=== PATIENT | female | born 1950 | race Caucasian/White ===

== ENCOUNTER 2024-06-01 09:39 | Outpatient (OUT) | payer MEDICARE, SELFPAY ==
[2024-06-01 10:18] LABS: Bilirubin Urine NEGATIVE (NEGATIVE); Blood Urine NEGATIVE (NEGATIVE); Clarity Urine CLEAR (CLEAR); Color Urine YELLOW (YELLOW); Glucose Urine UA NEGATIVE (NEGATIVE); Ketones Urine TRACE mg/dL (NEGATIVE); Leukocyte Esterase Urine SMALL (NEGATIVE); Nitrite Urine NEGATIVE (NEGATIVE); Protein Urine NEGATIVE (NEG/TRACE); Specific Gravity Urine >=1.030 (1.005-1.025); Urobilinogen Urine 0.2 EU/dL (0.2-1.0)
[2024-06-01 10:18] LABS: Basophils Percent Auto 0.4 % (0.2-2.0); Eosinophils Absolute Auto 0.4 10^3/uL (0.0-0.7); Eosinophils Percent Auto 4.9 % (0.9-7.0); Hematocrit 42.8 % (36.0-48.0); Hemoglobin 14.2 g/dL (12.0-16.0); Immature Granulocytes Abs Auto 0.02 10^3/uL (0.00-0.03); Immature Granulocytes Pct Auto 0.3 % (0.0-0.5); Lymphocytes Absolute Auto 1.5 10^3/uL (1.2-3.8); Lymphocytes Percent Auto 19.9 % (20.5-60.0); Mean Corpuscular HGB Conc 33.2 g/dL (29.9-35.2); Mean Corpuscular Hemoglobin 27.7 pg (26.7-34.0); Mean Corpuscular Volume 83.6 fL (81.0-99.0); Mean Platelet Volume 8.9 fL (9.5-13.5); Monocytes Absolute Auto 0.5 10^3/uL (0.3-0.8); Monocytes Percent Auto 6.1 % (1.7-12.0); Neutrophils Absolute Auto 5.1 10^3/uL (1.4-6.5); Neutrophils Percent Auto 68.4 % (43.0-75.0); Platelet Count 199 10^3/uL (150-450); Red Blood Count 5.12 10^6/uL (4.20-5.40); Red Cell Distribution Width 13.3 % (11.0-15.0); White Blood Count 7.4 10^3/uL (4.0-11.0)
[2024-06-01 10:52] LABS: RBC Urine NONE SEEN #/HPF (0-2)
[2024-06-01 10:53] LABS: Bacteria Urine SMALL #/HPF (NONE SEEN); Calcium Oxalate Crystals Urine MODERATE; Crystals Seen? Seen #/HPF (None Seen); Mucus Urine LARGE (NONE SEEN); Squamous Epithelial Cell Urine MANY #/LPF (NONE/RARE)
[2024-06-01 10:54] LABS: Urine Culture Indicated ALREADY ORDERED
[2024-06-01 11:02] LABS: Alanine Aminotransferase 27 U/L (14-59); Albumin Level 3.6 g/dL (3.4-5.0); Alkaline Phosphatase 110 U/L (46-116); Amylase 55 U/L (25-115); Anion Gap 14.4; Aspartate Amino Transferase 24 U/L (15-37); BUN Creatinine Ratio 10.6; Bilirubin Total 0.5 mg/dL (0.2-1.0); Calcium 9.3 mg/dL (8.5-10.1); Carbon Dioxide 23.7 mmol/L (21.0-32.0); Chloride 107 mmol/L (98-107); Chol HDL Ratio 3.1; Cholesterol 119 mg/dL (<=200); Estimated GFR (African America >60 (>=60); Estimated GFR (Non-African Ame 58 (>=60); Globulin 3.6 g/dL; Glucose 96 mg/dL (74-106); HDL Cholesterol 39 mg/dL (40-60); Potassium 4.1 mmol/L (3.5-5.1); Sodium 141 mmol/L (136-145); Thyroid Stimulating Hormone 1.671 uIU/mL (0.358-3.740); Total Protein 7.2 g/dL (6.4-8.2); Triglycerides 97 mg/dL (<=150); VLDL CHOLESTEROL 19.4 mg/dL
== END 2024-06-01 09:40 | disposition home or self-care (01) ==
LOC: LAB 09:45
PROVIDERS: PCP Family Medicine; Visit Provider Family Medicine
DX: E78.5 Hyperlipidemia, unspecified (principal); Z79.899 Other long term (current) drug therapy; R63.5 Abnormal weight gain; R35.1 Nocturia; Z80.0 Family history of malignant neoplasm of digestive organs
CPT/HCPCS: 36415; 80053; 80061; 81001; 82150; 83690; 84443; 85025; 87086

== ENCOUNTER 2024-11-02 12:25 | Observation (INO) | payer MEDICARE, SELFPAY ==
[2024-11-02] VITALS (22 sets, daily range): BP systolic 121–158; BP diastolic 70–94; PULSE 62–86; TEMP 36.4–36.7; O2SAT 93–100; BMI 32.8; BMI 33.3
[2024-11-02 12:38] LABS: Glucometer 145 mg/dL (74-106)
--- OUTSIDE RECORDS SUMMARY | 2024-11-02 12:40 | XMS_ITS | CCD ---
Author Organization [facility] Care Team Providers Care Patient Coordinator Name Role Phone TRABOULSSI, MOURHAF Unavailable Unavailable HEATON, BEAU Unavailable Unavailable TRABOULSSI, MOURHAF Unavailable Unavailable HEATON, BEAU Unavailable Unavailable TRABOULSSI, MOURHAF Unavailable Unavailable HEATON, BEAU Unavailable Unavailable Madison Abernathy Unavailable Bradley Adkins Unavailable Monster Harding Unavailable DO Monster Harding Primary Care Provider [phone] DO Madison Abernathy Attending Provider MADISON ABERNATHY Admitting Unavailable MADISON ABERNATHY Attending Unavailable DR MONSTER HARDING Primary Care Unavailable DO Monster Harding Primary Care Provider [phone] DO Madison Abernathy Attending Provider [phone] DO Monster Harding Primary Care Provider [phone] DO Madison Abernathy Attending Provider [phone] Marc Luciano Unavailable DO Monster Harding Primary Care Provider MD Jose Grullon Attending Provider [phone] DO Mickey Gaspar Emergency Provider MD Bradley Slade Attending Provider [phone] ERLIN COLLINS Attending Unavailable ERLIN COLLINS Referring Unavailable ERLIN COLLINS Referring Unavailable DO Monster Harding Primary Care Provider MD Bradley Adkins Attending Provider Monster Harding MD Primary Care Provider [phone] DO Monster Harding Primary Care Provider MD Bradley Adkins Attending Provider Monster Harding DO Primary Care Provider Bradley Adkins MD Attending Provider [phone] Bradley Adkins Admitting Unavailable Bradley Adkins Attending Unavailable Monster Harding Primary Care Unavailable Bradley Adkins Admitting Unavailable Bradley Adkins Attending Unavailable Monster Harding Primary Care Unavailable Bradley Adkins Admitting Unavailable Bradley Adkins Attending Unavailable Monster Harding Primary Care Unavailable Allergies Allergy Classification Reported Allergen(s) Allergy Type Date of Onset Reaction(s) Facility (20 sources) Contrast media; Translations: [red dye] Propensity to adverse reactions 05-11-2024 [facility] (17 sources) Povidone-Iodine; Translations: [povidone-iodine ] Drug Allergy 10-10-2021 [facility] Medications Current Medications Medication Drug Class(es) Dates Sig (Normalized) Sig (Original) Aspir-81 81 MG (9 sources) take 1 tablet by mouth once daily Aspir-81 81 MG 1 tablet Orally Once a day Active azithromycin 250 mg oral tablet (3 sources) Macrolide Antimicrobial Start: 02-19-2022 Azithromycin 250 MG 2 tablet on the first day, then 1 tablet daily for 4 days Orally Once a day for 5 day(s) February, Active CBD gummies (5 sources) CBD gummies Acti ve cyclobenzaprine hydrochloride 5 mg oral tablet (7 sources) Muscle Relaxant Start: 12-06-2021 take 1 tablet by mouth every twenty-four hours Cyclobenzaprine HCl 5 MG 1 tablet at bedtime as needed Orally Once a day for 30 day(s) Dec, Active Echinacea (9 sources) Echinacea Active Garlic preparation (3 sources) Non-Standardized Food Allergenic Extract Garlic Active ibuprofen 200 mg oral tablet (20 sources) Nonsteroidal Anti-inflammatory Drug Start: 05-11-2024 take 1 tablet by mouth every six hours as needed for pain Ibuprofen 200 mg tablet Active 200 MG PO Every 6 hours as needed for pain May 10, 2024 11:00pm Start: 08-16-2022 End: 05-13-2023 take 1 tablet by mouth once daily as needed for pain Ibuprofen 600 mg Tablet Discontinued 600 MG PO Daily as needed for Pain August 16, 2022 12:00am May 13, 2023 2:25am Ibuprofen OTC Ac tive meclizine hydrochloride 50 mg oral tablet (20 sources) Antiemetic Start: 11-05-2023 take 1 tablet by mouth once daily as needed for dizziness Meclizine (Antivert) 50 mg tablet Active 50 MG PO Daily as needed for dizziness November 05, 2023 12:00am Start: 07-29-2018 End: 05-13-2023 take 1 tablet by mouth once daily as needed Meclizine 25 mg tablet Discontinued 25 MG PO Daily as needed for Vertigo June 04, 2019 11:00pm May 13, 2023 2:25am Start: 07-29-2018 take 1 tablet by julissa th three times daily as needed Meclizine HCl 25 MG 1 tablet Orally tid prn Jul, Active methylPREDNISolone 4 mg oral tablet (1 source) Corticosteroid Start: 12-06-2021 Medrol 4 MG as directed Orally Dec, Active nabumetone 750 mg oral tablet (2 sources) Nonsteroidal Anti-inflammatory Drug Start: 05-05-2021 take 1 tablet by mouth every twelve hours Nabumetone 750 MG 1 tablet Orally Twice a day for 30 day(s) Apr, Active naproxen 500 mg oral tablet (7 sources) Nonsteroidal Anti-inflammatory Drug Start: 12-06-2021 take 1 tablet by mouth every twelve hours at mealtime as needed Naproxen 500 MG 1 tablet with food or milk as needed Orally every 12 hrs for 30 day(s) do not start until done with Medrol dose pack Dec, Active phentermine hydrochloride 37.5 mg oral tablet (20 sources) Sympathomimetic Amine Anorectic Start: 10-21-2024 take 1 tablet by mouth once daily Phentermine (Adipex-P) 37.5 mg tablet Active 37.5 MG PO Daily October 21, 2024 10:14am Start: 08-18-2024 End: 10-21-2024 take 1 tablet by mouth every other day Phentermine (Adipex-P) 37.5 mg tablet Discontinued 37.5 MG PO every other day October 21, 2024 10:05am October 21, 2024 10:15am Start: 11-05-2023 End: 08-18-2024 take 1 tablet by mouth once daily in the morning Phentermine (Adipex-P) 37.5 mg tablet Discontinued 37.5 MG PO Every morning July 07, 2024 9:46am August 18, 2024 10:30am Start: 10-21-2023 take 1 tablet by julissa th once daily in the morning Phentermine HCl 37.5 MG 1 tablet Orally qd am for 30 days Pt will pay pino for this, no PA will be done Oct, Active traMADol hydrochloride 50 mg oral tablet (9 sources) Opioid Agonist Start: 12-06-2021 take 1 tablet by mouth every four to six hours as needed traMADol HCl 50 MG 1 tablet as needed Orally EVERY 4-6 HOURS NEEDED Dec, Active traMADol HCl 50 MG 1 tablet as needed for severe pain Orally every 6-8 hours for 7 days Active triamcinolone acetonide 1 mg/ml topical cream (20 sources) Corticosteroid Start: 09-03-2023 triamcinolone (Kenalog) 0.1 % cream Indications: Acute vaginitis Apply topically 2 (two) times a day. 28.4 g 3 09/03/2023 Active Start: 04-28-2021 Kenalog -40 mg Apr, 40 mg Vitamin C 1000 MG (12 sources) take 1 tablet by julissa th once daily Vitamin C 1000 MG 1 tablet Orally Once a day Active Vitamin D3 125 MCG (5000 UT) (8 sources) Vitamin D3 125 M CG (5000 UT) as directed Orally Active Completed/Discontinued Medications Medication Drug Class(es) Dates Sig (Normalized) Sig (Original) acetaminophen 500 mg oral tablet (20 sources) Start: 08-16-2022 End: 05-13-2023 take 3 tablets by mouth twice daily Acetaminophen 500 mg Tablet Discontinued 1500 MG PO Twice daily August 16, 2022 12:00am May 13, 2023 2:25am Start: 08-16-2022 End: 05-13-2023 take 1500 mg by mouth twice daily Acetaminophen Discontinued 1500 MG PO Twice daily August 16, 2022 1:00am May 13, 2023 3:25am take 1 tablet by julissa th every four hours Tylenol 325 MG 1 tablet as needed Orally every 4 hrs Active Ascorbic Acid (20 sources) Vitamin C Start: 06-09-2019 End: 05-13-2023 take 1 tablet by mouth once daily Ascorbic Acid (Vitamin C) (C-1000) ,000 mg Tablet Discontinued 1 TAB PO Daily June 08, 2019 11:00pm May 13, 2023 2:25am Start: 06-09-2019 End: 05-13-2023 take 1 tablet by mouth once daily Ascorbic Acid (Vitamin C) (C-1000) 1,000 mg Tablet Discontinued 1 TAB PO Daily June 09, 2019 12:00am May 13, 2023 3:25am Start: 06-09-2019 take 1 tablet by julissa th once daily Ascorbic Acid (Vitamin C) (C-1000) 1,000 mg Tablet Active 1 TAB PO Daily June 08, 2019 11:00pm Start: 06-09-2019 take 1 tablet by julissa th once daily Ascorbic Acid (Vitamin C) (C-1000) 1,000 mg Tablet Active 1 TAB PO Daily June 09, 2019 12:00am take 1 tablet by julissa th every twenty-four hours Vitamin C 1000 MG 1 tablet Orally Once a day Active aspirin 81 mg delayed release oral tablet (20 sources) Platelet Aggregation Inhibitor, Nonsteroidal Anti-inflammatory Drug Start: 10-17-2021 End: 08-16-2022 take 1 tablet by mouth twice daily Aspirin 81 mg tablet,delayed release (DR/EC) Discontinued 81 MG PO Twice daily 42 October 17, 2021 12:00am August 16, 2022 4:45pm Start: 10-10-2021 End: 10-17-2021 take 1 tablet by mouth once daily Aspirin (Aspirin Low Dose) 81 mg Tablet,Delayed Release (Dr/Ec) Discontinued 81 MG PO Daily October 10, 2021 12:00am October 17, 2021 11:05am Start: 10-08-2017 End: 10-10-2021 take 1 tablet by mouth once daily Aspirin 81 mg Tablet,Chewable Discontinued 81 MG PO Daily October 08, 2017 12:00am October 10, 2021 12:36pm Cannabinoids (13 sources) Start: 06-05-2019 End: 10-10-2021 Cannabinoids Discontinued 15 MG PO As Directed June 04, 2019 11:00pm October 10, 2021 12:42pm DIRECTED Start: 06-05-2019 End: 10-10-2021 Cannabinoids Discontinued 15 MG PO As Directed June 05, 2019 12:00am October 10, 2021 1:42pm DIRECTED Cannabinoids 15 MG (4 sources) Start: 06-05-2019 End: 10-10-2021 Cannabinoids 15 MG Discontin ued 15 MG PO As Directed June 04, 2019 11:00pm October 10, 2021 12:42pm DIRECTED Cbd (13 sources) Start: 10-10-2021 End: 05-13-2023 Cbd Discontinued 1 CAP PO As Directed October 10, 2021 12:00am May 13, 2023 2:25am Start: 10-10-2021 End: 05-13-2023 Cbd Discontinued 1 CAP PO As Directed October 10, 2021 1:00am May 13, 2023 3:25am Start: 10-10-2021 Cbd Active 1 C AP PO As Directed October 10, 2021 12:00am Start: 10-10-2021 Cbd Active 1 C AP PO As Directed October 10, 2021 1:00am Cbd 1 cap (4 sources) Start: 10-10-2021 End: 05-13-2023 Cbd 1 cap Discontinued 1 CAP PO As Directed as needed for joint pain October 10, 2021 12:00am May 13, 2023 2:25am cephalexin 500 mg oral capsule (9 sources) Cephalosporin Antibacterial Start: 05-11-2024 End: 06-10-2024 take 1 capsule by mouth three times daily Cephalexin 500 mg capsule Discontinued 500 MG PO Three times daily 26 04May 10, 2024 11:00pm June 10, 2024 8:56am cholecalciferol 0.025 mg oral capsule (20 sources) Vitamin D Start: 10-10-2021 End: 05-13-2023 take 1 capsule by mouth once daily Cholecalciferol (Vitamin D3) (Vitamin D3) 25 mcg (1,000 unit) Capsule Discontinued 25 MCG PO Daily October 10, 2021 12:00am May 13, 2023 2:25am Vitamin D3 125 M CG (5000 UT) as directed Orally Active Elderberry preparation (20 sources) Start: 10-10-2021 End: 05-13-2023 take 1 capsule by mouth once daily Elderberry 1 cap Discontinued 1 CAP PO Daily October 10, 2021 12:00am May 13, 2023 2:25am Start: 10-10-2021 End: 05-13-2023 take 1 capsule by mouth once daily Elderberry Discontinued 1 CAP PO Daily October 10, 2021 12:00am May 13, 2023 2:25am Start: 10-10-2021 End: 05-13-2023 take 1 capsule by mouth once daily Elderberry Discontinued 1 CAP PO Daily October 10, 2021 1:00am May 13, 2023 3:25am Start: 10-10-2021 take 1 capsule by mo uth once daily Elderberry Active 1 CAP PO Daily October 10, 2021 12:00am Start: 10-10-2021 take 1 capsule by mo uth once daily Elderberry Active 1 CAP PO Daily October 10, 2021 1:00am Elderberry Activ e folic acid 1 mg oral tablet (17 sources) Start: 10-08-2017 End: 06-09-2019 take 1 tablet by mouth once daily Folic Acid 1 mg Tablet Discontinued 1 MG PO Daily October 08, 2017 12:00am June 09, 2019 12:09pm methotrexate 2.5 mg oral tablet (17 sources) Folate Analog Metabolic Inhibitor Start: 10-08-2017 End: 06-09-2019 take 1 tablet by mouth every week Methotrexate Sodium 2.5 mg Tablet Discontinued 2.5 MG PO every week October 08, 2017 12:00am June 09, 2019 12:09pm ondansetron 4 mg oral tablet (12 sources) Serotonin-3 Receptor Antagonist Start: 05-13-2023 End: 11-05-2023 take 1 tablet by mouth once daily as needed for nausea and vomiting Ondansetron Hcl 4 mg tablet Discontinued 4 MG PO Daily as needed for nausea and vomiting 5 May 12, 2023 11:00pm November 05, 2023 8:34am oxyCODONE hydrochloride 5 mg oral tablet (20 sources) Opioid Agonist Start: 05-13-2023 End: 05-21-2023 take 1 tablet by mouth once daily as needed for pain Oxycodone 5 mg tablet Discontinued 5 MG PO Daily as needed for severe pain 02 08May 13, 2023 May 21, 2023 10:01am Start: 10-17-2021 End: 08-16-2022 take 1 tablet by mouth every six hours as needed for pain Oxycodone (Roxicodone) 5 mg tablet Discontinued 5 MG PO Q6H as needed for pain 25 04October 17, 2021 August 16, 2022 4:45pm oxyCODONE HCl Ac tive predniSONE 20 mg oral tablet (9 sources) Start: 05-11-2024 End: 06-10-2024 take 3 tablets by mouth once daily at mealtime, then take 2 tablets by mouth once daily, then take 1 tablet by mouth once daily at mealtime Prednisone 20 mg tablet Discontinued 0 PO .with food or milk 18 9 May 10, 2024 11:00pm June 10, 2024 8:57am take 3 tablets a day x3 days, 2 tabs a day x3 days and then 1 tab a day x3 days orally WITH FOOD OR MILK; Zinc (20 sources) Start: 10-10-2021 End: 05-13-2023 take 1 tablet by mouth once daily Zinc 50 mg Tablet Discontinued 50 MG PO Daily October 10, 2021 12:00am May 13, 2023 2:25am Start: 10-10-2021 End: 05-13-2023 take 50 mg by mouth once daily Zinc Discontinued 50 MG PO Daily October 10, 2021 12:00am May 13, 2023 2:25am Start: 10-10-2021 End: 05-13-2023 take 50 mg by mouth once daily Zinc Discontinued 50 MG PO Daily October 10, 2021 1:00am May 13, 2023 3:25am Start: 10-10-2021 take 50 mg by mouth once daily Zinc Active 50 MG PO Daily October 10, 2021 12:00am Start: 10-10-2021 take 50 mg by mouth once daily Zinc Active 50 MG PO Daily October 10, 2021 1:00am take 1 tablet by julissa th once daily Zinc 100 MG 1 tablet Orally Once a day Active Problems Active Problems Problem Classification Problem Date Documented Da te Episodic/Chronic Allergic reactions (19 sources) Inflammatory dermatosis; Translations: [Dermatitis, unspecified] 05-11-2024 Episodic Conditions associated with dizziness or vertigo (3 sources) Labyrinthitis, unspecified ear Episodic Disorders of lipid metabolism (20 sources) Hyperlipidemia; Translations: [Hyperlipidemia, unspecified] Chronic Genitourinary symptoms and ill-defined conditions (20 sources) Female stress incontinence; Translations: [Stress incontinence (female) (male)] Chronic Headache; including migraine (4 sources) Headache; Translations: [Headache] 10-21-2024 Episodic Joint disorders and dislocations; trauma-related (20 sources) Internal derangement of left knee; Translations: [Unspecified internal derangement of left knee] Chronic Osteoarthritis (20 sources) Arthritis of left knee; Translations: [Unilateral primary osteoarthritis, left knee] Onset: 1 Resolved: 2 Chronic Other bone disease and musculoskeletal deformities (1 source) Chondromalacia, right hip Episodic Other connective tissue disease (5 sources) Trochanteric bursitis, right hip; Translations: [TROCHANTERIC BURSITIS RIGHT HIP] Onset: 2 Resolved: 2 Episodic Other disorders of stomach and duodenum (20 sources) Upset stomach; Translations: [Functional dyspepsia] Episodic Other gastrointestinal disorders (17 sources) Stool DNA-based colorectal cancer screening positive; Translations: [Other fecal abnormalities] 10-09-2017 Episodic Other lower respiratory disease (20 sources) Fibrosis of lung; Translations: [Pulmonary fibrosis, unspecified] Chronic Other lower respiratory disease (20 sources) Granulomatous disorder; Translations: [Pulmonary fibrosis, unspecified] Chronic Other lower respiratory disease (20 sources) Lung field abnormal; Translations: [Other nonspecific abnormal finding of lung field] Episodic Other nervous system disorders (20 sources) Chronic pain; Translations: [Other chronic pain] 08-04-2024 Chronic Other nervous system disorders (18 sources) Other chronic pain; Translations: [Other chronic pain] Onset: 2 Resolved: 2 Chronic Other nervous system disorders (1 source) Other chronic pain; Translations: [Other chronic pain] Onset: 4 Chronic Other nervous system disorders (20 sources) Skin sensation disturbance; Translations: [Paresthesia of skin] Episodic Other nervous system disorders (20 sources) Paresthesia; Translations: [Paresthesia of skin] Episodic Other non-traumatic joint disorders (2 sources) Pain in right hip Onset: 2 Resolved: 2 Episodic Other non-traumatic joint disorders (12 sources) Hip pain; Translations: [Pain in unspecified hip] 05-13-2023 Episodic Other non-traumatic joint disorders (6 sources) Pain in unspecified knee; Translations: [Knee pain] 08-04-2024 Episodic Other nutritional; endocrine; and metabolic disorders (19 sources) Abnormal weight gain; Translations: [Abnormal weight gain] Episodic Other nutritional; endocrine; and metabolic disorders (3 sources) Weight gain; Translations: [Abnormal weight gain] 05-11-2024 Episodic Other nutritional; endocrine; and metabolic disorders (6 sources) Weight increased; Translations: [Abnormal weight gain] 05-11-2024 Episodic Residual codes; unclassified (9 sources) Family history of malignant neoplasm of pancreas; Translations: [Family history of malignant neoplasm of digestive organs] 05-11-2024 Episodic Residual codes; unclassified (5 sources) Family history of malignant neoplasm of digestive organs; Translations: [Family history of malignant neoplasm of gastrointestinal tract] 06-10-2024 Episodic Rheumatoid arthritis and related disease (20 sources) Rheumatoid arthritis; Translations: [Rheumatoid arthritis, unspecified] Chronic Spondylosis; intervertebral disc disorders; other back problems (20 sources) Solitary sacroiliitis; Translations: [Sacroiliitis, not elsewhere classified] Onset: 2 Resolved: 2 Chronic Spondylosis; intervertebral disc disorders; other back problems (20 sources) Sciatica; Translations: [Sciatica, unspecified side] 05-13-2023 Episodic Unclassified (2 sources) Shortness of breath / R06.02(ICD-9) Onset: 8 Unclassified (1 source) Obesity, unspecified / E66.9(ICD-9) Onset: 8 Unclassified (1 source) Rheumatoid arthritis, unspecified / M06.9(ICD-9) Onset: 8 Unclassified (2 sources) Chest pain, unspecified / R07.9(ICD-9) Onset: 7 Unclassified (1 source) LOW BACK PAIN, UNSPECIFIED; Translations: [LOW BACK PAIN, UNSPECIFIED] Onset: 2 Unclassified (1 source) OTHER LOW BACK PAIN; Translations: [OTHER LOW BACK PAIN] Onset: 2 Past or Other Problems Problem Classification Problem Date Documented Date Episodic/Chronic Joint disorders and dislocations; trauma-related (2 sources) Other tear of medial meniscus, current injury, left knee, subsequent encounter Onset: 10-04-2021 Resolved: 12-06-2021 Episodic Nonspecific chest pain (1 source) Chest pain, unspecified; Translations: [Chest pain, unspecified] Onset: 09-11-2017 Episodic Other connective tissue disease (1 source) Synovial cyst of popliteal space [[place]], left knee Onset: 10-04-2021 Resolved: 10-04-2021 Episodic Other lower respiratory disease (1 source) Shortness of breath; Translations: [Shortness of breath] Onset: 10-17-2017 Episodic Other non-traumatic joint disorders (1 source) Pain in left knee Onset: 10-04-2021 Resolved: 10-04-2021 Episodic Residual codes; unclassified (1 source) Other specified postprocedural states Onset: 12-06-2021 Resolved: 12-06-2021 Episodic Sprains and strains (1 source) Sprain of other specified parts of left knee, subsequent encounter Onset: 10-04-2021 Resolved: 10-04-2021 Episodic Unclassified (5 sources) Lumbar back pain M54.50 Onset: 01-03-2022 Resolved: 05-09-2022 Unclassified (5 sources) Other low back pain M54.59 Onset: 02-07-2022 Resolved: 05-09-2022 Results Test Name Value Interpretation Reference Range Facility XR knee LT 2Von 08-04-2024 XR knee LT 2V [facility] [address] [place] [address] XRay Report Signed Patient: Marisol Cantrell MR#: [id number] : 1950 Acct:[id number] Age/Sex: 74 / F ADM Date: 08/04/24 Loc: [facility] Room: Type: [facility] Attending Dr: Bradley Adkins MD Copies to: Bradley Adkins MD Ordering Provider: Bradley Adkins MD Date of Service: 08/04/24 XR/XR knee LT 2V: M17.12 - Unilateral primary osteoarthritis, left knee 2 views LEFT knee plain film COMPARISON: 03/27/21 HISTORY: Generalized LEFT knee pain for weeks ACUTE FINDINGS: No acute findings DEGENERATIVE CHANGE: Progressive extensive medial compartment degeneration. Mild patellofemoral degeneration. SOFT TISSUE FINDINGS: Unremarkable JOINT EFFUSION: None POSTOP CHANGES: None BONE MINERALIZATION: Adequate XR/XR knee LT 2V IMPRESSION: Progressive extensive medial compartment degeneration. Impression dictated by: Lobo Velasquez M.D.08/04/2024 6:05 PM Dictation Location: [place] [address] Transcribed By: RYLEY 08/04/241804 Dictated By: Lobo Velasquez DO 08/04/241803 Signed By: 08/04/241804 Normal [facility] Basophils Auto (Bld) [#/Vol] on 06-01-2024 Basophils (Bld) [#/Vol] 0.0 10 3/uL 0.0-0.1 [facility] Basophils (Bld) [#/Vol] Automated basoph il count 0.0-0.1 [facility] Basophils/100 WBC Auto (Bld) on 06-01-2024 Basophils/100 WBC (Bld) 0.4 % 0.2-2.0 [facility] Basophils/100 WBC (Bld) Automated basoph il % 0.2-2.0 [facility] Cholesterol in LDL Calc [Mas s/Vol]on 06-01-2024 Cholesterol in LDL [Mass/Vol] 61.0 mg/dL [facility] Comment on above: <100 mg/dl [id number] 0-129 mg/dl NEAR OR ABOVE [id number] mg/dl BORDERLINE [id number] mg/dl HIGH>190 mg/dl VERY HIGH Cholesterol in LDL [Mass/Vol] Cholesterol in LDL [Mass/volume] in Serum or Plasma by calculation [facility] Comment on above: <100 mg/dl [id number] 0-129 mg/dl NEAR OR ABOVE [id number] mg/dl BORDERLINE [id number] mg/dl HIGH>190 mg/dl VERY HIGH Cholesterol in VLDL Calc [Ma ss/Vol]on 06-01-2024 Cholesterol in VLDL [Mass/Vol] 19.4 mg/dL [facility] Cholesterol in VLDL [Mass/Vol] Cholesterol in VLDL [Mass/volume] in Serum or Plasma by calculation [facility] Eosinophils/100 WBC Auto (Bl d)on 06-01-2024 Eosinophils/100 WBC (Bld) 4.9 % 0.9-7.0 [facility] Eosinophils/100 WBC (Bld) Automated eosinophil % 0.9-7.0 [facility] Erythrocyte distribution wid th Auto (RBC) [Ratio]on 06-01-2024 Erythrocyte distribution width (RBC) [Ratio] 13.3 % 11.0-15.0 [facility] Erythrocyte distribution width (RBC) [Ratio] Erythrocyte distribution width [Ratio] by Automated count 11.0-15.0 [facility] Estimated glomerular filtrat ion rate (GFR) non- Americanon 06-01-2024 GFR/1.73 sq M.predicted among non-blacks MDRD (S/P/Bld) [Vol rate/Area] 58 mL/min/{1.73_m2} Low >=60 [facility] GFR/1.73 sq M.predicted among non-blacks MDRD (S/P/Bld) [Vol rate/Area] Estimated glomerular filtration rate (GFR) non- Low >=60 [facility] Globulin Calc (S) [Mass/Vol] on 06-01-2024 Globulin (S) [Mass/Vol] 3.6 g/dL [facility] Globulin (S) [Mass/Vol] Serum globulin measurement by calculation (mass/volume) [facility] Hematocrit Auto (Bld) [Volum e fraction]on 06-01-2024 Hematocrit (Bld) [Volume fraction] 42.8 % 36.0-48.0 [facility] Hematocrit (Bld) [Volume fraction] Hematocrit [Volume Fraction] of Blood by Automated count 36.0-48.0 [facility] Hemoglobin [Mass/volume] in Bloodon 06-01-2024 Hemoglobin (Bld) [Mass/Vol] 14.2 g/dL 12.0-16.0 [facility] Hemoglobin (Bld) [Mass/Vol] Hemoglobin [Mass/volume] in Blood 12.0-16.0 [facility] Laboratory - Chemistry and C hemistry - challengeon 06-01-2024 Albumin [Mass/Vol] 3.6 g/dL 3.4-5.0 [facility] ALP [Catalytic activity/Vol] 110 U/L 46-116 [facility] ALT [Catalytic activity/Vol] 27 U/L 14-59 [facility] Amylase [Catalytic activity/Vol] 55 U/L 25-115 [facility] AST [Catalytic activity/Vol] 24 U/L 15-37 [facility] Bilirubin [Mass/Vol] 0.5 mg/dL 0.2-1.0 [facility] Calcium [Mass/Vol] 9.3 mg/dL 8.5-10.1 [facility] Chloride [Moles/Vol] 107 mmol/L 98-107 [facility] Cholesterol [Mass/Vol] 119 mg/dL <=200 [facility] Cholesterol in HDL [Mass/Vol] 39 mg/dL Low 40-60 [facility] Comment on above: > or =60 mg/dl - LOW CARDIOVASCULAR RISK<40 mg/dl - HIGH CARDIOVASCULAR RISK CO2 [Moles/Vol] 23.7 mmol/L 21.0-32.0 [facility] Creatinine [Mass/Vol] 0.94 mg/dL 0.55-1.02 [facility] GFR/1.73 sq M.predicted MDRD (S/P/Bld) [Vol rate/Area] mL/min/{1.73_m2} >=60 [facility] Glucose [Mass/Vol] 96 mg/dL 74-106 [facility] Lipase [Catalytic activity/Vol] 34.0 U/L 16.0-77.0 [facility] Potassium [Moles/Vol] 4.1 mmol/L 3.5-5.1 [facility] Protein [Mass/Vol] 7.2 g/dL 6.4-8.2 [facility] Sodium [Moles/Vol] 141 mmol/L 136-145 [facility] Triglyceride [Mass/Vol] 97 mg/dL <=150 [facility] TSH Qn 1.671 m[IU]/L 0.358-3.740 [facility] Urea nitrogen [Mass/Vol] 10.0 mg/dL 7.0-18.0 [facility] Urea nitrogen/Creatinine [Mass ratio] 10.6 mg/mg [facility] Bilirubin Ql (U) Negative NEGATIVE [facility] Glucose (U) [Mass/Vol] Negative NEGATIVE [facility] Ketones Ql (U) TRACE mg/dL Abnormal NEGATIVE [facility] pH (U) 6.0 [pH] 5.0-9.0 [facility] Specific gravity (U) [Rel density] >=1.030 Abnormal 1.005-1.025 [facility] Urobilinogen Qn (U) 0.2 {Nery'U}/dL 0.2-1.0 [facility] Laboratory - Hematology and Cell countson 06-01-2024 Immature granulocytes/100 WBC (Bld) 0.3 % 0.0-0.5 [facility] - Specimen inform ationon 06-01-2024 Appearance (U) CLEAR CLEAR [facility] Color (U) YELLOW YELLOW [facility] - Urinalysison Leukocyte esterase Test strip Ql (U) SMALL Abnormal NEGATIVE [facility] Mucus Ql (Urine sed) LARGE Abnormal NONE SEEN [facility] Nitrite Ql (U) Negative NEGATIVE [facility] Protein Ql (U) Negative NEG/TRACE [facility] Leukocytes [#/volume] correc piotr for nucleated erythrocytes in Blood by Automated counon 06-01-2024 WBC corrected for nucl RBC Auto (Bld) [#/Vol] 7.4 10 3/uL 4.0-11.0 [facility] WBC corrected for nucl RBC Auto (Bld) [#/Vol] Leukocytes [#/volume] corrected for nucleated erythrocytes in Blood by Automated coun 4.0-11.0 [facility] Lymphocytes Auto (Bld) [#/Vo l]on 06-01-2024 Lymphocytes (Bld) [#/Vol] 1.5 10 3/uL 1.2-3.8 [facility] Lymphocytes (Bld) [#/Vol] Lymphocytes [#/volume] in Blood by Automated count 1.2-3.8 [facility] Lymphocytes/100 WBC Auto (Bl d)on 06-01-2024 Lymphocytes/100 WBC (Bld) 19.9 % Low 20.5-60.0 [facility] Lymphocytes/100 WBC (Bld) Lymphocytes/100 leukocytes in Blood by Automated count Low 20.5-60.0 [facility] MCH Auto (RBC) [Entitic mass ]on 06-01-2024 MCH (RBC) [Entitic mass] 27.7 pg 26.7-34.0 [facility] MCH (RBC) [Entitic mass] MCH [Entitic ma ss] by Automated count 26.7-34.0 [facility] MCHC Auto (RBC) [Mass/Vol]on 06-01-2024 MCHC (RBC) [Mass/Vol] 33.2 g/dL 29.9-35.2 [facility] MCHC (RBC) [Mass/Vol] MCHC [Mass/volume] by Automated count 29.9-35.2 [facility] MCV Auto (RBC) [Entitic vol] on 06-01-2024 MCV (RBC) [Entitic vol] 83.6 fL 81.0-99.0 [facility] MCV (RBC) [Entitic vol] MCV [Entitic volume] by Automated count 81.0-99.0 [facility] Monocytes Auto (Bld) [#/Vol] on 06-01-2024 Monocytes (Bld) [#/Vol] 0.5 10 3/uL 0.3-0.8 [facility] Monocytes (Bld) [#/Vol] Automated blood monocyte count 0.3-0.8 [facility] Monocytes/100 WBC Auto (Bld) on 06-01-2024 Monocytes/100 WBC (Bld) 6.1 % 1.7-12.0 [facility] Monocytes/100 WBC (Bld) Automated monocy te % 1.7-12.0 [facility] Neutrophils Auto (Bld) [#/Vo l]on 06-01-2024 Neutrophils (Bld) [#/Vol] 5.1 10 3/uL 1.4-6.5 [facility] Neutrophils (Bld) [#/Vol] Neutrophils [#/volume] in Blood by Automated count 1.4-6.5 [facility] Neutrophils/100 WBC Auto (Bl d)on 06-01-2024 Neutrophils/100 WBC (Bld) 68.4 % 43.0-75.0 [facility] Neutrophils/100 WBC (Bld) Automated neutrophil % 43.0-75.0 [facility] No Panel Informationon 06-01 Eosinophils # (Auto) 0.4 10 3/uL 0.0-0.7 [facility] Immature Granulocyte # (Auto) 0.02 10 3/uL 0.00-0.03 [facility] Urine Bacteria SMALL #/HPF Abnormal NONE SEEN [facility] Urine Calcium Oxalate Crystals MODERATE [facility] Urine Culture Reflexed ALREADY ORDERED [facility] Urine Occult Blood Negative NEGATIVE [facility] Urine Other Crystals Seen #/HPF Abnormal None Seen [facility] Urine RBC NONE SEEN #/HPF 0-2 [facility] Urine Squamous Epithelial Cells MANY #/LPF Abnormal NONE/RARE [facility] Urine WBC 10-20 #/HPF Abnormal NONE SEEN [facility] Platelet mean volume Auto (B ld) [Entitic vol]on 06-01-2024 Platelet mean volume (Bld) [Entitic vol] 8.9 fL Low 9.5-13.5 [facility] Platelet mean volume (Bld) [Entitic vol] Platelet mean volume [Entitic volume] in Blood by Automated count Low 9.5-13.5 [facility] Platelets Auto (Bld) [#/Vol] on 06-01-2024 Platelets (Bld) [#/Vol] 199 10 3/uL 150-450 [facility] Platelets (Bld) [#/Vol] Platelets [#/volume] in Blood by Automated count 150-450 [facility] RBC Auto (Bld) [#/Vol]on RBC (Bld) [#/Vol] 5.12 10 6/uL 4.20-5.40 [facility] RBC (Bld) [#/Vol] Erythrocytes [#/volume] in Blood by Automated count 4.20-5.40 [facility] Serum or plasma albumin/glob ulin mass ratioon 06-01-2024 Albumin/Globulin [Mass ratio] 1.0 {ratio} [facility] Albumin/Globulin [Mass ratio] Serum or plasma albumin/globulin mass ratio [facility] Serum or plasma anion gap de terminationon 06-01-2024 Anion gap [Moles/Vol] 14.4 mmol/L [facility] Anion gap [Moles/Vol] Serum or plasma anion gap determination [facility] Serum or plasma total choles terol/high density lipoprotein (HDL) cholesterol mass tom 06-01-2024 Cholesterol.total/Choles terol in HDL [Mass ratio] 3.1 {ratio} [facility] Comment on above: 3.3 - 4.4 LOW RISK4. 4 - 7.1 AVERAGE RISK7.1 - 11.0 MODERATE RISK>11.0 HIGH RISK Cholesterol.total/Choles terol in HDL [Mass ratio] Serum or plasma total cholesterol/high density lipoprotein (HDL) cholesterol mass rat [facility] Comment on above: 3.3 - 4.4 LOW RISK4. 4 - 7.1 AVERAGE RISK7.1 - 11.0 MODERATE RISK>11.0 HIGH RISK BI MAMMOGRAM SCREENING TOMOS YNTHESIS BILATERALon 09-03-2023 BI MAMMOGRAM SCREENING TOMOSYNTHESIS BILATERAL This is a summary report. The complete report is available in the patient's medical record. If you cannot access the medical record, please contact the sending organization for a detailed fax or copy. EXAMINATION: BI MAMMOGRAM SCREENING TOMOSYNTHESIS BILATERAL CLINICAL HISTORY: screening by mammogram COMPARISON: [facility] dating back to 2014. RESULT: 3-D tomosynthesis imaging of the bilateral breast(s) was performed. Density: Scattered fibroglandular density [2] There are no suspicious masses or asymmetries, areas of architectural distortion or suspicious areas of microcalcifications . Vascular calcifications. IMPRESSION: BIRADS 2 - Benign Recommended follow-up: Routine Screening Mamm Board Certified Radiologists. Accredited by the ACR and FDA. MAMMOGRAPHY IS VERY IMPORTANT TO YOUR HEALTH. THE [employer] GUIDELINES RECOMMEND THAT WOMEN 40 YEARS OF AGE AND OLDER SHOULD HAVE A MAMMOGRAM EVERY YEAR. A REMINDER LETTER WILL BE SENT AT THE APPROPRIATE TIME. THIS FACILITY UTILIZES A REMINDER SYSTEM TO ENSURE ALL PATIENTS RECEIVE REMINDER NOTIFICATIONS AT THE APPROPRIATE TIME BASED ON THE RECOMMENDATIONS OF THIS EXAM. THIS INCLUDES REMINDERS FOR ROUTINE SCREENING MAMMOGRAMS, DIAGNOSTIC MAMMOGRAMS IN WHICH THE PATIENT IS ASKED TO RETURN FOR ADDITIONAL VIEWS, OR OTHER BREAST IMAGING INTERVENTIONS WHEN APPROPRIATE. THE PATIENT WILL BE PLACED IN THE APPROPRIATE REMINDER SYSTEM INCLUDING A REMINDER AT THE APPROPRIATE TIME FOR ANY PENDING ADDITIONAL VIEWS. ELECTRONICALLY SIGNED BY: Beau Peters MD Normal Not Available Comment on above: Order Comment: Spot compression and us prn Basophils Auto (Bld) [#/Vol] Ordered By: Madison Abernathy on 08-16-2022 Basophils (Bld) [#/Vol] 0.0 10*3/uL 0.0-0.2 [facility] Basophils/100 WBC Auto (Bld) Ordered By: Madison Abernathy on 08-16-2022 Basophils/100 WBC (Bld) 0.6 % . [facility] Creatinine and Glomerular fi ltration rate.predicted panel (S/P/Bld)Ordered By: Madison Abernathy on 08-16-2022 Creatinine [Mass/Vol] 0.82 mg/dL 0.44-1.03 [facility] Eosinophils Auto (Bld) [#/Vo l]Ordered By: Madison Abernathy on 08-16-2022 Eosinophils (Bld) [#/Vol] 0.2 10*3/uL 0.0-0.45 [facility] Eosinophils/100 WBC Auto (Bl d)Ordered By: Madison Abernathy on 08-16-2022 Eosinophils/100 WBC (Bld) 3.1 % . [facility] Erythrocyte distribution wid th Auto (RBC) [Ratio]Ordered By: Madison Abernathy on 08-16-2022 Erythrocyte distribution width (RBC) [Ratio] 13.9 % 11.9-15.3 [facility] Estimated glomerular filtrat ion rate (GFR) non- AmericanOrdered By: Madison Abernathy on 08-16-2022 GFR/1.73 sq M.predicted among non-blacks MDRD (S/P/Bld) [Vol rate/Area] > 60 mL/Min [facility] Hematocrit Auto (Bld) [Volum e fraction]Ordered By: Madison Abernathy on 08-16-2022 Hematocrit (Bld) [Volume fraction] 38.8 % 34.0-46.4 [facility] Hemoglobin [Mass/volume] in BloodOrdered By: Madison Abernathy on 08-16-2022 Hemoglobin (Bld) [Mass/Vol] 12.9 g/dL 11.8-15.4 [facility] Laboratory - Hematology and Cell countsOrdered By: Madison Abernathy on 08-16-2022 Nucleated RBC/100 WBC (Bld) [Ratio] 0.1 % 0-0.5 [facility] Leukocytes [#/volume] in Blo od by Automated countOrdered By: Madison Abernathy on 11-10-2022 WBC (Bld) [#/Vol] 7.4 10*3/uL 4.5-11.0 [facility] Lymphocytes Auto (Bld) [#/Vo l]Ordered By: Madison Abernathy on 08-16-2022 Lymphocytes (Bld) [#/Vol] 1.8 10*3/uL 1.00-4.8 [facility] Lymphocytes/100 WBC Auto (Bl d)Ordered By: Madison Abernathy on 08-16-2022 Lymphocytes/100 WBC (Bld) 24.2 % . [facility] MCH Auto (RBC) [Entitic mass ]Ordered By: Madison Abernathy on 08-16-2022 MCH (RBC) [Entitic mass] 27.3 pg 24.7-34.3 [facility] MCHC Auto (RBC) [Mass/Vol]Or dered By: Madison Abernathy on 08-16-2022 MCHC (RBC) [Mass/Vol] 33.2 g/dL 32.0-35.0 [facility] MCV Auto (RBC) [Entitic vol] Ordered By: Madison Abernathy on 08-16-2022 MCV (RBC) [Entitic vol] 82.4 fL 80-100 [facility] Monocytes Auto (Bld) [#/Vol] Ordered By: Madison Abernathy on 08-16-2022 Monocytes (Bld) [#/Vol] 0.5 10*3/uL 0.0-0.8 [facility] Monocytes/100 WBC Auto (Bld) Ordered By: Madison Abernathy on 08-16-2022 Monocytes/100 WBC (Bld) 6.5 % . [facility] Neutrophils Auto (Bld) [#/Vo l]Ordered By: Madison Abernathy on 08-16-2022 Neutrophils (Bld) [#/Vol] 4.8 10*3/uL 1.8-7.7 [facility] Neutrophils/100 WBC Auto (Bl d)Ordered By: Madison Abernathy on 08-16-2022 Neutrophils/100 WBC (Bld) 65.6 % . [facility] No Panel InformationOrdered By: Madison Abernathy on 08-16-2022 Estimated GFR () > 60 mL/Min [facility] Comment on above: GFR estimated refere nce range: According to KDOQI guidelines, <60 ml/min/1.73m2 is sufficient to diagnose a patient with chronic kidney disease. Pharmacy Creatinine Clearance (Chem N/A [facility] Platelet mean volume Auto (B ld) [Entitic vol]Ordered By: Madison Abernathy on 08-16-2022 Platelet mean volume (Bld) [Entitic vol] 7.1 fL 6.3-10.7 [facility] Platelets Auto (Bld) [#/Vol] Ordered By: Madison Abernathy on 08-16-2022 Platelets (Bld) [#/Vol] 246 10*3/uL 150-450 [facility] RBC Auto (Bld) [#/Vol]Ordere d By: Madison Abernathy on 08-16-2022 RBC (Bld) [#/Vol] 4.71 10*6/uL 3.60-5.00 [facility] Serum or plasma anion gap de terminationOrdered By: Madison Abernathy on 08-16-2022 Anion gap [Moles/Vol] 11.9 mmol/L 6.0-15.0 [facility] Serum or plasma calcium tiffany urement (mass/volume)Ordered By: Madison Abernathy on 08-16-2022 Calcium [Mass/Vol] 9.4 mg/dL 8.2-10.2 [facility] Serum or plasma chloride neva surement (moles/volume)Ordered By: Madison Abernathy on 08-16-2022 Chloride [Moles/Vol] 108 mmol/L 95-114 [facility] Serum or plasma glucose tiffany urement (mass/volume)Ordered By: Madison Abernathy on 08-16-2022 Glucose [Mass/Vol] 98 mg/dL 70-100 [facility] Comment on above: ADA recommended refe rence rangeRandom Glucose Reference Range is dependent on time and content of last meal. Glucose of more than 200 mg/dL in a nonstressed, ambulatory subject supports the diagnosis of Diabetes Mellitus. Serum or plasma potassium me asurement (moles/volume)Ordered By: Madison Abernathy on 08-16-2022 Potassium [Moles/Vol] 3.7 mmol/L 3.5-5.1 [facility] Serum or plasma sodium measu rement (moles/volume)Ordered By: Madison Abernathy on 08-16-2022 Sodium [Moles/Vol] 140 mmol/L 136-146 [facility] Serum or plasma total carbon dioxide measurement (moles/volume)Ordered By: Madison Abernathy on 08-16-2022 CO2 [Moles/Vol] 23.8 mmol/L 22.0-30.0 [facility] Serum or plasma urea nitroge n measurement (mass/volume)Ordered By: Madison Abernathy on 08-16-2022 Urea nitrogen [Mass/Vol] 19 mg/dL - [facility] Creatinine (Bld) [Mass/Vol]O rdered By: Madison Abernathy on 05-29-2022 Creatinine [Mass/Vol] 0.8 mg/dL 0.6-1.3 [facility] Comment on above: ER/ESD physician is notified/shown all ISTAT results. Critical values may be confirmed by laboratory testing if deemed necessary by ER attending doctor. ER/ESD physician is notified/shown all ISTAT results.Critical values may be confirmed by laboratory testing ifdeemed necessary by ER attending doctor. No Panel InformationOrdered By: Madison Abernathy on 05-29-2022 POC Estimated GFR > 60 [facility] Comment on above: GFR estimated refere nce range: According to KDOQI guidelines, <60 ml/min/1.73m2 is sufficient to diagnose a patient with chronic kidney disease. POC Estimated GFR Non- Amer > 60 [facility] XR hip RT min 2V(w/wo pelvis )*on 01-03-2022 XR hip RT min 2V(w/wo pelvis)* [facility] [employer] Other XR hip RT min 2V(w/wo pelvis)* [facility] [employer] Other XR hip RT min 2V(w/wo pelvis)* [address] [place] [address] [employer] Other XR hip RT min 2V(w/wo pelvis)* [place] [address] [employer] Other XR hip RT min 2V(w/wo pelvis)* XRay Report [employer] Other XR hip RT min 2V(w/wo pelvis)* Signed [employer] Other XR hip RT min 2V(w/wo pelvis)* Patient: Marisol Cantrell MR#: [id number] [employer] Other XR hip RT min 2V(w/wo pelvis)* [id number] [employer] Other XR hip RT min 2V(w/wo pelvis)* : 1950 Acct:[id number] [employer] Other XR hip RT min 2V(w/wo pelvis)* Age/Sex: 71 / F ADM Date: 01/03/22 [employer] Other XR hip RT min 2V(w/wo pelvis)* Loc: [facility] Room: Type: [facility] [employer] Other XR hip RT min 2V(w/wo pelvis)* Attending Dr: Madison Abernathy DO [employer] Other XR hip RT min 2V(w/wo pelvis)* Ordering Provider: Madison Abernathy DO [employer] Other XR hip RT min 2V(w/wo pelvis)* Date of Service: 01/03/22 [employer] Other XR hip RT min 2V(w/wo pelvis)* XR/XR hip RT min 2V(w/wo pelvis)*: Right hip pain [employer] Other XR hip RT min 2V(w/wo pelvis)* ([id number]) XR/XR lumbar spine AP/LAT/FLX/EXT: Lumbar back pain [employer] Other XR hip RT min 2V(w/wo pelvis)* Copies to: Madison Abernathy [employer] Other XR hip RT min 2V(w/wo pelvis)* CLINICAL DATA: Low back pain radiating to the right hip when ambulating. No specific injury. [employer] Other XR hip RT min 2V(w/wo pelvis)* LUMBAR SPINE WITH FLEXION AND EXTENSION VIEWS - 4 VIEWS [employer] Other XR hip RT min 2V(w/wo pelvis)* COMPARISON: 08/01/2018 [employer] Other XR hip RT min 2V(w/wo pelvis)* Standing AP as well as lateral views in neutral, flexion and extension were obtained. There is [employer] Other XR hip RT min 2V(w/wo pelvis)* osteopenia. There is slight rotatory dextroscoliotic curvature. No acute fractures are identified. [employer] Other XR hip RT min 2V(w/wo pelvis)* There is minimal retrolisthesis of L2 on L3 and L3 on L4. Alignment does not change significantly [employer] Other XR hip RT min 2V(w/wo pelvis)* with flexion or extension. There is multilevel disc space narrowing with relative sparing at L4-5. [employer] Other XR hip RT min 2V(w/wo pelvis)* Endplate spurring is noted. There is lower lumbar facet disease, asymmetric at the lumbosacral [employer] Other XR hip RT min 2V(w/wo pelvis)* junction on the right. No paraspinal soft tissue abnormalities are seen. [employer] Other XR hip RT min 2V(w/wo pelvis)* XR/XR lumbar spine AP/LAT/FLX/EXT [employer] Other XR hip RT min 2V(w/wo pelvis)* IMPRESSION: [employer] Other XR hip RT min 2V(w/wo pelvis)* SUBTLE SCOLIOSIS AND DEGENERATIVE CHANGES, DESCRIBED [employer] Other XR hip RT min 2V(w/wo pelvis)* RIGHT HIP - 2 views [employer] Other XR hip RT min 2V(w/wo pelvis)* COMPARISON: 06/03/2019 [employer] Other XR hip RT min 2V(w/wo pelvis)* AP view the pelvis and frog-lateral view of the right hip were obtained. There is no acute fracture [employer] Other XR hip RT min 2V(w/wo pelvis)* or dislocation. The hip joint spaces are symmetric. There is no prominent developing hypertrophy. [employer] Other XR hip RT min 2V(w/wo pelvis)* Mild subchondral cystic changes seen at the right superior acetabulum. No soft tissue abnormalities [employer] Other XR hip RT min 2V(w/wo pelvis)* are noted. [employer] Other XR hip RT min 2V(w/wo pelvis)* NO ACUTE BONY FINDINGS. [employer] Other XR hip RT min 2V(w/wo pelvis)* Impression dictated by: Cara Cabrera M.D.01/03/2022 4:16 PM [employer] Other XR hip RT min 2V(w/wo pelvis)* Dictation Location: [facility]-- [employer] Other XR hip RT min 2V(w/wo pelvis)* Transcribed By: RYLEY 01/03/22 1616 [employer] Other XR hip RT min 2V(w/wo pelvis)* Dictated By: Cara Cabrera MD 01/03/22 1514 [employer] Other XR hip RT min 2V(w/wo pelvis)* Signed By: [employer] Other XR hip RT min 2V(w/wo pelvis)* 01/03/22 1616 [employer] Other Vital Signs Date Time Vital Sign Value Performing Clinician Facility 10-22-2024 13:05-0500 Body height 167.64 cm Monster Harding DO Work Phone: [facility] 10-22-2024 13:05-0500 Body mass index (BMI) [Ratio] 32.3 kg/m2 Monster Harding DO Work Phone: [facility] 10-22-2024 13:05-0500 Body weight 91 kg Monster Harding DO Work Phone: [facility] 10-21-2024 09:48-0500 Body height 167.64 cm Monster Harding DO Work Phone: [facility] 10-21-2024 09:48-0500 Body mass index (BMI) [Ratio] 32.4 kg/m2 Monster Harding DO Work Phone: [facility] 10-21-2024 09:48-0500 Body temperature 97.3 [degF] Monster Harding DO Work Phone: [facility] 10-21-2024 09:48-0500 Body weight 91.17 kg Monster Harding DO Work Phone: [facility] 10-21-2024 09:48-0500 Diastolic blood pressure 86 mm[Hg] Monster Harding DO Work Phone: [facility] 10-21-2024 09:48-0500 Heart rate 80 /min Monster Harding DO Work Phone: [facility] 10-21-2024 09:48-0500 Respiratory rate 16 /min Monster Harding DO Work Phone: [facility] 10-21-2024 09:48-0500 SaO2% (BldA) [Mass fraction] 99 % Monster Harding DO Work Phone: [facility] 10-21-2024 09:48-0500 Systolic blood pressure 128 mm[Hg] Monster Harding DO Work Phone: [facility] 08-18-2024 11:45-0500 Diastolic blood pressure 68 mm[Hg] Monster Harding DO Work Phone: [facility] 08-18-2024 11:45-0500 Heart rate 70 /min Monster Harding DO Work Phone: [facility] 08-18-2024 11:45-0500 Respiratory rate 16 /min Monster Harding DO Work Phone: [facility] 08-18-2024 11:45-0500 SaO2% (BldA) [Mass fraction] 98 % Monster Harding DO Work Phone: [facility] 08-18-2024 11:45-0500 Systolic blood pressure 141 mm[Hg] Monster Harding DO Work Phone: [facility] 08-18-2024 11:09-0500 Inhaled oxygen flow rate 3 L/min Monster Harding DO Work Phone: [facility] 08-18-2024 10:32-0500 Body height 167.64 cm Monster Harding DO Work Phone: [facility] 08-18-2024 10:32-0500 Body weight 88.9 kg Monster Harding DO Work Phone: [facility] 07-07-2024 10:31-0400 Body mass index (BMI) [Ratio] 31.6 kg/m2 [facility] 07-07-2024 10:31-0400 Body temperature 97.7 [degF] [facility] 07-07-2024 10:31-0400 Diastolic blood pressure 74 mm[Hg] [facility] 07-07-2024 10:31-0400 Respiratory rate 18 /min [facility] 07-07-2024 10:31-0400 SaO2% (BldA) [Mass fraction] 98 % [facility] 07-07-2024 10:31-0400 Systolic blood pressure 116 mm[Hg] [facility] 07-07-2024 08:57-0400 Body height 167.64 cm [facility] 07-07-2024 08:57-0400 Body weight 88.9 kg [facility] 06-10-2024 09:43-0400 Body height 167.64 cm [facility] 06-10-2024 09:43-0400 Body mass index (BMI) [Ratio] 32.3 kg/m2 [facility] 06-10-2024 09:43-0400 Body temperature 97.1 [degF] [facility] 06-10-2024 09:43-0400 Body weight 90.71 kg [facility] 06-10-2024 09:43-0400 Diastolic blood pressure 80 mm[Hg] [facility] 06-10-2024 09:43-0400 Heart rate 82 /min [facility] 06-10-2024 09:43-0400 SaO2% (BldA) [Mass fraction] 99 % [facility] 06-10-2024 09:43-0400 Systolic blood pressure 118 mm[Hg] [facility] 05-11-2024 12:18-0400 Body height 167.64 cm [facility] 05-11-2024 12:18-0400 Body mass index (BMI) [Ratio] 33.5 kg/m2 [facility] 05-11-2024 12:18-0400 Body temperature 97.2 [degF] [facility] 05-11-2024 12:18-0400 Body weight 94.34 kg [facility] 05-11-2024 12:18-0400 Diastolic blood pressure 76 mm[Hg] [facility] 05-11-2024 12:18-0400 Heart rate 94 /min [facility] 05-11-2024 12:18-0400 SaO2% (BldA) [Mass fraction] 97 % [facility] 05-11-2024 12:18-0400 Systolic blood pressure 122 mm[Hg] [facility] 11-18-2023 11:10-0500 Body height 167.64 cm Monster Harding Other [employer] Other 11-18-2023 11:10-0500 Body mass index (BMI) [Ratio] 33.41 kg/m2 Monster Harding Other [employer] Other 11-18-2023 11:10-0500 Body temperature 97.8 [degF] Monster Harding Other [employer] [facility] 11-18-2023 11:10-0500 Body weight 93.9 kg Monster Harding Other [employer] Other 11-18-2023 11:10-0500 Diastolic blood pressure 82 mm[Hg] Monster Ximena Other [employer] [facility] 11-18-2023 11:10-0500 Respiratory rate 18 /min Monster Harding Other [employer] Other 11-18-2023 11:10-0500 SaO2% (BldA) [Mass fraction] 98 % Monster Harding Other [employer] Other 11-18-2023 11:10-0500 Systolic blood pressure 122 mm[Hg] Monster Amadoryeny Other [employer] Other 11-05-2023 10:10-0500 Diastolic blood pressure 71 mm[Hg] DO Monster Harding Work Phone: [facility] 11-05-2023 10:10-0500 Heart rate 76 /min DO Monster Amadoryeny Work Phone: [facility] 11-05-2023 10:10-0500 Respiratory rate 16 /min DO Monster Ximena Work Phone: [facility] 11-05-2023 10:10-0500 SaO2% (BldA) [Mass fraction] 96 % DO Monster Ximena Work Phone: [facility] 11-05-2023 10:10-0500 Systolic blood pressure 128 mm[Hg] DO Monster Harding Work Phone: [facility] 11-05-2023 09:26-0500 Inhaled oxygen flow rate 3 L/min DO Monster Harding Work Phone: [facility] 11-05-2023 08:39-0500 Body height 167.64 cm DO Monster Harding Work Phone: [facility] 11-05-2023 08:39-0500 Body weight 95.7 kg DO Monster Harding Work Phone: [facility] 10-21-2023 17:40-0500 Body height 167.64 cm Monster Amadoryeny Other [employer] [facility] [employer] Other 10-21-2023 17:40-0500 Body mass index (BMI) [Ratio] 35.34 kg/m2 Monster Harding Other [employer] Other 10-21-2023 17:40-0500 Body temperature 97.5 [degF] Monster Harding Other [employer] Other 10-21-2023 17:40-0500 Body weight 99.34 kg Monster Ximena Other [employer] Other 10-21-2023 17:40-0500 Diastolic blood pressure 86 mm[Hg] Monster Harding Other [employer] Other 10-21-2023 17:40-0500 Respiratory rate 18 /min Monster Harding Other [employer] Other 10-21-2023 17:40-0500 SaO2% (BldA) [Mass fraction] 98 % Monster Harding Other [employer] Other 10-21-2023 17:40-0500 Systolic blood pressure 136 mm[Hg] Monster Harding Other [facility] [employer] Other 05-21-2023 12:27-0400 Diastolic blood pressure 99 mm[Hg] DO Monster Harding Work Phone: [facility] 05-21-2023 12:27-0400 Heart rate 62 /min DO Monster Harding Work Phone: [facility] 05-21-2023 12:27-0400 Respiratory rate 18 /min DO Monster Harding Work Phone: [facility] 05-21-2023 12:27-0400 SaO2% (BldA) [Mass fraction] 96 % DO Monster Harding Work Phone: [facility] 05-21-2023 12:27-0400 Systolic blood pressure 156 mm[Hg] DO Monster Harding Work Phone: [facility] 05-21-2023 11:46-0400 Inhaled oxygen flow rate 3 L/min DO Monster Harding Work Phone: [facility] 05-21-2023 10:55-0400 Body height 167.64 cm DO Monster Harding Work Phone: [facility] 05-21-2023 10:55-0400 Body weight 96.61 kg DO Monster Harding Work Phone: [facility] 05-13-2023 03:26-0400 Body height 167.64 cm DO Monster Harding Work Phone: [facility] 05-13-2023 03:26-0400 Body temperature 96.8 [degF] DO Monster Harding Work Phone: [facility] 05-13-2023 03:26-0400 Body weight 97.55 kg DO Monster Harding Work Phone: [facility] 05-13-2023 03:26-0400 Diastolic blood pressure 77 mm[Hg] DO Monster Harding Work Phone: [facility] 05-13-2023 03:26-0400 Heart rate 67 /min DO Monster Harding Work Phone: [facility] 05-13-2023 03:26-0400 Respiratory rate 20 /min DO Monster Harding Work Phone: [facility] 05-13-2023 03:26-0400 SaO2% (BldA) [Mass fraction] 97 % DO Monster Harding Work Phone: [facility] 05-13-2023 03:26-0400 Systolic blood pressure 163 mm[Hg] DO Monster Haridng Work Phone: [facility] 10-09-2022 09:20-0500 Body height 167.64 cm Marc Luciano Other [employer] Other 10-09-2022 09:20-0500 Body mass index (BMI) [Ratio] 35.99 kg/m2 Marc Luciano Other [employer] Other 10-09-2022 09:20-0500 Body weight 101.15 kg Marc Luciano Other [employer] Other 08-16-2022 16:17-0500 Body height 167.64 cm DO Monster Harding Work Phone: [facility] 08-16-2022 16:17-0500 Body weight 103.2 kg DO Monster Harding Work Phone: [facility] 08-16-2022 16:17-0500 Diastolic blood pressure 86 mm[Hg] DO Monster Harding Work Phone: [facility] 08-16-2022 16:17-0500 Heart rate 75 /min DO Monster Harding Work Phone: [facility] 08-16-2022 16:17-0500 Respiratory rate 18 /min DO Monster Harding Work Phone: [facility] 08-16-2022 16:17-0500 SaO2% (BldA) [Mass fraction] 95 % DO Monster Harding Work Phone: [facility] 08-16-2022 16:17-0500 Systolic blood pressure 153 mm[Hg] DO Monster Harding Work Phone: [facility] 08-15-2022 11:30-0500 Body height 167.64 cm Madison Abernathy Other [employer] Other 08-15-2022 11:30-0500 Body mass index (BMI) [Ratio] 35.99 kg/m2 Madison Abernathy Other [employer] Other 08-15-2022 11:30-0500 Body weight 101.15 kg Madison Abernathy Other [employer] Other 06-21-2022 16:00-0400 Body height 167.64 cm Bradley Adkins Other [employer] Other 05-29-2022 14:43-0400 Body height 167.64 cm DO Monster Harding Work Phone: [facility] 05-29-2022 14:43-0400 Body weight 97.52 kg DO Monster Harding Work Phone: [facility] 05-09-2022 14:15-0400 Body height 167.64 cm Madison Abernathy Other [employer] Other 05-09-2022 14:15-0400 Body mass index (BMI) [Ratio] 34.7 kg/m2 Madison Abernathy Other [employer] Other 05-09-2022 14:15-0400 Body weight 97.52 kg Madison Abernathy Other [employer] Other 12-06-2021 13:45-0500 Body height 167.64 cm Madison Abernathy Other [employer] Other 12-06-2021 13:45-0500 Body mass index (BMI) [Ratio] 35.67 kg/m2 Madison Abernathy Other [employer] Other 12-06-2021 13:45-0500 Body weight 100.25 kg Madison Abernathy Other [employer] Other 10-04-2021 14:45-0500 Body height 167.64 cm Madison Abernathy Other [employer] Other 10-04-2021 14:45-0500 Body mass index (BMI) [Ratio] 35.99 kg/m2 Madison Abernathy Other [employer] Other 10-04-2021 14:45-0500 Body weight 101.15 kg Madison Abernathy Other [employer] Other 10-04-2021 14:45-0500 Respiratory rate 18 /min Madison Abernathy Other [employer] Other 10-04-2021 14:45-0500 SaO2% (BldA) [Mass fraction] 98 % Madison Michela Other [employer] Other Encounters Encounter Date Encounter Type Care Provider Facility Start: 10-22-2024 End: 10-22-2024 ambulatory Monster Harding DO Work Phone: [facility] Work Phone: Start: 10-22-2024 End: 10-22-2024 Patient encounter procedure Monster Harding DO Work Phone: [facility] Work Phone: Start: 10-21-2024 End: 10-21-2024 ambulatory Monster Harding DO Work Phone: [facility] Work Phone: Start: 10-21-2024 End: 10-21-2024 Patient encounter procedure Monster Harding DO Work Phone: [facility] [place] Work Phone: Start: 08-26-2024 End: 08-26-2024 ambulatory Monster Harding DO Work Phone: [facility] Work Phone: Start: 08-26-2024 End: 08-26-2024 Patient encounter procedure Monster Harding DO Work Phone: [facility] [place] Work Phone: Start: 08-18-2024 Non-patient / Non-visit Monster Harding DO Work Phone: [facility] Work Phone: Start: 08-18-2024 End: 08-18-2024 Admission to same day surgery center Monster Harding DO Work Phone: [facility] Work Phone: Start: 08-18-2024 End: 08-18-2024 ambulatory Monster Harding DO Work Phone: [facility] Work Phone: Start: 08-04-2024 End: 08-04-2024 ambulatory DO Monster Harding Work Phone: [facility] Work Phone: Start: 08-04-2024 End: 08-04-2024 Patient encounter procedure DO Monster Harding Work Phone: [facility] Work Phone: Start: 07-17-2024 End: 07-17-2024 Telephone encounter Erlin Collins MD Work Phone: [facility] Start: 07-07-2024 End: 07-07-2024 ambulatory [facility] Work Phone: Start: 07-07-2024 End: 07-07-2024 Patient encounter procedure [facility] [place] Work Phone: Start: 06-10-2024 End: 06-10-2024 ambulatory [facility] Work Phone: Start: 06-10-2024 End: 06-10-2024 Patient encounter procedure [facility] [place] Work Phone: Start: 06-01-2024 Non-patient / Non-visit [facility] Work Phone: Start: 05-11-2024 End: 05-11-2024 ambulatory [facility] Work Phone: Start: 05-11-2024 End: 05-11-2024 Patient encounter procedure [facility] [place] Work Phone: Start: 11-18-2023 End: 11-18-2023 ambulatory Monster Harding Other [employer] Other Start: 11-18-2023 Office outpatient vi sit 15 minutes Monster Harding [facility] [place] Start: 11-05-2023 End: 11-05-2023 Admission to same day surgery center DO Monster Harding Work Phone: [facility] Work Phone: Start: 11-05-2023 End: 11-05-2023 ambulatory DO Monster Harding Work Phone: [facility] Work Phone: Start: 10-28-2023 End: 10-28-2023 ambulatory Monster Harding Other [employer] Other Start: 10-28-2023 Telephone encounter Monster Harding [facility] [place] Start: 10-23-2023 End: 10-23-2023 ambulatory Bradley Adkins Other [employer] Other Start: 10-23-2023 Office outpatient vi sit 25 minutes Bradley Swapnilkyree [facility] [place] Start: 10-22-2023 End: 10-22-2023 ambulatory Monster Harding Other [employer] Other Start: 10-22-2023 Telephone encounter Monster Harding [facility] [place] Start: 10-21-2023 End: 10-21-2023 ambulatory Monster Harding Other [employer] Other Start: 10-21-2023 Office outpatient vi sit 15 minutes Monster Harding [facility] [place] Start: 10-21-2023 End: 10-21-2023 Patient encounter procedure DO Monster Harding Work Phone: [facility] [place] Work Phone: Start: 09-03-2023 End: 09-04-2023 ambulatory PENOLA P COLLINS Not Available Start: 09-03-2023 End: 09-03-2023 ambulatory PENOLA P COLLINS Not Available Start: 06-05-2023 End: 06-05-2023 ambulatory Bradley Swapnilkyree Other [employer] Other Start: 06-05-2023 Office outpatient vi sit 25 minutes Bradley Swapnilkyree [facility] [place] Start: 05-21-2023 (Procedure) Short Bradley Adkins [facility] Start: 05-21-2023 End: 05-21-2023 Admission to same day surgery center DO Monster Harding Work Phone: [facility] Work Phone: Start: 05-21-2023 End: 05-21-2023 ambulatory DO Monster Harding Work Phone: [facility] Work Phone: Start: 05-20-2023 End: 05-20-2023 ambulatory Monster Ximena Other [employer] Other Start: 05-20-2023 Telephone encounter Monster Harding [facility] [place] Start: 05-14-2023 End: 05-14-2023 ambulatory Bradley Adkins Other [employer] Other Start: 05-14-2023 Office outpatient vi sit 25 minutes Bradley Adkins [facility] [place] Start: 05-13-2023 End: 05-13-2023 Emergency department patient visit DO Monster Harding Work Phone: [facility] Work Phone: Start: 05-01-2023 End: 05-01-2023 ambulatory DO Monster Harding Work Phone: [facility] Work Phone: Start: 05-01-2023 End: 05-01-2023 Patient encounter procedure DO Monster Harding Work Phone: [facility] Work Phone: Start: 01-10-2023 End: 01-10-2023 ambulatory Monster Harding Other [employer] Other Start: 01-10-2023 Telephone encounter Monster Ximena [facility] [place] Start: 10-09-2022 End: 10-09-2022 ambulatory Marc Luciano Other [employer] Other Start: 10-09-2022 Office outpatient ne w 30 minutes Marc Luciano [facility] Start: 09-03-2022 (Procedure) Short Bradley Adkins [facility] Start: 09-03-2022 End: 09-03-2022 ambulatory Bradley Adkins Other [employer] Other Start: 08-28-2022 End: 08-28-2022 ambulatory DO Monster Harding Work Phone: [facility] Work Phone: Start: 08-28-2022 End: 08-28-2022 Departed Referred DO Monster Harding Work Phone: [facility] [place] Start: 08-23-2022 End: 08-23-2022 ambulatory Bradley Adkins Other [employer] Other Start: 08-23-2022 Office outpatient vi sit 25 minutes Bradley Adkins [facility] [place] Start: 08-22-2022 End: 08-22-2022 ambulatory Monster Harding Other [employer] Other Start: 08-22-2022 Telephone encounter Monster Harding [facility] [place] Start: 08-21-2022 End: 08-21-2022 ambulatory Madison Abernathy Other [employer] Other Start: 08-21-2022 Telephone encounter Madison Abernathy [facility] Start: 08-16-2022 End: 08-16-2022 ambulatory DO Monster Harding Work Phone: [facility] Work Phone: Start: 08-16-2022 End: 08-16-2022 Patient encounter procedure DO Monster Harding Work Phone: [facility]Pre[facility]Surgical Testing Start: 08-15-2022 End: 08-15-2022 ambulatory Madison Abernathy Other [employer] Other Start: 08-15-2022 Encounter for other preprocedural examination Madison Abernathy [facility] Start: 08-15-2022 Office outpatient vi sit 25 minutes Madison Abernathy [facility] Start: 07-31-2022 End: 07-31-2022 ambulatory Bradley Adkins Other [employer] Other Start: 07-31-2022 Office outpatient vi sit 25 minutes Bradley Swapnilkyree [facility] [place] Start: 07-17-2022 End: 07-17-2022 ambulatory Bradley Swapniler Other [employer] Other Start: 07-17-2022 Office outpatient vi sit 25 minutes Bradley Adkins [facility] [place] Start: 06-21-2022 End: 06-21-2022 ambulatory Bradley Adkins Other [employer] Other Start: 06-21-2022 Office outpatient vi sit 25 minutes Bradley Swapnilkyree [facility] [place] Start: 06-04-2022 End: 06-04-2022 Patient encounter procedure DO Monster Harding Work Phone: [facility] [place] Start: 05-29-2022 End: 05-29-2022 Patient encounter procedure DO Monster Harding Work Phone: [facility] Start: 05-09-2022 End: 05-09-2022 ambulatory Madison Abernathy Other [employer] Other Start: 05-09-2022 Office outpatient vi sit 15 minutes Madison Abernathy [facility] Start: 04-13-2022 End: 05-05-2022 ambulatory MADISON ABERNATHY Facility: Start: 03-21-2022 End: 03-21-2022 ambulatory Madison Abernathy Other [employer] Other Start: 03-21-2022 Office outpatient vi sit 15 minutes Madison Abernathy [facility] Start: 03-12-2022 (Procedure) Short Bradley Adkins [facility] Start: 03-12-2022 End: 03-12-2022 ambulatory Bradley Adkins Other [employer] Other Start: 02-19-2022 End: 02-19-2022 ambulatory Monster Harding Other [employer] Other Start: 02-19-2022 Telephone encounter Monster Harding [facility] Start: 02-07-2022 End: 02-07-2022 ambulatory Madison Abernathy Other [employer] Other Start: 02-07-2022 Office outpatient vi sit 15 minutes Madison Abernathy [facility] Start: 01-15-2022 (Procedure) Short Bradley Adkins [facility] Start: 01-15-2022 End: 01-15-2022 ambulatory Bradley Swapnilkyree Other [employer] Other Start: 01-03-2022 End: 01-03-2022 ambulatory Madison Abernathy Other [employer] Other Start: 01-03-2022 Office outpatient vi sit 15 minutes Madison Abernathy [facility] Start: 12-06-2021 End: 12-06-2021 ambulatory Madison Abernathy Other [employer] Other Start: 12-06-2021 Office outpatient vi sit 15 minutes Madison Abernathy [facility] Start: 10-05-2021 End: 10-05-2021 ambulatory Madison Abernathy Other [employer] Other Start: 10-05-2021 Telephone encounter Madison Abernathy [facility] Start: 10-04-2021 End: 10-04-2021 ambulatory Madison Abernathy Other [employer] Other Start: 10-04-2021 Office outpatient vi sit 25 minutes Madison Abernathy [facility] Start: 10-17-2017 Ambulatory MOURHAF TRABMERVINI Faci lity:[id number] Start: 10-17-2017 Ambulatory Facility:[id number] Start: 09-12-2017 Ambulatory MOURHAF TRABOULSSI Faci lity:[id number] Start: 09-11-2017 Ambulatory TAHIR LOW Faci lity:[id number] Start: 09-11-2017 Ambulatory Facility:[id number] Procedures Date Procedure Procedure Detail Performing Clinician Start: 08-18-2024 Injection of local anesthetic into sacroiliac joint Monster Harding DO Work Phone: Start: 08-04-2024 X-ray of left knee, two views DO Monster Harding Work Phone: Start: 11-05-2023 Radiofrequency destruction of peripheral nerve DO Monster Harding Work Phone: Start: 05-21-2023 Radiofrequency destruction of peripheral nerve DO Monster Harding Work Phone: Start: 05-01-2023 CT of chest without contrast DO Monster Harding Work Phone: Start: 05-01-2023 Plain chest X-ray DO Monster Harding Work Phone: Start: 06-04-2022 MRI of pelvis with contrast DO Monster Harding Work Phone: Start: 05-29-2022 MRI of lumbar spine with contrast DO Monster Harding Work Phone: History of operative procedure on knee S/P arthroscopic knee surgery DO Monster Harding Work Phone: Plan of Treatment Date Care Activity Detail Author Start: 08-18-2024 [facility] Start: 08-04-2024 X-ray of left knee, two views XR knee LT 2V [facility] Start: 08-04-2024 XR Knee - left 2 Views [facility] Start: 11-05-2023 [facility] Start: 05-21-2023 [facility] Start: 08-28-2022 Sacroiliac arthrodesis OR SI Fusion (Right) [facility] Start: 06-04-2022 MRI of pelvis with contrast MR pelvis wo/w con [facility] Start: 06-04-2022 End: 06-04-2022 Patient encounter procedure Departed Clinical [facility] [place] Bacteria identified in Urine by Culture [facility] Comprehensive metabo lic 2000 panel - Serum or Plasma [facility] Patient Education [facility] Work Phone: Patient referral [facility] Work Phone: [facility] Immunizations Immunization Date Immunization Notes Care Provider Fa cility 12-20-2020 COVID-19 Vaccine Moderna - Documentation Purposes Only Madison Abernathy Other [facility] 11-24-2020 COVID-19 Vaccine Moderna - Documentation Purposes Only Madison Abernathy Other [facility] NEGATED: Highlighted row has not occurred! 9 influenza, injectable,quadrival ent, preservative free, pediatric Patient Objection Madisonjanice Abernathy Other [employer] Other NEGATED: Highlighted row has not occurred! 9 influenza virus vaccine, unspecified formulation [facility] NEGATED: Highlighted row has not occurred! 6 pneumococcal polysaccharide vaccine, 23 valent Patient Objection Madisonjanice Abernathy Other [facility] NEGATED: Highlighted row has not occurred! 6 pneumococcal polysaccharide vaccine, 23 valent Patient Objection Madisonjanice Abernathy Other [facility] Payers Date Payer Category Payer Self-pay [id number] 2023 Self-pay [id number] 2022 Unknown AARP AARP [id number] 2022-Present [address] [place] [address] [id number] 2015 Medicare MEDICARE MEDICAR E PART B [id number] 2015-[place] [address] [place] [address] Medicare [id number] 1959 Medicare [id number] 1959 Unknown [id number] 1950 Unknown [id number] 1950 Unknown [id number] 1950 Unknown [id number] Medicare [id number] Unknown [id number] Unknown [id number] Unknown [id number] Social History Date Type Detail Facility Unknown if ever smoked [facility] [employer] Other Start: 09-03-2023 Sex Assigned At N [facility] [employer] Other Start: 10-17-2021 End: 05-11-2024 Tobacco smoking status [facility] Never smoked tobacco (finding) [facility] Start: 1950 Sex Assigned At Female F [facility] Start: 09-03-2023 Tobacco use and exposure Smokeless tobacco non-user [facility] Start: 09-08-2023 Alcoholic beverage intake Current drinker of alcohol (finding) [facility] Start: 09-03-2023 History of Social function [facility] How often to you hav e a drink containing alcohol? Monthly or less [facility] How many standard drinks containing alcohol do you have on a typical day? 1 or 2 [facility] How often do you hav e 6 or more drinks on 1 occasion? Less than monthly [facility] Start: 1950 Sex assigned at Not on file [facility] Start: 08-18-2024 End: 10-22-2024 Sex Female (finding) [facility] Goals Date Patient Goal Desired Activity /State Clinical Notes 09-11-2017 to 10-21-2024 Note Date & Type Note Facility 10-21-2024 Evaluation note Authored October 21, 2024 10:31am The above note written by __ _Paco Stewart____ acting as human recorder, note dictated by Dr. Recinos .I performed the above HPI, ROS, and Examination. I formulated and dictated the treatment plan and was present for entire encounter. Monster Harding D.O. [facility] Work Phone: 1(213) 803-425411-12-2024 [place] [address] Pain Management Procedure Note Signed Patient: Marisol Cantrell MR#: [id number] : 1950 Acct:[id number] Age/Sex: 74 / F Adm Date: 4 Loc: Room: Type: [facility] Attending Dr: Bradley Adkins MD Copies to: DO Bradley Lepe MD~ Pain Procedure PROCEDURE PERFORMED BY: Bradley Adkins PROCEDURE DATE: 08/18/2024 PREPROCEDURE DIAGNOSIS: 1. right sacroiliitis. 2. Lumbosacral spondylosis. 3. Chronic pain. POSTPROCEDURE DIAGNOSIS: 1. right sacroiliitis. 2. Lumbosacral spondylosis. 3. Chronic pain. PROCEDURE: right sacroiliac joint injection under fluoroscopic guidance. COMPLICATIONS: None. ANESTHESIA: Local and conscious sedation with Midazolam 2 mg CLINICAL NOTE: The patient has a history of low back pain. The patient requests the injection in an attempt to improve the pain. The risks, benefits, and alternatives of theprocedure were explained to the patient. The patient wishes to proceed. PROCEDURE NOTE: The patient was brought to the procedure room and placed in the prone position. The skin was prepped and draped with ChloraPrep and sterile towels. 6 mL of 1% lidocaine, in divided doses, were injected through a 27-gauge needle for local anesthesia. 23-gauge spinal needle was guided to the right sacroiliac joint under fluoroscopic guidance. Contrast dye was used to confirm proper needle position in the sacroiliac joint. After negative aspiration, 40 mg of triamcinolone and 2 mL of 0.25% bupivacaine were injected through the needle. The needles were removed and band-aids were applied. Patient tolerated the procedure well and was transferred to recovery in a stable condition. PLAN: The patient was instructed to call the clinic in 1 week to inform us of any progress. The patient was encouraged to call at any time with any questions or concerns. Documented By: Bradley Adkins MD 08/18/24 1106 Signed By: 08/18/24 1107 [facility]10-29-2024 Evaluation note* Diagnosis Onset Date Resolution Status Admit Date Chronic pain acute July 1:51pm Osteoarthritis of left knee acute August 04, 2024 1:51pm Sacroiliitis acute July 1:51pm Chronic pain acute August 10:29am Osteoarthritis of left knee acute August 26, 2024 10:29am Sacroiliitis acute August h2023 10:29am Cephalgia acute October 21, 2024 9:46am Hyperlipidemia acute October 212024 9:46am Weight gain acute October 21, 2024 9:46am [facility] Work Phone: 1(963) 580-415410-11-2024 Telephone encounter Note* Telephone Encounter - Katie Almodovar - 07/17/2024 9:52 AM EDT Letter sent out on 07/17/24 to reschedule due to provider out of office. [facility] [id number] Miscellaneous Notes* Telephone Encounter - Katie Almodovar - 07/17/2024 9:52 AM EDT Letter sent out on 07/17/24 to reschedule due to provider out of office. documented in this encounterCarondelet [id number] Evaluation note* Author Monster Harding [facility] Authored June 10, 2024 10:46am I performed the above HPI, R OS, and Examination. I formulated and dictated the treatment plan and was present for entire encounter. Monster Harding D.O. Author [facility] Authored July 07, 2024 9: 58am The above note written by __ _Paco Stewart____ acting as human recorder, note dictated by Dr. Recinos .I performed the above HPI, ROS, and Examination. I formulated and dictated the treatment plan and was present for entire encounter. oMnster Harding D.O. [facility] Work Phone: 1(157) 302-596808-05-2024 Evaluation note* Author Monster [facility] Authored May 11, 2024 4:4 6pm The above note written by __ _Paco Stewart____ acting as human recorder, note dictated by Dr. Recinos .I performed the above HPI, ROS, and Examination. I formulated and dictated the treatment plan and was present for entire encounter. Monster Harding D.O. [facility] Work Phone: [phone]) 188-470508-05-2024 Evaluation note* Author Monster [facility] Authored May 11, 2024 4:4 6pm The above note written by __ _Paco Stewart____ acting as human recorder, note dictated by Dr. Recinos .I performed the above HPI, ROS, and Examination. I formulated and dictated the treatment plan and was present for entire encounter. Monster Harding D.O. Author [facility] Authored June 10, 2024 11:46am I performed the above HPI, R OS, and Examination. I formulated and dictated the treatment plan and was present for entire encounter. Monster Harding D.O. [facility] Work Phone: [phone]) 744-334608-05-2024 Evaluation note* Author [facility] Authored May 11, 2024 4:4 6pm The above note written by __ _Paco Stewart____ acting as human recorder, note dictated by Dr. Recinos .I performed the above HPI, ROS, and Examination. I formulated and dictated the treatment plan and was present for entire encounter. Monster Harding D.O. Author Monster Harding [facility] Authored June 10, 2024 11:46am I performed the above HPI, R OS, and Examination. I formulated and dictated the treatment plan and was present for entire encounter. Monster Harding D.O. Author Monster Harding [facility] Authored July 07, 2024 10 :58am The above note written by __ _Paco Stewart____ acting as human recorder, note dictated by Dr. Recinos .I performed the above HPI, ROS, and Examination. I formulated and dictated the treatment plan and was present for entire encounter. Monster Harding D.O. [facility] Work Phone: 1([phone]) 350-120002-12-2024 Evaluation note* Encounter Date Diagnosis Assessment Notes Treatment Notes Treatment Clinical Notes Nov, Labyrinthitis, unspecified laterality (ICD-10 - H83.09) She voices that generally the Meclizine works well for her symptoms but she continues to have symptoms, she bends over and feels dizzy. She is leaving tomorrow (11-19-23) for [place] and will be gone for a couple of months and does not want to be without medication. I will provide her with a refill today. She does home exercises on her own for the dizziness which helps a little until she goes to put her shoes on or looks up in the shower. No sign of an ear infection seen on exam today. Nov, Weight gain (ICD-10 - R63.5) She is doing well on the Adipex. She has lost 12 pounds since last seen. She will return here once she has come back from [place]. She will be much more active in [place], voices that she walks on the beach [place]. She is to continue to watch her intake of carbs and sugars. Stay active. Side effects/risks/bene fits of medication were reviewed. [facility] Other 01-30-2024 Procedure [facility]01-17-2024 Evaluation note* Encounter Date Diagnosis Assessment Notes Treatment Notes Treatment Clinical Notes Oct, Other spondylosis with radiculopathy, lumbar region (ICD-10 - M47.26) Oct, Sacroiliitis (ICD-10 - M46.1) Patients primary complaint today is returning right low lumbar and gluteal pain, consistent with the sacroiliac region. Based on previous positive results, as well as location of pain and exam findings, patient is a candidate for a repeat right sacral lateral radiofrequency ablation which we will proceed with. Risks and benefits of procedure explained to patient; patient verbalizes understanding. Anatomy of spine discussed in detail with patient in regards to patients condition. Oct, Chronic pain (ICD-10 - G89.29) Oct, Other Above note writ ten by Casper Sales MA, Tie Maker. Edited and approved by Dr. Bradley Adkins MD. [facility] Other 01-16-2024 Evaluation note* Encounter Date Diagnosis Assessment Notes Treatment Notes Treatment Clinical Notes Oct, Labyrinthitis, unspecified laterality (ICD-10 - H83.09) [facility] Other 01-15-2024 Evaluation note* Encounter Date Diagnosis Assessment Notes Treatment Notes Treatment Clinical Notes Oct, Weight gain (ICD-10 - R63.5) She would like to take Adipex again to help with weight loss. I did advise her that she would need to call in one week with a BP reading and return every four weeks for evaluation. She is to watch her intake of carbs and sugars. Stay active. Side effects/risks/benefi ts of medication were reviewed. She questions keto gummies and I did not recommend them. She has been following the keto diet and has found that it is easy to eat the food. She keeps her sugar intake low. She can continue with this but I do not recommend the keto gummies. If she is going to eat a fruit it should be eaten in it's natural states. She voices that she has been learning so much about foods. Oct, Labyrinthitis, unspecified laterality (ICD-10 - H83.09) She only takes the Antivert as needed and does not need it all the time. She can tell when the dizziness is starting, it occurs when she is laying in bed and the room begins to spin. She would like a new prescription for the medication and one is provided. Oct, Rheumatoid arthritis (ICD-10 - M06.9) She voices that she has not seen her scrum master for a long time (Dr. Grullon) but states that everything was fine when she was last seen. Oct, Hip pain, right (ICD-10 - M25.551) She has an appointment to see Dr. Adkins on 10/23/23. She voices that she was scheduled to have a hip replacement done with Dr. Abernathy but did not want to proceed with this, so she cancelled it, and was seen by Dr. Adkins and had the ablation done which helped her pain significantly. She was able to return to walking and going to [employer] to help her hips. She knows that this is only a bandaid and she will eventually need to have a hip replacement done. Oct, Hyperlipidemia (ICD-10 - E78.5) I did recommend she have lab drawn but right now she declines to have anything done. If she wants to work on weight loss it may be more beneficial for her to wait until her weight has reached a plateau before she were to have lab drawn. Oct, Other She voices that she donates blood to the [facility]. I did explain to her that they do check for anemia. [facility] Other 08-30-2023 Evaluation note* Encounter Date Diagnosis Assessment Notes Treatment Notes Treatment Clinical Notes May, Other spondylosis with radiculopathy, lumbar region (ICD-10 - M47.26) May, Sacroiliitis (ICD-10 - M46.1) Patient is voicing minimal complaints of pain at this time. She attributes this to a recent right sacral lateral radiofrequency ablation. We will continue to monitor her symptoms in this region. In the meantime she will continue with activity modification and at home exercises. In the future if her weakness persists, we can consider obtaining an updated MRI. We will follow up with her as needed. Anatomy of spine discussed in detail with patient in regard to patients condition. Overall, patient believes their pain is reasonably well controlled, and she agrees with our treatment plan. May, Chronic pain (ICD-10 - G89.29) May, Other Above note writ ten by Susie Schwarz LPN, Tie Maker. Edited and approved by Dr. Bradley Adkins MD. [facility] Other [facility] Encounter Date Diagnosis Assessment Notes Treatment Notes Treatment Clinical Notes May, Other spondylosis with radiculopathy, lumbar region (ICD-10 - M47.26) May, Sacroiliitis (ICD-10 - M46.1) Patient continues to voice complaints of right sided low lumbar and gluteal pain consistent with the SI joint. She was recently evaluated by Orthopedics, there has been discussion of hip joint replacement vs a right sacroiliac joint fusion. Based on previous positive results, as well as location of pain and exam findings, patient is a candidate for a right sacral lateral radiofrequency ablation, which we will proceed with under fluoroscopic guidance. Risks and benefits of procedure explained to patient; patient verbalizes understanding. Anatomy of spine discussed in detail with patient in regard to patients condition. May, Chronic pain (ICD-10 - G89.29) May, Other Above note writ ten by Susie Schwarz LPN, Tie Maker. Edited and approved by Dr. Bradley Adkins MD. [facility] Other 01-03-2023 Evaluation note* Encounter Date Diagnosis Assessment Notes Treatment Notes Treatment Clinical Notes Oct, Sacroiliitis (ICD-10 - M46.1) Oct, Facet arthropathy, lumbosacral (ICD-10 - M47.817) I have independently reviewed the hip x-ray, the MRI of the lumbar spine, and the pain management notes from Dr. Adkins, and a note from my previous partner originally in the previous year. 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 She has some form of sacroiliac dysfunction; she received an RFA and is getting much much better. At one point apparently this patient was considered for a sacroiliac injection but true indications for this would be to have an isolated sacroiliac injection over 2 separate occasions relatively close to one another and have the patient have over 80 or 90% improvement with each injection. She would also need to have isolated sacroiliac testing to determine how many positive test she has. I understand this patient was also offered a right hip injection and a right hip replacement. Before the sacroiliac pain occurred she was having very bad right hip pain and walking very poorly. My suspicion is that the hip causes sacroiliac pain. The sacroiliac injection has helped her but I suspect this will start all over again because of her bad right hip. I have asked the patient to please not do a lot of prolonged walking but some, and to also try exercise bicycles and see which bothers her hip less. I would like to follow her along with regard to her pain progression and see what happens next. My suspicion is that she needs a right hip replacement more than anything, not a sacroiliac fusion at this point. I will see her back in 6 weeks to reevaluate Oct, Osteoarthritis of right hip (ICD-10 - M16.11) [facility] Other 11-17-2022 Evaluation note* Encounter Date Diagnosis Assessment Notes Treatment Notes Treatment Clinical Notes Aug, Other spondylosis with radiculopathy, lumbar region (ICD-10 - M47.26) Aug, Sacroiliitis (ICD-10 - M46.1) Patient continues to voice complaints of right sided low lumbar and gluteal pain consistent with the SI joint. She was recently evaluated by Orthopedics and scheduled for a right sacroiliac joint fusion however wishes to continue with conservative treatment prior to considering this. Based on previous positive results, as well as location of pain and exam findings, patient is a candidate for a right sacral lateral branch radiofrequency ablation which we will proceed with. Risks and benefits of procedure explained to patient; patient verbalizes understanding. Anatomy of spine discussed in detail with patient in regards to patients condition. Aug, Chronic pain (ICD-10 - G89.29) Aug, Other Above note writ ten by Casper Sales MA, Tie Maker. Edited and approved by Dr. Bradley Adkins MD. [facility] Other 11-09-2022 Evaluation note* Encounter Date Diagnosis Assessment Notes Treatment Notes Treatment Clinical Notes Aug, Sacroiliitis (ICD-10 - M46.1) Local only injection with Dr. Zulema Adkins Extensive discussion about current condition and treatment options available. Discussed options as living with condition, nerve ablation with pain management, or SI fusion. Per information provided by Dr Adkins, will have to do one more trial injection prior to pursuing the ablation, per insurance protocol. Advised may provide relief up to 2 years. Surgical procedure, risks, recovery and restrictions discussed in detail. Patient opts to pursue rat exterminator treatment of right SI fusion. Aug, Arthritis of left knee (ICD-10 - M17.12) Claudio is here today s/p left knee arthroscopy with medial meniscal debridement and medial femoral chondroplasty. Her symptoms this time has resolved and her knee is feeling very good. She can do activities as tolerated without restrictions. Follow-up as needed for this. Aug, Primary osteoarthritis of right hip (ICD-10 - M16.11) Marisol is here for follow-up of her right hip DJD and SI pain. We have had ongoing issues differentiating between intra-articular hip pathology and extra-articular hip pain. She has been through injections in the SI joint, intra-articular hip and foraminal injections at this point. She does feel that her pain has been helped with all of these injections but is unsure which has been of most benefit. We will move forward with a diagnostic injection with Dr. Adkins at her last visit and she tells me that she had full pain relief postinjection which obviously subsided several hours afterwards. After discovering this I have discussed with the patient that since the injection was only into the SI joint most of her pain would be coming from the SI joint. Her physical exam is consistent with this. We discussed ongoing conservative measures including radiofrequency ablation of the SI joint with the patient would like to proceed with SI fusion at this time. We discussed SI fusion in detail. At this juncture we have discussed the findings and diagnosis as well as reviewed appropriate imaging and performed interpretation of testing. Surgical intervention is recommended. Prior medical notes and history have been reviewed. Surgical versus non-operative management have been discussed in detail and non-operative management was given as an option. The risks of surgical intervention were given. Pre-operative optimization will be done prior to surgical procedure to limit imani-operative risks. I have discussed the planned procedure, how and who performs the procedure, and the personnel involved. Cardiovascular, pulmonary, and other life threatening episodes can occur during surgery although there is a low risk of these happening. Surgical risks including bleeding, neurovascular injury, wound closure problems and infection were discussed. Imani-operative risks including infection, bleeding, wound healing problems, and need for further surgery were discussed. It was discussed that there is a possibility of blood transfusion with any surgical procedure and the risks involved in receiving a blood transfusion. Possibility of, and need for, future bracing or DME use, physical or occupational therapy, mental therapy, rehabilitation, pain management and need for secondary procedures was discussed. I have warned against smoking and the use of tobacco products due to the risks associated with them, in particular, poor healing. 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 I have advised to follow all post-operative instructions in order to obtain the best outcome. Informed consent has been verbally affirmed and signed as indicated. The patient has been involved in our cooperative treatment plan and agrees to move forward with treatment at this time. Aug, Greater trochanteric bursitis of right hip (ICD-10 - M70.61) Did well after injection. Continue to monitor at this time The patient has been involved in our cooperative treatment plan and agrees to move forward with treatment at this time. Advised the pain she is experiencing at the troch bursa will not be addressed by surgical SI fusion. This can be treated with medications and injections. Aug, Lumbar back pain (ICD-10 - M54.50) Doing well after injections with Dr. 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 She was recently evaluated by Orthopedics who is trying to differentiate her pain symptoms from being SI joint vs hip. They suggest trying a diagnostic right sacroiliac joint injection. She has failed multiple previous conservative treatment options. We will proceed with a right side diagnostic sacroiliac joint injection with local only. Risks and benefits of procedure explained to patient; patient verbalizes understanding. She will follow up with orthopedics after this procedure. Jul, Osteoarthritis of right hip (ICD-10 - M16.11) Jul, Chronic pain (ICD-10 - G89.29) Jul, Other Above note writ ten by Susie Schwarz LPN, Tie Maker. Edited and approved by Dr. Bradley Adkins MD. [facility] Other 10-11-2022 Evaluation note* Encounter Date Diagnosis Assessment Notes Treatment Notes Treatment Clinical Notes Jul, Other spondylosis with radiculopathy, lumbar region (ICD-10 - M47.26) Patient is voicing minimal complaints of pain radiating into her right leg. She attributes this to a recent right lumbar transforaminal epidural injection. We will continue to monitor her symptoms in this region. Anatomy of spine discussed in detail with patient in regard to patients condition. Overall, patient believes her radicular pain from the lumbar spine is reasonably well controlled, and she is in agreement with our treatment plan. We will follow up with her on an as needed basis. Jul, Osteoarthritis of right hip (ICD-10 - M16.11) She has plans to follow up with orthopedics regarding pain related ot her right hip Jul, Chronic pain (ICD-10 - G89.29) Jul, Other Above note writ ten by Susie Schwarz LPN, Tie Maker. Edited and approved by Dr. Bradley Adkins MD. [facility] Other 09-15-2022 Evaluation note* Encounter Date Diagnosis Assessment Notes Treatment Notes Treatment Clinical Notes Jun, Other spondylosis with radiculopathy, lumbar region (ICD-10 - M47.26) Patients primary complaint today is pain radiating into the lateral aspect of her right lower extremity. Patient clearly has some hip pathology with significant degenerative changes present on imaging however, recent lumbar MRI results show evidence of mass effect on the right L4-5 nerve root which is also likely contributing to her pain symptoms. Based on these results, as well as location of pain and exam findings, patient is a candidate for a right lumbar transforaminal epidural steroid injection which we will proceed with diagnostically as well as hopefully therapeutic purposes. Jun, Osteoarthritis of right hip (ICD-10 - M16.11) Jun, Chronic pain (ICD-10 - G89.29) Jun, Other Above note writ ten by Casper Sales MA, Tie Maker. Edited and approved by Dr. Bradley Adkins MD. Medical decision making shows a new problem to me with further workup planned or suggested with the potential for extensive treatment options that were considered with the most applicable given this patient's situation as noted above. Treatment options considered include a combination of physical therapy approaches, pharmacologic management, and interventional procedures. Those most applicable to the patient were discussed at this time. Risk of complications and/or morbidity and mortality is high given that acute and chronic pain poses a threat to life and bodily function if undertreated, poorly treated or with failure to maintain adequate treatment and timely followup. Given the serious and fluctuating nature of pain with extensive consideration for whenever pain changes, there always remains the possibility of prolonged functional impairment requiring constant patient reassessment and high-level medical decision making. The amount and complexity of data reviewed is high given that patient labs, radiology reports, and other test were obtained, reviewed and summarized as applicable from the physician portal and/or outside medical records. Pertinent positive and negative findings were considered in medical decision-making. [facility] Other 08-03-2022 Evaluation note* Encounter Date Diagnosis Assessment Notes Treatment Notes Treatment Clinical Notes May, Primary osteoarthritis of right hip (ICD-10 - M16.11) Marisol is here today once again complaining of right hip region pain. Imaging has once again been reviewed with her. I have once again discussed that I feel that more of her pain is from extra-articular around the hip. We have undergone SI and greater trochanter bursa injections with good relief in the past. She does not feel the injections are a good long-term option. I have discussed that I do not think the intra-articular pathology is the main thing to blame here in regards to her right leg pain. I am unsure if a total hip arthroplasty would be very beneficial for her at this time as I think she will have ongoing pain from these extra-articular sources. She does have lumbar degenerative changes as well as sacroiliac degenerative changes. At this point I want to get an MRI of the lumbar spine as well as the hip to evaluate these areas further. She can follow-up after MRI is completed. The patient has been involved in our cooperative treatment plan and agrees to move forward with treatment at this time. Physical exam of the hip/leg done today, we will move forward with an MRI of the lumbar spine and the pelvis. We believe her hip pain is due to underlying spine issues. We will f/u with the patient when she gets her MRI done. May, Sacroiliitis (ICD-10 - M46.1) SIJ injection worked well. Monitor May, Greater trochanteric bursitis of right hip (ICD-10 - M70.61) Did well after injection. More painful now. The patient has been involved in our cooperative treatment plan and agrees to move forward with treatment at this time. May, Arthritis of left knee (ICD-10 - M17.12) Claudio is here today s/p left knee arthroscopy with medial meniscal debridement and medial femoral chondroplasty. Her symptoms this time has resolved and her knee is feeling very good. She can do activities as tolerated without restrictions. Follow-up as needed for this. May, Lumbar back pain (ICD-10 - M54.50) Plan for lumbar spine MRI. May, Other low back pain (ICD-10 - M54.59) [facility] Other 2022 Evaluation note* Encounter Date Diagnosis Assessment Notes Treatment Notes Treatment Clinical Notes Mar, Arthritis of left knee (ICD-10 - M17.12) Claudio is here today s/p left knee arthroscopy with medial meniscal debridement and medial femoral chondroplasty. Her symptoms this time has resolved and her knee is feeling very good. She can do activities as tolerated without restrictions. Follow-up as needed for this. Mar, Primary osteoarthritis of right hip (ICD-10 - M16.11) Marisol returns for follow-up after R GT bursa and SIJ injections. She had IA hip injection prior. More relief from these. Happy with results currently. Wants to avoid surgery. F/u PRN The patient has been involved in our cooperative treatment plan and agrees to move forward with treatment at this time. Mar, Lumbar back pain (ICD-10 - M54.50) Mar, Sacroiliitis (ICD-10 - M46.1) SIJ injection worked well. Monitor Patient given order for formal physical therapy Mar, Greater trochanteric bursitis of right hip (ICD-10 - M70.61) S/p injection. Doing well. Monitor The patient has been involved in our cooperative treatment plan and agrees to move forward with treatment at this time. Mar, Other low back pain (ICD-10 - M54.59) [facility] Other 05-04-2022 Evaluation note* Encounter Date Diagnosis Assessment Notes Treatment Notes Treatment Clinical Notes February, Arthritis of left knee (ICD-10 - M17.12) Claudio is here today 7 weeks s/p left knee arthroscopy with medial meniscal debridement and medial femoral chondroplasty. Her symptoms this time has resolved and her knee is feeling very good. She can do activities as tolerated without restrictions. Follow-up as needed for this. February, Primary osteoarthritis of right hip (ICD-10 - M16.11) Marisol returns for follow-up after intra-articular right hip injection with Dr. Zulema Adkins. She has had good relief with the injection which has lasted until today. She does still endorse some lateral as well as SI joint pain on the right. I have discussed with her now we can differentiate between the hip pain from the joint after her intra-articular hip injection as well as pain around the hip which can be caused by other pathology such as trochanteric bursitis as well as sacroiliitis. At this juncture we have discussed the findings and diagnosis as well as personally reviewed appropriate imaging and performed interpretation of related testing and examination with the patient in office today. I discussed a trial of trochanteric bursal injections as well as sacroiliac injection on the right with Dr. Zulema Adkins and the patient does wish to pursue this. We will get her set up for this and she may follow-up with me 4 to 6 weeks after the injection to see what her improvement looks like. Continue anti-inflammatory medications. The patient has been involved in our cooperative treatment plan and agrees to move forward with treatment at this time. S/p arthroscopy February, Lumbar back pain (ICD-10 - M54.50) February, Sacroiliitis (ICD-10 - M46.1) Plan for right SI joint injection with Dr. Zulema Adkins February, Greater trochanteric bursitis of right hip (ICD-10 - M70.61) Marisol presents with trochanteric bursitis on the right. At this juncture we have discussed the findings and diagnosis as well as personally reviewed appropriate imaging and performed interpretation of related testing and examination with the patient in office today. At this time I would recommend conservative treatment including anti-inflammatory medications, stretching, physical therapy and corticosteroid injections. Today we have initiated setting up a cortisone injection with Dr. Zulema Adkins. We will also have him inject her right sacroiliac joint. We will plan for follow-up as needed. The patient has been involved in our cooperative treatment plan and agrees to move forward with treatment at this time. February, Other low back pain (ICD-10 - M54.59) [facility] Other 03-30-2022 Evaluation note* Encounter Date Diagnosis Assessment Notes Treatment Notes Treatment Clinical Notes Dec, Arthritis of left knee (ICD-10 - M17.12) Claudio is here today 7 weeks s/p left knee arthroscopy with medial meniscal debridement and medial femoral chondroplasty. Her symptoms this time has resolved and her knee is feeling very good. She can do activities as tolerated without restrictions. Follow-up as needed for this. Dec, Primary osteoarthritis of right hip (ICD-10 - M16.11) Marisol returns with new right hip pain. At this juncture we have discussed the findings and diagnosis as well as personally reviewed appropriate imaging and performed interpretation of related testing and examination with the patient in office today. Prior medical notes and history have been reviewed. We have completed conservative treatment and have given her prescription for tramadol, Medrol Dosepak, anti-inflammatories and Flexeril as a muscle relaxer. She has had improvement but continues to be painful from the hip it seems. At this point I would proceed with a cortisone injection to be both diagnostic and therapeutic for her hip. This will differentiate what ever pain could be coming from the lumbar spine. We will get her set up with Dr. Zulema Adkins for this. Follow-up after injection. The patient has been involved in our cooperative treatment plan and agrees to move forward with treatment at this time. S/p arthroscopy Xrays reviewed with patient today. The patient is suffering from degenerative arthritis involving the hip. We discussed the conservative treatment options which can be beneficial in relieving pain, including gentle non-impact motion exercise and non-steroidal anti-inflammatory medication. We discussed the use of occasional intra-articular cortisone injections that can provide pain relief. We will schedule patient for a hip injection with Dr Adkins. Dec, Lumbar back pain (ICD-10 - M54.50) [facility] Other 03-02-2022 Evaluation note* Encounter Date Diagnosis Assessment Notes Treatment Notes Treatment Clinical Notes Dec, Arthritis of left knee (ICD-10 - M17.12) Claudio is here today 7 weeks s/p left knee arthroscopy with medial meniscal debridement and medial femoral chondroplasty. Her symptoms this time has resolved and her knee is feeling very good. She can do activities as tolerated without restrictions. Follow-up as needed for this. Patient is progressing well from surgery. We discussed the importance of continuing to work on range of motion and strength exercise. Dec, Other tear of medial meniscus, current injury, left knee, subsequent encounter (ICD-10 - S83.242D) S/p arthroscopy Dec, Other specified postprocedural states (ICD-10 - Z98.890) Dec, Right hip pain (ICD-10 - M25.551) Marisol presents with new right hip pain. At this juncture we have discussed the findings and diagnosis as well as personally reviewed appropriate imaging and performed interpretation of related testing and examination with the patient in office today. Prior medical notes and history have been reviewed. At this time I would recommend conservative treatment and have given her prescription for tramadol, Medrol Dosepak, anti-inflammatories and Flexeril as a muscle relaxer. We will plan for follow-up in 6 weeks if not improved. Will need updated x-rays of the hip as well as lumbar spine if she continues to have pain. The patient has been involved in our cooperative treatment plan and agrees to move forward with treatment at this time. Previous xryars reviewed with patient. We discussed the conservative treatment options which can be beneficial in relieving pain, including gentle non-impact motion exercise and non-steroidal anti-inflammatory medication. We discussed the use of occasional intra-articular cortisone injections that can provide pain relief. A perscription for Medrol dose pack, Flexeril and Meloxicam was given today along with directions of use. We discussed use of OTC lidocaine patches as needed. [facility] Other 12-29-2021 Evaluation note* Encounter Date Diagnosis Assessment Notes Treatment Notes Treatment Clinical Notes Sep, Arthritis of left knee (ICD-10 - M17.12) Marisol returns today with ongoing left knee issues. We have attempted conservative treatments including anti-inflammatories, steroids, physical therapy, activity modification, and injections. She has failed to improve with this. Her MRI does show some medial compartment cartilage loss along with a meniscal tear. We discussed continued nonoperative care versus knee arthroscopy versus knee arthroplasty. At this time the patient wants to proceed with knee arthroscopy. Marisol presents with left knee medial meniscus tear. At this juncture we have discussed the findings and diagnosis as well as reviewed appropriate imaging and performed interpretation of testing. Surgical intervention is recommended. Prior medical notes and history have been reviewed. Surgical versus non-operative management have been discussed in detail and non-operative management was given as an option. The risks of surgical intervention were given. Pre-operative optimization will be done prior to surgical procedure to limit imani-operative risks. I have discussed the planned procedure, how and who performs the procedure, and the personnel involved. Cardiovascular, pulmonary, and other life threatening episodes can occur during surgery although there is a low risk of these happening. Surgical risks including bleeding, neurovascular injury, wound closure problems and infection were discussed. Imani-operative risks including infection, bleeding, wound healing problems, and need for further surgery were discussed. It was discussed that there is a possibility of blood transfusion with any surgical procedure and the risks involved in receiving a blood transfusion. Possibility of, and need for, future bracing or DME use, physical or occupational therapy, mental therapy, rehabilitation, pain management and need for secondary procedures was discussed. I have warned against smoking and the use of tobacco products due to the risks associated with them, in particular, poor healing. 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 I have advised to follow all post-operative instructions in order to obtain the best outcome. Informed consent has been verbally affirmed and signed as indicated. We explicitly discussed the possibility that she has ongoing issues after this procedure and it could require further intervention in the future. She verbalizes understanding of this Sep, Acute pain of left knee (ICD-10 - M25.562) Sep, Synovial cyst of left popliteal space (ICD-10 - M71.22) Sep, Sprain of other ligament of left knee, subsequent encounter (ICD-10 - S83.8X2D) Sep, Other tear of medial meniscus, current injury, left knee, subsequent encounter (ICD-10 - S83.242D) Marisol returns today for follow-up of her left knee. She has taken anti-inflammatory medications as well as tramadol. Aspiration injection did improve her but she continues to complain of pain. At this juncture we have discussed the findings and diagnosis as well as reviewed appropriate imaging and performed interpretation of related testing and examination. Prior medical notes and history have been reviewed. At this time I would recommend physical therapy along with a Medrol Dosepak. We will switch her anti-inflammatory to nabumetone and refill her tramadol. Follow-up 8 weeks. The patient has been involved in our cooperative treatment plan and agrees to move forward with treatment at this time. Patient reports no relief from conservative treatmet. 3 options given: gel injection, knee arthroscopy, and knee replacement. Patient states she would like to proceed with a knee arthoscopy. Patient advised of the pros and cons with a knee arthroscopy. We will plan on arthroscopy and menisectemy. We have discussed continued non-operative treatments including gentle exercise, use of medications and activity modification. Patient states that they would like to proceed with surgery at this time. We discussed the surgery process in detail including nothing by mouth 8 hrs prior to sugery, thorough washing of leg pior to coming to surgery. We discussed the multiple potential risks of anesthesia including respiratory, cardiac and patient positioning issues. We discussed the multiple risks of surgery particularly wound infection, deep venous thrombosis(DVT), persistent swelling, pain and stiffness after surgery, as well as worsening of pre-existing arthritic symptoms. Patient has agreed to understanding of these risks and would like to proceed. [facility] Other 12-06-2017 History general Narrative - Reported* Type Description Date Medical History rheumatoid arthritis Medical History 09-11-17 Normal Lexiscan NO Medical History 10-09-[address] Storm mccoy, repeat in 10 years (2027) Medical History 10-17-17 Transthoracic Echo NO Medical History 06/2019 corisone injection in r h ip Surgical History hysterectomy 1993 Surgical History hysterectomy- total 1992 Surgical History LT Foot Sx. Neuroma 2012 Surgical History nodule taken from left foot Surgical History Colonoscopy, Normal- Dr. Inman - repeat in 10 years (2027) 10-09-17 Surgical History colonoscopy; normal- Dr Hill ck repeat in 2017 Surgical History mammogram - [facility] 2016 Surgical History bone density [facility] 2016 Hospitalization History natural child 1972 Hospitalization History natural child 1974 [facility] Other 12-06-2017 History general Narrative - Reported* Type Description Date Medical History rheumatoid arthritis Medical History 09-11-17 Normal Lexiscan NO Medical History 10-09-[address] Storm Null, repeat in 10 years (2027) Medical History 10-17-17 Transthoracic Echo NO Medical History 06/2019 corisone injection in r h ip Surgical History hysterectomy 1993 Surgical History hysterectomy- total 1992 Surgical History LT Foot Sx. Neuroma 2012 Surgical History nodule taken from left foot Surgical History Colonoscopy, Normal- Dr. Inman - repeat in 10 years (2027) 10-09-17 Surgical History colonoscopy; normal- Dr Hill ck repeat in 2017 Surgical History mammogram - [facility] 2017 Surgical History bone density [facility] 2016 Surgical History arthroscopic partial left medial menisetemy, medial femoral chondroplasty. Hospitalization History natural child 1972 Hospitalization History natural child 1974 [facility] Other 12-06-2017 History general Narrative - Reported* Type Description Date Medical History rheumatoid arthritis Medical History 09-11-17 Normal Lexiscan [facility] Medical History 10-09-17 Normal Colono scopy, Dr. Inman, repeat in 10 years (2027) Medical History 10-17-17 Transthoracic Echo [facility] Medical History 06/2019 corisone injection in r h ip Medical History Blood Type O positive Surgical History hysterectomy 1992 Surgical History hysterectomy- total 1992 Surgical History LT Foot Sx. Neuroma 2011 Surgical History nodule taken from left foot Surgical History Colonoscopy, Normal- Dr. Inman - repeat in 10 years (2027) 10-09-17 Surgical History colonoscopy; normal- Dr Hill ck repeat in 10 years 2017 Surgical History mammogram - [facility] 2017 Surgical History bone density [facility] 2016 Surgical History arthroscopic partial left medial menisetemy, medial femoral chondroplasty. Hospitalization History natural child 1972 Hospitalization History natural child 1974 [facility] Other Evaluation noteNo InformationNoAltheRx Pharmaceuticals [employer] Other Evaluation noteNo assessment information available [facility] Work Phone: Evaluation note* Diagnosis Onset Date Resolution Status Dermatitis acute Weight gain acute [facility] Work Phone: Hospital Discharge instructions Additional Instructions Take Motrin and Tylenol as needed for mild to moderate pain. You can take oxycodone as prescribed for severe pain take Zofran with it to prevent nausea. Follow-up with Dr. Adkins for ongoing pain management Dr. Driscoll for definitive surgical management.[facility] Work Phone: Reason for visit AngelesDISCUSS PROCEDURE PT DOES NOT WANT TO HAVE SURGERY AT THIS TIMEMobiquity [employer] Other Reason for visit Ronnie ADKINS OPINION ON PROCEDURE VS SURGERY BEFORE HER APPT WITH [facility] [employer] Other Summary Purpose Family History Relationship Condition Age at Onset Recorded Date/T [place] Not Specified Malignant neoplasm of colon Unknown Malignant neoplasm of breast Unknown father History of coronary artery bypass surgery Unknown Myocardial infarction Unknown Coronary artery disease Unknown Relationship Condition Age at Onset Recorded Date/T [place] mother Malignant neoplasm of colon Unknown Malignant neoplasm of breast Unknown father History of coronary artery bypass surgery Unknown Myocardial infarction Unknown Coronary artery disease Unknown brother Unknown father Malignant neoplasm Unknown Unknown Heart disease Unknown family member Unknown grandparent Unknown grandparent Diabetes mellitus Unknown mother Malignant neoplasm Unknown Advance Directives Advance Directive Response Recorded Date/ Time Advance Directives Yes October 11, 2017 2:43pm Advance Directive Response Recorded Date/ Time Advance Directives Yes October 11, 2017 1:43pm Chief Complaint and Reason for Visit Chief Complaint Primary Osteoarthiti s right hip Primary Osteoarthitis right hip Chief Complaint Primary Osteoarthiti s right hip Primary Osteoarthitis right hip Right Hip Pain Chief Complaint Right Hip Pain Right Hip Pain Chief Complaint R06.02 R06.00 M35.9 Chief Complaint R06.02 R06.00 M35.9 right side pain, Chief Complaint R06.02 R06.00 M35.9 right side pain, Back Pain Chief Complaint Vertigo/Discuss Hip Pain Back Pain Chief Complaint rash Reason for Visit Dermatitis Weight gain Chief Complaint rash review labs/med refill Adipex Reason for Visit Dermatitis Weight gain Chief Complaint rash review labs/med refill Adipex med refill Adipex Reason for Visit Dermatitis Weight gain Dermatitis Family history of pancreatic cancer Weight gain Dyslipidemia Hyperlipidemia Weight gain Chief Complaint rash review labs/med refill Adipex med refill Adipex RECHECK RT SI JOINT M17.12 - Unilateral primary osteoarthritis, left k Reason for Visit Dermatitis Weight gain Dermatitis Family history of pancreatic cancer Weight gain Dyslipidemia Hyperlipidemia Weight gain Chronic pain Osteoarthritis of left knee Sacroiliitis Chief Complaint Admit Date review labs/med refill Adipex June 10, 2024 9:48am med refill Adipex July 07, 2024 10 :20am RECHECK RT SI JOINT August 04, 2024 1 :51pm M17.12 - Unilateral primary osteoarthrit is, left k August 04, 2024 2:20pm Back Pain August 18, 2024 9:40am Back Pain August 18, 2024 11:06am Reason for Visit Admit Date Dermatitis June 10, 2024 9:48am Family history of pancreatic cancer Sept emb2023 9:48am Weight gain June 10, 2024 9:48am Dyslipidemia June 10, 2024 9:48am Hyperlipidemia July 07, 2024 10 :20am Weight gain July 07, 2024 10 :20am Chronic pain August 04, 2024 1 :51pm Osteoarthritis of left knee July 1:51pm Sacroiliitis August 04, 2024 1 :51pm Chief Complaint Admit Date review labs/med refill Adipex June 10, 2024 9:48am med refill Adipex July 07, 2024 10 :20am RECHECK RT SI JOINT August 04, 2024 1 :51pm M17.12 - Unilateral primary osteoarthrit is, left k August 04, 2024 2:20pm Back Pain August 18, 2024 9:40am Back Pain August 18, 2024 11:06am F/U R SI JOINT INJ August 26, 2024 10:29am Reason for Visit Admit Date Dermatitis June 10, 2024 9:48am Family history of pancreatic cancer Jun 9:48am Weight gain June 10, 2024 9:48am Dyslipidemia June 10, 2024 9:48am Hyperlipidemia July 07, 2024 10 :20am Weight gain July 07, 2024 10 :20am Chronic pain August 04, 2024 1 :51pm Osteoarthritis of left knee July 1:51pm Sacroiliitis August 04, 2024 1 :51pm Chronic pain August 26, 2024 10:29am Osteoarthritis of left knee August 10:29am Sacroiliitis August 26, 2024 10:29am Chief Complaint Admit Date RECHECK RT SI JOINT August 04, 2024 1 :51pm M17.12 - Unilateral primary osteoarthrit is, left k August 04, 2024 2:20pm Back Pain August 18, 2024 9:40am Back Pain August 18, 2024 11:06am F/U R SI JOINT INJ August 26, 2024 10:29am med refill Adipex October 21, 2024 9 :46am Reason for Visit Admit Date Chronic pain August 04, 2024 1 :51pm Osteoarthritis of left knee July 1:51pm Sacroiliitis August 04, 2024 1 :51pm Chronic pain August 26, 2024 10:29am Osteoarthritis of left knee August 10:29am Sacroiliitis August 26, 2024 10:29am Cephalgia October 21, 2024 9 :46am Hyperlipidemia October 21, 2024 9 :46am Weight gain October 21, 2024 9 :46am Chief Complaint Admit Date RECHECK RT SI JOINT August 04, 2024 1 :51pm M17.12 - Unilateral primary osteoarthrit is, left k August 04, 2024 2:20pm Back Pain August 18, 2024 9:40am Back Pain August 18, 2024 11:06am F/U R SI JOINT INJ August 26, 2024 10:29am med refill Adipex October 21, 2024 9 :46am DISCUSS PROCEDURE October 22, 2024 1 :04pm Reason for Visit Admit Date Chronic pain August 04, 2024 1 :51pm Osteoarthritis of left knee July 1:51pm Sacroiliitis August 04, 2024 1 :51pm Chronic pain August 26, 2024 10:29am Osteoarthritis of left knee August 10:29am Sacroiliitis August 26, 2024 10:29am Cephalgia October 21, 2024 9 :46am Hyperlipidemia October 21, 2024 9 :46am Weight gain October 21, 2024 9 :46am Chronic pain October 22, 2024 1 :04pm Osteoarthritis of left knee October 1:04pm Sacroiliitis October 22, 2024 1 :04pm Additional Source Comments INFORMATION SOURCE (unrecogn ized section and content) DATE CREATED AUTHOR 04/01/2018 [facility] DATE CREATED AUTHOR AUTHOR'S ORGANIZ ATION 04/01/2018 [facility] DATE CREATED AUTHOR AUTHOR'S ORGANIZ ATION [facility]/17/2022 [facility] DATE CREATED AUTHOR AUTHOR'S ORGANIZ ATION 09/09/2023 [facility] DATE CREATED AUTHOR AUTHOR'S ORGANIZ ATION 08/30/2024 [facility] REASON FOR VISIT (unrecogniz ed section and content) med refill Adipexupdateverti go/discuss hip painRECHECK INCREASED PAINMeclizine scriptFOLLOW UP AFTER RT SI RFARIGHT SI RFA S1 S2 S3/CJFRMC ERMammogramreferred by Dr. Harding Lumbar Back PainRIGHT SI JOINT RFA L5 S1 S2 S3 /VWCANCEL SURGERYreferralRecheck Right SI JointDISCUSS INJF/U RIGHT LUMBAR TRANSFORAMINAL EPIDURAL STEROID INJECTIONFORAMINAL INJ DR ABERNATHY PT*MICHELA PTRIGHT SI JOINT INJ/ TROCH BURSA/DSClinical Acute MedicineRecheck Right HipMICHELA PATIENT*RIGHT HIP INTRA ARTICULAR JOINT INJ CJRecheck Left Knee and Right Hip PainRecheck Left KneeLeft Knee Pain Care Teams (unrecognized sec tion and content) Team Status: Active Member Role Status Cony Harding DO Primary Care Provider Active Team Status: Inactive Member Role Status Cony Harding DO Primary Care Provider Active S tart: August 04, 2024 End: August 04, 2024 Bradley Adkins MD Attending Provider Active Sta rt: August 04, 2024 End: August 04, 2024 Team Status: Inactive Member Role Status Cony Harding DO Primary Care Provider Active S tart: August 18, 2024 End: August 18, 2024 Bradley Adkins MD Attending Provider Active Sta rt: August 18, 2024 End: August 18, 2024 Team Status: Active Member Role Status Cony Harding DO Primary Care Provider Active S tart: August 18, 2024 Bradley Adkins MD Attending Provider, Other Provider Active Start: August 18, 2024 Team Status: Inactive Member Role Status Cony Harding DO Primary Care Provider Active S tart: August 26, 2024 End: August 26, 2024 Bradley Adkins MD Attending Provider Active Sta rt: August 26, 2024 End: August 26, 2024 Team Status: Inactive Member Role Status Cony Harding DO Primary Care Provide r, Attending Provider Active Start: October 21, 2024 End: October 21, 2024 Team Status: Active Member Role Status Cony Harding DO Primary Care Provide r, Attending Provider Active Start: June 01, 2024 Team Status: Inactive Member Role Status Cony Harding DO Primary Care Provide r, Attending Provider Active Start: June 10, 2024 End: June 10, 2024 Team Status: Inactive Member Role Status Cony Harding DO Primary Care Provide r, Attending Provider Active Start: July 07, 2024 End: July 07, 2024 Team Status: Inactive Member Role Status Cony Harding DO Primary Care Provider Active Madison Abernathy , DO Attending Provider Active Team Status: Inactive Member Role Status Cony Harding DO Primary Care Provider Active Jose Grullon MD Attending Provider Active Team Status: Inactive Member Role Status Cony Harding DO Primary Care Provider Active Mickey Gaspar , DO Emergency Provider Active Archana Rios MD RES Active Team Status: Inactive Member Role Status Dates Monster Harding DO Primary Care Provider Active Bradley Adkins MD Attending Provider Active Team Status: Inactive Member Role Status Cony Harding DO Attending Provider Active Star t: October 21, 2023 End: October 21, 2023 Team Status: Inactive Member Role Status Cony Harding DO Primary Care Provider Active S tart: November 05, 2023 End: November 05, 2023 Bradley Adkins MD Attending Provider Active Sta rt: November 05, 2023 End: November 05, 2023 Team Status: Inactive Member Role Status Cony Harding DO Primary Care Provide r, Attending Provider Active Start: May 11, 2024 End: May 11, 2024 Patient Coordinator Relationship Specialty Start Date End Date Monster Harding MD [address] [place] [address] PCP - General Family Medicine 09/03/23 Team Status: Active Member Role Status Cony Harding DO Primary Care Provider Active S tart: August 04, 2024 Bradley Adkins MD Attending Provider Active Sta rt: August 04, 2024 Team Status: Inactive Member Role Status Cony Harding DO Primary Care Provider Active S tart: October 22, 2024 End: October 22, 2024 Bradley Adkins MD Attending Provider Active Sta rt: October 22, 2024 End: October 22, 2024 Goals (unrecognized section and content) Goals may be documented in a n alternate section FOR RECORDS PERTAINING TO PATIENTS WHO ARE OR HAVE BEEN ENROLLED IN A CHEMICAL DEPENDENCY/SUBSTANCEABUSE PROGRAM, SOME INFORMATION MAY BE OMITTED. This clinical summary was aggregated from multiple sources. Caution should be exercised in using it in the provision of clinical care. This summary normalizes information from multiple sources, and as a consequence, information in this document may materially change the coding, format and clinical context of patient data. In addition, data may be omitted in some cases. CLINICAL DECISIONS SHOULD BE BASED ON THE PRIMARY CLINICAL RECORDS. [facility] [employer] [facility]. provides no warranty or guarantee of the accuracy or completeness of information in this document.
--- NOTE | 2024-11-02 12:45 | CT_ITS ---
The [address] [address] Patient Name: IRAJ MUKHERJEE MRN: [id number] date: 1950 Sex: F Assigned Patient Location: ER Current Patient Location: [place] Accession/Order Number: [id number] Exam Date: 11/02/2024 12:52 Report Date: 11/02/2024 16:35 At the request of: ALBERT BALBUENA Procedure: CT stroke head/brain wo con CT HEAD WITHOUT CONTRAST, 11/02/2024. HISTORY: Left-sided face and extremity numbness. COMPARISON: None. TECHNIQUE: Noncontrast axial CT images obtained through the head. Reconstructions obtained in the sagittal and coronal planes. Dose reduction techniques were achieved by using automated exposure control and/or adjustment of mA and/or kV according to patient size and/or use of iterative reconstruction technique. FINDINGS: Paranasal sinuses clear. Mastoid air cells clear. Skull base intact. No skull lesion. Orbital contents unremarkable. Ventricles are normal in size. No hydrocephalus. No subdural fluid collection or mass effect. No shift of midline. No acute hemorrhage. Jolley matter and white matter differentiation appears normal. No edema. No masses. CT/CT stroke head/brain wo con IMPRESSION: No acute findings. No intracranial hemorrhage. Electronically authenticated by: NAHED MAXWELL Date: 11/02/2024 16:35
--- NOTE | 2024-11-02 12:45 | ECG_ITS ---
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
--- NOTE | 2024-11-02 12:46 | ED.GENADUL1 ---
HPI HPI - General Adult General Chief complaint: Neuro Symptoms/Deficit Stated complaint: LEFT SIDE NUMB Time Seen by Provider: 11/02/24 12:38 Source: patient Mode of arrival: walk-in Limitations: no limitations History of Present Illness HPI narrative: 74-year-old female presents to the emergency department for a chief complaint of numbness. She is describing numbness on the left lower part of her face and her left arm and her left foot. Her symptoms of numbness began yesterday morning when she had awoken, over 24 hours ago. The previous day she was having some discomfort in her left shoulder and left arm but no chest pain. She has not had a headache. She has had no weakness and has had no coordination issues. No difficulty with vision or speech or strength. Today the numbness is in the left foot and the left hand and the left lower half of her face. Related Data Home Medications ?Medication ?Instructions ?Recorded ?Confirmed phentermine 37.5 mg tablet 37.5 mg PO DAILY 11/02/24 11/02/24 Allergies Allergy/AdvReac Type Severity Reaction Status Date / Time No Known Drug Allergies Allergy Verified 11/02/24 12:31 Opioid HPI Opioid Management Most Recent Opioid Data: No Data to Display Review of Systems ROS Narrative A ten point review of systems is negative except as noted above. [facility] Medical History (Updated 11/02/24 @ 15:33 by Daniel Hawley MD) No active medical problems Exam Narrative Exam Narrative: Nurses note and vital signs reviewed and patient is not hypoxic. General: The patient appears well and in no apparent distress. Patient is resting comfortably on cart. Skin: Warm, dry, no pallor noted. There is no rash noted. Head: Normocephalic, atraumatic Eye: Normal conjunctiva, no drainage, EOMI. PERRL Ears, Nose, Mouth, and Throat: oral mucosa is moist. Nares patent. Cardiovascular: Regular Rate and Rhythm Respiratory: Patient is in no distress, no accessory muscle use, lungs are clear to auscultation, no wheezing, rales or rhonchi Back: non-tender, no CVA tenderness bilaterally to percussion. GI: Normal bowel sounds, no tenderness to palpation, no masses appreciated. No rebound, guarding, or rigidity noted. Musculoskeletal: The patient has no evidence of calf tenderness, no pitting edema, symmetrical pulses noted bilaterally Neurological: A&O, normal speech; cranial nerves II through XII are intact except for subjective numbness on the lower left part of her face. Upper and lower extremity strength is 5 out of 5 and symmetric. She has subjective numbness in her left foot and her left hand. Psychiatric: Cooperative Constitutional Vital Signs, click to edit/add: Last Vital Signs Temp 97.6 F 11/02/24 12:31 Pulse 85 11/02/24 12:31 Resp 18 11/02/24 12:31 BP 138/90 11/02/24 12:31 Pulse Ox 100 11/02/24 12:31 O2 Del Method Room Air 11/02/24 12:31 Course Vital Signs Vital signs: Vital Signs Temperature 97.6 F 11/02/24 12:31 Pulse Rate 85 11/02/24 12:31 Respiratory Rate 18 11/02/24 12:31 Blood Pressure 138/90 11/02/24 12:31 Pulse Oximetry 100 11/02/24 12:31 Oxygen Delivery Method Room Air 11/02/24 12:31 Temperature 97.6 F 11/02/24 12:31 Pulse Rate 85 11/02/24 12:31 Respiratory Rate 18 11/02/24 12:31 Blood Pressure 138/90 11/02/24 12:31 Pulse Oximetry 100 11/02/24 12:31 Oxygen Delivery Method Room Air 11/02/24 12:31 Medical Decision Making MDM Narrative Medical decision making narrative: CT brain and then CTA head and neck are negative. I spoke to neurology at [facility] and they recommend admission to the hospital for further workup and giving 325 mg of aspirin. Treatment diagnosis and disposition were discussed with the patient. Differential Diagnosis Differential Diagnosis: Hemorrhagic stroke, CVA, paresthesia Lab Data Lab results reviewed: Yes I reviewed the patient's lab results Labs: Lab Results 11/02/24 11/02/24 Range/Units 12:36 13:40 WBC 6.0 (4.0-11.0) 10^3/uL RBC 5.03 (4.20-5.40) 10^6/uL Hgb 13.8 (12.0-16.0) g/dL Hct 42.2 (36.0-48.0) % MCV 83.9 (81.0-99.0) fL MCH 27.4 (26.7-34.0) pg MCHC 32.7 (29.9-35.2) g/dL RDW 14.4 (11.0-15.0) % Plt Count 187 (150-450) 10^3/uL MPV 8.9 L (9.5-13.5) fL Neut % (Auto) 70.3 (43.0-75.0) % Lymph % (Auto) 18.0 L (20.5-60.0) % Whitley % (Auto) 8.2 (1.7-12.0) % Eos % (Auto) 2.8 (0.9-7.0) % Baso % (Auto) 0.5 (0.2-2.0) % Neut # (Auto) 4.2 (1.4-6.5) 10^3/uL Lymph # (Auto) 1.1 L (1.2-3.8) 10^3/uL Whitley # (Auto) 0.5 (0.3-0.8) 10^3/uL Eos # (Auto) 0.2 (0.0-0.7) 10^3/uL Baso # (Auto) 0.0 (0.0-0.1) 10^3/uL Abs Immat Gran (auto) 0.01 (0.00-0.03) 10^3/uL Imm/Tot Granulo (auto) 0.2 (0.0-0.5) % Sodium 140 (136-145) mmol/L Potassium 4.1 (3.5-5.1) mmol/L Chloride 106 (98-107) mmol/L Carbon Dioxide 25.4 (21.0-32.0) mmol/L Anion Gap 12.7 BUN 27.0 H (7.0-18.0) mg/dL Creatinine 0.96 (0.55-1.02) mg/dL Est GFR ( Amer) >60 (>=60 mL/min/1.73m^2) Est GFR (Non-Af Amer) 57 L (>=60 mL/min/1.73m^2) BUN/Creatinine Ratio 28.1 Glucose 102 (74-106) mg/dL Calcium 9.3 (8.5-10.1) mg/dL Troponin I High Sens 5.8 (4.0-51.3) pg/mL POC Glucose 145 H (74-106) mg/dL Imaging Data CT scan - head: Radiologist's impression: ITS Impressions Brain CT 11/02/24 12:45 IMPRESSION: No acute findings. No intracranial hemorrhage. Electronically authenticated by: NAHED MAXWELL Date: 11/02/2024 13:22 Head CTA 11/02/24 13:27 IMPRESSION: 1. No intracranial arterial occlusion or significant stenosis. No aneurysm or vascular malformation. 2. No carotid or vertebral artery stenosis in the neck. No acute dissection. Electronically authenticated by: NAHED MAXWELL Date: 11/02/2024 15:23 Neck CTA 11/02/24 13:27 IMPRESSION: 1. No intracranial arterial occlusion or significant stenosis. No aneurysm or vascular malformation. 2. No carotid or vertebral artery stenosis in the neck. No acute dissection. Electronically authenticated by: NAHED MAXWELL Date: 11/02/2024 15:23 Discharge Plan Discharge Chief Complaint: Neuro Symptoms/Deficit Clinical Impression: Paresthesia Patient Disposition: Admitted as Observation Time of Disposition Decision: 15:33 Condition: Good
--- NOTE | 2024-11-02 13:27 | CT_ITS ---
[address] [address] Patient Name: IRAJ MUKHERJEE MRN: [id number] date: 1950 Sex: F Assigned Patient Location: ER Current Patient Location: [place] Accession/Order Number: [id number] Exam Date: 11/02/2024 14:27 Report Date: 11/02/2024 16:35 At the request of: ALBERT BALBUENA Procedure: CT angio head CT ANGIOGRAM HEAD AND NECK WITH CONTRAST, 11/02/2024. HISTORY: Left-sided weakness. COMPARISON: CT head without contrast, 11/02/2024. TECHNIQUE: Postcontrast axial CT angiogram images obtained through the head and neck. Reconstructed MIP images obtained in the axial, sagittal and coronal planes. Carotid stenosis measured according to NASCET criteria. Dose reduction techniques were achieved by using automated exposure control and/or adjustment of mA and/or kV according to patient size and/or use of iterative reconstruction technique. FINDINGS: CTA HEAD: No stenosis of the distal internal carotid arteries. Anterior cerebral arteries are normal. Middle cerebral arteries are normal. Distal right vertebral artery is dominant. Left vertebral artery is patent. Left vertebral artery terminates as the left posterior inferior cerebellar artery which is normal variation. Posterior inferior cerebellar arteries are patent. Basilar artery normal. Superior cerebellar arteries are normal. Posterior cerebral arteries are normal. No proximal arterial occlusion. No aneurysm or vascular malformation. CTA NECK: No stenosis of the common carotid arteries. Mild atherosclerotic disease of the carotid bifurcations without stenosis. No stenosis of the internal carotid arteries. Right vertebral artery is dominant. Both vertebral arteries are patent. No vertebral artery stenosis. No acute dissection. No neck mass. No lymphadenopathy in the neck. CT/CT angio head IMPRESSION: 1. No intracranial arterial occlusion or significant stenosis. No aneurysm or vascular malformation. 2. No carotid or vertebral artery stenosis in the neck. No acute dissection. Electronically authenticated by: NAHED MAXWELL Date: 11/02/2024 16:35
--- NOTE | 2024-11-02 13:27 | CT_ITS ---
[address] [address] Patient Name: IRAJ MUKHERJEE MRN: [id number] date: 1950 Sex: F Assigned Patient Location: ER Current Patient Location: [place] Accession/Order Number: [id number] Exam Date: 11/02/2024 14:27 Report Date: 11/02/2024 16:35 At the request of: ALBERT BALBUENA Procedure: CT angio neck CT ANGIOGRAM HEAD AND NECK WITH CONTRAST, 11/02/2024. HISTORY: Left-sided weakness. COMPARISON: CT head without contrast, 11/02/2024. TECHNIQUE: Postcontrast axial CT angiogram images obtained through the head and neck. Reconstructed MIP images obtained in the axial, sagittal and coronal planes. Carotid stenosis measured according to NASCET criteria. Dose reduction techniques were achieved by using automated exposure control and/or adjustment of mA and/or kV according to patient size and/or use of iterative reconstruction technique. FINDINGS: CTA HEAD: No stenosis of the distal internal carotid arteries. Anterior cerebral arteries are normal. Middle cerebral arteries are normal. Distal right vertebral artery is dominant. Left vertebral artery is patent. Left vertebral artery terminates as the left posterior inferior cerebellar artery which is normal variation. Posterior inferior cerebellar arteries are patent. Basilar artery normal. Superior cerebellar arteries are normal. Posterior cerebral arteries are normal. No proximal arterial occlusion. No aneurysm or vascular malformation. CTA NECK: No stenosis of the common carotid arteries. Mild atherosclerotic disease of the carotid bifurcations without stenosis. No stenosis of the internal carotid arteries. Right vertebral artery is dominant. Both vertebral arteries are patent. No vertebral artery stenosis. No acute dissection. No neck mass. No lymphadenopathy in the neck. CT/CT angio neck IMPRESSION: 1. No intracranial arterial occlusion or significant stenosis. No aneurysm or vascular malformation. 2. No carotid or vertebral artery stenosis in the neck. No acute dissection. Electronically authenticated by: NAHED MAXWELL Date: 11/02/2024 16:35
[2024-11-02 13:47] LABS: Basophils Percent Auto 0.5 % (0.2-2.0); Eosinophils Absolute Auto 0.2 10^3/uL (0.0-0.7); Eosinophils Percent Auto 2.8 % (0.9-7.0); Hematocrit 42.2 % (36.0-48.0); Hemoglobin 13.8 g/dL (12.0-16.0); Immature Granulocytes Abs Auto 0.01 10^3/uL (0.00-0.03); Immature Granulocytes Pct Auto 0.2 % (0.0-0.5); Lymphocytes Absolute Auto 1.1 10^3/uL (1.2-3.8); Mean Corpuscular HGB Conc 32.7 g/dL (29.9-35.2); Mean Corpuscular Hemoglobin 27.4 pg (26.7-34.0); Mean Corpuscular Volume 83.9 fL (81.0-99.0); Mean Platelet Volume 8.9 fL (9.5-13.5); Monocytes Absolute Auto 0.5 10^3/uL (0.3-0.8); Monocytes Percent Auto 8.2 % (1.7-12.0); Neutrophils Absolute Auto 4.2 10^3/uL (1.4-6.5); Neutrophils Percent Auto 70.3 % (43.0-75.0); Platelet Count 187 10^3/uL (150-450); Red Blood Count 5.03 10^6/uL (4.20-5.40); Red Cell Distribution Width 14.4 % (11.0-15.0)
[2024-11-02 14:04] LABS: Anion Gap 12.7; BUN Creatinine Ratio 28.1; Calcium 9.3 mg/dL (8.5-10.1); Carbon Dioxide 25.4 mmol/L (21.0-32.0); Chloride 106 mmol/L (98-107); Estimated GFR (African America >60 (>=60 mL/min/1.73m^2); Estimated GFR (Non-African Ame 57 (>=60 mL/min/1.73m^2); Glucose 102 mg/dL (74-106); Potassium 4.1 mmol/L (3.5-5.1); Sodium 140 mmol/L (136-145); Troponin I High Sensitivity 5.8 pg/mL (4.0-51.3)
[2024-11-02] MEDS: ASPIRIN 325 MG TABLET PO (15:39)
--- OUTSIDE RECORDS SUMMARY | 2024-11-02 16:42 | XMS_ITS | CCD ---
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 Role Phone TRABOULSSI, MOURHAF Unavailable Unavailable HEATON, BEAU Unavailable Unavailable TRABOULSSI, MOURHAF Unavailable Unavailable HEATON, BEAU Unavailable Unavailable TRABOULSSI, MOURHAF Unavailable Unavailable HEATON, BEAU Unavailable Unavailable Madison Abernathy Unavailable Bradley Adkins Unavailable Monster Harding Unavailable DO Monster Harding Primary Care Provider DO Madison Abernathy Attending Provider MADISON ABERNATHY Admitting Unavailable MADISON ABERNATHY Attending Unavailable DR MONSTER HARDING Primary Care Unavailable DO Monster Harding Primary Care Provider [phone] DO Madison Abernathy Attending Provider [phone] DO Monster Harding Primary Care Provider DO Madison Abernathy Attending Provider [phone] Marc Luciano Unavailable DO Monster Harding Primary Care Provider MD Jose Grullon Attending Provider DO Mickey Gaspar Emergency Provider MD Bradley Slade Attending Provider ERLIN COLLINS Attending Unavailable ERLIN COLLINS Referring Unavailable ERLIN COLLINS Referring Unavailable DO Monster Harding Primary Care Provider MD Bradley Adkins Attending Provider Monster Harding MD Primary Care Provider DO Monster Harding Primary Care Provider MD Bradley Adkins Attending Provider [phone] Monster Harding DO Primary Care Provider Bradley Adkins MD Attending Provider Bradley Adkins Admitting Unavailable Bradley Adkins Attending Unavailable Monster Harding Primary Care Unavailable Bradley Adkins Admitting Unavailable Bradley Adkins Attending Unavailable Monster Harding Primary Care Unavailable Bradley Adkins Admitting Unavailable Bradley Adkins Attending Unavailable Monster Harding Primary Care Unavailable Allergies Allergy Classification Reported Allergen(s) Allergy Type Date of Onset Reaction(s) Facility (20 sources) Contrast media; Translations: [red dye] Propensity to adverse reactions 05-11-2024 [facility] (17 sources) Povidone-Iodine; Translations: [povidone-iodine ] Drug Allergy 10-10-2021 [facility] Medications Current Medications Medication Drug Class(es) Dates [...] LT 2Von 08-04-2024 XR knee LT 2V [facility] [address] [place] [address] XRay Report Signed Patient: Marisol Cantrell MR#: [id number] : 1950 Acct:[id number] Age/Sex: 74 / F ADM Date: 08/04/24 [place] [facility] [place]: Type: [facility] Attending Dr: Bradley Adkins MD Copies to: [...] Lobo Velasquez M.D.08/04/2024 6:05 PM Dictation Location: [place] [address] Transcribed By: RYLEY 08/04/241804 Dictated By: Lobo Velasquez DO 08/04/241803 Signed By: 08/04/241804 Normal [facility] Basophils Auto (Bld) [#/Vol] on 06-01-2024 Basophils (Bld) [#/Vol] 0.0 10 3/uL 0.0-0.1 [facility] Basophils (Bld) [#/Vol] Automated basoph il count 0.0-0.1 [facility] Basophils/100 WBC Auto (Bld) on 06-01-2024 Basophils/100 WBC (Bld) 0.4 % 0.2-2.[address] [facility] Basophils/100 WBC (Bld) Automated basoph il % 0.2-2.0 [facility] Cholesterol in LDL Calc [Mas s/Vol]on 06-01-2024 Cholesterol in LDL [Mass/Vol] 61.0 mg/dL [facility] Comment on above: <100 mg/dl [id number] 0-129 mg/dl NEAR OR ABOVE [id number] mg/dl BORDERLINE [id number] mg/dl HIGH>190 mg/dl VERY HIGH Cholesterol in LDL [Mass/Vol] Cholesterol in LDL [Mass/volume] in Serum or Plasma by calculation [facility] Comment on above: <100 mg/dl [id number] 0-129 mg/dl NEAR OR ABOVE [id number] mg/dl BORDERLINE [id number] mg/dl HIGH>190 mg/dl VERY HIGH Cholesterol in VLDL Calc [Ma ss/Vol]on 06-01-2024 Cholesterol in VLDL [Mass/Vol] 19.4 mg/dL [facility] Cholesterol in VLDL [Mass/Vol] Cholesterol in VLDL [Mass/volume] in Serum or Plasma by calculation [facility] Eosinophils/100 WBC Auto (Bl d)on 06-01-2024 Eosinophils/100 WBC (Bld) 4.9 % 0.9-7.0 [facility] Eosinophils/100 WBC (Bld) Automated eosinophil % 0.9-7.0 [facility] Erythrocyte distribution wid th Auto (RBC) [Ratio]on 06-01-2024 Erythrocyte distribution width (RBC) [Ratio] 13.3 % 11.0-15.0 [facility] Erythrocyte distribution width (RBC) [Ratio] Erythrocyte distribution width [Ratio] by Automated count 11.0-15.0 [facility] Estimated glomerular filtrat ion rate (GFR) non- Americanon 06-01-2024 GFR/1.73 sq M.predicted among non-blacks MDRD (S/P/Bld) [Vol rate/Area] 58 mL/min/{1.73_m2} Low >=60 [facility] GFR/1.73 sq M.predicted among non-blacks MDRD (S/P/Bld) [Vol rate/Area] Estimated glomerular filtration rate (GFR) non- Low >=60 [facility] Globulin Calc (S) [Mass/Vol] on 06-01-2024 Globulin (S) [Mass/Vol] 3.6 g/dL [facility] Globulin (S) [Mass/Vol] Serum globulin measurement by calculation (mass/volume) [facility] Hematocrit Auto (Bld) [Volum e fraction]on 06-01-2024 Hematocrit (Bld) [Volume fraction] 42.8 % 36.0-48.0 [facility] Hematocrit (Bld) [Volume fraction] Hematocrit [Volume Fraction] of Blood by Automated count 36.0-48.0 [facility] Hemoglobin [Mass/volume] in Bloodon 06-01-2024 Hemoglobin (Bld) [Mass/Vol] 14.2 g/dL 12.0-16.0 [facility] Hemoglobin (Bld) [Mass/Vol] Hemoglobin [Mass/volume] in Blood 12.0-16.0 [facility] Laboratory - Chemistry and C hemistry - challengeon 06-01-2024 Albumin [Mass/Vol] 3.6 g/dL 3.4-5.0 [facility] ALP [Catalytic activity/Vol] 110 U/L 46-116 [facility] ALT [Catalytic activity/Vol] 27 U/L 14-59 [facility] Amylase [Catalytic activity/Vol] 55 U/L 25-115 [facility] AST [Catalytic activity/Vol] 24 U/L 15-37 [facility] Bilirubin [Mass/Vol] 0.5 mg/dL 0.2-1.0 [facility] Calcium [Mass/Vol] 9.3 mg/dL 8.5-10.1 [facility] Chloride [Moles/Vol] 107 mmol/L 98-107 [facility] Cholesterol [Mass/Vol] 119 mg/dL <=200 [facility] Cholesterol in HDL [Mass/Vol] 39 mg/dL Low 40-60 [facility] Comment on above: > or =60 mg/dl - LOW CARDIOVASCULAR RISK<40 mg/dl - HIGH CARDIOVASCULAR RISK CO2 [Moles/Vol] 23.7 mmol/L 21.0-32.0 [facility] Creatinine [Mass/Vol] 0.94 mg/dL 0.55-1.02 [facility] GFR/1.73 sq M.predicted MDRD (S/P/Bld) [Vol rate/Area] mL/min/{1.73_m2} >=60 [facility] Glucose [Mass/Vol] 96 mg/dL 74-106 [facility] Lipase [Catalytic activity/Vol] 34.0 U/L 16.0-77.0 [facility] Potassium [Moles/Vol] 4.1 mmol/L 3.5-5.1 [facility] Protein [Mass/Vol] 7.2 g/dL 6.4-8.2 [facility] Sodium [Moles/Vol] 141 mmol/L 136-145 [facility] Triglyceride [Mass/Vol] 97 mg/dL <=150 [facility] TSH Qn 1.671 m[IU]/L 0.358-3.740 [facility] Urea nitrogen [Mass/Vol] 10.0 mg/dL 7.0-18.0 [facility] Urea nitrogen/Creatinine [Mass ratio] 10.6 mg/mg [facility] Bilirubin Ql (U) Negative NEGATIVE [facility] Glucose (U) [Mass/Vol] Negative NEGATIVE [facility] Ketones Ql (U) TRACE mg/dL Abnormal NEGATIVE [facility] pH (U) 6.0 [pH] 5.0-9.0 [facility] Specific gravity (U) [Rel density] >=1.030 Abnormal 1.005-1.025 [facility] Urobilinogen Qn (U) 0.2 {Nery'U}/dL 0.2-1.0 [facility] Laboratory - Hematology and Cell countson 06-01-2024 Immature granulocytes/100 WBC (Bld) 0.3 % 0.0-0.5 [facility] Laboratory - Specimen inform ationon 06-01-2024 Appearance (U) CLEAR CLEAR [facility] Color (U) YELLOW YELLOW [facility] Laboratory - Urinalysison Leukocyte esterase Test strip Ql (U) SMALL Abnormal NEGATIVE [facility] Mucus Ql (Urine sed) LARGE Abnormal NONE SEEN [facility] Nitrite Ql (U) Negative NEGATIVE [facility] Protein Ql (U) Negative NEG/TRACE [facility] Leukocytes [#/volume] correc piotr for nucleated erythrocytes in Blood by Automated counon 06-01-2024 WBC corrected for nucl RBC Auto (Bld) [#/Vol] 7.4 10 3/uL 4.0-11.0 [facility] WBC corrected for nucl RBC Auto (Bld) [#/Vol] Leukocytes [#/volume] corrected for nucleated erythrocytes in Blood by Automated coun 4.0-11.0 [facility] Lymphocytes Auto (Bld) [#/Vo l]on 06-01-2024 Lymphocytes (Bld) [#/Vol] 1.5 10 3/uL 1.2-3.8 [facility] Lymphocytes (Bld) [#/Vol] Lymphocytes [#/volume] in Blood by Automated count 1.2-3.8 [facility] Lymphocytes/100 WBC Auto (Bl d)on 06-01-2024 Lymphocytes/100 WBC (Bld) 19.9 % Low 20.5-60.0 [facility] Lymphocytes/100 WBC (Bld) Lymphocytes/100 leukocytes in Blood by Automated count Low 20.5-60.0 [facility] MCH Auto (RBC) [Entitic mass ]on 06-01-2024 MCH (RBC) [Entitic mass] 27.7 pg 26.7-34.0 [facility] MCH (RBC) [Entitic mass] MCH [Entitic ma ss] by Automated count 26.7-34.0 [facility] MCHC Auto (RBC) [Mass/Vol]on 06-01-2024 MCHC (RBC) [Mass/Vol] 33.2 g/dL 29.9-35.2 [facility] MCHC (RBC) [Mass/Vol] MCHC [Mass/volume] by Automated count 29.9-35.2 [facility] MCV Auto (RBC) [Entitic vol] on 06-01-2024 MCV (RBC) [Entitic vol] 83.6 fL 81.0-99.0 [facility] MCV (RBC) [Entitic vol] MCV [Entitic volume] by Automated count 81.0-99.0 [facility] Monocytes Auto (Bld) [#/Vol] on 06-01-2024 Monocytes (Bld) [#/Vol] 0.5 10 3/uL 0.3-0.8 [facility] Monocytes (Bld) [#/Vol] Automated blood monocyte count 0.3-0.8 [facility] Monocytes/100 WBC Auto (Bld) on 06-01-2024 Monocytes/100 WBC (Bld) 6.1 % 1.7-12.[address] [facility] Monocytes/100 WBC (Bld) Automated monocy te % 1.7-12.0 [facility] Neutrophils Auto (Bld) [#/Vo l]on 06-01-2024 Neutrophils (Bld) [#/Vol] 5.1 10 3/uL 1.4-6.5 [facility] Neutrophils (Bld) [#/Vol] Neutrophils [#/volume] in Blood by Automated count 1.4-6.5 [facility] Neutrophils/100 WBC Auto (Bl d)on 06-01-2024 Neutrophils/100 WBC (Bld) 68.4 % 43.0-75.0 [facility] Neutrophils/100 WBC (Bld) Automated neutrophil % 43.0-75.0 [facility] No Panel Informationon 06-01 Eosinophils # (Auto) 0.4 10 3/uL 0.0-0.7 [facility] Immature Granulocyte # (Auto) 0.02 10 3/uL 0.00-0.03 [facility] Urine Bacteria SMALL #/HPF Abnormal NONE SEEN [facility] Urine Calcium Oxalate Crystals MODERATE [facility] Urine Culture Reflexed ALREADY ORDERED [facility] Urine Occult Blood Negative NEGATIVE [facility] Urine Other Crystals Seen #/HPF Abnormal None Seen [facility] Urine RBC NONE SEEN #/HPF 0-2 [facility] Urine Squamous Epithelial Cells MANY #/LPF Abnormal NONE/RARE [facility] Urine WBC 10-20 #/HPF Abnormal NONE SEEN [facility] Platelet mean volume Auto (B ld) [Entitic vol]on 06-01-2024 Platelet mean volume (Bld) [Entitic vol] 8.9 fL Low 9.5-13.5 [facility] Platelet mean volume (Bld) [Entitic vol] Platelet mean volume [Entitic volume] in Blood by Automated count Low 9.5-13.5 [facility] Platelets Auto (Bld) [#/Vol] on 06-01-2024 Platelets (Bld) [#/Vol] 199 10 3/uL 150-450 [facility] Platelets (Bld) [#/Vol] Platelets [#/volume] in Blood by Automated count 150-450 [facility] RBC Auto (Bld) [#/Vol]on RBC (Bld) [#/Vol] 5.12 10 6/uL 4.20-5.40 [facility] RBC (Bld) [#/Vol] Erythrocytes [#/volume] in Blood by Automated count 4.20-5.40 [facility] Serum or plasma albumin/glob ulin mass ratioon 06-01-2024 Albumin/Globulin [Mass ratio] 1.0 {ratio} [facility] Albumin/Globulin [Mass ratio] Serum or plasma albumin/globulin mass ratio [facility] Serum or plasma anion gap de terminationon 06-01-2024 Anion gap [Moles/Vol] 14.4 mmol/L [facility] Anion gap [Moles/Vol] Serum or plasma anion gap determination [facility] Serum or plasma total choles terol/high density lipoprotein (HDL) cholesterol mass tom 06-01-2024 Cholesterol.total/Choles terol in HDL [Mass ratio] 3.1 {ratio} [facility] Comment on above: 3.3 - 4.4 LOW RISK4. 4 - 7.1 AVERAGE RISK7.1 - 11.0 MODERATE RISK>11.0 HIGH RISK Cholesterol.total/Choles terol in HDL [Mass ratio] Serum or plasma total cholesterol/high density lipoprotein (HDL) cholesterol mass rat [facility] Comment on above: 3.3 - 4.4 [...] IS VERY IMPORTANT TO YOUR HEALTH. THE [employer] GUIDELINES RECOMMEND THAT WOMEN 40 [...] 08-16-2022 Basophils (Bld) [#/Vol] 0.0 10*3/uL 0.0-0.2 [facility] Basophils/100 WBC Auto (Bld) Ordered By: Madison Abernathy on 08-16-2022 Basophils/100 WBC (Bld) 0.6 % . F [facility] Creatinine and Glomerular fi ltration rate.predicted panel (S/P/Bld)Ordered By: Madison Abernathy on 08-16-2022 Creatinine [Mass/Vol] 0.82 mg/dL 0.44-1.03 [facility] Eosinophils Auto (Bld) [#/Vo l]Ordered By: Madison Abenrathy on 08-16-2022 Eosinophils (Bld) [#/Vol] 0.2 10*3/uL 0.0-0.45 [facility] Eosinophils/100 WBC Auto (Bl d)Ordered By: Madison Abernathy on 08-16-2022 Eosinophils/100 WBC (Bld) 3.1 % . [facility] Erythrocyte distribution wid th Auto (RBC) [Ratio]Ordered By: Madison Abernathy on 08-16-2022 Erythrocyte distribution width (RBC) [Ratio] 13.9 % 11.9-15.3 [facility] Estimated glomerular filtrat ion rate (GFR) non- AmericanOrdered By: Madison Abernathy on 08-16-2022 GFR/1.73 sq M.predicted among non-blacks MDRD (S/P/Bld) [Vol rate/Area] > 60 mL/Min [facility] Hematocrit Auto (Bld) [Volum e fraction]Ordered By: Madison Abernathy on 08-16-2022 Hematocrit (Bld) [Volume fraction] 38.8 % 34.0-46.4 [facility] Hemoglobin [Mass/volume] in BloodOrdered By: Madison Abernathy on 08-16-2022 Hemoglobin (Bld) [Mass/Vol] 12.9 g/dL 11.8-15.4 [facility] Laboratory - Hematology and Cell countsOrdered By: Madison Abernathy on 08-16-2022 Nucleated RBC/100 WBC (Bld) [Ratio] 0.1 % 0-0.5 [facility] Leukocytes [#/volume] in Blo od by Automated countOrdered By: Madison Abernathy on 11-10-2022 WBC (Bld) [#/Vol] 7.4 10*3/uL 4.5-11.0 [facility] Lymphocytes Auto (Bld) [#/Vo l]Ordered By: Madison Abernathy on 08-16-2022 Lymphocytes (Bld) [#/Vol] 1.8 10*3/uL 1.00-4.8 [facility] Lymphocytes/100 WBC Auto (Bl d)Ordered By: Madison Abernathy on 08-16-2022 Lymphocytes/100 WBC (Bld) 24.2 % . [facility] MCH Auto (RBC) [Entitic mass ]Ordered By: Madison Abernathy on 08-16-2022 MCH (RBC) [Entitic mass] 27.3 pg 24.7-34.3 [facility] MCHC Auto (RBC) [Mass/Vol]Or dered By: Madison Abernathy on 08-16-2022 MCHC (RBC) [Mass/Vol] 33.2 g/dL 32.0-35.0 [facility] MCV Auto (RBC) [Entitic vol] Ordered By: Madison Abernathy on 08-16-2022 MCV (RBC) [Entitic vol] 82.4 fL 80-[address] [facility] Monocytes Auto (Bld) [#/Vol] Ordered By: Madison Abernathy on 08-16-2022 Monocytes (Bld) [#/Vol] 0.5 10*3/uL 0.0-0.8 [facility] Monocytes/100 WBC Auto (Bld) Ordered By: Madison Abernathy on 08-16-2022 Monocytes/100 WBC (Bld) 6.5 % . F [facility] Neutrophils Auto (Bld) [#/Vo l]Ordered By: Madison Abernathy on 08-16-2022 Neutrophils (Bld) [#/Vol] 4.8 10*3/uL 1.8-7.7 [facility] Neutrophils/100 WBC Auto (Bl d)Ordered By: Madison Abernathy on 08-16-2022 Neutrophils/100 WBC (Bld) 65.6 % . [facility] No Panel InformationOrdered By: Madison Abernathy on 08-16-2022 Estimated GFR () > 60 mL/Min [facility] Comment on above: GFR estimated refere nce range: According to KDOQI guidelines, <60 ml/min/1.73m2 is sufficient to diagnose a patient with chronic kidney disease. Pharmacy Creatinine Clearance (Chem N/A [facility] Platelet mean volume Auto (B ld) [Entitic vol]Ordered By: Madison Abernathy on 08-16-2022 Platelet mean volume (Bld) [Entitic vol] 7.1 fL 6.3-10.7 [facility] Platelets Auto (Bld) [#/Vol] Ordered By: Madison Abernathy on 08-16-2022 Platelets (Bld) [#/Vol] 246 10*3/uL 150-450 [facility] RBC Auto (Bld) [#/Vol]Ordere d By: Madison Abernathy on 08-16-2022 RBC (Bld) [#/Vol] 4.71 10*6/uL 3.60-5.00 [facility] Serum or plasma anion gap de terminationOrdered By: Madison Abernathy on 08-16-2022 Anion gap [Moles/Vol] 11.9 mmol/L 6.0-15.0 [facility] Serum or plasma calcium tiffany urement (mass/volume)Ordered By: Madison Abernathy on 08-16-2022 Calcium [Mass/Vol] 9.4 mg/dL 8.2-10.2 [facility] Serum or plasma chloride neva surement (moles/volume)Ordered By: Madison Abernathy on 08-16-2022 Chloride [Moles/Vol] 108 mmol/L 95-114 [facility] Serum or plasma glucose tiffany urement (mass/volume)Ordered By: Madison Abernathy on 08-16-2022 Glucose [Mass/Vol] 98 mg/dL 70-100 [facility] Comment on above: ADA recommended refe rence rangeRandom Glucose Reference Range is dependent on time and content of last meal. Glucose of more than 200 mg/dL in a nonstressed, ambulatory subject supports the diagnosis of Diabetes Mellitus. Serum or plasma potassium me asurement (moles/volume)Ordered By: Madison Abernathy on 08-16-2022 Potassium [Moles/Vol] 3.7 mmol/L 3.5-5.1 [facility] Serum or plasma sodium measu rement (moles/volume)Ordered By: Madison Abernathy on 08-16-2022 Sodium [Moles/Vol] 140 mmol/L 136-146 [facility] Serum or plasma total carbon dioxide measurement (moles/volume)Ordered By: Madison Abernathy on 08-16-2022 CO2 [Moles/Vol] 23.8 mmol/L 22.0-30.0 [facility] Serum or plasma urea nitroge n measurement (mass/volume)Ordered By: Madison Abernathy on 08-16-2022 Urea nitrogen [Mass/Vol] 19 mg/dL - [facility] Creatinine (Bld) [Mass/Vol]O rdered By: Madison Abernathy on 05-29-2022 Creatinine [Mass/Vol] 0.8 mg/dL 0.6-1.3 [facility] Comment on above: ER/ESD physician is notified/shown all ISTAT results. Critical values may be confirmed by laboratory testing if deemed necessary by ER attending doctor. ER/ESD physician is notified/shown all ISTAT results.Critical values may be confirmed by laboratory testing ifdeemed necessary by ER attending doctor. No Panel InformationOrdered By: Madison Abernathy on 05-29-2022 POC Estimated GFR > 60 [facility] Comment on above: GFR estimated refere nce range: According to KDOQI guidelines, <60 ml/min/1.73m2 is sufficient to diagnose a patient with chronic kidney disease. POC Estimated GFR Non- Amer > 60 [facility] XR hip RT min 2V(w/wo pelvis )*on 01-03-2022 XR hip RT min 2V(w/wo pelvis)* [facility] [employer] Other XR hip RT min 2V(w/wo pelvis)* [facility] [employer] Other XR hip RT min 2V(w/wo pelvis)* [address] [place] [address] [employer] Other XR hip RT min 2V(w/wo pelvis)* [place] [address] [employer] Other XR hip RT min 2V(w/wo pelvis)* XRay Report [employer] Other XR hip RT min 2V(w/wo pelvis)* Signed [employer] Other XR hip RT min 2V(w/wo pelvis)* Patient: Marisol Cantrell MR#: [id number] [employer] Other XR hip RT min 2V(w/wo pelvis)* [id number] [employer] Other XR hip RT min 2V(w/wo pelvis)* : 1950 Acct:[id number] [employer] Other XR hip RT min 2V(w/wo pelvis)* Age/Sex: 71 / F ADM Date: 01/03/22 [employer] Other XR hip RT min 2V(w/wo pelvis)* Loc: [facility] Room: Type: [facility] [employer] Other XR hip RT min 2V(w/wo pelvis)* Attending Dr: Mdaison Abernathy DO [employer] Other XR hip RT min 2V(w/wo pelvis)* Ordering Provider: Madison Abernathy DO [employer] Other XR hip RT min 2V(w/wo pelvis)* Date of Service: 01/03/22 [employer] Other XR hip RT min 2V(w/wo pelvis)* XR/XR hip RT min 2V(w/wo pelvis)*: Right hip pain [employer] Other XR hip RT min 2V(w/wo pelvis)* ([id number]) XR/XR lumbar spine AP/LAT/FLX/EXT: Lumbar back pain [employer] Other XR hip RT min 2V(w/wo pelvis)* Copies to: Madison Abernathy [employer] Other XR hip RT min 2V(w/wo pelvis)* CLINICAL DATA: Low back pain radiating to the right hip when ambulating. No specific injury. [employer] Other XR hip RT min 2V(w/wo pelvis)* LUMBAR SPINE WITH FLEXION AND EXTENSION VIEWS - 4 VIEWS [employer] Other XR hip RT min 2V(w/wo pelvis)* COMPARISON: 08/01/2018 [employer] Other XR hip RT min 2V(w/wo pelvis)* Standing AP as well as lateral views in neutral, flexion and extension were obtained. There is [employer] Other XR hip RT min 2V(w/wo pelvis)* osteopenia. There is slight rotatory dextroscoliotic curvature. No acute fractures are identified. [employer] Other XR hip RT min 2V(w/wo pelvis)* There is minimal retrolisthesis of L2 on L3 and L3 on L4. Alignment does not change significantly [employer] Other XR hip RT min 2V(w/wo pelvis)* with flexion or extension. There is multilevel disc space narrowing with relative sparing at L4-5. [employer] Other XR hip RT min 2V(w/wo pelvis)* Endplate spurring is noted. There is lower lumbar facet disease, asymmetric at the lumbosacral [employer] Other XR hip RT min 2V(w/wo pelvis)* junction on the right. No paraspinal soft tissue abnormalities are seen. [employer] Other XR hip RT min 2V(w/wo pelvis)* XR/XR lumbar spine AP/LAT/FLX/EXT [employer] Other XR hip RT min 2V(w/wo pelvis)* IMPRESSION: [employer] Other XR hip RT min 2V(w/wo pelvis)* SUBTLE SCOLIOSIS AND DEGENERATIVE CHANGES, DESCRIBED [employer] Other XR hip RT min 2V(w/wo pelvis)* RIGHT HIP - 2 views [employer] Other XR hip RT min 2V(w/wo pelvis)* COMPARISON: 06/03/2019 [employer] Other XR hip RT min 2V(w/wo pelvis)* AP view the pelvis and frog-lateral view of the right hip were obtained. There is no acute fracture [employer] Other XR hip RT min 2V(w/wo pelvis)* or dislocation. The hip joint spaces are symmetric. There is no prominent developing hypertrophy. [employer] Other XR hip RT min 2V(w/wo pelvis)* Mild subchondral cystic changes seen at the right superior acetabulum. No soft tissue abnormalities [employer] Other XR hip RT min 2V(w/wo pelvis)* are noted. [employer] Other XR hip RT min 2V(w/wo pelvis)* NO ACUTE BONY FINDINGS. [employer] Other XR hip RT min 2V(w/wo pelvis)* Impression dictated by: Cara Cabrera M.D.01/03/2022 4:16 PM [employer] Other XR hip RT min 2V(w/wo pelvis)* Dictation Location: [facility]-- [employer] Other XR hip RT min 2V(w/wo pelvis)* Transcribed By: RYLEY 01/03/22 1616 [employer] Other XR hip RT min 2V(w/wo pelvis)* Dictated By: Cara Cabrera MD 01/03/22 1516 [employer] Other XR hip RT min 2V(w/wo pelvis)* Signed By: [employer] Other XR hip RT min 2V(w/wo pelvis)* 01/03/22 1616 [employer] Other Vital Signs Date Time Vital Sign Value Performing Clinician Facility 10-22-2024 13:05-0500 Body height 167.64 cm Monster Harding DO Work Phone: [facility] 10-22-2024 13:05-0500 Body mass index (BMI) [Ratio] 32.3 kg/m2 Monster Harding DO Work Phone: [facility] 10-22-2024 13:05-0500 Body weight 91 kg Monster Harding DO Work Phone: [facility] 10-21-2024 09:48-0500 Body height 167.64 cm Monster Harding DO Work Phone: [facility] 10-21-2024 09:48-0500 Body mass index (BMI) [Ratio] 32.4 kg/m2 Monster Harding DO Work Phone: [facility] 10-21-2024 09:48-0500 Body temperature 97.3 [degF] Monster Harding DO Work Phone: [facility] 10-21-2024 09:48-0500 Body weight 91.17 kg Monster Harding DO Work Phone: [facility] 10-21-2024 09:48-0500 Diastolic blood pressure 86 mm[Hg] Monster Harding DO Work Phone: [facility] 10-21-2024 09:48-0500 Heart rate 80 /min Monster Harding DO Work Phone: [facility] 10-21-2024 09:48-0500 Respiratory rate 16 /min Monster Harding DO Work Phone: [facility] 10-21-2024 09:48-0500 SaO2% (BldA) [Mass fraction] 99 % Monster Harding DO Work Phone: [facility] 10-21-2024 09:48-0500 Systolic blood pressure 128 mm[Hg] Monster Harding DO Work Phone: [facility] 08-18-2024 11:45-0500 Diastolic blood pressure 68 mm[Hg] Monster Harding DO Work Phone: [facility] 08-18-2024 11:45-0500 Heart rate 70 /min Monster Harding DO Work Phone: [facility] 08-18-2024 11:45-0500 Respiratory rate 16 /min Monster Harding DO Work Phone: [facility] 08-18-2024 11:45-0500 SaO2% (BldA) [Mass fraction] 98 % Monster Harding DO Work Phone: [facility] 08-18-2024 11:45-0500 Systolic blood pressure 141 mm[Hg] Monster Harding DO Work Phone: [facility] 08-18-2024 11:09-0500 Inhaled oxygen flow rate 3 L/min Monster Harding DO Work Phone: [facility] 08-18-2024 10:32-0500 Body height 167.64 cm Monster Harding DO Work Phone: [facility] 08-18-2024 10:32-0500 Body weight 88.9 kg Monster Harding DO Work Phone: [facility] 07-07-2024 10:31-0400 Body mass index (BMI) [Ratio] 31.6 kg/m2 [facility] 07-07-2024 10:31-0400 Body temperature 97.7 [degF] [facility] 07-07-2024 10:31-0400 Diastolic blood pressure 74 mm[Hg] [facility] 07-07-2024 10:31-0400 Respiratory rate 18 /min [facility] 07-07-2024 10:31-0400 SaO2% (BldA) [Mass fraction] 98 % [facility] 07-07-2024 10:31-0400 Systolic blood pressure 116 mm[Hg] [facility] 07-07-2024 08:57-0400 Body height 167.64 cm [facility] 07-07-2024 08:57-0400 Body weight 88.9 kg [facility] 06-10-2024 09:43-0400 Body height 167.64 cm [facility] 06-10-2024 09:43-0400 Body mass index (BMI) [Ratio] 32.3 kg/m2 [facility] 06-10-2024 09:43-0400 Body temperature 97.1 [degF] [facility] 06-10-2024 09:43-0400 Body weight 90.71 kg [facility] 06-10-2024 09:43-0400 Diastolic blood pressure 80 mm[Hg] [facility] 06-10-2024 09:43-0400 Heart rate 82 /min [facility] 06-10-2024 09:43-0400 SaO2% (BldA) [Mass fraction] 99 % [facility] 06-10-2024 09:43-0400 Systolic blood pressure 118 mm[Hg] [facility] 05-11-2024 12:18-0400 Body height 167.64 cm [facility] 05-11-2024 12:18-0400 Body mass index (BMI) [Ratio] 33.5 kg/m2 [facility] 05-11-2024 12:18-0400 Body temperature 97.2 [degF] [facility] 05-11-2024 12:18-0400 Body weight 94.34 kg [facility] 05-11-2024 12:18-0400 Diastolic blood pressure 76 mm[Hg] [facility] 05-11-2024 12:18-0400 Heart rate 94 /min [facility] 05-11-2024 12:18-0400 SaO2% (BldA) [Mass fraction] 97 % [facility] 05-11-2024 12:18-0400 Systolic blood pressure 122 mm[Hg] [facility] 11-18-2023 11:10-0500 Body height 167.64 cm Monster Harding Other [employer] Other 11-18-2023 11:10-0500 Body mass index (BMI) [Ratio] 33.41 kg/m2 Monster Harding Other [employer] Other 11-18-2023 11:10-0500 Body temperature 97.8 [degF] Monster Harding Other [employer] Other 11-18-2023 11:10-0500 Body weight 93.9 kg Monster Harding Other [employer] Other 11-18-2023 11:10-0500 Diastolic blood pressure 82 mm[Hg] Monster Ximena Other [employer] Other 11-18-2023 11:10-0500 Respiratory rate 18 /min Monster Harding Other [employer] Other 11-18-2023 11:10-0500 SaO2% (BldA) [Mass fraction] 98 % Monster Harding Other [employer] Other 11-18-2023 11:10-0500 Systolic blood pressure 122 mm[Hg] Monster Amadoryeny Other [employer] Other 11-05-2023 10:10-0500 Diastolic blood pressure 71 mm[Hg] DO Monster Harding Work Phone: [facility] 11-05-2023 10:10-0500 Heart rate 76 /min DO Monster Amadoryeny Work Phone: [facility] 11-05-2023 10:10-0500 Respiratory rate 16 /min DO Monster Ximena Work Phone: [facility] 11-05-2023 10:10-0500 SaO2% (BldA) [Mass fraction] 96 % DO Monster Ximena Work Phone: [facility] 11-05-2023 10:10-0500 Systolic blood pressure 128 mm[Hg] DO Monster Harding Work Phone: [facility] 11-05-2023 09:26-0500 Inhaled oxygen flow rate 3 L/min DO Monster Harding Work Phone: [facility] 11-05-2023 08:39-0500 Body height 167.64 cm DO Monster Harding Work Phone: [facility] 11-05-2023 08:39-0500 Body weight 95.7 kg DO Monster Harding Work Phone: [facility] 10-21-2023 17:40-0500 Body height 167.64 cm Monster Amadoryeny Other [employer] [facility] [employer] Other 10-21-2023 17:40-0500 Body mass index (BMI) [Ratio] 35.34 kg/m2 Monster Harding Other [employer] Other 10-21-2023 17:40-0500 Body temperature 97.5 [degF] Monster Harding Other [employer] Other 10-21-2023 17:40-0500 Body weight 99.34 kg Monster Ximena Other [employer] Other 10-21-2023 17:40-0500 Diastolic blood pressure 86 mm[Hg] Monster Harding Other [employer] Other 10-21-2023 17:40-0500 Respiratory rate 18 /min Monster Harding Other [employer] Other 10-21-2023 17:40-0500 SaO2% (BldA) [Mass fraction] 98 % Monster Harding Other [employer] Other 10-21-2023 17:40-0500 Systolic blood pressure 136 mm[Hg] Montser Harding Other [facility] [employer] Other 05-21-2023 12:27-0400 Diastolic blood pressure 99 mm[Hg] DO Monster Harding Work Phone: [facility] 05-21-2023 12:27-0400 Heart rate 62 /min DO Monster Harding Work Phone: [facility] 05-21-2023 12:27-0400 Respiratory rate 18 /min DO Monster Harding Work Phone: [facility] 05-21-2023 12:27-0400 SaO2% (BldA) [Mass fraction] 96 % DO Monster Harding Work Phone: [facility] 05-21-2023 12:27-0400 Systolic blood pressure 156 mm[Hg] DO Monster Harding Work Phone: [facility] 05-21-2023 11:46-0400 Inhaled oxygen flow rate 3 L/min DO Monster Harding Work Phone: [facility] 05-21-2023 10:55-0400 Body height 167.64 cm DO Monster Harding Work Phone: [facility] 05-21-2023 10:55-0400 Body weight 96.61 kg DO Monster Harding Work Phone: [facility] 05-13-2023 03:26-0400 Body height 167.64 cm DO Monster Harding Work Phone: [facility] 05-13-2023 03:26-0400 Body temperature 96.8 [degF] DO Monster Harding Work Phone: [facility] 05-13-2023 03:26-0400 Body weight 97.55 kg DO Monster Harding Work Phone: [facility] 05-13-2023 03:26-0400 Diastolic blood pressure 77 mm[Hg] DO Monster Harding Work Phone: [facility] 05-13-2023 03:26-0400 Heart rate 67 /min DO Monster Harding Work Phone: [facility] 05-13-2023 03:26-0400 Respiratory rate 20 /min DO Monster Harding Work Phone: [facility] 05-13-2023 03:26-0400 SaO2% (BldA) [Mass fraction] 97 % DO Monster Harding Work Phone: [facility] 05-13-2023 03:26-0400 Systolic blood pressure 163 mm[Hg] DO Monster Harding Work Phone: [facility] 10-09-2022 09:20-0500 Body height 167.64 cm Marc Luciano Other [employer] Other 10-09-2022 09:20-0500 Body mass index (BMI) [Ratio] 35.99 kg/m2 Marc Luciano Other [employer] Other 10-09-2022 09:20-0500 Body weight 101.15 kg Marc Luciano Other [employer] Other 08-16-2022 16:17-0500 Body height 167.64 cm DO Monster Harding Work Phone: [facility] 08-16-2022 16:17-0500 Body weight 103.2 kg DO Monster Harding Work Phone: [facility] 08-16-2022 16:17-0500 Diastolic blood pressure 86 mm[Hg] DO Monster Harding Work Phone: [facility] 08-16-2022 16:17-0500 Heart rate 75 /min DO Monster Haridng Work Phone: [facility] 08-16-2022 16:17-0500 Respiratory rate 18 /min DO Monster Harding Work Phone: [facility] 08-16-2022 16:17-0500 SaO2% (BldA) [Mass fraction] 95 % DO Monster Harding Work Phone: [facility] 08-16-2022 16:17-0500 Systolic blood pressure 153 mm[Hg] DO Monster Harding Work Phone: [facility] 08-15-2022 11:30-0500 Body height 167.64 cm Madison Abernathy Other [employer] Other 08-15-2022 11:30-0500 Body mass index (BMI) [Ratio] 35.99 kg/m2 Madison Abernathy Other [employer] Other 08-15-2022 11:30-0500 Body weight 101.15 kg Madison Abernathy Other [employer] Other 06-21-2022 16:00-0400 Body height 167.64 cm Bradley Adkins Other [employer] Other 05-29-2022 14:43-0400 Body height 167.64 cm DO Monster Harding Work Phone: [facility] 05-29-2022 14:43-0400 Body weight 97.52 kg DO Monster Harding Work Phone: [facility] 05-09-2022 14:15-0400 Body height 167.64 cm Madison Abernathy Other [employer] Other 05-09-2022 14:15-0400 Body mass index (BMI) [Ratio] 34.7 kg/m2 Madison Abernathy Other [employer] Other 05-09-2022 14:15-0400 Body weight 97.52 kg Madison Abernathy Other [employer] Other 12-06-2021 13:45-0500 Body height 167.64 cm Madison Abernathy Other [employer] Other 12-06-2021 13:45-0500 Body mass index (BMI) [Ratio] 35.67 kg/m2 Madison Abernathy Other [employer] Other 12-06-2021 13:45-0500 Body weight 100.25 kg Madison Abernathy Other [employer] Other 10-04-2021 14:45-0500 Body height 167.64 cm Madison Abernathy Other [employer] Other 10-04-2021 14:45-0500 Body mass index (BMI) [Ratio] 35.99 kg/m2 Madison Abernathy Other [employer] Other 10-04-2021 14:45-0500 Body weight 101.15 kg Madison Abernathy Other [employer] Other 10-04-2021 14:45-0500 Respiratory rate 18 /min Madison Abernathy Other [employer] Other 10-04-2021 14:45-0500 SaO2% (BldA) [Mass fraction] 98 % Madison Michela Other [employer] Other Encounters Encounter Date Encounter Type Care Provider Facility Start: 10-22-2024 End: 10-22-2024 ambulatory Monster Harding DO Work Phone: [facility] Work Phone: Start: 10-22-2024 End: 10-22-2024 Patient encounter procedure Monster Harding DO Work Phone: [facility] Work Phone: Start: 10-21-2024 End: 10-21-2024 ambulatory Monster Harding DO Work Phone: [facility] Work Phone: Start: 10-21-2024 End: 10-21-2024 Patient encounter procedure Monster Harding DO Work Phone: [facility] [place] Work Phone: Start: 08-26-2024 End: 08-26-2024 ambulatory Monster Harding DO Work Phone: [facility] Work Phone: Start: 08-26-2024 End: 08-26-2024 Patient encounter procedure Monster Harding DO Work Phone: [facility] [place] Work Phone: Start: 08-18-2024 Non-patient / Non-visit Monster Harding DO Work Phone: [facility] [place] Work Phone: Start: 08-18-2024 End: 08-18-2024 Admission to same day surgery center Monster Harding DO Work Phone: [facility] Work Phone: Start: 08-18-2024 End: 08-18-2024 ambulatory Monster Harding DO Work Phone: [facility] Work Phone: Start: 08-04-2024 End: 08-04-2024 ambulatory DO Monster Harding Work Phone: [facility] Work Phone: Start: 08-04-2024 End: 08-04-2024 Patient encounter procedure DO Monster Harding Work Phone: [facility] [place] Work Phone: Start: 07-17-2024 End: 07-17-2024 Telephone encounter Erlin Collins MD Work Phone: [facility] Start: 07-07-2024 End: 07-07-2024 ambulatory [facility] Work Phone: Start: 07-07-2024 End: 07-07-2024 Patient encounter procedure [facility] [place] Work Phone: Start: 06-10-2024 End: 06-10-2024 ambulatory [facility] Work Phone: Start: 06-10-2024 End: 06-10-2024 Patient encounter procedure [facility] [place] Work Phone: Start: 06-01-2024 Non-patient / Non-visit [facility] [employer] Work Phone: Start: 05-11-2024 End: 05-11-2024 ambulatory [facility] Work Phone: Start: 05-11-2024 End: 05-11-2024 Patient encounter procedure [facility] [place] Work Phone: Start: 11-18-2023 End: 11-18-2023 ambulatory Monster Harding Other [employer] Other Start: 11-18-2023 Office outpatient vi sit 15 minutes Monster Harding [facility] [place] Start: 11-05-2023 End: 11-05-2023 Admission to same day surgery center DO Monster Harding Work Phone: [facility] Work Phone: Start: 11-05-2023 End: 11-05-2023 ambulatory DO Monster Harding Work Phone: [facility] Work Phone: Start: 10-28-2023 End: 10-28-2023 ambulatory Monster Harding Other [employer] Other Start: 10-28-2023 Telephone encounter Monster Harding [facility] [place] Start: 10-23-2023 End: 10-23-2023 ambulatory Bradley Adkins Other [employer] Other Start: 10-23-2023 Office outpatient vi sit 25 minutes Bradley Swapnilkyree [facility] [place] Start: 10-22-2023 End: 10-22-2023 ambulatory Monster Harding Other [employer] Other Start: 10-22-2023 Telephone encounter Monster Harding [facility] [place] Start: 10-21-2023 End: 10-21-2023 ambulatory Monster Harding Other [employer] Other Start: 10-21-2023 Office outpatient vi sit 15 minutes Monster Harding [facility] [place] Start: 10-21-2023 End: 10-21-2023 Patient encounter procedure DO Monster Harding Work Phone: [facility] [place] Work Phone: Start: 09-03-2023 End: 09-04-2023 ambulatory PENOLA P COLLINS Not Available Start: 09-03-2023 End: 09-03-2023 ambulatory PENOLA P COLLINS Not Available Start: 06-05-2023 End: 06-05-2023 ambulatory Bradley Swapnilkyree Other [employer] Other Start: 06-05-2023 Office outpatient vi sit 25 minutes Bradley Swapnilkyree [facility] [place] Start: 05-21-2023 (Procedure) Short Bradley Adkins [facility] Start: 05-21-2023 End: 05-21-2023 Admission to same day surgery center DO Monster Harding Work Phone: [facility] Work Phone: Start: 05-21-2023 End: 05-21-2023 ambulatory DO Monster Harding Work Phone: [facility] Work Phone: Start: 05-20-2023 End: 05-20-2023 ambulatory Monster Ximena Other [employer] Other Start: 05-20-2023 Telephone encounter Monster Harding [facility] [place] Start: 05-14-2023 End: 05-14-2023 ambulatory Bradley Adkins Other [employer] Other Start: 05-14-2023 Office outpatient vi sit 25 minutes Bradley Adkins [facility] [place] Start: 05-13-2023 End: 05-13-2023 Emergency department patient visit DO Monster Harding Work Phone: [facility] Work Phone: Start: 05-01-2023 End: 05-01-2023 ambulatory DO Monster Harding Work Phone: [facility] Work Phone: Start: 05-01-2023 End: 05-01-2023 Patient encounter procedure DO Monster Harding Work Phone: [facility] Work Phone: Start: 01-10-2023 End: 01-10-2023 ambulatory Monster Harding Other [employer] Other Start: 01-10-2023 Telephone encounter Monster Ximena [facility] [place] Start: 10-09-2022 End: 10-09-2022 ambulatory Marc Luciano Other [employer] Other Start: 10-09-2022 Office outpatient ne w 30 minutes Marc Luciano [facility] Start: 09-03-2022 (Procedure) Short Bradley Adkins [facility] Start: 09-03-2022 End: 09-03-2022 ambulatory Bradley Adkins Other [employer] Other Start: 08-28-2022 End: 08-28-2022 ambulatory DO Monster Harding Work Phone: [facility] Work Phone: Start: 08-28-2022 End: 08-28-2022 Departed Referred DO Monster Harding Work Phone: [facility] [place] Start: 08-23-2022 End: 08-23-2022 ambulatory Bradley Adkins Other [employer] Other Start: 08-23-2022 Office outpatient vi sit 25 minutes Bradley Adkins [facility] [place] Start: 08-22-2022 End: 08-22-2022 ambulatory Monster Harding Other [employer] Other Start: 08-22-2022 Telephone encounter Monster Harding [facility] [place] Start: 08-21-2022 End: 08-21-2022 ambulatory Madison Abernathy Other [employer] Other Start: 08-21-2022 Telephone encounter Madison Abernathy [facility] Start: 08-16-2022 End: 08-16-2022 ambulatory DO Monster Harding Work Phone: [facility] Work Phone: Start: 08-16-2022 End: 08-16-2022 Patient encounter procedure DO Monster Harding Work Phone: [facility] Start: 08-15-2022 End: 08-15-2022 ambulatory Madison Abernathy Other [employer] Other Start: 08-15-2022 Encounter for other preprocedural examination Madison Abernathy [facility] Start: 08-15-2022 Office outpatient vi sit 25 minutes Madison Abernathy [facility] Start: 07-31-2022 End: 07-31-2022 ambulatory Bradley Adkins Other [employer] Other Start: 07-31-2022 Office outpatient vi sit 25 minutes Bradley Swapnilkyree [facility] [place] Start: 07-17-2022 End: 07-17-2022 ambulatory Bradley Swapniler Other [employer] Other Start: 07-17-2022 Office outpatient vi sit 25 minutes Bradley Adkins [facility] [place] Start: 06-21-2022 End: 06-21-2022 ambulatory Bradley Adkins Other [employer] Other Start: 06-21-2022 Office outpatient vi sit 25 minutes Bradley Swapnilkyree [facility] [place] Start: 06-04-2022 End: 06-04-2022 Patient encounter procedure DO Monster Harding Work Phone: [facility] [place] Start: 05-29-2022 End: 05-29-2022 Patient encounter procedure DO Monster Harding Work Phone: [facility] Start: 05-09-2022 End: 05-09-2022 ambulatory Madison Abernathy Other [employer] Other Start: 05-09-2022 Office outpatient vi sit 15 minutes Madison Abernathy [facility] Start: 04-13-2022 End: 05-05-2022 ambulatory MADISON ABERNATHY Facility: Start: 03-21-2022 End: 03-21-2022 ambulatory Madison Abernathy Other [employer] Other Start: 03-21-2022 Office outpatient vi sit 15 minutes Madison Abernathy [facility] Start: 03-12-2022 (Procedure) Short Bradley Adkins [facility] Start: 03-12-2022 End: 03-12-2022 ambulatory Bradley Adkins Other [employer] Other Start: 02-19-2022 End: 02-19-2022 ambulatory Monster Harding Other [employer] Other Start: 02-19-2022 Telephone encounter Monster Harding [facility] Start: 02-07-2022 End: 02-07-2022 ambulatory Madison Abenrathy Other [employer] Other Start: 02-07-2022 Office outpatient vi sit 15 minutes Madison Abernathy [facility] Start: 01-15-2022 (Procedure) Short Bradley Adkins [facility] Start: 01-15-2022 End: 01-15-2022 ambulatory Bradley Swapnilkyree Other [employer] Other Start: 01-03-2022 End: 01-03-2022 ambulatory Madison Abernathy Other [employer] Other Start: 01-03-2022 Office outpatient vi sit 15 minutes Madison Abernathy [facility] Start: 12-06-2021 End: 12-06-2021 ambulatory Madison Abernathy Other [employer] Other Start: 12-06-2021 Office outpatient vi sit 15 minutes Madison Abernathy [facility] Start: 10-05-2021 End: 10-05-2021 ambulatory Madison Abernathy Other [employer] Other Start: 10-05-2021 Telephone encounter Madison Abernathy [facility] Start: 10-04-2021 End: 10-04-2021 ambulatory Madison Abernathy Other [employer] Other Start: 10-04-2021 Office outpatient vi sit 25 minutes Madison Abernathy [facility] Start: 10-17-2017 Ambulatory MOURHAF TRABMERVINI [...] Date Care Activity Detail Author Start: 08-18-2024 [facility] Start: 08-04-2024 X-ray of left knee, two views XR knee LT 2V [facility] Start: 08-04-2024 XR Knee - left 2 Views [facility] Start: 11-05-2023 [facility] Start: 05-21-2023 [facility] Start: 08-28-2022 Sacroiliac arthrodesis OR SI Fusion (Right) [facility] Start: 06-04-2022 MRI of pelvis with contrast MR pelvis wo/w con [facility] Start: 06-04-2022 End: 06-04-2022 Patient encounter procedure Departed Clinical [facility] [place] Bacteria identified in Urine by Culture [facility] Comprehensive metabo lic 2000 panel - Serum or Plasma [facility] Patient Education [facility] Work Phone: Patient referral [facility] Work Phone: [facility] Immunizations Immunization Date Immunization Notes Care Provider Fa cility 12-20-2020 COVID-19 Vaccine Moderna - Documentation Purposes Only Madison Abernathy Other [facility] 11-24-2020 COVID-19 Vaccine Moderna - Documentation Purposes Only Madison Abernathy Other [facility] NEGATED: Highlighted row has not occurred! 9 influenza, injectable,quadrival ent, preservative free, pediatric Patient Objection Madisonjanice Abernathy Other [employer] Other NEGATED: Highlighted row has not occurred! 9 influenza virus vaccine, unspecified formulation [facility] NEGATED: Highlighted row has not occurred! 6 pneumococcal polysaccharide vaccine, 23 valent Patient Objection Madisonjanice Abernathy Other [facility] NEGATED: Highlighted row has not occurred! 6 pneumococcal polysaccharide vaccine, 23 valent Patient Objection Madisonjanice Abernathy Other [facility] Payers Date Payer Category Payer Self-pay [id number] 2023 Self-pay [id number] 2022 Unknown AARP AARP [id number] 2022-Present [address] [place] [address] [id number] 2015 Medicare MEDICARE MEDICAR E PART B [id number] 2015-[place] [address] Medicare [id number] 1959 Medicare [id number] 1959 Unknown [id number] 1950 Unknown [id number] 1950 Unknown [id number] 1950 Unknown [id number] Medicare [id number] Unknown [id number] Unknown [id number] Unknown [id number] Social History Date Type Detail Facility Unknown if ever smoked [facility] [employer] Other Start: 09-03-2023 Sex Assigned At [facility] [employer] Other Start: 10-17-2021 End: 05-11-2024 Tobacco smoking status [facility] Never smoked tobacco (finding) [facility] Start: 1950 Sex Assigned At Female F [facility] Start: 09-03-2023 Tobacco use and exposure [...] Start: 08-18-2024 End: 10-22-2024 Sex Female (finding) [facility] Goals Date Patient Goal Desired Activity [...] present for entire encounter. Monster Harding D.O. [facility] Work Phone: 1(617) 970-192411-12-2024 [place] [address] Pain Management Procedure Note Signed Patient: Marisol Cantrell MR#: [id number] : 1950 Acct:[id number] Age/Sex: 74 / F Adm Date: 4 Loc: Room: Type: [facility] Attending Dr: Bradley Adkins MD Copies to: [...] MD 08/18/24 1106 Signed By: 08/18/24 1107 [facility]10-29-2024 Evaluation note* Diagnosis Onset Date Resolution [...] Weight gain acute October 21, 2024 9:46am [facility] Work Phone: [phone] 595-152010-11-2024 Telephone encounter Note* Telephone Encounter - Katie Almodovar - 07/17/2024 9:52 AM EDT Letter sent out on 07/17/24 to reschedule due to provider out of office. [facility] [id number] Miscellaneous Notes* Telephone Encounter - Katie Almodovar - 07/17/2024 9:52 AM EDT Letter sent out on 07/17/24 to reschedule due to provider out of office. documented in this encounterHermann Area District [id number] Evaluation note* Author Monster Harding [facility] Authored June 10, 2024 10:46am I performed the above HPI, R OS, and Examination. I formulated and dictated the treatment plan and was present for entire encounter. Monster Harding D.O. [facility] Authored July 07, 2024 9: 58am The above note written by __ _Paco Stewart____ acting as human recorder, note dictated by Dr. Recinos .I performed the above HPI, ROS, and Examination. I formulated and dictated the treatment plan and was present for entire encounter. Monster Harding D.O. [facility] Work Phone: [phone]) 605-879408-05-2024 Evaluation note* Author Monster [facility] Authored May 11, 2024 4:4 6pm The above note written by __ _Paco Stewart____ acting as human recorder, note dictated by Dr. Recinos .I performed the above HPI, ROS, and Examination. I formulated and dictated the treatment plan and was present for entire encounter. Monster Harding D.O. [facility] Work Phone: 1([phone]) 507-588708-05-2024 Evaluation note* Author Monster [facility] Authored May 11, 2024 4:4 6pm The above note written by __ _Paco Stewart____ acting as human recorder, note dictated by Dr. Recinos .I performed the above HPI, ROS, and Examination. I formulated and dictated the treatment plan and was present for entire encounter. Monster Harding D.O. [facility] Authored June 10, 2024 11:46am I performed the above HPI, R OS, and Examination. I formulated and dictated the treatment plan and was present for entire encounter. Monster Harding D.O. [facility] Work Phone: [phone]) 957-219208-05-2024 Evaluation note* [facility] Authored May 11, 2024 4:4 6pm The above note written by __ _Paco Stewart____ acting as human recorder, note dictated by Dr. Recinos .I performed the above HPI, ROS, and Examination. I formulated and dictated the treatment plan and was present for entire encounter. Monster Harding D.O. Author Monster Harding [facility] Authored June 10, 2024 11:46am I performed the above HPI, R OS, and Examination. I formulated and dictated the treatment plan and was present for entire encounter. Monster Harding D.O. Author Monster Harding [facility] Authored July 07, 2024 10 :58am The above note written by __ _Paco Stewart____ acting as human recorder, note dictated by Dr. Recinos .I performed the above HPI, ROS, and Examination. I formulated and dictated the treatment plan and was present for entire encounter. Monster Harding D.O. [facility] Work Phone: 1([phone]) 847-262602-12-2024 Evaluation note* Encounter Date Diagnosis Assessment Notes Treatment Notes Treatment Clinical Notes Nov, Labyrinthitis, unspecified laterality (ICD-10 - H83.09) She voices that generally the Meclizine works well for her symptoms but she continues to have symptoms, she bends over and feels dizzy. She is leaving tomorrow (11-19-23) for [place] and will be gone for a couple [...] here once she has come back from [place]. She will be much more active in [place], voices that she walks on the beach daily. She is to continue to watch her intake of carbs and sugars. Stay active. Side effects/risks/bene fits of medication were reviewed. [employer] Other 01-30-2024 Procedure [facility]01-17-2024 Evaluation note* Encounter Date Diagnosis Assessment [...] note writ ten by Casper Sales MA, Fish And Wildlife Technician. Edited and approved by Dr. Bradley Adkins MD. 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 Grullon) but [...] voices that she donates blood to the [place]. I did explain to her that they do check for anemia. [employer] Other 08-30-2023 Evaluation note* Encounter Date Diagnosis [...] note writ ten by Susie Schwarz LPN, Fish And Wildlife Technician. Edited and approved by Dr. Bradley Adkins MD. [employer] Other 08-15-2023 [facility]* Encounter Date Diagnosis Assessment [...] note writ ten by Susie Schwarz LPN, Fish And Wildlife Technician. Edited and approved by Dr. Bradley Adkins MD. [employer] Other 01-03-2023 Evaluation note* Encounter Date Diagnosis [...] Osteoarthritis of right hip (ICD-10 - M16.11) [employer] Other 11-17-2022 Evaluation note* Encounter Date Diagnosis [...] note writ ten by Casper Sales MA, Fish And Wildlife Technician. Edited and approved by Dr. Bradley Adkins MD. [employer] Other 11-09-2022 Evaluation note* Encounter Date Diagnosis [...] discussed in detail. 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 Aug, Arthritis [...] poor healing. 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 I have [...] M94.251) Aug, Pre-op exam (ICD-10 - Z01.818) [employer] Other 10-25-2022 Evaluation note* Encounter Date Diagnosis [...] note writ ten by Susie Schwarz LPN, Fish And Wildlife Technician. Edited and approved by Dr. Bradley Adkins MD. [employer] Other 10-11-2022 Evaluation note* Encounter Date Diagnosis [...] note writ ten by Susie Schwarz LPN, Fish And Wildlife Technician. Edited and approved by Dr. Bradley Adkins MD. [employer] Other 09-15-2022 Evaluation note* Encounter Date Diagnosis [...] note writ ten by Casper Sales MA, Fish And Wildlife Technician. Edited and approved by Dr. Bradley Adkins [...] negative findings were considered in medical decision-making. [employer] Other 08-03-2022 Evaluation note* Encounter Date Diagnosis [...] Other low back pain (ICD-10 - M54.59) [employer] Other 2022 Evaluation note* Encounter Date Diagnosis [...] Other low back pain (ICD-10 - M54.59) [employer] Other 05-04-2022 Evaluation note* Encounter Date Diagnosis [...] Other low back pain (ICD-10 - M54.59) [employer] Other 03-30-2022 Evaluation note* Encounter Date Diagnosis [...] Dec, Lumbar back pain (ICD-10 - M54.50) [employer] Other 03-02-2022 Evaluation note* Encounter Date Diagnosis [...] use of OTC lidocaine patches as needed. [employer] Other 12-29-2021 Evaluation note* Encounter Date Diagnosis [...] poor healing. 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 I have [...] these risks and would like to proceed. [employer] Other 12-06-2017 History general Narrative - Reported* [...] child 1972 Hospitalization History natural child 1974 [employer] Other 12-06-2017 History general Narrative - Reported* [...] child 1972 Hospitalization History natural child 1974 [employer] Other 12-06-2017 History general Narrative - Reported* [...] child 1972 Hospitalization History natural child 1974 [employer] Other Evaluation noteNo InformationNoBeyond [employer] [facility] Other Evaluation noteNo assessment information available [facility] Work Phone: Evaluation note* Diagnosis Onset Date Resolution Status Dermatitis acute Weight gain acute [facility] Work Phone: Hospital Discharge instructions Additional Instructions Take Motrin and Tylenol as needed for mild to moderate pain. You can take oxycodone as prescribed for severe pain take Zofran with it to prevent nausea. Follow-up with Dr. Adkins for ongoing pain management Dr. Driscoll for definitive surgical management.[facility] Work Phone: Reason for visit [place]CUSS PROCEDURE PT DOES NOT WANT TO [facility] SURG[facility] Other Reason for visit Ronnie ADKINS OPINION ON PROCEDURE VS SURGERY BEFORE HER APPT WITH [facility] Other Summary Purpose Family History Relationship Condition [...] section and content) DATE CREATED AUTHOR 04/01/2018 [facility] DATE CREATED AUTHOR AUTHOR'S ORGANIZ ATION 04/01/2018 [facility] DATE CREATED AUTHOR AUTHOR'S ORGANIZ ATION [facility]2022 [facility] DATE CREATED AUTHOR AUTHOR'S ORGANIZ ATION 09/09/2023 [facility] DATE CREATED AUTHOR AUTHOR'S ORGANIZ ATION 08/30/2024 [facility] REASON FOR VISIT (unrecogniz [...] Harding DO Primary Care Provider Active Mickey Gaspra , DO Emergency Provider Active Archana Rios [...] May 11, 2024 End: May 11, 2024 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 [facility] [employer] [facility]. provides no warranty or guarantee of the accuracy or completeness of information in this document.
--- NOTE | 2024-11-02 18:59 | P.HP_ITS ---
HPI H&P: HPI History of Present Illness Chief complaint: LEFT SIDE NUMB, PARESTHESIA Narrative: Patient was seen and evaluated in the emergency room with about 2 to 2-1/2-day history of progressive tingling and paresthesias of her arm then progressed to her face and then progressed to her lower extremity on the left side all of it. Has not had any prodromal symptoms similar to this in the past. No other complaints currently. Denies chest pain or shortness of breath or palpitations. When I saw patient up in the medical surgical floor, she was resting comfortably in bed without complaint, no noticeable speech issue by her or the family Opioid HPI Opioid Management Most Recent Pain and Opioid Data: Last Pain Assessment 11/02/24 18:06 Last ORT Total Score 0 11/02/24 16:29 11/02/24 Last ORT Risk Category Low Risk 11/02/24 16:29 11/02/24 Review of Systems ROS Status of ROS 10 or more systems reviewed and unremark able except as noted in history and below PFSH PFSH Medical History (Updated 11/02/24 @ 15:33 by Daniel Hawley MD) No active medical problems Surgical History (Updated 11/02/24 @ 16:25 by Haven Sales) H/O: hysterectomy ?Z90.710 - Acquired absence of both cervix and uterus (ICD-10) Family History (Updated 11/02/24 @ 16:26 by Haven Sales) Father Family history of CHF (congestive heart failure) Family history of myocardial infarction Mother Family history of cancer Social History (Updated 11/02/24 @ 16:27 by Haven Sales) Within the past year, how often did you have a drink containing alcohol: monthly or less Within the past year, how often did you have six or more drinks on one occasion: never Smoking status: Never smoker Non-prescribed substance use: denies use Previous occupational history: retired Highest level of school completed/degree received: high school graduate Are you now , , , , never or living with a partner: In a typical week, how many times do you talk on the telephone with family, friends, or neighbors: 3 or more times per week How often do you get together with friends or relatives: 3 or more times per week How often do you attend methodist or synagogue services: never Do you belong to any clubs or organizations such as methodist groups unions, fraternal or athletic groups, or school groups: no Total score: 1 Score interpretation: A score of less than or equal to 1 indicates the most socially isolated. Little interest or pleasure in doing things: not at all Feeling down, depressed, or hopeless: not at all Feel stressed/tense/nervous/anxious/difficulty sleeping: not at all Gender Identity: female Meds Home Medications and Allergies Home Medications ?Medication ?Instructions ?Recorded ?Confirmed ?Type phentermine 37.5 mg tablet 37.5 mg PO DAILY 11/02/24 11/02/24 History Allergies Allergy/AdvReac Type Severity Reaction Status Date / Time No Known Drug Allergies Allergy Verified 11/02/24 12:31 Exam Constitutional Vital Signs, click to edit/add: Last Vital Signs Temp 97.9 F 11/02/24 16:29 Pulse 62 11/02/24 16:29 Resp 18 11/02/24 16:29 BP 144/87 H 11/02/24 16:29 Pulse Ox 96 11/02/24 16:29 O2 Del Method Room Air 11/02/24 16:29 Documenting provider has reviewed patient's vital signs: yes Common normals: no apparent distress Chest Common normals: inspection of chest normal and palpation of chest normal Respiratory Common normals: normal respiratory effort and no retractions Cardio Common normals: regular rate and regular rhythm GI Common normals: Normal to inspection, nondistended, normoactive bowel sounds present and soft to palpation Extremity Common normals: normal to inspection Neuro Common normals: oriented x3, CN's II-XII intact bilaterally, moves all extremities and no focal motor deficits Results Labs Labs: Short CBC 11/02/24 Range/Units 13:40 WBC 6.0 (4.0-11.0) 10^3/uL Hgb 13.8 (12.0-16.0) g/dL Hct 42.2 (36.0-48.0) % Plt Count 187 (150-450) 10^3/uL BMP 11/02/24 13:40 Sodium 140 Potassium 4.1 Chloride 106 Carbon Dioxide 25.4 BUN 27.0 H Creatinine 0.96 Glucose 102 Calcium 9.3 Assessment and Plan Assessment and Plan (1) Paresthesia: Plan Admission findings: Mild respiratory distress, uncontrolled high blood pressure, symptoms consistent with semiacute CVA happening with 36+ hours prior to presenting to the emergency room but evolved over the last 24 hours CVA with left-sided paresthesias-patient already takes an aspirin a day she been doing that for quite some time, with failing the aspirin already will continue with an aspirin a day and add Plavix likely for the month, can discuss with teleneurology tomorrow. Patient reluctant to take it encouraged her legs to start it she just does not like the potential for increased bruising Uncontrolled high blood pressure-she does not take any blood pressure medications, will see how that progresses throughout the day, did hold her phentermine Admission status: Patient with semiacute CVA symptoms, starting on blood thinners, workup to conclude tomorrow, greater than 50% chance that medically necessary treatment will only span 1 midnight. Observation status, if anything changes on telemetry, echocardiogram that would warrant further investigation, we will change patient inpatient status as medically necessary treatment would then span 2 midnights
--- NOTE | 2024-11-02 19:41 | PC.NURSE ---
Patient c/o numbness to left side of face and tingling to left upper arm, left fingers and left toes.
[2024-11-02] MEDS: CLOPIDOGREL BISULFATE 75 MG TABLET PO (20:08)
--- NOTE | 2024-11-02 23:15 | PC.NURSE ---
Patient c/o numbness to left face. And c/o tingling to left upper arm and fingers. C/o alicia horse cramps to left foot
[2024-11-02 23:27] LABS: Bilirubin Urine NEGATIVE (NEGATIVE); Blood Urine TRACE-L (NEGATIVE); Clarity Urine CLEAR (CLEAR); Color Urine LT. YELLOW (YELLOW); Glucose Urine UA NEGATIVE (NEGATIVE); Ketones Urine NEGATIVE (NEGATIVE); Leukocyte Esterase Urine LARGE (NEGATIVE); Nitrite Urine NEGATIVE (NEGATIVE); Protein Urine NEGATIVE (NEG/TRACE); Urobilinogen Urine 0.2 EU/dL (0.2-1.0)
[2024-11-02 23:34] LABS: Bacteria Urine SMALL #/HPF (NONE SEEN); Cast Seen? NONE SEEN #/LPF (NONE SEEN); Crystals Seen? None Seen #/HPF (None Seen); Mucus Urine NONE SEEN (NONE SEEN); RBC Urine 0-2 #/HPF (0-2); Squamous Epithelial Cell Urine FEW #/LPF (NONE/RARE); Transitional Epi Cells Urine FEW #/LPF (NONE SEEN); Urine Culture Indicated YES
[2024-11-03] VITALS: PULSE 72
[2024-11-03 02:00] VITALS: PULSE 69
[2024-11-03 04:00] VITALS: BP 131/72; PULSE 60; PULSE 63; TEMP 36.6; O2SAT 96
[2024-11-03 05:53] VITALS: PULSE 70
--- NOTE | 2024-11-03 06:27 | PC.NURSE ---
Patient states numbness to face is improving . still c/o of tingling to left upper arm, fingers and left toes
--- NOTE | 2024-11-03 07:00 | CA_ITS ---
Patient Name: IRAJ MUKHERJEE MR#: [id number] : 1950 Exam Date: 11/03/2024 Ordering Doctor: DR Tomi Palmer . ECHOCARDIOGRAM REPORT PROCEDURE: CA ECHO DOPPLER COMPLETE INDICATIONS: Dyspnea COMPARISON: None. DESCRIPTION: COMPLETE ECHOCARDIOGRAM Real-time transthoracic echocardiography with 2D, M-mode, spectral and color flow Doppler performed. QUALITY: Technical quality was good. LEFT VENTRICLE: Normal chamber size. Mild concentric left ventricular hypertrophy. Global left ventricular systolic function is normal. LV EF: Estimated left ventricular ejection fraction is 60-65%. DIASTOLIC: Normal diastolic function. ATRIAL SEPTUM: LEFT ATRIUM: Normal chamber size. RIGHT ATRIUM: Normal chamber size. RIGHT VENTRICLE: Normal chamber size. Normal right ventricular systolic function. TRICUSPID VALVE: Normal mobility and thickness. No stenosis with trivial regurgitation. No evidence of pulmonary hypertension. RVSP 28 mmHg MITRAL VALVE: Normal mobility and thickness. No evidence of mitral valve stenosis. There is no mitral annular calcification. Trivial mitral regurgitation. AORTIC VALVE: Normal trileaflet appearance. Thickened aortic valve. Normal leaflet mobility. No evidence of aortic valve stenosis. Mild aortic regurgitation. AORTIC ROOT: Normal diameter and appearance, measuring 3.2 cm. The ascending aorta is normal in size measuring 3.0 cm. PULMONIC VALVE: Normal thickness and mobility. No stenosis. No regurgitation. PERICARDIUM: No evidence of pericardial effusion. IVC: Collapses with inspirations. Normal size. PLEURA: CONCLUSION: 1. Mild concentric left ventricular hypertrophy with normal systolic function. LVEF is estimated at 60 to 65%. 2. Normal right ventricular size and systolic function. 3. Mild aortic valve regurgitation. 4. Normal diastolic function. 5. Normal right-sided pressures. 6. Pericardial effusion. Adult Echocardiography Procedure Report Left Ventricle LVEDD (3.7 - 5.6 cm): 3.72 cm LVESD (2.2 - 4.0 cm): 2.44 cm LVIVS thickness (0.6 - 1.2 cm): 1.09 cm LVPW thickness (0.5 - 1.0 cm): 1.13 cm e': 0.08 m/s E - e': 10.34 LVOT Max Gradient: 2.93 mm[Hg] LVOT Area (cm2): 0.86 m/s Peak Velocity (LVOT): 0.86 m/s Mean Velocity (LVOT): 0.55 m/s LVOT Diameter 2.01 cm Left Ventricular Ejection Fraction: 60-65 % Left Atrium LA Volume Index (2D A2C): 18.07 ml/m2 Left Atrium Systolic Dimension: 3.49 cm Mitral Valve MV E to A Ratio: 1.13 Mitral Valve A-Wave Peak Velocity: 0.77 m/s Mitral Valve E-Wave Peak Velocity: 0.88 m/s Right Ventricle RV Internal Diastolic Dimension: 2.85 cm Aorta AO Root Diam: 3.18 cm Ascending Ao Diam: 3.02 cm Aortic Valve AoV Area (Peak Uri): 2.07 cm2, 2.07 cm2 AoV Area (VTI): 1.94 cm2, 1.94 cm2 Peak Velocity(Antegrade Flow): 1.31 m/s Peak Gradient(Antegrade Flow): 6.86 mm[Hg] Mean Velocity(Antegrade Flow): 0.90 m/s Mean Gradient(Antegrade Flow): 3.65 mm[Hg] Velocity Time Integral: 33.44 cm Tricuspid Valve Peak Velocity (Regurgitant Flow): 1.78 m/s, 1.60 m/s, 2.50 m/s Pulmonic Valve Mean Gradient: 1.72 mm[Hg], 1.62 mm[Hg] Mean Velocity: 0.62 m/s, 0.58 m/s Peak Velocity: 0.90 m/s Peak Gradient: 3.26 mm[Hg], 3.26 mm[Hg] Right Atrium Right Atrium Systolic Pressure: 32.20 ml, 32.20 ml Dictated by: Walt Osborne M.D. on 11/03/2024 at 10:48 Approved by: Walt Osborne M.D. on 11/03/2024 at 10:54
[2024-11-03 07:51] VITALS: PULSE 59
[2024-11-03 08:00] VITALS: BP 132/80; PULSE 62; TEMP 36.4; O2SAT 94
--- NOTE | 2024-11-03 08:36 | P.DS_ITS ---
DS: Providers Provider Date of admission: 11/02/24 16:11 Primary care physician: MONSTER HARDING Consults: 11/02/24 15:37 Consult to Telestroke Routine Reason for consultation: Paresthesia 11/02/24 18:42 Occupational Therapy Eval and Treat Routine Reason for consultation: Only if needed for Rehab Has provider been notified: No Physical Therapy Eval and Treat Routine Reason for consultation: Eval and Treat Has provider been notified: No 11/02/24 18:44 Speech Therapy Eval and Treat Routine Reason for consultation: Eval and treat Has provider been notified: No DS: Diagnosis Discharge Diagnosis (1) Paresthesia: Plan Admission findings: Mild respiratory distress, uncontrolled high blood pressure, symptoms consistent with semiacute CVA happening with 36+ hours prior to presenting to the emergency room but evolved over the last 24 hours CVA with left-sided paresthesias-patient already takes an aspirin a day she been doing that for quite some time, with failing the aspirin already will continue with an aspirin a day and add Plavix likely for the month, can discuss with teleneurology tomorrow. Patient reluctant to take it encouraged her legs to start it she just does not like the potential for increased bruising Uncontrolled high blood pressure-she does not take any blood pressure medications, will see how that progresses throughout the day, did hold her phentermine Admission status: Patient with semiacute CVA symptoms, starting on blood thinners, workup to conclude tomorrow, greater than 50% chance that medically necessary treatment will only span 1 midnight. Observation status, if anything changes on telemetry, echocardiogram that would warrant further investigation, we will change patient inpatient status as medically necessary treatment would then span 2 midnights ? DS: Summary Hospital Course Hospital Course: Patient medical signs and symptoms of CVA, with-more than 30 hours prior to presentation, CTA head and neck were normal CT head was normal, symptoms were paresthesias left upper extremity left lower extremity and left side of her face. This morning her symptoms are improved. At this point I would hold off on the MRI, can obtain as an outpatient as it would not change plan of care, patient was already taking baby aspirin on admission will maintain baby aspirin and Plavix for a month and then recommendations to be to go with just the Plavix. Medications see list. Follow-up with PCP this week or next Time Spent with Patient Time attestation: Total time spent providing and/or coordinating discharge services: Exam Constitutional Vital Signs, click to edit/add: Last Vital Signs Temp 97.6 F 11/03/24 08:00 Pulse 62 11/03/24 08:00 Resp 18 11/03/24 08:00 BP 132/80 11/03/24 08:00 Pulse Ox 94 L 11/03/24 08:00 O2 Del Method Room Air 11/03/24 08:00 Documenting provider has reviewed patient's vital signs: yes Common normals: no apparent distress Chest Common normals: inspection of chest normal and palpation of chest normal Respiratory Common normals: normal respiratory effort and no retractions Cardio Common normals: regular rate and regular rhythm GI Common normals: Normal to inspection, nondistended, normoactive bowel sounds present and soft to palpation Extremity Common normals: normal to inspection Neuro Common normals: oriented x3, CN's II-XII intact bilaterally, moves all extremities and no focal motor deficits DS: Data Data Completed and Pending Labs on day of discharge: Labs from last 24 hours 11/02/24 11/02/24 11/02/24 23:12 13:40 12:36 WBC 6.0 RBC 5.03 Hgb 13.8 Hct 42.2 MCV 83.9 MCH 27.4 MCHC 32.7 RDW 14.4 Plt Count 187 MPV 8.9 L Neut % (Auto) 70.3 Lymph % (Auto) 18.0 L [place] % (Auto) 8.2 Eos % (Auto) 2.8 Baso % (Auto) 0.5 Neut # (Auto) 4.2 Lymph # (Auto) 1.1 L [place] # (Auto) 0.5 Eos # (Auto) 0.2 Baso # (Auto) 0.0 Abs Immat Gran (auto) 0.01 Imm/Tot Granulo (auto) 0.2 Sodium 140 Potassium 4.1 Chloride 106 Carbon Dioxide 25.4 Anion Gap 12.7 BUN 27.0 H Creatinine 0.96 Est GFR ( Amer) >60 Est GFR (Non-Af Amer) 57 L BUN/Creatinine Ratio 28.1 Glucose 102 Calcium 9.3 Troponin I High Sens 5.8 Urine Color Lt. yellow Urine Clarity Clear Urine pH 6.0 Ur Specific [place] 1.010 Urine Protein Negative Urine Glucose (UA) Negative Urine Ketones Negative Urine Occult Blood Trace-l Urine Nitrite Negative Urine Bilirubin Negative Urine Urobilinogen 0.2 Ur Leukocyte Esterase Large A Urine RBC 0-2 Urine WBC 10-20 A Ur Squamous Epith Cells Few A Ur Transition Epith Cell Few A Urine Crystals None seen Urine Bacteria Small A Urine Casts None seen Urine Mucus None seen Ur Culture Indicated? Yes POC Glucose 145 H Discharge Plan Discharge Disposition: Home, Self-Care Condition: Good Discharge Medications: New clopidogrel 75 mg Tablet 75 mg PO QD Qty: 30 11RF aspirin 81 mg Tablet,Chewable 81 mg PO QAM Qty: 30 11RF Continued phentermine 37.5 mg tablet 37.5 mg PO DAILY Print Language: Belarusian Forms: Portal Instructions
--- NOTE | 2024-11-03 09:33 | CM.NOTE ---
Rounds made with Dr. Palmer, pt will discharge to home today. Discussed with pt about additional medication Plavix and reason for taking. Pt up ad zoey in room, no discharge needs identified.
[2024-11-03] MEDS: ASPIRIN 81 MG TAB.CHEW PO (09:44)
[2024-11-03] MEDS: CLOPIDOGREL BISULFATE 75 MG TABLET PO (09:44)
--- NOTE | 2024-11-03 09:52 | CM.NOTE ---
Medicare Outpatient Observation Notice discussed with pt, pt verbalizes understanding and signs paper. Original given to pt and copy placed on pt's chart.
--- NOTE | 2024-11-03 10:05 | SWNOTE1 ---
SW reviewed therapy notes and pt was up and independent in room with out any devices. No anticipated discharge needs at this time.
--- NOTE | 2024-11-04 13:54 | CM.DCFOLLOWU ---
1st attempt 11/04/24, no answer
--- NOTE | 2024-11-05 15:21 | CM.DCFOLLOWU ---
Person spoke with:patient How are you feeling?well How is your pain?none Did you understand your discharge instructions?yes Do you have any questions about your discharge instructions? yes Were you given any prescriptions at discharge?yes Were you able to get your prescriptions filled? she is going to review with her PCP tomorrow to see if she should start them Do you understand how to take your medications as ordered?yes Do you have any questions about your follow up appointment and do you plan to keep your follow up appointment? no questions, follow up tomorrow Is there anything else that you would like to discuss?no Questions/Comments/Concerns/Other:none
== END 2024-11-03 09:57 | disposition home or self-care (01) ==
LOC: ER 15:33 → MS 16:23
PROVIDERS: Admitting Provider Family Medicine; Emergency Provider Emergency Medicine; PCP Family Medicine; Visit Provider Family Medicine
DX: I63.9 Cerebral infarction, unspecified (principal); R20.2 Paresthesia of skin; Z90.710 Acquired absence of both cervix and uterus; R06.03 Acute respiratory distress; Z79.82 Long term (current) use of aspirin; I10 Essential (primary) hypertension; I35.1 Nonrheumatic aortic (valve) insufficiency; R82.998 Other abnormal findings in urine
CPT/HCPCS: 36415; 70450; 70496; 70498; 80048; 81001; 84484; 85025; 87086; 93005; 93306; 94761; 97161; 99285; G0378; Q9967

== ENCOUNTER 2025-05-18 12:55 | Outpatient (RCR) | payer MEDICARE, SELFPAY | END 2025-05-28 08:34 | disposition home or self-care (01) | LOC: PT 12:55 | PROVIDERS: PCP Family Medicine; Visit Provider Orthopaedic Surgery Orthopaedic Trauma | DX: M25.562 Pain in left knee (principal); Z96.652 Presence of left artificial knee joint | CPT/HCPCS: 97110; 97112; 97162 ==

== ENCOUNTER 2025-07-09 13:40 | Outpatient (RCR) | payer MEDICARE, SELFPAY | END 2025-10-06 07:25 | disposition home or self-care (01) | LOC: OT 13:40 | PROVIDERS: PCP Family Medicine; Visit Provider Orthopaedic Surgery Orthopaedic Trauma | DX: S42.402D Unspecified fracture of lower end of left humerus, subsequent encounter for fracture with routine healing (principal); S52.042D Displaced fracture of coronoid process of left ulna, subsequent encounter for closed fracture with routine healing | CPT/HCPCS: 97110; 97140; 97166; 97530 ==

== ENCOUNTER 2025-07-12 10:31 | Outpatient (OUT) | payer MEDICARE, SELFPAY ==
--- OUTSIDE RECORDS SUMMARY | 2025-07-12 10:33 | XMS_ITS | Clinical Summary ---
Author Organization [facility] Address [address] [facility] [place] [address] Care Team Providers Care Network Support Analyst Name Role Phone Ozzy Bueno MD Primary Care Provider [phone] Keanu Gayle DO Unavailable [phone] Allergies No known active allergies Medications triamcinolone (Kenalog) 0.1 % creamIndication s:Acute vaginitis Apply topically 2 (two) times a day. 28.4 g 3 3 Active valsartan (Diovan) 80 MG tablet Take 80 mg by mouth Daily Active clopidogrel (Plavix) 75 MG tabletIndicatio ns:History of TIA (transient ischemic attack) Take 1 tablet (75 mg) by mouth Daily 30 tablet 11 5 Active Family History Medical History Relation Name Comments No Known Problems Daughter 2 daughters Heart disease Father Breast cancer Mother Relation Name Status Comments Daughter 2 daughters Father Mother Social History Tobacco Use Types Packs/Day Years Used Date Smoking Tobacco: Never Smokeless Tobacco: Never Tobacco Cessation:Counseling Given: Yes Alcohol Use Standard Drinks/Week Comments Yes 0 (1 standard drink = 0.6 oz pur e alcohol) AUDIT-C Answer Date Recorded Q1: How often do you have a drink containing alc ohol? Monthly or less 09/03/2023 Q2: How many drinks containi ng alcohol do you have on a typical day when you are drinking? 1 or 2 09/03/2023 Q3: How often do you have si x or more drinks on one occasion? Less than monthly 09/03/2023 Comments No Sex and Gender Information Value Date Recorded Sex Assigned at Not on file Legal Sex Female 6:56 PM EDT Gender Identity Not on file Sexual Orientation Not on file Last Filed Vital Signs Vital Sign Reading Time Taken Comments Blood Pressure 130/78 12/10/2024 1:42 PM EST Pulse 82 12/10/2024 1:42 PM EST Temperature - - Respiratory Rate - - Oxygen Saturation 97% 12/10/2024 1:42 PM EST Inhaled Oxygen Concentration - - Weight 95.1 kg (209 lb 9.6 oz) 12/10/2024 1:42 P M EST Height 165.1 cm (5' 5 ) 08/14/2021 12:00 PM EST Body Mass Index 34.88 08/14/2021 12:00 PM EST Plan of Treatment Not on file Insurance MEDICARE [facility] Care Teams Network Support Analyst Relationship Specialty Start Date End Date Ozzy Bueno MD [address] [place] [id number] PCP - General Family Medicine 09/03/23 Keanu Gayle DO [address] [place] [address] Referring Physician Neurology 12/10/24
--- OUTSIDE RECORDS SUMMARY | 2025-07-12 10:33 | XMS_ITS | Clinical Summary ---
Author Organization [facility] Address [address] [facility] 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
--- OUTSIDE RECORDS SUMMARY | 2025-07-12 10:33 | XMS_ITS | Clinical Summary ---
[id number] [address] 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 Role Phone Unavailable Primary Care Provider Unavailabl e Social History Tobacco Use Types Packs/Day Years Used Date Smoking Tobacco: Never Assessed Childcare Answer Date Recorded Childcare Unknown 03/16/2019 Employment Answer Date Recorded Employment Unknown 03/16/2019 Comments Unknown Sex and Gender Information Value Date Recorded Sex Assigned at Not on file Legal Sex Female 12:48 PM EDT Gender Identity Not on file Sexual Orientation Not on file Plan of Treatment Health Maintenance Due Date Last Done Comments Depression Screening 1962 Tobacco Screening 1962 DTaP,Tdap and Td Vaccines (1 - Tdap) 1969 Zoster (Shingles) Vaccine (1 of 2) 2000 Fall Risk Screening 2015 COVID-19 Vaccine ( season) 2025, 11/24/2020 Influenza Vaccine 06/07/2025 Medical Devices Not on file
--- OUTSIDE RECORDS SUMMARY | 2025-07-12 10:33 | XMS_ITS | Encounter Summary ---
Author Organization [employer] Address [id number] [address] [place] [address] Care Team Providers Care Senior Investment Analyst Name Role Phone Unavailable Primary Care Provider Unavailabl e Encounter Details Date Type Department Care Team (Late st Contact Info) Description 11/03/2024 Orders Only [facility] [employer] [facility] [place] [address] Transcribe, Orders Support User Pain (Primary Dx) Social History Tobacco Use Types Packs/Day Years Used Date Smoking Tobacco: Never Assessed Childcare Answer Date Recorded Childcare Unknown 03/16/2019 Employment Answer Date Recorded Employment Unknown 03/16/2019 Comments Unknown Sex and Gender Information Value Date Recorded Sex Assigned at Not on file Legal Sex Female 12:48 PM EDT Gender Identity Not on file Sexual Orientation Not on file documented as of this encounter Plan of Treatment Not on file documented as of this encounter Results * CT angiogram carotid (11/02/2024 2:40 PM EST) us Scanning Provider External IMG CT ORDERABLES Fin al Result * CT angiogram head (11/02/2024 2:35 PM EST) us Scanning Provider External IMG CT ORDERABLES Fin al Result * CT brain without contrast stroke alert (11/02/2024 1:00 PM EST) us Scanning Provider External IMG CT ORDERABLES Fin al Result documented in this encounter Visit Diagnoses Diagnosis Pain- Primary Generalized pain documented in this encounter
--- OUTSIDE RECORDS SUMMARY | 2025-07-12 10:38 | XMS_ITS | CCD ---
Author Organization [facility] Providers Care Radiopharmacist Name Role Phone TRABOULSSI, MOURHAF Unavailable Unavailable HEATON, FALGUNI Unavailable Unavailable TRABOULSSI, MOURHAF Unavailable Unavailable HEATON, FALGUNI Unavailable Unavailable TRABOULSSI, MOURHAF Unavailable Unavailable HEATON, FALGUNI Unavailable Unavailable Mick Abernathy Unavailable Bradley Adkins Unavailable Monster Harding Unavailable DO Monster Harding Primary Care Provider [phone] DO Mick Abernathy Attending Provider MICK ABERNATHY Admitting Unavailable MICK ABERNATHY Attending Unavailable DR MONSTER HARDING Primary Care Unavailable DO Monster Harding Primary Care Provider [phone] DO Mick Abernathy Attending Provider [phone] DO Monster Harding Primary Care Provider DO Mick Abernathy Attending Provider Marc Luciano Unavailable DO Monster Harding Primary Care Provider [phone] MD Jose Grullon Attending Provider [phone] DO Mickey Gaspar Emergency Provider MD Bradley Slade Attending Provider DO Monster Hadring Primary Care Provider MD Bradley Adkins Attending Provider [phone] Monster Harding MD Primary Care Provider DO Monster Harding Primary Care Provider MD Bradley Adkins Attending Provider Monster Harding DO Primary Care Provider Bradley Adkins MD Attending Provider Monster Harding DO Primary Care Provider Bradley Adkins MD Attending Provider [phone] Monster Harding DO Attending Provider Monster Harding DO Primary Care Provider Bradley Alba MD Emergency Provider Dean Gayle DO Unavailable [phone] DEAN GAYLE Attending Unavailable MONSTER HARDING C Referring Unavailable Monster Harding DO Primary Care Provider [phone] Monster Harding DO Attending Provider Bradley Alba MD Emergency Provider Bradley Adkins MD Attending Provider Monster Harding DO Primary Care Provider Monster Harding DO Attending Provider Monster Harding DO Primary Care Provider Monster Harding DO Primary Care Provider [phone] Bradley Adkins MD Other Provider Mick Abernathy DO Attending Provider Monster Harding DO Primary Care Provider Bradley Adkins MD Attending Provider Bradley Adkins MD Other Provider Monster Harding DO Attending Provider Monster Harding DO Primary Care Provider Bradley Adkins MD Attending Provider Bradley Adkins MD Other Provider Monster Harding DO Primary Care Provider Bradley Adkins MD Attending Provider Mick Abernathy DO Other Provider Monster Harding DO Primary Care Provider Bradley Adkins MD Attending Provider Bradley Adkins MD Other Provider Monster Harding DO Primary Care Provider Bradley Adkins MD Attending Provider Gallo Wang PA-C Emergency Provider Ximena CHASE, Monster Primary Care Provider [phone] Bradley Adkins MD Attending Provider Dean Gayle DO Attending Provider Bradley Adkins MD Other Provider Girvin, Monster Primary Care Unavailable Bradley Alba Jr Attending Unavailable Bradley Alba Jr Admitting Unavailable Girvin, Monster Primary Care Unavailable Girvin, Monster Attending Unavailable Girvin, Monster Admitting Unavailable Girvin, [place] [facility] Unavailable Michela, Mick A Admitting Unavailable Michela, Mick A Attending Unavailable Girvin, [place] [facility] Unavailable Jed, Bradley Admitting Unavailable Jed, Bradley Attending Unavailable Girvin, [place] [facility] Unavailable Gallo Wang Attending Unavailable Gallo Wang Admitting Unavailable Girvin, [place] [facility] Unavailable Michela, Mick A Attending Unavailable Michela, Mick A Admitting Unavailable Girvin, [place] [facility] Unavailable Bradley Adkins Admitting Unavailable Bradley Adkins Attending Unavailable Girvin, [place] [facility] Unavailable Michela, Mick A Admitting Unavailable Michela, Mick A Attending Unavailable Girvin, Monster Primary [facility] Unavailable Michela, Mick A Attending Unavailable Michela, Mick A Admitting Unavailable Girvin, [place] [facility] Unavailable Michela, Mick A Attending Unavailable Michela, Mick A Admitting Unavailable Girvin, Monster Primary Care Unavailable Girvin, Monster Attending Unavailable Girvin, Monster Admitting Unavailable Jed, Bradley Attending Unavailable Girvin, [place] [facility] Unavailable Feltkyree, Bradley Admitting Unavailable Girvin, [place] [facility] Unavailable Jed, Bradley Admitting Unavailable Feltkyree, Bradley Attending Unavailable Jed, Bradley Attending Unavailable Jed, Bradley Admitting Unavailable Girvin, Monster Primary Care Unavailable Girvin, Monster Primary Care Unavailable Jed, Bradley Attending Unavailable Jed, Bradley Admitting Unavailable Girvin, Monster Primary Care Unavailable Jed, Bradley Admitting Unavailable Jed, Bradley Attending Unavailable Girvin, Monster Primary Care Unavailable Michela, Mick A Admitting Unavailable Michela, Mick A Attending Unavailable Girvin, Monster Primary Care Unavailable Michela, Mick A Admitting Unavailable Michela, Mick A Attending Unavailable Allergies Allergy Classification Reported Allergen(s) Allergy Type Date of Onset Reaction(s) Facility (20 sources) Contrast media; Translations: [red dye] Propensity to adverse reactions 05-11-2024 hives [facility] (20 sources) Povidone-Iodine; Translations: [povidone-iodine ] Drug Allergy 10-10-2021 Rash [facility] Medications Current Medications Medication Drug Class(es) Dates Sig (Normalized) Sig (Original) acetaminophen 500 mg oral tablet (20 sources) Start: 04-21-2025 take 2 tablets by mouth every eight hours Start: 08-16-2022 End: 05-13-2023 take 3 tablets by mouth twice daily Acetaminophen 500 mg Tablet Discontinued 1500 MG PO Twice daily August 16, 2022 1:00am May 13, 2023 3:25am Start: 08-16-2022 End: 05-13-2023 take 1500 mg by mouth twice daily Acetaminophen Discontinued 1500 MG PO Twice daily August 16, 2022 1:00am May 13, 2023 3:25am take 1 tablet by julissa th every four hours Tylenol 325 MG 1 tablet as needed Orally every 4 hrs Active Aspir-81 81 MG (9 sources) take 1 tablet by mouth once daily Aspir-81 81 MG 1 tablet Orally Once a day Active aspirin 81 mg chewable tablet (20 sources) Platelet Aggregation Inhibitor, Nonsteroidal Anti-inflammatory Drug Start: 06-23-2025 take 1 tablet by mouth once daily Start: 04-21-2025 End: 06-23-2025 take 1 tablet by mouth twice daily Aspirin 81 mg tablet,chewable Discontinued 81 MG PO Twice daily 74 37 April 21, 2025 12:00am June 23, 2025 12:17pm Start: 10-17-2021 End: 08-16-2022 take 1 tablet by mouth twice daily Aspirin 81 mg tablet,delayed release (DR/EC) Discontinued 81 MG PO Twice daily 42 October 17, 2021 1:00am August 16, 2022 5:45pm Start: 10-10-2021 End: 10-17-2021 take 1 tablet by mouth once daily Aspirin (Aspirin Low Dose) 81 mg Tablet,Delayed Release (Dr/Ec) Discontinued 81 MG PO Daily October 10, 2021 1:00am October 17, 2021 12:05pm Start: 10-08-2017 End: 01-04-2022 take 1 tablet by mouth once daily Aspirin 81 mg Tablet,Chewable Discontinued 81 MG PO Daily October 08, 2017 1:00am October 10, 2021 1:36pm CBD gummies (5 sources) CBD gummies Active clopidogrel 75 mg oral tablet (20 sources) [id number] Platelet Inhibitor Start: 11-06-2024 End: 12-10-2024 take 1 tablet by mouth once daily cyclobenzaprine hydrochloride 10 mg oral tablet (19 sources) Muscle Relaxant Start: 04-21-2025 take 5-10 mg by mouth every eight hours Start: 12-06-2021 take 1 tablet by julissa th every twenty-four hours Cyclobenzaprine HCl 5 MG 1 tablet at bedtime as needed Orally Once a day for 30 day(s) Dec, Active Echinacea (9 sources) Echinacea Active folic acid 0.4 mg / vitamin b12 0.5 mg oral tablet (14 sources) Vitamin B12 Start: take 1 tablet by mouth once daily Garlic preparation (3 sources) Non-Standardized Food Allergenic Extract Garlic Active meclizine hydrochloride 25 mg oral tablet (20 sources) Antiemetic Start: take 1 tablet by mouth twice daily as needed for dizziness Start: 11-05-2023 End: 01-07-2025 take 1 tablet by mouth once daily as needed for dizziness Meclizine (Antivert) 50 mg tablet Discontinued 50 MG PO Daily as needed for dizziness November 05, 2023 1:00am January 07, 2025 11:00am Start: 07-29-2018 End: 05-13-2023 take 1 tablet by mouth once daily as needed Meclizine 25 mg tablet Discontinued 25 MG PO Daily as needed for Vertigo June 05, 2019 12:00am May 13, 2023 3:25am Start: 07-29-2018 take 1 tablet by julissa [...] done with Medrol dose pack Dec, Active traMADol hydrochloride 50 mg oral tablet (20 sources) Opioid Agonist Start: 06-08-2025 take 1 tablet by mouth every four hours as needed for pain Start: 06-03-2025 End: 06-23-2025 take 1 tablet by mouth twice daily as needed for pain Tramadol 50 mg tablet Discontinued 50 MG PO Twice daily as needed for pain 60 June 03, 2025 12:00am June 23, 2025 12:17pm Start: 04-21-2025 End: 06-03-2025 take 1 tablet by mouth every four hours as needed for pain Tramadol 50 mg tablet Discontinued 50 MG PO Q4H as needed for Pain 30 May 21, 2025 10:04am June 03, 2025 1:53pm thirty #30 M17.12 - Unilateral primary osteoarthritis, left knee Start: 12-06-2021 take 1 tablet by julissa th every four to six hours as needed [...] 04-28-2021 Kenalog -40 mg Apr, 40 mg valsartan 80 mg oral tablet (20 sources) Angiotensin 2 Receptor True Start: 04-13-2025 take 1 tablet by mouth once daily Start: 04-13-2025 End: 04-13-2025 take 1 tablet by mouth once daily Valsartan 80 mg tablet Discontinued 80 MG PO Daily April 13, 2025 2:26pm April 13, 2025 4:42pm Start: 11-06-2024 End: 01-12-2025 take 1 tablet by mouth once daily Valsartan 80 mg tablet Discontinued 80 MG PO Daily November 06, 2024 11:32am January 12, 2025 7:14am Vitamin C 1000 MG (12 sources) take 1 tablet by mouth once daily Vitamin C 1000 MG 1 tablet Orally Once a day Active Vitamin D3 125 MCG (5000 UT) (8 sources) Vitamin D3 125 M CG (5000 UT) as directed Orally Active Zinc (20 sources) Start: 04-13-2025 zinc Active PO Daily April 13, 2025 12:00am Complies with drug therapy Start: 04-13-2025 Start: 10-10-2021 End: 05-13-2023 take 1 tablet by mouth once daily Zinc 50 mg Tablet Discontinued 50 MG PO Daily October 10, 2021 1:00am May 13, 2023 3:25am Start: 10-10-2021 End: 05-13-2023 take 1 tablet [...] 1 tablet Orally Once a day Active Completed/Discontinued Medications Medication Drug Class(es) Dates Sig (Normalized) Sig (Original) acetaminophen 325 mg / oxyCODONE hydrochloride 5 mg oral tablet (20 sources) Opioid Agonist Start: 06-04-2025 End: 06-23-2025 take 1 tablet by mouth every six hours as needed for pain Oxycodone-Acetamino phen (Percocet) 5-325 mg tablet Discontinued 1 TAB PO Every 6 hours as needed for pain 12 4 June 04, 2025 June 23, 2025 12:16pm Start: 11-23-2024 End: 01-12-2025 take 1 tablet by mouth every six hours as needed for pain Oxycodone-Acetaminophen (Percocet) 5-325 mg tablet Discontinued 1 - 2 TAB PO Every 6 hours as needed for pain 15 3 November 23, 2024 January 12, 2025 7:14am ascorbic acid 1000 mg oral tablet (20 sources) Vitamin C Start: 06-09-2019 End: 05-13-2023 take 1 tablet by mouth once daily Ascorbic Acid (Vitamin C) (C-1000) 1,000 mg Tablet Discontinued 1 TAB PO Daily June 09, 2019 12:00am May 13, 2023 3:25am Start: 06-09-2019 End: 05-13-2023 take 1 tablet [...] TAB PO Daily June 09, 2019 12:00am azithromycin 250 mg oral tablet (20 sources) Macrolide Antimicrobial Start: 11-30-2024 End: 01-12-2025 Azithromycin 250 mg tablet Discontinued 0 PO .COMPLEX November 30, 2024 1:00am January 12, 2025 7:13am For 250 mg dose pack: take 500 mg today (day 1), then 250 mg for 4 days (days 2-5) PO Start: 02-19-2022 Azithromycin 2 50 MG 2 tablet on the first day, then 1 tablet daily for 4 days Orally Once a day for 5 day(s) February, Active Cannabinoids (13 sources) Start: 06-05-2019 End: 10-10-2021 Cannabinoids Discontinued 15 MG PO As Directed June 04, 2019 11:00pm October 10, 2021 12:42pm DIRECTED Start: 06-05-2019 End: 10-10-2021 Cannabinoids Discontinued 15 MG PO As Directed June 05, 2019 12:00am October 10, 2021 1:42pm DIRECTED Cannabinoids 15 MG (20 sources) Start: 06-05-2019 End: 10-10-2021 Cannabinoids 15 MG Discontin ued 15 MG PO As Directed June 05, 2019 12:00am October 10, 2021 1:42pm DIRECTED Start: 06-05-2019 End: 10-10-2021 Cannabinoids 15 MG [...] October 10, 2021 1:00am Cbd 1 cap (20 sources) Start: 10-10-2021 End: 05-13-2023 Cbd 1 cap Discontinued 1 CAP PO As Directed as needed for joint pain October 10, 2021 1:00am May 13, 2023 3:25am Start: 10-10-2021 End: 05-13-2023 Cbd 1 cap Discontinued 1 CAP PO As Directed as needed for joint pain October 10, 2021 12:00am May 13, 2023 2:25am cephalexin 500 mg oral capsule (20 sources) Cephalosporin Antibacterial Start: 05-11-2024 End: 06-10-2024 take 1 capsule by mouth three times daily Cephalexin 500 mg capsule Discontinued 500 MG PO Three times daily 26 04May 11, 2024 12:00am June 10, 2024 9:56am cholecalciferol 0.025 mg oral capsule (20 sources) Vitamin D Start: 10-10-2021 End: 05-13-2023 take 1 capsule by mouth once daily Cholecalciferol (Vitamin D3) (Vitamin D3) 25 mcg (1,000 unit) Capsule Discontinued 25 MCG PO Daily October 10, 2021 1:00am May 13, 2023 3:25am Vitamin D3 125 M CG (5000 UT) as directed Orally Active docusate sodium 100 mg oral capsule (12 sources) Start: 04-21-2025 End: 05-21-2025 take 1 capsule by mouth twice daily Docusate Sodium (Colace) 100 mg capsule Discontinued 100 MG PO Twice daily April 21, 2025 12:00am May 21, 2025 10:01am doxycycline hyclate 100 mg oral tablet (12 sources) Tetracycline -class Drug Start: 04-21-2025 End: 05-21-2025 take 1 tablet by mouth twice daily Doxycycline Hyclate 100 mg tablet Discontinued 100 MG PO Twice daily 19 04April 21, 2025 12:00am May 21, 2025 10:01am Elderberry preparation (20 sources) Start: 10-10-2021 End: 05-13-2023 take 1 capsule by mouth once daily Elderberry 1 cap Discontinued 1 CAP PO Daily October 10, 2021 1:00am May 13, 2023 3:25am Start: 10-10-2021 End: 05-13-2023 take 1 capsule [...] e folic acid 1 mg oral tablet (20 sources) Start: 10-08-2017 End: 06-09-2019 take 1 tablet by mouth once daily Folic Acid 1 mg Tablet Discontinued 1 MG PO Daily October 08, 2017 1:00am June 09, 2019 1:09pm ibuprofen 200 mg oral tablet (20 sources) Nonsteroidal Anti-inflammatory Drug Start: 05-11-2024 End: 11-23-2024 take 1 tablet by mouth every six hours as needed for pain Ibuprofen 200 mg tablet Discontinued 200 MG PO Every 6 hours as needed for pain May 11, 2024 12:00am November 23, 2024 5:08am On Hold: doctor order Start: 08-16-2022 End: 05-13-2023 take 1 tablet by mouth once daily as needed for pain Ibuprofen 600 mg Tablet Discontinued 600 MG PO Daily as needed for Pain August 16, 2022 1:00am May 13, 2023 3:25am Ibuprofen OTC Ac tive Magnesium (20 sources) Start: 04-21-2025 End: 06-23-2025 take 5 tablets by mouth once daily at bedtime Magnesium 200 mg tablet Discontinued 1000 MG PO Daily at bedtime April 21, 2025 2:08pm June 23, 2025 12:16pm Start: 04-21-2025 take 5 tablets by mo [facility] once daily at bedtime Start: 04-21-2025 take 5 tablets by mo [facility] once daily at bedtime Magnesium 200 mg tablet Active 1000 MG PO Daily at bedtime April 21, 2025 2:08pm Complies with drug therapy Start: 04-12-2025 End: 04-21-2025 take 1 tablet by mouth once daily at bedtime Magnesium 200 mg tablet Discontinued 200 MG PO Daily at bedtime April 12, 2025 12:00am April 21, 2025 2:08pm Start: 04-12-2025 take 1 tablet by julissa once daily at bedtime Magnesium 200 mg tablet Active 200 MG PO Daily at bedtime April 12, 2025 12:00am Complies with drug therapy Start: 04-12-2025 take 1 tablet by julissa th once daily at bedtime methotrexate 2.5 mg oral tablet (20 sources) Folate Analog Metabolic Inhibitor Start: 10-08-2017 End: 06-09-2019 take 1 tablet by mouth every week Methotrexate Sodium 2.5 mg Tablet Discontinued 2.5 MG PO every week October 08, 2017 1:00am June 09, 2019 1:09pm ondansetron 4 mg oral tablet (20 sources) Serotonin-3 Receptor Antagonist Start: 05-13-2023 End: 11-05-2023 take 1 tablet by mouth once daily as needed for nausea and vomiting Ondansetron Hcl 4 mg tablet Discontinued 4 MG PO Daily as needed for nausea and vomiting 5 May 13, 2023 12:00am November 05, 2023 9:34am oxyCODONE hydrochloride 5 mg oral tablet (20 sources) Opioid Agonist Start: 04-21-2025 End: 05-21-2025 take 1 tablet by mouth every four hours as needed for pain Oxycodone 5 mg tablet Discontinued 5 MG PO Q4H as needed for Pain 42 April 21, 2025 May 21, 2025 10:01am dispense 42 (forty-two) tablets diagnosis M17.12 DO NOT FILL UNTIL 04/28/2025 Start: 05-13-2023 End: 05-21-2023 take 1 tablet by mouth once daily as needed for pain Oxycodone 5 mg tablet Discontinued 5 MG PO Daily as needed for severe pain 5 May 13, 2023 May 21, 2023 11:01am Start: 10-17-2021 End: 08-16-2022 take 1 tablet by mouth every six hours as needed for pain Oxycodone (Roxicodone) 5 mg tablet Discontinued 5 MG PO Q6H as needed for pain 20 October 17, 2021 August 16, 2022 5:45pm oxyCODONE HCl Ac tive phentermine hydrochloride 37.5 mg oral tablet (20 sources) Sympathomimetic Amine Anorectic Start: 10-21-2024 End: 11-06-2024 take 1 tablet by mouth once daily Phentermine (Adipex-P) 37.5 mg tablet Discontinued 37.5 MG PO Daily October 21, 2024 11:14am November 06, 2024 10:54am Start: 08-18-2024 End: 10-21-2024 take 1 tablet by mouth every other day Phentermine (Adipex-P) 37.5 mg tablet Discontinued 37.5 MG PO every other day October 21, 2024 11:05am October 21, 2024 11:15am Start: 11-05-2023 End: 08-18-2024 take 1 tablet by mouth once daily in the morning Phentermine (Adipex-P) 37.5 mg tablet Discontinued 37.5 MG PO Every morning July 07, 2024 10:46am August 18, 2024 11:30am Start: 10-21-2023 take 1 tablet by julissa th once daily in the morning Phentermine HCl 37.5 MG 1 tablet Orally qd am for 30 days Pt will pay pino for this, no PA will be done Oct, Active predniSONE 20 mg oral tablet (20 sources) Start: 11-30-2024 End: 01-12-2025 take 3 tablets by mouth once daily at mealtime, then take 2 tablets by mouth once daily, then take 1 tablet by mouth once daily at mealtime Prednisone 20 mg tablet Discontinued 0 PO .with food or milk 24 06November 30, 2024 1:00am January 12, 2025 7:13am take 3 tablets a day x3 days, 2 tabs a day x3 days and then 1 tab a day x3 days orally WITH FOOD OR MILK; Start: 05-11-2024 End: 06-10-2024 take 3 tablets by mouth once daily at mealtime, then take 2 tablets by mouth once daily, then take 1 tablet by mouth once daily at mealtime Prednisone 20 mg tablet Discontinued 0 PO .with food or milk 24 06May 11, 2024 12:00am June 10, 2024 9:57am take 3 tablets a day x3 days, 2 tabs a day x3 days and then 1 tab a day x3 days orally WITH FOOD OR MILK; Turmeric extract (20 sources) Start: 04-21-2025 End: 06-23-2025 take 1 capsule by mouth once daily Turmeric 400 mg capsule Discontinued 1000 MG PO Daily April 21, 2025 2:08pm June 23, 2025 12:17pm Start: 04-21-2025 take 1 capsule by mo ut once daily Start: 04-21-2025 take 1 capsule by mo uth once daily Turmeric 400 mg capsule Active 1000 MG PO Daily April 21, 2025 2:08pm Complies with drug therapy Start: 03-31-2025 End: 04-21-2025 take 1 capsule by mouth once daily Turmeric 400 mg capsule Discontinued 400 MG PO Daily March 31, 2025 12:00am April 21, 2025 2:08pm Start: 03-31-2025 take 1 capsule by mo uth once daily Turmeric 400 mg capsule Active 400 MG PO Daily March 31, 2025 12:00am Complies with drug therapy Start: 03-31-2025 take 1 capsule by mo uth once daily Start: 03-31-2025 Problems Active Problems Problem Classification Problem Date Documented Da te Episodic/Chronic Acute cerebrovascular disease (1 source) Acute cerebrovascular disease Onset: 5 Allergic reactions (20 sources) Inflammatory dermatosis; Translations: [Dermatitis, unspecified] 05-11-2024 Episodic Conditions associated with dizziness or vertigo (9 sources) Labyrinthitis, unspecified ear; Translations: [Benign paroxysmal positional vertigo] Episodic Conditions associated with dizziness or vertigo (2 sources) Conditions associated with dizziness or vertigo Disorders of lipid metabolism (20 sources) Hyperlipidemia; Translations: [Hyperlipidemia, unspecified] Chronic Fracture of upper limb (20 sources) Closed fracture dislocation elbow joint ; Translations: [Unspecified fracture of lower end of left humerus, initial encounter for closed fracture] Onset: 5 06-04-2025 Episodic Genitourinary symptoms and ill-defined conditions (20 sources) Female stress incontinence; Translations: [Stress incontinence (female) (male)] Chronic Headache; including migraine (20 sources) Headache; Translations: [Headache] 10-21-2024 Episodic Joint disorders and dislocations; trauma-related (20 sources) Internal derangement of left knee; Translations: [Unspecified internal derangement of left knee] Chronic Osteoarthritis (20 sources) Arthritis of left knee; Translations: [Unilateral primary osteoarthritis, left knee] Onset: 1 Resolved: 2 Chronic Other bone disease and musculoskeletal deformities (1 source) Chondromalacia, right hip Episodic Other circulatory disease (20 sources) Elevated blood pressure; Translations: [Elevated blood-pressure reading, without diagnosis of hypertension] 11-06-2024 Episodic Other circulatory disease (1 source) History of transient ischemic attack; Translations: [Personal history of transient ischemic attack (TIA), and cerebral infarction without residual deficits] 12-10-2024 Episodic Other connective tissue disease (15 sources) History of total knee arthroplasty; Translations: [Presence of left artificial knee joint] 05-21-2025 Chronic Other connective tissue disease (5 sources) Trochanteric bursitis, right hip; Translations: [TROCHANTERIC BURSITIS RIGHT HIP] Onset: 2 Resolved: 2 Episodic Other connective tissue disease (20 sources) Pain in left arm; Translations: [Pain in left arm] 11-23-2024 Episodic Other connective tissue disease (1 source) Pain in left arm; Translations: [Pain in left arm] Onset: 5 Episodic Other disorders of stomach and duodenum (20 sources) Upset stomach; Translations: [Functional dyspepsia] Episodic Other gastrointestinal disorders (20 sources) Stool DNA-based colorectal cancer screening positive; Translations: [Other fecal abnormalities] 10-09-2017 Episodic Other lower respiratory disease (20 sources) Fibrosis of lung; Translations: [Pulmonary fibrosis, unspecified] Chronic Other lower respiratory disease (20 sources) Granulomatous disorder; Translations: [Pulmonary fibrosis, unspecified] Chronic Other lower respiratory disease (20 sources) Lung field abnormal; Translations: [Other nonspecific abnormal finding of lung field] Episodic Other lower respiratory disease (20 sources) Cough; Translations: [Acute cough] 11-30-2024 Episodic Other nervous system disorders (20 sources) Chronic pain; Translations: [Other chronic pain] 08-04-2024 Chronic Other nervous system disorders (20 sources) Other chronic pain; Translations: [Other chronic pain] Onset: 2 Resolved: 2 Chronic Other nervous system disorders (20 sources) Skin sensation disturbance; Translations: [Paresthesia of skin] Episodic Other nervous system disorders (20 sources) Paresthesia; Translations: [Paresthesia of skin] 11-06-2024 Episodic Comment on above: left sided paresthes ia Other non-traumatic joint disorders (2 sources) Pain in right hip Onset: 2 Resolved: 2 Episodic Other non-traumatic joint disorders (20 sources) Hip pain; Translations: [Pain in unspecified hip] 05-13-2023 Episodic Other non-traumatic joint disorders (20 sources) Pain in unspecified knee; Translations: [Knee pain] 08-04-2024 Episodic Other non-traumatic joint disorders (20 sources) Shoulder pain; Translations: [Pain in unspecified shoulder] 11-06-2024 Episodic Other non-traumatic joint disorders (20 sources) Pain in left shoulder; Translations: [Pain of left shoulder region] 11-23-2024 Episodic Other nutritional; endocrine; and metabolic disorders (20 sources) Abnormal weight gain; Translations: [Abnormal weight gain] Episodic Other nutritional; endocrine; and metabolic disorders (3 sources) Weight gain; Translations: [Abnormal weight gain] 05-11-2024 Episodic Other nutritional; endocrine; and metabolic disorders (20 sources) Weight increased; Translations: [Abnormal weight gain] 05-11-2024 Episodic Residual codes; unclassified (20 sources) Family history of malignant neoplasm of pancreas; Translations: [Family history of malignant neoplasm of digestive organs] 05-11-2024 Episodic Residual codes; unclassified (5 sources) Family history of malignant neoplasm of digestive organs; Translations: [Family history of malignant neoplasm of gastrointestinal tract] 06-10-2024 Episodic Residual codes; unclassified (1 source) Pain, unspecified; Translations: [Pain, unspecified] Onset: 5 Episodic Rheumatoid arthritis and related disease (20 sources) Rheumatoid arthritis; Translations: [Rheumatoid arthritis, unspecified] Chronic Spondylosis; intervertebral disc disorders; other back problems (20 sources) Solitary sacroiliitis; Translations: [Sacroiliitis, not elsewhere classified] Onset: 2 Resolved: 2 Chronic Transient cerebral ischemia (20 sources) Transient cerebral ischemia; Translations: [Transient cerebral ischemic attack, unspecified] Onset: 5 11-06-2024 Chronic Comment on above: TIA to rule out CVA Unclassified (2 sources) Shortness of breath / [...] Translations: [OTHER LOW BACK PAIN] Onset: 2 Unclassified (20 sources) Call Dr. Partida office to schedule a follow up appointment if you do not already have one scheduled Unclassified (2 sources) M25.569 - Pain in unspecified knee Past or Other Problems Problem Classification Problem Date Documented Date Episodic/Chronic Joint disorders and dislocations; trauma-related (2 sources) Other tear of medial meniscus, current injury, left knee, subsequent encounter Onset: 10-04-2021 Resolved: 12-06-2021 Episodic Nonspecific chest pain (2 sources) Chest pain, unspecified; Translations: [Chest pain, unspecified] Onset: 09-11-2017 Episodic Other circulatory disease (9 sources) Elevated blood-pressure reading, without diagnosis of hypertension; Translations: [Elevated blood pressure reading without diagnosis of hypertension] Onset: 11-10-2024 11-06-2024 Episodic Other connective tissue disease (1 source) Synovial cyst of popliteal space [[place]], left knee Onset: 10-04-2021 Resolved: 10-04-2021 Episodic Other lower respiratory disease (1 source) Shortness of breath; Translations: [Shortness of breath] Onset: 10-17-2017 Episodic Other nervous system disorders (9 sources) Paresthesia of skin; Translations: [Disturbance of skin sensation] Onset: 11-16-2024 11-06-2024 Episodic Other non-traumatic joint disorders (1 source) Pain in left knee Onset: 10-04-2021 Resolved: 10-04-2021 Episodic Other non-traumatic joint disorders (9 sources) Pain in unspecified shoulder; Translations: [Pain in joint, shoulder region] Onset: 11-16-2024 11-06-2024 Episodic Residual codes; unclassified (1 source) Other specified postprocedural states Onset: 12-06-2021 Resolved: 12-06-2021 Episodic Spondylosis; intervertebral disc disorders; other back problems (20 sources) Sciatica; Translations: [Sciatica, unspecified side] Onset: 11-16-2024 05-13-2023 Episodic Sprains and strains (1 source) Sprain of other specified parts of left knee, subsequent encounter Onset: 10-04-2021 Resolved: 10-04-2021 Episodic Unclassified (5 sources) Lumbar back pain M54.50 Onset: 01-03-2022 Resolved: 05-09-2022 Unclassified (5 sources) Other low back pain M54.59 Onset: 02-07-2022 Resolved: 05-09-2022 Results Test Name Value Interpretation Reference Range Facility X-ray reportOrdered By: Jhonny Velasquez on 06-23-2025 Study report [facility] [address] [place] [address] XRay Report Signed Patient: Marisol Cantrell MR#: [id number] : 1950 Acct:[id number] Age/Sex: 75 / F ADM Date: 5 [place] [facility] [place] [facility]: Mick Abernathy DO Copies to: Mick Abernathy DO~ Ordering Provider: Mick Abernathy DO Date of Service: 06/23/25 XR/XR elbow LT 2V: S42.402A - Unspecified fracture oflower end of left elizabeth... 2 views left elbow HISTORY: Status post left elbow ORIF Stable hardware and bony alignment. XR/XR elbow LT 2V IMPRESSION: Stable findings. Impression dictated by: Lobo Velasquez M.D. 06/23/2025 4:49 PM Dictation Location: [place] [address] Transcribed By: [facility] 06/23/251648 Dictated By: Lobo Velasquez DO 06/23/25 1648 Signed By: 06/23/25 164 [facility] Study report [facility] [place] [address] XRay Report Signed Patient: Marisol Cantrell MR#: [id number] : 1950 Acct:[id number] Age/Sex: 75 / F ADM Date: 5 [place] [facility] [place]: Type: REG CLI Attending Dr: Mick Abernathy DO Copies to: Mick Abernathy DO~ Ordering Provider: Mick Abernathy DO Date of Service: 06/23/25 XR/XR knee LT 3V - NOT FOR ER USE: M17.12 - Unilateral primary osteoarthritis, left knee 3 views left knee plain film COMPARISON: 06/04/2025 HISTORY: Status post left partial knee with placement ACUTE FINDINGS: No acute findings DEGENERATIVE CHANGE: Unremarkable SOFT TISSUE FINDINGS: Unremarkable JOINT EFFUSION: None POSTOP CHANGES: No hardware complication BONE MINERALIZATION: Adequate XR/XR knee LT 3V - NOT FOR ER USE IMPRESSION: Stable findings Impression dictated by: Lobo Velasquez M.D. 06/23/2025 4:46 PM Dictation Location: RADIO-PC-23 Transcribed By: [facility] 06/23/251645 Dictated By: Lobo Velasquez DO 06/23/251644 Signed By: 06/23/251645 [facility] XR elbow LT 2Von 06-23-2025 XR elbow LT 2V [facility] [address] [place] [address] XRay Report Signed Patient: Marisol Cantrell MR#: [id number] : 1950 Acct:[id number] Age/Sex: 75 / F ADM Date: 06/23/25 [place] [facility] [place]: Type: REG CLI Attending Dr: Mick Abernathy DO Copies to: Mick Abernathy DO Ordering Provider: Mick Abernathy DO Date of Service: 06/23/25 XR/XR elbow LT 2V: S42.402A - Unspecified fracture of lower end of left elizabeth... 2 views left elbow HISTORY: Status post left elbow ORIF Stable hardware and bony alignment. XR/XR elbow LT 2V IMPRESSION: Stable findings. Impression dictated by: Lobo Velasquez M.D. 06/23/2025 4:49 PM Dictation Location: RADIO-PC-23 Transcribed By: RYLEY 06/23/251648 Dictated By: Lobo Velasquez DO 06/23/251647 Signed By: 06/23/25 164 Normal [facility] XR knee LT 3V - NOT FOR ER U Oswaldo 06-23-2025 XR knee LT 3V - NOT FOR ER USE [facility] [address] [place] [address] XRay Report Signed Patient: Marisol Cantrell MR#: [id number] : 1950 Acct:[id number] Age/Sex: 75 / F ADM Date: 06/23/25 [place] [facility] [place]: Type: [facility] Attending Dr: Mick Abernathy DO Copies to: Mick Abernathy DO Ordering Provider: Mick Abernathy DO Date of Service: 06/23/25 XR/XR knee LT 3V - NOT FOR ER USE: M17.12 - Unilateral primary osteoarthritis, left knee 3 views left knee plain film COMPARISON: 06/04/2025 HISTORY: Status post left partial knee with placement ACUTE FINDINGS: No acute findings DEGENERATIVE CHANGE: Unremarkable SOFT TISSUE FINDINGS: Unremarkable JOINT EFFUSION: None POSTOP CHANGES: No hardware complication BONE MINERALIZATION: Adequate XR/XR knee LT 3V - NOT FOR ER USE IMPRESSION: Stable findings Impression dictated by: Lobo Velasquez M.D. 06/23/2025 4:46 PM Dictation Location: [place] [address] Transcribed By: [facility] 06/23/251645 Dictated By: Lobo Velasquez DO 06/23/251644 Signed By: 06/23/25 164 Normal [facility] XR elbow LT min 3V*on 2024 XR elbow LT min 3V* [facility] [address] [address] XRay Report Signed Patient: Marisol Cantrell MR#: [id number] : 1950 Acct:[id number] Age/Sex: 74 / F ADM Date: 06/08/25 Loc: [place] Room: Type: [facility] Attending Dr: Mcik Abernathy DO Copies to: Mick Abernathy DO Ordering Provider: Mick Abernathy DO Date of Service: 06/08/25 XR/XR elbow LT min 3V*: . Intraoperative study. Reason for exam: ORIF left elbow Findings: 4 images were obtained intraoperatively. Hardware was placed Cumulative Air Kerma in mGy: 2.06 mGy XR/XR elbow LT min 3V* Impression: Intraoperative study. Impression dictated by: Richie Reyes Jr., D.OAlvaro 06/12/2025 11:13 AM Dictation Location: RADIO-PC-18 Transcribed By: [facility] 06/12/25 1113 Dictated By: Richie Reyes Jr, DO 06/12/25 1113 Signed By: 06/12/25 1113 Normal [facility] Alanine aminotransferase [En zymatic activity/volume] in Serum or PlasmaOrdered By: Gallo Wang on 06-04-2025 ALT [Catalytic activity/Vol] 38 U/L Normal 7-52 [facility] Comment on above: Performed By: #### P T, PTT, CMP, CBC ####[facility] [id number] [place] [id number] [facility] Albumin [Mass/volume] in Ser um or Plasma by Bromocresol green (BCG) dye binding methoOrdered By: Gallo Wang on 06-04-2025 Albumin BCG dye [Mass/Vol] 4.4 g/dL 3.5-5.7 [facility] Alkaline phosphatase [Enzyma tic activity/volume] in Serum or PlasmaOrdered By: Gallo Wang on 06-04-2025 ALP [Catalytic activity/Vol] 136 U/L High 34-104 [facility] Comment on above: Performed By: #### P T, PTT, CMP, CBC ####[facility] [id number] [place] [address] [facility] Aspartate aminotransferase [ Enzymatic activity/volume] in Serum or PlasmaOrdered By: Gallo Wang on 06-04-2025 AST [Catalytic activity/Vol] 35 U/L Normal 13-39 [facility] Comment on above: Performed By: #### P T, PTT, CMP, CBC ####[facility] [id number] [place] [address] [place] Basophils [#/volume] in Bloo d by Automated countOrdered By: Gallo Wang on 06-04-2025 Basophils (Bld) [#/Vol] 0.1 10*3/uL Normal 0.0-0.2 [facility] Comment on above: Result Comment: PERF ORMED BY: [place] [address] PATHOLOGIST DIRECTOR OF INFORMATICS EVELIA CARTY M.D. Performed By: #### P T, PTT, CMP, CBC ####[address] Basophils/100 leukocytes in Blood by Automated countOrdered By: Gallo Wang on 06-04-2025 Basophils/100 WBC (Bld) 0.7 % Normal . [facility] Comment on above: Performed By: #### P T, PTT, CMP, CBC ####[address] Bilirubin.total [Mass/volume ] in Serum or PlasmaOrdered By: Gallo Wang on 06-04-2025 Bilirubin [Mass/Vol] 0.6 mg/dL Normal 0.3-1.0 [facility] Comment on above: Performed By: #### P T, PTT, CMP, CBC ####[address] cervical spine wo conon 0 06-04-2025 CT cervical spine wo con [facility] [place] [address] CT Scan Report Signed Patient: Marisol Cantrell MR#: [id number] : 1950 Acct:[id number] Age/Sex: 74 / F ADM Date: 06/04/25 Loc: ER Room: Type: [facility] ER Attending Dr: Copies to: Gallo Wang PA-C Ordering Provider: Gallo Wang PA-C Date of Service: 06/04/25 CT/CT cervical spine wo con: fall ([id number]) CT/CT head/brain wo con: fall CT BRAIN WITHOUT CONTRAST: CLINICAL HISTORY: COMPARISON: None TECHNIQUE: Contiguous axial unenhanced images were obtained through the brain. This CT exam was performed using one or more following dose reduction techniques: Automated exposure control, adjustment of the mA and/or kV according to patient size, or use of iterative reconstruction technique. FINDINGS: There is no evidence of midline shift, intra or extra-axial fluid collection, hemorrhage or CT evidence of stroke. Cortical atrophy with chronic microvascular ischemic changes. Posterior fossa appears unremarkable. Visualized intraorbital contents appear unremarkable. Visualized paranasal sinuses are clear. The surrounding soft tissues are normal. CT/CT head/brain wo con IMPRESSION: NO ACUTE INTRACRANIAL ABNORMALITY. CT CERVICAL SPINE WITHOUT CONTRAST WITH 3D RECONSTRUCTIONS: COMPARISON: None TECHNIQUE: Spiral axial unenhanced images were obtained through the cervical spine. Sagittal, coronal and 3D volume-rendered reconstructions were also reviewed. This CT exam was performed using one or more following dose reduction techniques: Automated exposure control, adjustment of the mA and/or kV according to patient size, or use of iterative reconstruction technique. FINDINGS: Moderate diffuse spondylosis with relative sparing of C2-3. No fracture. No prevertebral soft tissue swelling. Visualized lung apices are clear. IMPRESSION: NO CERVICAL SPINE FRACTURE Impression dictated by: Richie Reyes Jr., D.OAlvaro 06/04/2025 2:16 PM Dictation Location: [place] [address] Transcribed By: [facility] 06/04/25 1416 Dictated By: Richie Reyes Jr, DO 06/04/25 1415 Signed By: 06/04/25 1416 Normal [facility] CT elbow LT wo conon 025 CT elbow LT wo con [facility] [place] [address] [place] [address] CT Scan Report Signed Patient: Marisol Cantrell MR#: [id number] : 1950 Acct:[id number] Age/Sex: 74 / F ADM Date: 06/04/25 Loc: ER Room: Type: [facility] ER Attending Dr: Copies to: Gallo Wang PA-C Ordering Provider: Gallo Wang PA-C Date of Service: 06/04/25 CT/CT elbow LT wo con: for ortho CT elbow LT wo con 06/04/2025 5:13 PM SIGNS AND SYMPTOMS: Fall, left elbow fracture TECHNIQUE: Multidetector CT axial slices of the left elbow without IV contrast. Multiplanar and 3-D reformats were performed and viewed on a separate workstation and reviewed to further define anatomy and possible pathology. CT was performed with one or more of the following dose reduction techniques: Automated exposure control, adjustment of the mA and/or kV according to patient size, or use of iterative reconstruction technique. COMPARISON: Radiographs from the same date FINDINGS: There is a longitudinally oriented mildly displaced fracture of the lateral epicondyle. This communicates with the lateral aspect of the radiocapitellar joint space. There is a minimally displaced fracture of the coronoid process. This appears to be mildly comminuted. There is a tiny fracture fragment separate from the ulna along the proximal radioulnar joint subluxed laterally by 3 mm. The fragment measures 3 mm in greatest dimension. The joint spaces are preserved. There is interval resolution of previous dislocation. There is a similar joint effusion. The radius is intact. CT/CT elbow LT wo con IMPRESSION: There is a longitudinally oriented mildly displaced fracture of the lateral epicondyle. This communicates with the lateral aspect of the radiocapitellar joint space. There is a minimally displaced fracture of the coronoid process. This appears to be mildly comminuted. There is a tiny fracture fragment separate from the ulna along the proximal radioulnar joint subluxed laterally by 3 mm. The fragment measures 3 mm in greatest dimension. There is an accompanying joint effusion. Impression dictated by: Sanjay Baugh M.D. 06/04/2025 5:19 PM Dictation Location: [place] [address] Transcribed By: [facility] 06/04/251718 Dictated By: Sanjay Baugh II, MD 06/04/251712 Signed By: 06/04/251718 Normal [facility] Calcium [Mass/volume] in Ser um or PlasmaOrdered By: Gallo Wang on 06-04-2025 Calcium [Mass/Vol] 9.6 mg/dL Normal 8.6-10.3 [facility] Comment on above: Performed By: #### P T, PTT, CMP, CBC ####[facility] [id number] Carbon dioxide, total [Moles /volume] in Serum or PlasmaOrdered By: Gallo Wang on 06-04-2025 CO2 [Moles/Vol] 18.8 mmol/L Low 21.0-31.0 [facility] Comment on above: Performed By: #### P T, PTT, CMP, CBC ####[address] Chloride [Moles/volume] in S elly or PlasmaOrdered By: Gallo Wang on 06-04-2025 Chloride [Moles/Vol] 108 mmol/L High 98-107 [facility] Comment on above: Performed By: #### P T, PTT, CMP, CBC ####[address] Complete Blood Count Auto Di ffon 06-04-2025 Mean Corpuscular HGB Conc 34.1 g/dL Normal 32.0-35.0 [facility] Comment on above: Performed By: #### P T, PTT, CMP, CBC ####[address] Monocytes/100 WBC (Bld) 18.00 % Normal 0.00-20.00 [facility] Comment on above: Performed By: #### P T, PTT, CMP, CBC ####[address] NRBC% 0.2 /100{WBC} Normal 0-0.5 [facility] Comment on above: Performed By: #### P T, PTT, CMP, CBC ####[address] White Blood Count 7.2 [CFU]/mL Normal 3.8-11.6 [facility] Comment on above: Performed By: #### P T, PTT, CMP, CBC ####[address] Comprehensive Metabolic Pane zander 06-04-2025 Albumin [Mass/Vol] 4.4 g/dL Normal 3.5-5.7 [facility] Comment on above: Performed By: #### P T, PTT, CMP, CBC ####[address] Creatinine Clr Calc Pharmacy 63.30 Normal [facility] Comment on above: Result Comment: PERF ORMED BY: [facility] [address] [place] [address] PATHOLOGIST DIRECTOR OF INFORMATICS EVELIA CARTY M.D. Performed By: #### P T, PTT, CMP, CBC ####[address] GFR/1.73 sq M.predicted MDRD (S/P/Bld) [Vol rate/Area] mL/min/{1.73_m2} Normal [facility] Comment on above: Performed By: #### P T, PTT, CMP, CBC ####[address] Creatinine [Mass/volume] in Serum or PlasmaOrdered By: Gallo Wang on 06-04-2025 Creatinine [Mass/Vol] 0.84 mg/dL Normal 0.60-1.20 [facility] Comment on above: Performed By: #### P T, PTT, CMP, CBC ####[address] Eosinophils [#/volume] in Bl ood by Automated countOrdered By: Gallo Wang on 06-04-2025 Eosinophils (Bld) [#/Vol] 0.3 10*3/uL Normal 0.0-0.45 [facility] Comment on above: Performed By: #### P T, PTT, CMP, CBC ####[place] [address] [place] Eosinophils/100 leukocytes i n Blood by Automated countOrdered By: Gallo Wang on 06-04-2025 Eosinophils/100 WBC (Bld) 4.1 % Normal . [facility] Comment on above: Performed By: #### P T, PTT, CMP, CBC ####[place] [address] [place] Erythrocyte distribution wid th [Ratio] by Automated countOrdered By: Gallo Wang on 06-04-2025 Erythrocyte distribution width (RBC) [Ratio] 13.2 % Normal 11.9-15.3 [facility] Comment on above: Performed By: #### P T, PTT, CMP, CBC ####[facility] Erythrocytes [#/volume] in B lood by Automated countOrdered By: Gallo Wang on 06-04-2025 RBC (Bld) [#/Vol] 5.02 10*6/uL High 3.60-5.00 [facility] Comment on above: Performed By: #### P T, PTT, CMP, CBC ####[place] [id number] [address] Glomerular filtration rate [ Volume Rate/Area] in Serum, Plasma or Blood by CreatinineOrdered By: Gallo Wang on 06-04-2025 Glomerular filtration rate [Volume Rate/Area] in Serum, Plasma or Blood by Creatinine > 60.0 mL/Min [facility] Glucose [Mass/volume] in Ser um or PlasmaOrdered By: Gallo Wang on 06-04-2025 Glucose [Mass/Vol] 101 mg/dL High 70-100 [facility] Comment on above: ADA recommended refe rence rangeRandom Glucose Reference Range is dependent on time and content of last meal. Glucose of more than 200 mg/dL in a nonstressed, ambulatory subject supports the diagnosis of Diabetes Mellitus. Result Comment: [place] Glucose Reference Range is dependent on time and content of last meal. Glucose of more than 200 mg/dL in a nonstressed, ambulatory subject supports the diagnosis of Diabetes Mellitus. ADA recommended reference range Performed By: #### P T, PTT, CMP, CBC ####[place] [id number] [place] [id number] [facility] Hematocrit [Volume Fraction] of Blood by Automated countOrdered By: Gallo Wang on 06-04-2025 Hematocrit (Bld) [Volume fraction] 43.3 % Normal 34.0-46.4 [facility] Comment on above: Performed By: #### P T, PTT, CMP, CBC ####[place] [id number] [address] Hemoglobin [Mass/volume] in BloodOrdered By: Gallo Wang on 06-04-2025 Hemoglobin (Bld) [Mass/Vol] 14.8 g/dL Normal 11.8-15.4 [facility] Comment on above: Performed By: #### P T, PTT, CMP, CBC ####[facility] [id number] INR in Platelet poor plasma by Coagulation assayOrdered By: Gallo Wang on 06-04-2025 INR Coag (PPP) [Relative time] 1.0 {INR} Normal [facility] Comment on above: INR Therapeutic Rang e A) Pre- and Peroperative OAT started two weeks before surgery. NOT HIP SURGERY: 1.5 - 2.5 HIP SURGERY: 2 - 3B) Primary and secondary prevention of venous THROMBOSIS: 2 - 3C) Active venous thrombosis, pulmonary embolismand prevention of recurrent venous thrombosis: 2 - 3D) Prevention of arterial thromboembolismincluding patients with mechanical heart valves: 3 - 4.5 Result Comment: INR Therapeutic Range A) Pre- and Peroperative OAT started two weeks before surgery. NOT HIP SURGERY: 1.5 - 2.5 HIP SURGERY: 2 - 3 B) Primary and secondary prevention of venous THROMBOSIS: 2 - 3 C) Active venous thrombosis, pulmonary embolism and prevention of recurrent venous thrombosis: 2 - 3 D) Prevention of arterial thromboembolism including patients with mechanical heart valves: 3 - 4.5 Performed By: #### P T, PTT, CMP, CBC ####[facility] [id number] Leukocytes [#/volume] correc piotr for nucleated erythrocytes in Blood by Automated counOrdered By: Gallo Wang on 06-04-2025 WBC corrected for nucl RBC Auto (Bld) [#/Vol] 7.2 10*3/uL 3.8-11.6 [facility] Leukocytes [#/volume] in Blo od by Automated countOrdered By: Gallo Wang on 06-04-2025 WBC (Bld) [#/Vol] 7.2 10*3/uL Normal 3.8-11.6 [facility] Comment on above: Performed By: #### P T, PTT, CMP, CBC ####[address] Lymphocytes [#/volume] in Bl ood by Automated countOrdered By: Gallo Wang on 06-04-2025 Lymphocytes (Bld) [#/Vol] 2.2 10*3/uL Normal 1.00-4.8 [facility] Comment on above: Performed By: #### P T, PTT, CMP, CBC ####[address] Lymphocytes/100 leukocytes i n Blood by Automated countOrdered By: Gallo Wang on 06-04-2025 Lymphocytes/100 WBC (Bld) 30.4 % Normal . [facility] Comment on above: Performed By: #### P T, PTT, CMP, CBC ####[address] MCH [Entitic mass] by Automa piotr countOrdered By: Gallo Wang on 06-04-2025 MCH (RBC) [Entitic mass] 29.5 pg Normal 24.7-34.3 [facility] Comment on above: Performed By: #### P T, PTT, CMP, CBC ####[address] MCHC Auto (RBC) [Mass/Vol]Or dered By: Gallo Wang on 06-04-2025 MCHC (RBC) [Mass/Vol] 34.1 g/dL 32.0-35.0 [facility] MCV [Entitic volume] by Auto mated countOrdered By: Gallo Wang on 06-04-2025 MCV (RBC) [Entitic vol] 86.4 fL Normal 80-100 [facility] Comment on above: Performed By: #### P T, PTT, CMP, CBC ####[address] Monocyte distribution width [Entitic volume] in Blood by AutomatedOrdered By: Gallo Wang on 06-04-2025 Monocyte distribution width Auto (Bld) [Entitic vol] 18.00 % 0.00-20.00 [facility] Monocytes [#/volume] in Bloo d by Automated countOrdered By: Gallo Wang on 06-04-2025 Monocytes (Bld) [#/Vol] 0.6 10*3/uL Normal 0.0-0.8 [facility] Comment on above: Performed By: #### P T, PTT, CMP, CBC ####[facility] [id number] Monocytes/100 leukocytes in Blood by Automated countOrdered By: Gallo Wang on 06-04-2025 Monocytes/100 WBC (Bld) 8.1 % Normal . [facility] Comment on above: Performed By: #### P T, PTT, CMP, CBC ####[facility] Imv[address] Neutrophils [#/volume] in Bl ood by Automated countOrdered By: Gallo Wang on 06-04-2025 Neutrophils (Bld) [#/Vol] 4.1 10*3/uL Normal 1.8-7.7 [facility] Comment on above: Performed By: #### P T, PTT, CMP, CBC ####[facility] [address] [place] [address] Neutrophils/100 leukocytes i n Blood by Automated countOrdered By: Gallo Wang on 06-04-2025 Neutrophils/100 WBC (Bld) 56.7 % Normal . [facility] Comment on above: Performed By: #### P T, PTT, CMP, CBC ####[facility] [address] [place] [address] No Panel InformationOrdered By: Gallo Wang on 06-04-2025 Pharmacy Creatinine Clearance (Chem 63.30 [facility] Nucleated erythrocytes [Pres ence] in Blood by Automated countOrdered By: Gallo Wang on 06-04-2025 Nucleated RBC Auto Ql (Bld) 0.2 /100{WBC} 0-0.5 [facility] Partial Thromboplastin Timeo n 06-04-2025 aPTT Coag (Bld) [Time] 28.1 s Normal 25.1-36.5 [facility] Comment on above: Result Comment: A he matocrit value greater than 55% may lead to inaccurate results in coagulation testing. Patients having hematocrit values >55% require a special collection tube for coagulation studies. Please contact the laboratory at [phone] for redraw instructions. PERFORMED BY: [facility] [address] [place] [address] PATHOLOGIST DIRECTOR OF INFORMATICS EVELIA CARTY M.D. Performed By: #### P T, PTT, CMP, CBC ####[place] [id number] [facility] Platelet mean volume [Entiti c volume] in Blood by Automated countOrdered By: Gallo Wang on 06-04-2025 Platelet mean volume (Bld) [Entitic vol] 6.6 fL Normal 6.3-10.7 [facility] Comment on above: Performed By: #### P T, PTT, CMP, CBC ####[place] [id number] [facility] Platelets [#/volume] in Bloo d by Automated countOrdered By: Gallo Wang on 06-04-2025 Platelets (Bld) [#/Vol] 266 10*3/uL Normal 150-450 [facility] Comment on above: Performed By: #### P T, PTT, CMP, CBC ####[place] [id number] [facility] Potassium [Moles/volume] in Serum or PlasmaOrdered By: Gallo Wang on 06-04-2025 Potassium [Moles/Vol] 3.9 mmol/L Normal 3.5-5.1 [facility] Comment on above: Performed By: #### P T, PTT, CMP, CBC ####[place] [id number] [facility] Protein [Mass/volume] in Ser um or PlasmaOrdered By: Gallo Wang on 06-04-2025 Protein [Mass/Vol] 7.6 g/dL Normal 6.4-8.9 [facility] Comment on above: Performed By: #### P T, PTT, CMP, CBC ####[place] [id number] [facility] Prothrombin time (PT)Ordered By: Gallo Wang on 06-04-2025 PT Coag (PPP) [Time] 11.5 s Normal 9.0-12.9 [facility] Comment on above: A hematocrit value g reater than 55% may lead to inaccurate results in coagulation testing. Patients having hematocrit values >55% require a special collection tube for coagulation studies. Please contact the laboratory at [phone] for redraw instructions. Result Comment: A he matocrit value greater than 55% may lead to inaccurate results in coagulation testing. Patients having hematocrit values >55% require a special collection tube for coagulation studies. Please contact the laboratory at [phone] for redraw instructions. Performed By: #### P T, PTT, CMP, CBC ####[facility] Ofm[address] Serum globulin measurement b y calculation (mass/volume)Ordered By: Gallo Wang on 06-04-2025 Globulin (S) [Mass/Vol] 3.2 g/dL [facility] Comment on above: Performed By: #### P T, PTT, CMP, CBC ####[facility] Wfs[address] Serum or plasma albumin/glob ulin mass ratioOrdered By: Gallo Wang on 06-04-2025 Albumin/Globulin [Mass ratio] 1.4 {ratio} [facility] Comment on above: Performed By: #### P T, PTT, CMP, CBC ####[facility] Tgv8462 [address] Serum or plasma anion gap de terminationOrdered By: Gallo Wang on 06-04-2025 Anion gap [Moles/Vol] 14.1 mmol/L Normal 6.0-15.0 [facility] Comment on above: Performed By: #### P T, PTT, CMP, CBC ####[facility] [address] [place] [address] Sodium [Moles/volume] in Ser um or PlasmaOrdered By: Gallo Wang on 06-04-2025 Sodium [Moles/Vol] 137 mmol/L Normal 136-145 [facility] Comment on above: Performed By: #### P T, PTT, CMP, CBC ####[facility] Pmi5121 [place] [id number] [facility] Urea nitrogen [Mass/volume] in Serum or PlasmaOrdered By: Gallo Wang on 06-04-2025 Urea nitrogen [Mass/Vol] 15 mg/dL Normal - [facility] Comment on above: Performed By: #### P T, PTT, CMP, CBC ####[facility] Oll1840 [place] [id number] [facility] X-ray reportOrdered By: Sanjay Baugh on 06-04-2025 Study report [facility] Main [place] [address] [place] [address] XRay Report Signed Patient: Marisol Cantrell MR#: [id number] : 1950 Acct:[id number] Age/Sex: 74 / F ADM Date: 5 Loc: ER Room: Type: [facility] ER Attending Dr: Copies to: Gallo Wang PA-C~ Ordering Provider: Gallo Wang PA-C Date of Service: 06/04/25 XR/XR elbow LT min 3V*: post reduction XR elbow LT min 3V* 06/04/2025 3:53 PM SIGNS AND SYMPTOMS: ^post reduction PROTOCOL: Frontal, lateral, and oblique radiographs of the left elbow COMPARISON: 06/04/2025 FINDINGS: There is redemonstration of a minimally displaced fracture of the coronoid process of the proximal ulna. There is satisfactory reduction of previous dislocation. There is a moderate joint effusion. No significant soft tissue swelling. There is enthesophyte formation along the medial epicondyle. There is a longitudinally oriented fracture traversing the lateral epicondyle. XR/XR elbow LT min 3V* IMPRESSION: There is redemonstration of a minimally displaced fracture of the coronoid process of the proximal ulna. There is a longitudinally oriented fracture traversing the lateral epicondyle. There is satisfactory reduction of previous dislocation. Impression dictated by: Sanjay Baugh M.D. 06/04/2025 4:01 PM Dictation Location: [place] [address] Transcribed By: RYLEY 06/04/25 1601 Dictated By: Sanjay Baugh II, MD 06/04/25 1559 Signed By: 06/04/25 1601 [facility] Work Phone: X-ray reportOrdered By: Jhonny Velasquez on 06-04-2025 Study report [facility] Main [address] [address] XRay Report Signed Patient: Marisol Cantrell MR#: [id number] : 1950 Acct:[id number] Age/Sex: 74 / F ADM Date: 5 Loc: ER Room: Type: [facility] ER Attending Dr: Copies to: Gallo Wang PA-C~ Ordering Provider: Gallo Wang PA-C Date of Service: 06/04/25 XR/XR knee LT 2V: Fall ([id number]) XR/XR pelvis 1-2V: Fall ([id number]) XR/XR forearm LT 2V*: Fall ([id number]) XR/XR humerus LT*: Fall History: Fell. Bruising left elbow. Mid lateral humerus pain on the left. 2 views left knee with comparison 05/21/2025 Stable hardware of medial partial knee arthroplasty. No joint effusion. Adequate alignment. No acute displaced fracture adequate soft tissues. Single view pelvis Adequate alignment without acute displaced fracture. 2 views of left humerus Elbow dislocation. Fracture of the coronoid process of the ulna 2 views left forearm Elbow dislocation without additional displaced fracture. XR/XR knee LT 2V IMPRESSION: Left elbow dislocation with fracture involving the coronoid process of the ulna. No additional fracture. No acute fracture of the pelvis or left knee. Impression dictated by: Lobo Velasquez M.D. 06/04/2025 2:55 PM Dictation Location: [facility]16 Transcribed By: [facility] 06/04/251454 Dictated By: Lobo Velasquez DO 06/04/25 145 Signed By: 06/04/251454 [facility] XR elbow LT min 3V*on 2024 XR elbow LT min 3V* [facility] Main [address] [place] [address] XRay Report Signed Patient: Marisol Cantrell MR#: [id number] : 1950 Acct:[id number] Age/Sex: 74 / F ADM Date: 06/04/25 Loc: ER Room: Type: [facility] ER Attending Dr: Copies to: Gallo Wang PA-C Ordering Provider: Gallo Wang PA-C Date of Service: 06/04/25 XR/XR elbow LT min 3V*: post reduction XR elbow LT min 3V* 06/04/2025 3:53 PM SIGNS AND SYMPTOMS: post reduction PROTOCOL: Frontal, lateral, and oblique radiographs of the left elbow COMPARISON: 06/04/2025 FINDINGS: There is redemonstration of a minimally displaced fracture of the coronoid process of the proximal ulna. There is satisfactory reduction of previous dislocation. There is a moderate joint effusion. No significant soft tissue swelling. There is enthesophyte formation along the medial epicondyle. There is a longitudinally oriented fracture traversing the lateral epicondyle. XR/XR elbow LT min 3V* IMPRESSION: There is redemonstration of a minimally displaced fracture of the coronoid process of the proximal ulna. There is a longitudinally oriented fracture traversing the lateral epicondyle. There is satisfactory reduction of previous dislocation. Impression dictated by: Sanjay Baugh M.D. 06/04/2025 4:01 PM Dictation Location: [place] [address] Transcribed By: [facility] 06/04/25 1601 Dictated By: Sanjay Baugh II, MD 06/04/25 1559 Signed By: 06/04/25 1601 Normal [facility] XR pelvis 1-2Von 06-04-2025 XR pelvis 1-2V [facility] Main [place] [address] [place] [address] XRay Report Signed Patient: Marisol Cantrell MR#: [id number] : 1950 Acct:[id number] Age/Sex: 74 / F ADM Date: 06/04/25 Loc: ER Room: Type: [facility] ER Attending Dr: Copies to: Gallo Wang PA-C Ordering Provider: Gallo Wang PA-C Date of Service: 06/04/25 XR/XR knee LT 2V: Fall ([id number]) XR/XR pelvis 1-2V: Fall ([id number]) XR/XR forearm LT 2V*: Fall ([id number]) XR/XR humerus LT*: Fall History: Fell. Bruising left elbow. Mid lateral humerus pain on the left. 2 views left knee with comparison 05/21/2025 Stable hardware of medial partial knee arthroplasty. No joint effusion. Adequate alignment. No acute displaced fracture adequate soft tissues. Single view pelvis Adequate alignment without acute displaced fracture. 2 views of left humerus Elbow dislocation. Fracture of the coronoid process of the ulna 2 views left forearm Elbow dislocation without additional displaced fracture. XR/XR knee LT 2V IMPRESSION: Left elbow dislocation with fracture involving the coronoid process of the ulna. No additional fracture. No acute fracture of the pelvis or left knee. Impression dictated by: Lobo Velasquez M.D. 06/04/2025 2:55 PM Dictation Location: [place] [address] Transcribed By: [facility] 06/04/25 145 Dictated By: Lobo Velasquez DO 06/04/25 1450 Signed By: 06/04/25 145 Normal [facility] aPTT in Platelet poor plasma by Coagulation assayOrdered By: Gallo Wang on 06-04-2025 aPTT Coag (PPP) [Time] 28.1 s 25.1-36.5 [facility] Comment on above: A hematocrit value g reater than 55% may lead to inaccurate results in coagulation testing. Patients having hematocrit values >55% require a special collection tube for coagulation studies. Please contact the laboratory at [phone] for redraw instructions. X-ray reportOrdered By: Jhonny Velasquez on 05-21-2025 Study report [facility] [address] [place] [address] XRay Report Signed Patient: Marisol Cantrell MR#: [id number] : 1950 Acct:[id number] Age/Sex: 74 / F ADM Date: [place] [facility] [place]: Type: REG CLI Attending Dr: Mick Abernathy DO Copies to: Mick Abernathy DO~ Ordering Provider: Mick Abernathy DO Date of Service: 05/21/25 XR/XR knee LT 3V - NOT FOR ER USE: M17.12 - Unilateral primary osteoarthritis, left knee 3 views left knee plain film COMPARISON: 04/29/2025 HISTORY: Status post left partial knee arthroplasty ACUTE FINDINGS: No acute findings DEGENERATIVE CHANGE: Unremarkable SOFT TISSUE FINDINGS: Unremarkable JOINT EFFUSION: None POSTOP CHANGES: Stable hardware BONE MINERALIZATION: Adequate XR/XR knee LT 3V - NOT FOR ER USE IMPRESSION: Stable uncomplicated the medial left knee partial arthroplasty Impression dictated by: Lobo Velasquez M.D. 05/21/2025 4:18 PM Dictation Location: [place] [address] Transcribed By: [facility] 05/21/25 161 Dictated By: Lobo Velasquez DO 05/21/25 161 Signed By: 05/21/25 1618 [facility] XR knee LT 3V - NOT FOR ER U Oswaldo 05-21-2025 XR knee LT 3V - NOT FOR ER USE [facility] [address] [place] [address] XRay Report Signed Patient: Marisol Cantrell MR#: [id number] : 1950 Acct:[id number] Age/Sex: 74 / F ADM Date: 05/21/25 [place] [facility] [place]: Type: REG CLI Attending Dr: Mick Abernathy DO Copies to: Mick Abernathy DO Ordering Provider: Mick Abernathy DO Date of Service: 05/21/25 XR/XR knee LT 3V - NOT FOR ER USE: M17.12 - Unilateral primary osteoarthritis, left knee 3 views left knee plain film COMPARISON: 04/29/2025 HISTORY: Status post left partial knee arthroplasty ACUTE FINDINGS: No acute findings DEGENERATIVE CHANGE: Unremarkable SOFT TISSUE FINDINGS: Unremarkable JOINT EFFUSION: None POSTOP CHANGES: Stable hardware BONE MINERALIZATION: Adequate XR/XR knee LT 3V - NOT FOR ER USE IMPRESSION: Stable uncomplicated the medial left knee partial arthroplasty Impression dictated by: Lobo Velasquez M.D. 05/21/2025 4:18 PM Dictation Location: [facility] Transcribed By: RYLEY 05/21/251617 Dictated By: Lobo Velasquez DO 05/21/251611 Signed By: 05/21/251617 Normal [facility] Zander 04-29-2025 L ----- Specimen: [id number] Received: 04/29/25 Status: FLORA Nam Num: [id number] Spec Type: Surgical Subm Dr: Mick Abernathy DO Tissues: A Alejandro Moss (L KNEE) Procedures: Level 1 Gross Age/ Patient Sex Location Account Attending Physician Marisol Cantrell 74/F [place] [id number] Mick Abernathy DO SPEC NUM: [id number] RECD: 04/29/25 STATUS: FLORA CRISTINE NUM: [id number] QUINTON: 04/29/25- SUBM DR: Mick Abernathy DO ENTERED: 04/29/25 [facility] DR: SPEC TYPE: Surgical DEPT: S ENTERED BY: [id number] RECV BY: [id number] ORDERED: Level 1 Gross ORDERED: Level 1 Gross Pathological Diagnosis Left knee, bone and tissue, left total knee arthroplasty: - Degenerative bone and soft tissue. - Gross examination only. Clinical Information Degenerative joint disease Gross Description Received in formalin labeled with the patients name, date of , and Left knee bone and tissue are thakur-estrada, granular bone fragments with straight edges, 5.3 x 3 x 1.8 cm in aggregate with detached fragments of fibrofatty tissue, 3.5 x 1.5 x 1.3 cm in aggregate. The bone is consistent with portions of femoral condyle and tibial plateau. The articular surfaces are remarkable for granular degeneration and eburnation; the medullary bone is estrada, firm and uniform. The fibrofatty tissue is sectioned to reveal thakur-pink to yellow-estrada, glistening, and uniform cut surfaces. GROSS ONLY- Microscopic Description Microscopic examination is performed. Specimen: [id number] Received: 04/29/25 Status: FLORA Cristine Num: [id number] Spec Type: Surgical Subm Dr: Mick Abernathy DO Tissues: A Gross Only (L KNEE) Procedures: Level 1 Gross Patient: Marisol Cantrell Leroy [id number] (Continued) Specimen: [id number] Received: 04/29/25 (Continued) Signed (signature on file) Jensen Ruiz MD 04/30/25 1447 Specimen: [id number] Received: 04/29/25 Status: FLORA Nam Num: [id number] Spec Type: Surgical Subm Dr: Mick Abernathy DO Tissues: A Gross Only (L KNEE) Procedures: Level 1 Gross Patient: Marisol Cantrell [id number] (Continued) Specimen: [id number] Received: 04/29/25 (Continued) CPT Codes 91798 Specimen: [id number] Received: 04/29/25 Status: FLORA Nam Num: [id number] Spec Type: Surgical Subm Dr: Mick Abernathy DO Tissues: A Gross Only (L KNEE) Procedures: Level 1 Gross Patient: Marisol Cantrell Leroy [id number] (Continued) Signed (signature on file) Jensen Ruiz MD 04/30/25 1447 Normal [facility] X-ray reportOrdered By: Ganesh Reyes on 04-29-2025 Study report [facility] Main [place] [id number] XRay Report Signed Patient: Marisol Cantrell MR#: [id number] : 1950 Acct:[id number] Age/Sex: 74 / F ADM Date: 5 Loc: [place] Room: Type: [facility] Attending Dr: Mick Abernathy DO Copies to: Mick Abernathy DO~ Ordering Provider: Mick Abernathy DO Date of Service: 04/29/25 XR/XR knee LT 2V: Total or partial knee, do in PACU LEFT KNEE - 2 views CLINICAL HISTORY: Postop partial knee replacement COMPARISON: Left knee 03/31/2025 FINDINGS: No hardware complication. Soft tissues demonstrate postoperative change. XR/XR knee LT 2V IMPRESSION: NO HARDWARE COMPLICATION. Impression dictated by: Richie Reyes Jr., D.O. 04/29/2025 12:38 PM Dictation Location: [place] [address] Transcribed By: [facility] 04/29/25 1238 Dictated By: Richie Reyes Jr, DO 04/29/25 1234 Signed By: 04/29/25 1238 [facility] XR knee LT 2Von 04-29-2025 XR knee LT 2V [address] [address] XRay Report Signed Patient: Marisol Cantrell MR#: [id number] : 1950 Acct:[id number] Age/Sex: 74 / F ADM Date: 04/29/25 Loc: [place] Room: Type: [facility] Attending Dr: Mick Abernathy DO Copies to: Mick Abernathy DO Ordering Provider: Mick Abernathy DO Date of Service: 04/29/25 XR/XR knee LT 2V: . Single view left knee plain film COMPARISON: None HISTORY: Postop knee arthroplasty assessment ACUTE FINDINGS: No acute findings DEGENERATIVE CHANGE: Unremarkable SOFT TISSUE FINDINGS: Unremarkable JOINT EFFUSION: None POSTOP CHANGES: Adequate medial hardware components. Space are present. No complication BONE MINERALIZATION: Adequate XR/XR knee LT 2V IMPRESSION: Adequate hardware Impression dictated by: Lobo Velasquez M.D. 04/29/2025 6:11 PM Dictation Location: [facility] Transcribed By: [facility] 04/29/251810 Dictated By: Lobo Velasquez DO 04/29/251808 Signed By: 04/29/251810 Normal [facility] XR knee LT 2V [facility] [place] [address] XRay Report Signed Patient: Marisol Cantrell MR#: [id number] : 1950 Acct:[id number] Age/Sex: 74 / F ADM Date: 04/29/25 Loc: [place] Room: Type: [facility] Attending Dr: Mick Abernathy DO Copies to: Mick Abernathy DO Ordering Provider: Mick Abernathy DO Date of Service: 04/29/25 XR/XR knee LT 2V: Total or partial knee, do in PACU LEFT KNEE - 2 views CLINICAL HISTORY: Postop partial knee replacement COMPARISON: Left knee 03/31/2025 FINDINGS: No hardware complication. Soft tissues demonstrate postoperative change. XR/XR knee LT 2V IMPRESSION: NO HARDWARE COMPLICATION. Impression dictated by: Richie Reyes Jr., D.OAlvaro 04/29/2025 12:38 PM Dictation Location: [facility] Transcribed By: [facility] 04/29/25 1238 Dictated By: Richie Reyes Jr, DO 04/29/25 1234 Signed By: 04/29/25 1238 Normal [facility] Alanine aminotransferase [En zymatic activity/volume] in Serum or PlasmaOrdered By: Mick Abernathy on 04-12-2025 ALT [Catalytic activity/Vol] 19 U/L Normal 7-52 [facility] Comment on above: Performed By: #### C MP wRFX A1C, CBC ####[facility] Tdl[address] [place] [id number] [place] Albumin [Mass/volume] in Ser um or Plasma by Bromocresol green (BCG) dye binding methoOrdered By: Mick Abernathy on 04-12-2025 Albumin BCG dye [Mass/Vol] 4.2 g/dL 3.5-5.7 [facility] Alkaline phosphatase [Enzyma tic activity/volume] in Serum or PlasmaOrdered By: Mick Abernathy on 04-12-2025 ALP [Catalytic activity/Vol] 97 U/L Normal 34-104 [facility] Comment on above: Result Comment: PERF ORMED BY: [facility] [address] [place] [address] PATHOLOGIST DIRECTOR OF INFORMATICS EVELIA CARTY M.D. Performed By: #### C MP wRFX A1C, CBC ####[facility] Pvd8622 [place] [id number] [facility] Appearance of UrineOrdered B y: Mick Abernathy on 04-12-2025 Appearance (U) Clear Normal Clear [facility] Comment on above: Order Comment: Name Collection Type:: Clean-Voided Midstream Performed By: #### A DDONUAPLUS #### [facility] [address] [place] [address] [place] Aspartate aminotransferase [ Enzymatic activity/volume] in Serum or PlasmaOrdered By: Mick Abernathy on 04-12-2025 AST [Catalytic activity/Vol] 21 U/L Normal 13-39 [facility] Comment on above: Performed By: #### C MP wRFX A1C, CBC ####[facility] U[address] [place] [id number] [place] Bacteria [Presence] in Urine by AutomatedOrdered By: Mick Abernathy on 04-12-2025 Bacteria Auto Ql (U) None seen [HPF] None Seen [facility] Basophils [#/volume] in Bloo d by Automated countOrdered By: Mick Abernathy on 04-12-2025 Basophils (Bld) [#/Vol] 0.0 10*3/uL Normal 0.0-0.2 [facility] Comment on above: Result Comment: PERF ORMED BY: [facility] [address] [place] [address] PATHOLOGIST DIRECTOR OF INFORMATICS EVELIA CARTY M.D. Performed By: #### C MP wRFX A1C, CBC ####[address] Basophils/100 leukocytes in Blood by Automated countOrdered By: Mick Abernathy on 04-12-2025 Basophils/100 WBC (Bld) 0.6 % Normal . [facility] Comment on above: Performed By: #### C MP wRFX A1C, CBC ####[address] Bilirubin Test strip Ql (U)O rdered By: Mick Abernathy on 04-12-2025 Bilirubin Ql (U) Negative Negative [facility] Bilirubin.total [Mass/volume ] in Serum or PlasmaOrdered By: Mick Abernathy on 04-12-2025 Bilirubin [Mass/Vol] 0.6 mg/dL Normal 0.3-1.0 [facility] Comment on above: Performed By: #### C MP wRFX A1C, CBC ####[address] CMP with reflex to A1Con Albumin [Mass/Vol] 4.2 g/dL Normal 3.5-5.7 [facility] Comment on above: Performed By: #### C MP wRFX A1C, CBC ####[place] [id number] [place] GFR/1.73 sq M.predicted MDRD (S/P/Bld) [Vol rate/Area] mL/min/{1.73_m2} Normal [facility] Comment on above: Performed By: #### C MP wRFX A1C, CBC ####[place] [address] [place] Calcium [Mass/volume] in Ser um or PlasmaOrdered By: Mick Abernathy on 04-12-2025 Calcium [Mass/Vol] 9.6 mg/dL Normal 8.6-10.3 [facility] Comment on above: Performed By: #### C MP wRFX A1C, CBC ####[place] [id number] [address] Carbon dioxide, total [Moles /volume] in Serum or PlasmaOrdered By: Mick Abernathy on 04-12-2025 CO2 [Moles/Vol] 27.4 mmol/L Normal 21.0-31.0 [facility] Comment on above: Performed By: #### C MP wRFX A1C, CBC ####[address] Chloride [Moles/volume] in S elly or PlasmaOrdered By: Mick Abernathy on 04-12-2025 Chloride [Moles/Vol] 110 mmol/L High 98-107 [facility] Comment on above: Performed By: #### C MP wRFX A1C, CBC ####[address] Color of Urine by AutoOrdere d By: Mick Abernathy on 04-12-2025 Color (U) Colorless Normal Yellow [facility] Comment on above: Order Comment: Name Collection Type:: Clean-Voided Midstream Performed By: #### A DDONUAPLUS #### [facility] [address] Complete Blood Count Auto Di ffon 04-12-2025 Mean Corpuscular HGB Conc 34.4 g/dL Normal 32.0-35.0 [facility] Comment on above: Performed By: #### C MP wRFX A1C, CBC ####[place] [id number] [address] NRBC% 0.1 /100{WBC} Normal 0-0.5 [facility] Comment on above: Performed By: #### C MP wRFX A1C, CBC ####[facility] White Blood Count 7.2 [CFU]/mL Normal 3.8-11.6 [facility] Comment on above: Performed By: #### C MP wRFX A1C, CBC ####[facility] Creatinine [Mass/volume] in Serum or PlasmaOrdered By: Mick Abernathy on 04-12-2025 Creatinine [Mass/Vol] 0.73 mg/dL Normal 0.60-1.20 [facility] Comment on above: Performed By: #### C MP wRFX A1C, CBC ####[address] Dipstick and Microscopicon 0 04-12-2025 Bacteria,Urine None Seen Normal None Seen [facility] Comment on above: Order Comment: Name Collection Type:: Clean-Voided Midstream Performed By: #### A DDONUAPLUS #### [address] Bilirubin,Urine Negative Normal Negative [facility] Comment on above: Order Comment: Name Collection Type:: Clean-Voided Midstream Performed By: #### A DDONUAPLUS #### [address] Glucose Ql (U) Normal Normal Normal [facility] Comment on above: Order Comment: Name Collection Type:: Clean-Voided Midstream Performed By: #### A DDONUAPLUS #### [place] [address] [place] Hyaline Casts,Urine None Normal 0-8 [facility] Comment on above: Order Comment: Name Collection Type:: Clean-Voided Midstream Performed By: #### A DDONUAPLUS #### [place] [address] [place] Mucus,Urine Rare Normal [facility] Comment on above: Order Comment: Name Collection Type:: Clean-Voided Midstream Result Comment: PERF ORMED BY: [place] [address] PATHOLOGIST DIRECTOR OF INFORMATICS EVELIA CARTY M.D. Performed By: #### A DDONUAPLUS #### [place] [address] [place] Nitrite,Urine Negative Normal Negative [facility] Comment on above: Order Comment: Name Collection Type:: Clean-Voided Midstream Performed By: #### A DDONUAPLUS #### [address] Occult Blood,Urine Negative Normal Negative [facility] Comment on above: Order Comment: Name Collection Type:: Clean-Voided Midstream Result Comment: PERF ORMED BY: [place] [address] PATHOLOGIST DIRECTOR OF INFORMATICS EVELIA CARTY M.D. Performed By: #### A DDONUAPLUS #### [place] [address] [place] Protein,Urine Negative Normal Negative [facility] Comment on above: Order Comment: Name Collection Type:: Clean-Voided Midstream Performed By: #### A DDONUAPLUS #### [place] [address] [place] RBC,Urine 1-2 Normal 0-4 [facility] Comment on above: Order Comment: Name Collection Type:: Clean-Voided Midstream Performed By: #### A DDONUAPLUS #### [place] [address] [place] Specificy [place],Urine 1.006 Normal 1.001-1.03 0 [facility] Comment on above: Order Comment: Name Collection Type:: Clean-Voided Midstream Performed By: #### A DDONUAPLUS #### [place] [address] [place] Squamous Epithelial Cell,Urine 1-2 Normal 0-2 [facility] Comment on above: Order Comment: Name Collection Type:: Clean-Voided Midstream Performed By: #### A DDONUAPLUS #### [place] [address] [place] Urobilinogen,Urine Normal Normal Normal [facility] Comment on above: Order Comment: Name Collection Type:: Clean-Voided Midstream Performed By: #### A DDONUAPLUS #### [facility] [address] [place] [address] [place] WBC,Urine 1-2 Normal 0-4 [facility] Comment on above: Order Comment: Name Collection Type:: Clean-Voided Midstream Performed By: #### A DDONUAPLUS #### [address] Eosinophils [#/volume] in Bl ood by Automated countOrdered By: Mick Abernathy on 04-12-2025 Eosinophils (Bld) [#/Vol] 0.2 10*3/uL Normal 0.0-0.45 [facility] Comment on above: Performed By: #### C MP wRFX A1C, CBC ####[address] Eosinophils/100 leukocytes i n Blood by Automated countOrdered By: Mick Abernathy on 04-12-2025 Eosinophils/100 WBC (Bld) 2.7 % Normal . [facility] Comment on above: Performed By: #### C MP wRFX A1C, CBC ####[address] Epithelial cells.squamous [# /area] in Urine sediment by Automated countOrdered By: Mick Abernathy on 04-12-2025 Epithelial cells.squamous Auto (Urine sed) [#/Area] 1-2 [HPF] 0-2 [facility] Erythrocyte distribution wid th [Ratio] by Automated countOrdered By: Mick Abernathy on 04-12-2025 Erythrocyte distribution width (RBC) [Ratio] 13.5 % Normal 11.9-15.3 [facility] Comment on above: Performed By: #### C MP wRFX A1C, CBC ####[place] [id number] [address] Erythrocytes [#/area] in Uri ne sediment by Automated countOrdered By: Mick Abernathy on 04-12-2025 RBC Auto (Urine sed) [#/Area] 1-2 [HPF] 0-4 [facility] Erythrocytes [#/volume] in B lood by Automated countOrdered By: Mick Abernathy on 04-12-2025 RBC (Bld) [#/Vol] 4.93 10*6/uL Normal 3.60-5.00 [facility] Comment on above: Performed By: #### C MP wRFX A1C, CBC ####[place] [id number] [place] [address] [facility] Glucose [Mass/volume] in Ser um or PlasmaOrdered By: Mick Abernathy on 04-12-2025 Glucose [Mass/Vol] 85 mg/dL Normal 70-100 [facility] Comment on above: Performed By: #### C MP wRFX A1C, CBC ####[address] [address] [facility] Glucose [Mass/volume] in Uri ne by Test stripOrdered By: Mick Abernathy on 04-12-2025 Glucose Test strip (U) [Mass/Vol] Normal mg/dL Normal [facility] Hematocrit [Volume Fraction] of Blood by Automated countOrdered By: Mick Abernathy on 04-12-2025 Hematocrit (Bld) [Volume fraction] 42.5 % Normal 34.0-46.4 [facility] Comment on above: Performed By: #### C MP wRFX A1C, CBC ####[address] [address] [facility] Hemoglobin Test strip Ql (U) Ordered By: Mick Abernathy on 04-12-2025 Hemoglobin Ql (U) Negative Negative [facility] Hemoglobin [Mass/volume] in BloodOrdered By: Mick Abernathy on 04-12-2025 Hemoglobin (Bld) [Mass/Vol] 14.6 g/dL Normal 11.8-15.4 [facility] Comment on above: Performed By: #### C MP wRFX A1C, CBC ####[place] [id number] [place] [address] [place] Hyaline casts [#/area] in Ur ine sediment by Automated countOrdered By: Mick Abernathy on 04-12-2025 Hyaline casts Auto (Urine sed) [#/Area] None [LPF] 0-8 [facility] Ketones [Presence] in Urine by Test stripOrdered By: Mick Abernathy on 04-12-2025 Ketones Ql (U) Negative Normal Negative [facility] Comment on above: Order Comment: Name Collection Type:: Clean-Voided Midstream Performed By: #### A DDONUAPLUS #### [facility] [address] [place] [address] [place] Leukocyte esterase [Presence ] in Urine by Test stripOrdered By: Mick Abernathy on 04-12-2025 Leukocyte esterase Test strip Ql (U) 1+ Normal Negative [facility] Comment on above: Order Comment: Name Collection Type:: Clean-Voided Midstream Performed By: #### A DDONUAPLUS #### [facility] [address] [place] [address] [place] Leukocytes [#/area] in Urine sediment by Automated countOrdered By: Mick Abernathy on 04-12-2025 WBC Auto (Urine sed) [#/Area] 1-2 [HPF] 0-4 [facility] Leukocytes [#/volume] correc piotr for nucleated erythrocytes in Blood by Automated counOrdered By: Mick Abernathy on 04-12-2025 WBC corrected for nucl RBC Auto (Bld) [#/Vol] 7.2 10*3/uL 3.8-11.6 [facility] Leukocytes [#/volume] in Blo od by Automated countOrdered By: Mick Abernathy on 04-12-2025 WBC (Bld) [#/Vol] 7.2 10*3/uL Normal 3.8-11.6 [facility] Comment on above: Performed By: #### C MP wRFX A1C, CBC ####[facility] [id number] [place] [address] [place] Lymphocytes [#/volume] in Bl ood by Automated countOrdered By: Mick Abernathy on 04-12-2025 Lymphocytes (Bld) [#/Vol] 1.6 10*3/uL Normal 1.00-4.8 [facility] Comment on above: Performed By: #### C MP wRFX A1C, CBC ####[address] Lymphocytes/100 leukocytes i n Blood by Automated countOrdered By: Mick Abernathy on 04-12-2025 Lymphocytes/100 WBC (Bld) 22.4 % Normal . [facility] Comment on above: Performed By: #### C MP wRFX A1C, CBC ####[address] MCH [Entitic mass] by Automa piotr countOrdered By: Mick Abernathy on 04-12-2025 MCH (RBC) [Entitic mass] 29.6 pg Normal 24.7-34.3 [facility] Comment on above: Performed By: #### C MP wRFX A1C, CBC ####[address] MCHC Auto (RBC) [Mass/Vol]Or dered By: Mick Abernathy on 04-12-2025 MCHC (RBC) [Mass/Vol] 34.4 g/dL 32.0-35.0 [facility] MCV [Entitic volume] by Auto mated countOrdered By: Mick Abernathy on 04-12-2025 MCV (RBC) [Entitic vol] 86.2 fL Normal 80-100 [facility] Comment on above: Performed By: #### C MP wRFX A1C, CBC ####[place] [address] [place] Monocytes [#/volume] in Bloo d by Automated countOrdered By: Mick Abernathy on 04-12-2025 Monocytes (Bld) [#/Vol] 0.5 10*3/uL Normal 0.0-0.8 [facility] Comment on above: Performed By: #### C MP wRFX A1C, CBC ####[place] [address] [place] Monocytes/100 leukocytes in Blood by Automated countOrdered By: Mick Abernathy on 04-12-2025 Monocytes/100 WBC (Bld) 7.2 % Normal . [facility] Comment on above: Performed By: #### C MP wRFX A1C, CBC ####[place] [id number] [address] Mucus [Presence] in Urine by AutomatedOrdered By: Mick Abernathy on 04-12-2025 Mucus Auto Ql (U) Rare [LPF] [facility] Neutrophils [#/volume] in Bl ood by Automated countOrdered By: Mick Abernathy on 04-12-2025 Neutrophils (Bld) [#/Vol] 4.8 10*3/uL Normal 1.8-7.7 [facility] Comment on above: Performed By: #### C MP wRFX A1C, CBC ####[address] Neutrophils/100 leukocytes i n Blood by Automated countOrdered By: Mick Abernathy on 04-12-2025 Neutrophils/100 WBC (Bld) 67.1 % Normal . [facility] Comment on above: Performed By: #### C MP wRFX A1C, CBC ####[address] Nitrite Test strip Ql (U)Ord ered By: Mick Abernathy on 04-12-2025 Nitrite Ql (U) Negative Negative [facility] No Panel InformationOrdered By: Mick Abernathy on 04-12-2025 Estimated GFR (CKD-EPI) > 60.0 mL/Min [facility] Creatinine Clearance (Chem N/A [facility] Nucleated erythrocytes [Pres ence] in Blood by Automated countOrdered By: Mick Abernathy on 04-12-2025 Nucleated RBC Auto Ql (Bld) 0.1 /100{WBC} 0-0.5 [facility] Platelet mean volume [Entiti c volume] in Blood by Automated countOrdered By: Mick Abernathy on 04-12-2025 Platelet mean volume (Bld) [Entitic vol] 6.6 fL Normal 6.3-10.7 [facility] Comment on above: Performed By: #### C MP wRFX A1C, CBC ####[address] Platelets [#/volume] in Bloo d by Automated countOrdered By: Mick Abernathy on 04-12-2025 Platelets (Bld) [#/Vol] 230 10*3/uL Normal 150-450 [facility] Comment on above: Performed By: #### C MP wRFX A1C, CBC ####[facility] R[address] [place] [id number] [facility] Potassium [Moles/volume] in Serum or PlasmaOrdered By: Mick Abernathy on 04-12-2025 Potassium [Moles/Vol] 3.9 mmol/L Normal 3.5-5.1 [facility] Comment on above: Performed By: #### C MP wRFX A1C, CBC ####[address] Protein Test strip (U) [Mass /Vol]Ordered By: Mick Abernathy on 04-12-2025 Protein (U) [Mass/Vol] Negative Negative [facility] Protein [Mass/volume] in Ser um or PlasmaOrdered By: Mick Abernathy on 04-12-2025 Protein [Mass/Vol] 6.9 g/dL Normal 6.4-8.9 [facility] Comment on above: Performed By: #### C MP wRFX A1C, CBC ####[address] Serum globulin measurement b y calculation (mass/volume)Ordered By: Mick Abernathy on 04-12-2025 Globulin (S) [Mass/Vol] 2.7 g/dL [facility] Comment on above: Performed By: #### C MP wRFX A1C, CBC ####[place] [id number] [place] [id number] [facility] Serum or plasma albumin/glob ulin mass ratioOrdered By: Mick Abernathy on 04-12-2025 Albumin/Globulin [Mass ratio] 1.6 {ratio} [facility] Comment on above: Performed By: #### C MP wRFX A1C, CBC ####[place] [id number] [facility] Serum or plasma anion gap de terminationOrdered By: Mick Abernathy on 04-12-2025 Anion gap [Moles/Vol] 8.5 mmol/L Normal 6.0-15.0 [facility] Comment on above: Performed By: #### C MATTHEW wRFX A1C, CBC ####[facility] [id number] Sodium [Moles/volume] in Ser um or PlasmaOrdered By: Mick Abernathy on 04-12-2025 Sodium [Moles/Vol] 142 mmol/L Normal 136-145 [facility] Comment on above: Performed By: #### C MP wRFX A1C, CBC ####[facility] Specific gravity Test strip (U) [Rel density]Ordered By: Mick Abernathy on 04-12-2025 Specific gravity (U) [Rel density] 1.006 1.001-1.03 0 [facility] Urea nitrogen [Mass/volume] in Serum or PlasmaOrdered By: Mick Abernathy on 04-12-2025 Urea nitrogen [Mass/Vol] 15 mg/dL Normal 04-30 [facility] Comment on above: Performed By: #### C MATTHEW wRFX A1C, CBC ####[address] Urobilinogen Test strip (U) [Mass/Vol]Ordered By: Mick Abernathy on 04-12-2025 Urobilinogen (U) [Mass/Vol] Normal mg/dL Normal [facility] pH of Urine by Test stripOrd ered By: Mick Abernathy on 04-12-2025 pH (U) 5.0 [pH] Normal 5.0-9.0 [facility] Comment on above: Order Comment: Name Collection Type:: Clean-Voided Midstream Performed By: #### A DDONUAPLUS #### [facility] [address] X-ray reportOrdered By: Sanjay Baugh on 03-31-2025 Study report [facility] [address] [place] [address] XRay Report Signed Patient: Marisol Cantrell MR#: [id number] : 1950 Acct:[id number] Age/Sex: 74 / F ADM Date: 5 Loc: SOXD Room: Type: [facility] CLI Attending Dr: Mick Abernathy DO Copies to: Mick Abernathy DO~ Ordering Provider: Mick Abernathy DO Date of Service: 03/31/25 XR/XR knee LT 4V*: M17.12 - Unilateral primary osteoarthritis, left knee XR knee LT 4V* 03/31/2025 2:32 PM SIGNS AND SYMPTOMS: Left knee pain anteriorly and medially PROTOCOL: Frontal, lateral, oblique, and sunrise views of the left knee COMPARISON: 08/04/2024 FINDINGS: There is narrowing of the weightbearing joint spaces again greatest in the medial weightbearing joint space with spurring along the medial tibial plateau and medial femoral condyle. There is mild patellofemoral joint space loss. There is no joint effusion. No soft tissue swelling. No fracture. XR/XR knee LT 4V* IMPRESSION: No acute bony injury. Degenerative changes are noted in the left knee greatest in the medial weightbearing joint space similar to the prior exam. Impression dictated by: Sanjay Baugh M.D. 03/31/2025 4:49 PM Dictation Location: [place] [address] Transcribed By: [facility] 03/31/251648 Dictated By: Sanjay Baugh II, MD 03/31/251648 Signed By: 03/31/251648 [facility] Work Phone: XR knee LT 4V*on 03-31-2025 XR knee LT 4V* [facility] [address] [place] [address] XRay Report Signed Patient: Marisol Cantrell MR#: [id number] : 1950 Acct:[id number] Age/Sex: 74 / F ADM Date: 03/31/25 Loc: [facility] [place]: Type: [facility] CLI Attending Dr: Mick Abernathy DO Copies to: Mick Abernathy DO Ordering Provider: Mick Abernathy DO Date of Service: 03/31/25 XR/XR knee LT 4V*: M17.12 - Unilateral primary osteoarthritis, left knee XR knee LT 4V* 03/31/2025 2:32 PM SIGNS AND SYMPTOMS: Left knee pain anteriorly and medially PROTOCOL: Frontal, lateral, oblique, and sunrise views of the left knee COMPARISON: 08/04/2024 FINDINGS: There is narrowing of the weightbearing joint spaces again greatest in the medial weightbearing joint space with spurring along the medial tibial plateau and medial femoral condyle. There is mild patellofemoral joint space loss. There is no joint effusion. No soft tissue swelling. No fracture. XR/XR knee LT 4V* IMPRESSION: No acute bony injury. Degenerative changes are noted in the left knee greatest in the medial weightbearing joint space similar to the prior exam. Impression dictated by: Sanjay Baugh M.D. 03/31/2025 4:49 PM Dictation Location: [place] [address] Transcribed By: [facility] 03/31/25 1649 Dictated By: Sanjay Baugh II, MD 03/31/25 164 Signed By: 03/31/25 1649 Normal [facility] B-Type Natriuretic Peptideon 11-23-2024 Natriuretic peptide B (Bld) [Mass/Vol] 68.0 pg/mL Normal 5-100 [facility] Comment on above: Result Comment: PERF ORMED BY: [place] [address] PATHOLOGIST DIRECTOR OF INFORMATICS KINJAL HANCOCK M.D. Performed By: #### B ASSISTANT TERMINAL MANAGER, CBC, BMP, PT, HS TROP, CK #### [address] Basic Metabolic Panelon 11-07 Anion gap [Moles/Vol] 11.9 mmol/L Normal 6.0-15.0 [facility] Comment on above: Performed By: #### B ASSISTANT TERMINAL MANAGER, CBC, BMP, PT, HS TROP, CK #### [address] [address] [place] Calcium [Mass/Vol] 9.0 mg/dL Normal 8.6-10.3 [facility] Comment on above: Performed By: #### B ASSISTANT TERMINAL MANAGER, CBC, BMP, PT, HS TROP, CK #### [facility] [address] [place] [address] [place] Chloride [Moles/Vol] 108 mmol/L High 98-107 [facility] Comment on above: Performed By: #### B ASSISTANT TERMINAL MANAGER, CBC, BMP, PT, HS TROP, CK #### [facility] [address] [place] [address] [place] CO2 [Moles/Vol] 23.0 mmol/L Normal 21.0-31.0 [facility] Comment on above: Performed By: #### B ASSISTANT TERMINAL MANAGER, CBC, BMP, PT, HS TROP, CK #### [address] Creatinine [Mass/Vol] 0.71 mg/dL Normal 0.60-1.20 [facility] Comment on above: Performed By: #### B ASSISTANT TERMINAL MANAGER, CBC, BMP, PT, HS TROP, CK #### [place] [address] [place] Creatinine Clr Calc Pharmacy 72.01 Normal [facility] Comment on above: Result Comment: PERF ORMED BY: [place] [address] PATHOLOGIST DIRECTOR OF INFORMATICS KINJAL HANCOCK M.D. Performed By: #### B ASSISTANT TERMINAL MANAGER, CBC, BMP, PT, HS TROP, CK #### [place] [address] [place] GFR/1.73 sq M.predicted MDRD (S/P/Bld) [Vol rate/Area] mL/min/{1.73_m2} Normal [facility] Comment on above: Performed By: #### B ASSISTANT TERMINAL MANAGER, CBC, BMP, PT, HS TROP, CK #### [facility] [address] [place] [address] [place] Glucose [Mass/Vol] 100 mg/dL Normal 70-100 [facility] Comment on above: Result Comment: [facility] Glucose Reference Range is dependent on time and content of last meal. Glucose of more than 200 mg/dL in a nonstressed, ambulatory subject supports the diagnosis of Diabetes Mellitus. ADA recommended reference range Performed By: #### B ASSISTANT TERMINAL MANAGER, CBC, BMP, PT, HS TROP, CK #### [facility] [address] Potassium [Moles/Vol] 3.9 mmol/L Normal 3.5-5.1 [facility] Comment on above: Performed By: #### B ASSISTANT TERMINAL MANAGER, CBC, BMP, PT, HS TROP, CK #### [facility] [address] Sodium [Moles/Vol] 139 mmol/L Normal 136-145 [facility] Comment on above: Performed By: #### B ASSISTANT TERMINAL MANAGER, CBC, BMP, PT, HS TROP, CK #### [facility] [address] Urea nitrogen [Mass/Vol] 20 mg/dL Normal 7-25 [facility] Comment on above: Performed By: #### B ASSISTANT TERMINAL MANAGER, CBC, BMP, PT, HS TROP, CK #### [facility] [address] [place] [address] [place] Basophils Auto (Bld) [#/Vol] Ordered By: Bradley Alba on 11-23-2024 Basophils (Bld) [#/Vol] Automated basophil count 0.0-0.2 [facility] Basophils/100 WBC Auto (Bld) Ordered By: Bradley Alba on 11-23-2024 Basophils/100 WBC (Bld) Automated basophil % . [facility] Calcium [Mass/volume] in Ser um or PlasmaOrdered By: Bradley Alba on 11-23-2024 Calcium [Mass/Vol] Calcium [Mass/volume ] in Serum or Plasma 8.6-10.3 [facility] Carbon dioxide, total [Moles /volume] in Serum or PlasmaOrdered By: Bradley Alba on 11-23-2024 CO2 [Moles/Vol] Carbon dioxide, tota l [Moles/volume] in Serum or Plasma 21.0-31.0 [facility] Chloride [Moles/volume] in S elly or PlasmaOrdered By: Bradley Alba on 11-23-2024 Chloride [Moles/Vol] Chloride [Moles/vol ume] in Serum or Plasma High 98-107 [facility] Complete Blood Count Auto Di ffon 11-23-2024 Basophils (Bld) [#/Vol] 0.1 10*3/uL Normal 0.0-0.2 [facility] Comment on above: Result Comment: PERF ORMED BY: [place] [address] PATHOLOGIST DIRECTOR OF INFORMATICS KINJAL HANCOCK M.D. Performed By: #### B ASSISTANT TERMINAL MANAGER, CBC, BMP, PT, HS TROP, CK #### [address] Basophils/100 WBC (Bld) 0.8 % Normal . [facility] Comment on above: Performed By: #### B ASSISTANT TERMINAL MANAGER, CBC, BMP, PT, HS TROP, CK #### [address] Eosinophils (Bld) [#/Vol] 0.3 10*3/uL Normal 0.0-0.45 [facility] Comment on above: Performed By: #### B ASSISTANT TERMINAL MANAGER, CBC, BMP, PT, HS TROP, CK #### [address] Eosinophils/100 WBC (Bld) 4.4 % Normal . [facility] Comment on above: Performed By: #### B ASSISTANT TERMINAL MANAGER, CBC, BMP, PT, HS TROP, CK #### [address] Erythrocyte distribution width (RBC) [Ratio] 15.7 % High 11.9-15.3 [facility] Comment on above: Performed By: #### B ASSISTANT TERMINAL MANAGER, CBC, BMP, PT, HS TROP, CK #### [address] Hematocrit (Bld) [Volume fraction] 38.9 % Normal 34.0-46.4 [facility] Comment on above: Performed By: #### B ASSISTANT TERMINAL MANAGER, CBC, BMP, PT, HS TROP, CK #### [address] Hemoglobin (Bld) [Mass/Vol] 13.3 g/dL Normal 11.8-15.4 [facility] Comment on above: Performed By: #### B ASSISTANT TERMINAL MANAGER, CBC, BMP, PT, HS TROP, CK #### [address] Lymphocytes (Bld) [#/Vol] 1.5 10*3/uL Normal 1.00-4.8 [facility] Comment on above: Performed By: #### B ASSISTANT TERMINAL MANAGER, CBC, BMP, PT, HS TROP, CK #### [address] Lymphocytes/100 WBC (Bld) 22.4 % Normal . [facility] Comment on above: Performed By: #### B ASSISTANT TERMINAL MANAGER, CBC, BMP, PT, HS TROP, CK #### [address] MCH (RBC) [Entitic mass] 27.7 pg Normal 24.7-34.3 [facility] Comment on above: Performed By: #### B ASSISTANT TERMINAL MANAGER, CBC, BMP, PT, HS TROP, CK #### [address] MCV (RBC) [Entitic vol] 81.1 fL Normal 80-100 [facility] Comment on above: Performed By: #### B ASSISTANT TERMINAL MANAGER, CBC, BMP, PT, HS TROP, CK #### [address] Mean Corpuscular HGB Conc 34.2 g/dL Normal 32.0-35.0 [facility] Comment on above: Performed By: #### B ASSISTANT TERMINAL MANAGER, CBC, BMP, PT, HS TROP, CK #### [address] Monocytes (Bld) [#/Vol] 0.6 10*3/uL Normal 0.0-0.8 [facility] Comment on above: Performed By: #### B ASSISTANT TERMINAL MANAGER, CBC, BMP, PT, HS TROP, CK #### [place] [address] [place] Monocytes/100 WBC (Bld) 20.75 % High 0.00-20.00 [facility] Comment on above: Result Comment: For adults in ED, MDW > 20.0 may be associated with a higher risk of sepsis during the first 12 hrs of hospital admission Performed By: #### B ASSISTANT TERMINAL MANAGER, CBC, BMP, PT, HS TROP, CK #### [place] [address] [place] Monocytes/100 WBC (Bld) 8.5 % Normal . [facility] Comment on above: Performed By: #### B ASSISTANT TERMINAL MANAGER, CBC, BMP, PT, HS TROP, CK #### [address] Neutrophils (Bld) [#/Vol] 4.4 10*3/uL Normal 1.8-7.7 [facility] Comment on above: Performed By: #### B ASSISTANT TERMINAL MANAGER, CBC, BMP, PT, HS TROP, CK #### [place] [address] [place] Neutrophils/100 WBC (Bld) 63.9 % Normal . [facility] Comment on above: Performed By: #### B ASSISTANT TERMINAL MANAGER, CBC, BMP, PT, HS TROP, CK #### [place] [address] [place] NRBC% 0.0 /100{WBC} Normal 0-0.5 [facility] Comment on above: Performed By: #### B ASSISTANT TERMINAL MANAGER, CBC, BMP, PT, HS TROP, CK #### [place] [address] [place] Platelet mean volume (Bld) [Entitic vol] 7.0 fL Normal 6.3-10.7 [facility] Comment on above: Performed By: #### B ASSISTANT TERMINAL MANAGER, CBC, BMP, PT, HS TROP, CK #### [place] [address] [place] Platelets (Bld) [#/Vol] 196 10*3/uL Normal 150-450 [facility] Comment on above: Performed By: #### B ASSISTANT TERMINAL MANAGER, CBC, BMP, PT, HS TROP, CK #### [facility] [address] RBC (Bld) [#/Vol] 4.80 10*6/uL Normal 3.60-5.00 [facility] Comment on above: Performed By: #### B ASSISTANT TERMINAL MANAGER, CBC, BMP, PT, HS TROP, CK #### [facility] [address] WBC (Bld) [#/Vol] 6.9 10*3/uL Normal 3.8-11.6 [facility] Comment on above: Performed By: #### B ASSISTANT TERMINAL MANAGER, CBC, BMP, PT, HS TROP, CK #### [facility] [address] [place] [id number] [facility] Creatine Kinaseon 11-23-2024 CK [Catalytic activity/Vol] 66 U/L Normal 30-223 [facility] Comment on above: Performed By: #### B ASSISTANT TERMINAL MANAGER, CBC, BMP, PT, HS TROP, CK ####[facility] Creatine kinase [Enzymatic a ctivity/volume] in Serum or PlasmaOrdered By: Bradley Alba on 11-23-2024 CK [Catalytic activity/Vol] Creatine kinase [Enzymatic activity/volume] in Serum or Plasma 30-223 [facility] Creatinine [Mass/volume] in Serum or PlasmaOrdered By: Bradlye Alba on 11-23-2024 Creatinine [Mass/Vol] Creatinine [Mass/v olume] in Serum or Plasma 0.60-1.20 [facility] ECG 12 lead ECGon 11-23-2024 ECG 12 lead ECG [facility] Main [place] [address] [place] [address] Electrocardiograph Report Signed Patient: Marisol Cantrell MR#: [id number] : 1950 Acct:[id number] Age/Sex: 74 / F ADM Date: 11/23/24 Loc: ER Room: Type: [facility] ER Attending Dr: Ordering Provider: Bradley Alba Jr, MD Date of Service: 11/23/24 ECG/ECG 12 lead ECG: Extremity Injury, Upper Copies to: Test Reason : Blood Pressure : */* mmHG Vent. Rate : 73 BPM Atrial Rate : 73 BPM P-R Int : 154 ms QRS Dur : 78 ms QT Int : 410 ms P-R-T Axes : 52 22 45 degrees QTcB Int : 451 ms Normal sinus rhythm with sinus arrhythmia Normal ECG Confirmed by Erin Zurita ([id number]) on 11/24/2024 2:48:02 PM Referred By: Electronically Signed By: Erin Zurita Transcribed By: MUS Signed By Erin Zurita MD 5 [id number] Normal [facility] Eosinophils Auto (Bld) [#/Vo l]Ordered By: Bradley Alba on 11-23-2024 Eosinophils (Bld) [#/Vol] Automated eosinophil count 0.0-0.45 [facility] Eosinophils/100 WBC Auto (Bl d)Ordered By: Bradley Alba on 11-23-2024 Eosinophils/100 WBC (Bld) Automated eosinophil % . [facility] Erythrocyte distribution wid th Auto (RBC) [Ratio]Ordered By: Bradley Alba on 11-23-2024 Erythrocyte distribution width (RBC) [Ratio] Erythrocyte distribution width [Ratio] by Automated count High 11.9-15.3 [facility] Glucose [Mass/volume] in Ser um or PlasmaOrdered By: Bradley Alba on 11-23-2024 Glucose [Mass/Vol] Glucose [Mass/volume ] in Serum or Plasma 70-100 [facility] Comment on above: ADA recommended refe rence rangeRandom Glucose Reference Range is dependent on time and content of last meal. Glucose of more than 200 mg/dL in a nonstressed, ambulatory subject supports the diagnosis of Diabetes Mellitus. Hematocrit Auto (Bld) [Volum e fraction]Ordered By: Bradley Alba on 11-23-2024 Hematocrit (Bld) [Volume fraction] Hematocrit [Volume Fraction] of Blood by Automated count 34.0-46.4 [facility] Hemoglobin [Mass/volume] in BloodOrdered By: Bradley Alba on 11-23-2024 Hemoglobin (Bld) [Mass/Vol] Hemoglobin [Mass/volume] in Blood 11.8-15.4 [facility] INR in Platelet poor plasma by Coagulation assayOrdered By: Bradley Alba on 11-23-2024 INR Coag (PPP) [Relative time] INR in Platelet poor plasma by Coagulation assay [facility] Comment on above: INR Therapeutic Rang e A) Pre- and Peroperative OAT started two weeks before surgery. NOT HIP SURGERY: 1.5 - 2.5 HIP SURGERY: 2 - 3B) Primary and secondary prevention of venous THROMBOSIS: 2 - 3C) Active venous thrombosis, pulmonary embolismand prevention of recurrent venous thrombosis: 2 - 3D) Prevention of arterial thromboembolismincluding patients with mechanical heart valves: 3 - 4.5 Leukocytes [#/volume] correc piotr for nucleated erythrocytes in Blood by Automated counOrdered By: Bradley Alba on 11-23-2024 WBC corrected for nucl RBC Auto (Bld) [#/Vol] Leukocytes [#/volume] corrected for nucleated erythrocytes in Blood by Automated coun 3.8-11.6 [facility] Lymphocytes Auto (Bld) [#/Vo l]Ordered By: Bradley Alba on 11-23-2024 Lymphocytes (Bld) [#/Vol] Lymphocytes [#/volume] in Blood by Automated count 1.00-4.8 [facility] Lymphocytes/100 WBC Auto (Bl d)Ordered By: Bradley Alba on 11-23-2024 Lymphocytes/100 WBC (Bld) Lymphocytes/100 leukocytes in Blood by Automated count . [facility] MCH Auto (RBC) [Entitic mass ]Ordered By: Bradley Alba on 11-23-2024 MCH (RBC) [Entitic mass] MCH [Entitic mass] by Automated count 24.7-34.3 [facility] MCHC Auto (RBC) [Mass/Vol]Or dered By: Bradley Alba on 11-23-2024 MCHC (RBC) [Mass/Vol] MCHC [Mass/volume] by Automated count 32.0-35.0 [facility] MCV Auto (RBC) [Entitic vol] Ordered By: Bradley Alba on 11-23-2024 MCV (RBC) [Entitic vol] MCV [Entitic volume] by Automated count 80-100 [facility] Monocyte distribution width [Entitic volume] in Blood by AutomatedOrdered By: Bradley Alba on 11-23-2024 Monocyte distribution width Auto (Bld) [Entitic vol] Monocyte distribution width [Entitic volume] in Blood by Automated High 0.00-20.00 [facility] Comment on above: For adults in ED, MD W > 20.0 may be associated with a higher risk of sepsis during the first 12 hrs of hospital admission Monocytes Auto (Bld) [#/Vol] Ordered By: Bradley Alba on 11-23-2024 Monocytes (Bld) [#/Vol] Automated blood monocyte count 0.0-0.8 [facility] Monocytes/100 WBC Auto (Bld) Ordered By: Bradley Alba on 11-23-2024 Monocytes/100 WBC (Bld) Automated monocyte % . [facility] Natriuretic peptide B [Mass/ Vol]Ordered By: Bradley Alba on 11-23-2024 Natriuretic peptide B (Bld) [Mass/Vol] BNP ser/plas 5-100 [facility] Neutrophils Auto (Bld) [#/Vo l]Ordered By: Bradley Alba on 11-23-2024 Neutrophils (Bld) [#/Vol] Neutrophils [#/volume] in Blood by Automated count 1.8-7.7 [facility] Neutrophils/100 WBC Auto (Bl d)Ordered By: Bradley Alba on 11-23-2024 Neutrophils/100 WBC (Bld) Automated neutrophil % . [facility] No Panel InformationOrdered By: Bradley Alba on 11-23-2024 Estimated GFR (CKD-EPI) > 60.0 mL/Min [facility] Creatinine Clearance (Chem 72.01 [facility] Nucleated erythrocytes [Pres ence] in Blood by Automated countOrdered By: Bradley Alba on 11-23-2024 Nucleated RBC Auto Ql (Bld) Nucleated erythrocytes [Presence] in Blood by Automated count 0-0.5 [facility] Platelet mean volume Auto (B ld) [Entitic vol]Ordered By: Bradley Alba on 11-23-2024 Platelet mean volume (Bld) [Entitic vol] Platelet mean volume [Entitic volume] in Blood by Automated count 6.3-10.7 [facility] Platelets Auto (Bld) [#/Vol] Ordered By: Bradley Alba on 11-23-2024 Platelets (Bld) [#/Vol] Platelets [#/volume] in Blood by Automated count 150-450 [facility] Potassium [Moles/volume] in Serum or PlasmaOrdered By: Bradley Alba on 11-23-2024 Potassium [Moles/Vol] Potassium [Moles/v olume] in Serum or Plasma 3.5-5.1 [facility] Prothrombin Time INRon 11-23 INR Coag (PPP) [Relative time] 1.0 {INR} Normal [facility] Comment on above: Result Comment: INR Therapeutic Range A) Pre- and Peroperative OAT started two weeks before surgery. NOT HIP SURGERY: 1.5 - 2.5 HIP SURGERY: 2 - 3 B) Primary and secondary prevention of venous THROMBOSIS: 2 - 3 C) Active venous thrombosis, pulmonary embolism and prevention of recurrent venous thrombosis: 2 - 3 D) Prevention of arterial thromboembolism including patients with mechanical heart valves: 3 - 4.5 PERFORMED BY: [facility] [address] [facility] [place] [address] PATHOLOGIST DIRECTOR OF INFORMATICS KINJAL HANCOCK M.D. Performed By: #### B ASSISTANT TERMINAL MANAGER, CBC, BMP, PT, HS TROP, CK ####[facility] [address] [place] [address] [facility] PT Coag (PPP) [Time] 11.9 s Normal 9.0-12.9 [facility] Comment on above: Result Comment: A matocrit value greater than 55% may lead to inaccurate results in coagulation testing. Patients having hematocrit values >55% require a special collection tube for coagulation studies. Please contact the laboratory at [phone] for redraw instructions. Performed By: #### B ASSISTANT TERMINAL MANAGER, CBC, BMP, PT, HS TROP, CK ####[facility] [address] [place] [address] [facility] Prothrombin time (PT)Ordered By: Bradley Alba on 11-23-2024 PT Coag (PPP) [Time] Prothrombin time (PT) 9.0- 12.9 [facility] Comment on above: A hematocrit value g reater than 55% may lead to inaccurate results in coagulation testing. Patients having hematocrit values >55% require a special collection tube for coagulation studies. Please contact the laboratory at [phone] for redraw instructions. RBC Auto (Bld) [#/Vol]Ordere d By: Bradley Alba on 11-23-2024 RBC (Bld) [#/Vol] Erythrocytes [#/volu me] in Blood by Automated count 3.60-5.00 [facility] Serum or plasma anion gap de terminationOrdered By: Bradley Alba on 11-23-2024 Anion gap [Moles/Vol] Serum or plasma an ion gap determination 6.0-15.0 [facility] Sodium [Moles/volume] in Ser um or PlasmaOrdered By: Bradley Alba on 11-23-2024 Sodium [Moles/Vol] Sodium [Moles/volume ] in Serum or Plasma 136-145 [facility] Troponin I High Sensitivityo n 11-23-2024 Troponin I High Sensitivity 4 Normal 0-15 [facility] Comment on above: Result Comment: The Troponin units of report have been changed to meet the Chest Pain Accreditation requirement, element EC5.M1l2. Troponin units are changed from pg/ml to ng/L. Also, the decimal is removed and results are in whole numbers. PERFORMED BY: [place] [phone] PATHOLOGIST DIRECTOR OF INFORMATICS KINJAL HANCOCK M.D. Performed By: #### H S TROP #### [address] Troponin I High Sensitivity 5 Normal 0-15 [facility] Comment on above: Result Comment: The Troponin units of report have been changed to meet the Chest Pain Accreditation requirement, element EC5.M1l2. Troponin units are changed from pg/ml to ng/L. Also, the decimal is removed and results are in whole numbers. PERFORMED BY: [place] [address] PATHOLOGIST DIRECTOR OF INFORMATICS KINJAL HANCOCK M.D. Performed By: #### B ASSISTANT TERMINAL MANAGER, CBC, BMP, PT, HS TROP, CK ####[facility] [address] Troponin I.cardiac [Mass/vol ume] in Serum or Plasma by Detection limit <= 0.01 ng/Ordered By: Bradley Alba on 11-23-2024 Troponin I.cardiac DL <= 0.01 ng/mL [Mass/Vol] Troponin I.cardiac [Mass/volume] in Serum or Plasma by Detection limit <= 0.01 ng/ 0-15 [facility] Comment on above: The Troponin units o f report have been changed to meet the Chest Pain Accreditation requirement, element EC5.M1l2. Troponin units are changed from pg/ml to ng/L. Also, the decimal is removed and results are in whole numbers. Urea nitrogen [Mass/volume] in Serum or PlasmaOrdered By: Bradley Alba on 11-23-2024 Urea nitrogen [Mass/Vol] Urea nitrogen [Mass/volume] in Serum or Plasma 04-30 [facility] WBC Auto (Bld) [#/Vol]Ordere d By: Bradley Alba on 11-23-2024 WBC (Bld) [#/Vol] Leukocytes [#/volume ] in Blood by Automated count 3.8-11.6 [facility] XR chest 1V portableon 11-23 XR chest 1V portable [facility] [place] [address] XRay Report Signed Patient: Marisol Cantrell MR#: [id number] : 1950 Acct:[id number] Age/Sex: 74 / F ADM Date: 11/23/24 Loc: ER Room: Type: [facility] ER Attending Dr: Copies to: Bradley Alba Jr, MD Ordering Provider: Bradley Alba Jr, MD Date of Service: 11/23/24 XR/XR chest 1V portable: Extremity Injury, Upper XR chest 1V portable 11/23/2024 2:49 AM SIGNS AND SYMPTOMS: Left upper arm pain/tingling PROTOCOL: Frontal radiograph of the chest COMPARISON: 05/01/2023 FINDINGS: The trachea is midline. The heart and mediastinal structures are within normal limits. There is redemonstration of calcified granulomas laterally in the right mid chest. No focal consolidation. The bony thorax is intact. XR/XR chest 1V portable IMPRESSION: No acute cardiopulmonary pathology. Impression dictated by: Sanjay Baugh M.D.11/23/2024 10:56 AM Dictation Location: [place] [address] Transcribed By: RYLEY 11/23/241055 Dictated By: Sanjay Baugh II, MD 11/23/241052 Signed By: 11/23/241055 Normal [facility] MR head/brain wo conon 11-16 MR head/brain wo con [facility] Main [address] [address] MRI Report Signed Patient: Marisol Cantrell MR#: [id number] : 1950 Acct:[id number] Age/Sex: 74 / F ADM Date: 11/16/24 [facility] Attending Dr: Monster Harding DO Copies to: Monster Harding DO Ordering Provider: Monster Harding DO Date of Service: 11/16/24 MR/MR head/brain wo con: G45.9 - Transient cerebral ischemic attack, unspecified EXAMINATION: MRI OF THE BRAIN WITHOUT CONTRAST CLINICAL HISTORY: Transient ischemic attack, paresthesias, rule out CVA COMPARISON: MRI 09/11/2023 TECHNIQUE: Multiecho, multiplanar imaging of the brain was performed without enhancement. Findings: No restricted diffusion to suggest acute territorial infarct. Ventricles and sulci are normal size and comparison for the patient's age. No shift of midline structure basal cisterns are patent. Mild to moderate periventricular and subcortical T2 prolongation identified nonspecific, but is commonly attributed to chronic small vessel ischemic disease. Remote tiny chronic lacunar strokes both thalami. The major intracranial arterial vascular flow voids are preserved.. No abnormal GRE signal. Mild ethmoid sinus mucosal thickening. MR/MR head/brain wo con IMPRESSION: MODERATE CHRONIC SMALL VESSEL CHANGES. NEGATIVE ACUTE STROKE OR MIDLINE SHIFT. Impression dictated by: Cristofer Reid M.D.11/16/2024 7:44 PM Dictation Location: [facility] Transcribed By: RYLEY 11/16/241943 Dictated By: Cristofer Reid MD 11/16/241938 Signed By: 11/16/241943 Normal [facility] Magnetic resonance imaging r eportOrdered By: Cristofer Reid on 11-16-2024 Study report [facility] Main [place] [id number] MRI Report Signed Patient: Marisol Cantrell MR#: [id number] : 1950 Acct:[id number] Age/Sex: 74 / F ADM Date: 5 Loc: [facility] Room: Type: [facility] Attending Dr: Monster Harding DO Copies to: Monster Harding DO~ Ordering Provider: Monster Harding DO Date of Service: 11/16/24 MR/MR head/brain wo con: G45.9 - Transient cerebral ischemic attack, unspecified EXAMINATION: MRI OF THE BRAIN WITHOUT CONTRAST CLINICAL HISTORY: Transient ischemic attack, paresthesias, rule out CVA COMPARISON: MRI 09/11/2023 TECHNIQUE: Multiecho, multiplanar imaging of the brain was performed without enhancement. Findings: No restricted diffusion to suggest acute territorial infarct. Ventricles and sulci are normal size and comparison for the patient's age. No shift of midline structure basal cisterns are patent. Mild to moderate periventricular and subcortical T2 prolongation identified nonspecific, but is commonly attributed to chronic small vessel ischemic disease. Remote tiny chronic lacunar strokes both thalami. The major intracranial arterial vascular flow voids are preserved.. No abnormal GRE signal. Mild ethmoid sinus mucosal thickening. MR/MR head/brain wo con IMPRESSION: MODERATE CHRONIC SMALL VESSEL CHANGES. NEGATIVE ACUTE STROKE OR MIDLINE SHIFT. Impression dictated by: Cristofer Reid M.D.11/16/2024 7:44 PM Dictation Location: [place] [address] Transcribed By: RYLEY 11/16/241943 Dictated By: Cristofer Reid MD 11/16/241938 Signed By: 11/16/241943 [facility] Work Phone: X-ray reportOrdered By: Otilio Reid on 11-16-2024 Study report [facility] Main [address] [address] XRay Report Signed Patient: Marisol Cantrell MR#: [id number] : 1950 Acct:[id number] Age/Sex: 74 / F ADM Date: 5 Loc: [facility] Room: Type: REG CLI Attending Dr: Monster Harding DO Copies to: Monster Harding DO~ Ordering Provider: Monster Harding DO Date of Service: 11/16/24 XR/XR cervical spine 2V: M54.2 - Cervicalgia CERVICAL SPINE 2 views: CLINICAL HISTORY: Neck pain, left shoulder pain COMPARISON: None FINDINGS: Straightening and slight reversal. Anterolisthesis C3 and C4 2 mm. Moderate tosevere disc space narrowing and moderate endplate osteophytes C4-C7. Otherwise no fracture or traumatic malalignment. Multilevel facet arthropathy, predominantly left-sided. Lung apices are clear. XR/XR cervical spine 2V IMPRESSION: Degenerative changes. No acute compression fracture. Impression dictated by: Cristofer Reid M.D.11/16/2024 10:00 PM Dictation Location: [place] [address] Transcribed By: [facility] 11/16/242199 Dictated By: Cristofer Reid MD 11/16/242158 Signed By: 11/16/242199 [facility] Work Phone: Study report [facility] Main [place] [address] [place] [address] XRay Report Signed Patient: Marisol Cantrell MR#: [id number] : 1950 Acct:[id number] Age/Sex: 74 / F ADM Date: 5 [facility] Type[facility] Attending Dr: Monster Harding DO Copies to: Monster Harding DO~ Ordering Provider: Monster Harding DO Date of Service: 11/16/24 XR/XR shoulder LT min 2V*: M25.519 - Pain in unspecified shoulder LEFT SHOULDER - - 2 views CLINICAL HISTORY: Neck pain, left shoulder pain COMPARISON: None FINDINGS: No fracture or dislocation. Mild degenerative changes AC joint and glenohumeraljoint. Left lung apex is clear. XR/XR shoulder LT min 2V* IMPRESSION: No acute bony process. Impression dictated by: Cristofer Reid M.D.11/16/2024 9:46 PM Dictation Location: [facility] Transcribed By: RYLEY 11/16/242145 Dictated By: Cristofer Reid MD 11/16/242144 Signed By: 11/16/242145 [facility] Work Phone: XR cervical spine 2Von 11-16 XR cervical spine 2V [facility] [place] [address] XRay Report Signed Patient: Marisol Cantrell MR#: [id number] : 1950 Acct:[id number] Age/Sex: 74 / F ADM Date: 11/16/24 Loc: [facility] Room: Type: [facility] Attending Dr: Monster Harding DO Copies to: Monster Harding DO Ordering Provider: Monster Harding DO Date of Service: 11/16/24 XR/XR cervical spine 2V: M54.2 - Cervicalgia CERVICAL SPINE 2 views: CLINICAL HISTORY: Neck pain, left shoulder pain COMPARISON: None FINDINGS: Straightening and slight reversal. Anterolisthesis C3 and C4 2 mm. Moderate to severe disc space narrowing and moderate endplate osteophytes C4-C7. Otherwise no fracture or traumatic malalignment. Multilevel facet arthropathy, predominantly left-sided. Lung apices are clear. XR/XR cervical spine 2V IMPRESSION: Degenerative changes. No acute compression fracture. Impression dictated by: Cristofer Reid M.D.11/16/2024 10:00 PM Dictation Location: [facility] Transcribed By: RYLEY 11/16/242199 Dictated By: Cristofer Reid MD 11/16/242158 Signed By: 11/16/242199 Normal [facility] XR shoulder LT min 2V*on XR shoulder LT min 2V* [facility] Main [address] [address] XRay Report Signed Patient: Marisol Cantrell MR#: [id number] : 1950 Acct:[id number] Age/Sex: 74 / F ADM Date: 11/16/24 Loc: [facility] Room: Type: [facility] Attending Dr: Monster Harding DO Copies to: Monster Harding DO Ordering Provider: Monster Harding DO Date of Service: 11/16/24 XR/XR shoulder LT min 2V*: M25.519 - Pain in unspecified shoulder LEFT SHOULDER - - 2 views CLINICAL HISTORY: Neck pain, left shoulder pain COMPARISON: None FINDINGS: No fracture or dislocation. Mild degenerative changes AC joint and glenohumeral joint. Left lung apex is clear. XR/XR shoulder LT min 2V* IMPRESSION: No acute bony process. Impression dictated by: Cristofer Reid M.D.11/16/2024 9:46 PM Dictation Location: [place] [address] Transcribed By: [facility] 11/16/242145 Dictated By: Cristofer Reid MD 11/16/242144 Signed By: 11/16/242145 Normal [facility] Basic Metabolic Panelon Anion gap [Moles/Vol] 8.1 mmol/L Normal 6.0-15.0 [facility] Comment on above: Performed By: #### B MP ####[place] [id number] [facility] Calcium [Mass/Vol] 9.2 mg/dL Normal 8.6-10.3 [facility] Comment on above: Result Comment: PERF ORMED BY: [facility] [address] [place] [address] PATHOLOGIST DIRECTOR OF INFORMATICS KINJAL HANCOCK M.D. Performed By: #### B MP ####[place] [id number] [place] [address] [facility] Chloride [Moles/Vol] 110 mmol/L High 98-107 [facility] Comment on above: Performed By: #### B MP ####[place] [id number] [place] [address] [facility] CO2 [Moles/Vol] 25.9 mmol/L Normal 21.0-31.0 [facility] Comment on above: Performed By: #### B MP ####[place] [id number] [facility] Creatinine [Mass/Vol] 0.82 mg/dL Normal 0.60-1.20 [facility] Comment on above: Performed By: #### B MP ####[place] [id number] [facility] GFR/1.73 sq M.predicted MDRD (S/P/Bld) [Vol rate/Area] mL/min/{1.73_m2} Normal [facility] Comment on above: Performed By: #### B MP ####[place] [id number] [facility] Glucose [Mass/Vol] 91 mg/dL Normal 70-100 [facility] Comment on above: Result Comment: [facility] Glucose Reference Range is dependent on time and content of last meal. Glucose of more than 200 mg/dL in a nonstressed, ambulatory subject supports the diagnosis of Diabetes Mellitus. ADA recommended reference range Performed By: #### B MP ####[place] [id number] [facility] Potassium [Moles/Vol] 4.0 mmol/L Normal 3.5-5.1 [facility] Comment on above: Performed By: #### B MP ####[place] [id number] [facility] Sodium [Moles/Vol] 140 mmol/L Normal 136-145 [facility] Comment on above: Performed By: #### B MP ####[place] [id number] [facility] Urea nitrogen [Mass/Vol] 22 mg/dL Normal 7-25 [facility] Comment on above: Performed By: #### B MP ####[place] [id number] [facility] Calcium [Mass/volume] in Ser um or PlasmaOrdered By: Monster Harding on 11-10-2024 Calcium [Mass/Vol] Calcium [Mass/volume ] in Serum or Plasma 8.6-10.3 [facility] Carbon dioxide, total [Moles /volume] in Serum or PlasmaOrdered By: Monster Harding on 11-10-2024 CO2 [Moles/Vol] Carbon dioxide, tota l [Moles/volume] in Serum or Plasma 21.0-31.0 [facility] Chloride [Moles/volume] in S elly or PlasmaOrdered By: Monster Harding on 11-10-2024 Chloride [Moles/Vol] Chloride [Moles/vol ume] in Serum or Plasma High 98-107 [facility] Creatinine [Mass/volume] in Serum or PlasmaOrdered By: Monster Harding on 11-10-2024 Creatinine [Mass/Vol] Creatinine [Mass/v olume] in Serum or Plasma 0.60-1.20 [facility] Glucose [Mass/volume] in Ser um or PlasmaOrdered By: Monster Harding on 11-10-2024 Glucose [Mass/Vol] Glucose [Mass/volume ] in Serum or Plasma 70-100 [facility] Comment on above: ADA recommended refe rence rangeRandom Glucose Reference Range is dependent on time and content of last meal. Glucose of more than 200 mg/dL in a nonstressed, ambulatory subject supports the diagnosis of Diabetes Mellitus. No Panel InformationOrdered By: Monster Harding on 11-10-2024 Estimated GFR (CKD-EPI) > 60.0 mL/Min [facility] Creatinine Clearance (Chem N/A [facility] Potassium [Moles/volume] in Serum or PlasmaOrdered By: Monster Harding on 11-10-2024 Potassium [Moles/Vol] Potassium [Moles/v olume] in Serum or Plasma 3.5-5.1 [facility] Serum or plasma anion gap de terminationOrdered By: Monster Harding on 11-10-2024 Anion gap [Moles/Vol] Serum or plasma an ion gap determination 6.0-15.0 [facility] Sodium [Moles/volume] in Ser um or PlasmaOrdered By: Monster Harding on 11-10-2024 Sodium [Moles/Vol] Sodium [Moles/volume ] in Serum or Plasma 136-145 [facility] Urea nitrogen [Mass/volume] in Serum or PlasmaOrdered By: Monster Harding on 11-10-2024 Urea nitrogen [Mass/Vol] Urea nitrogen [Mass/volume] in Serum or Plasma 7 [facility] Basophils Auto (Bld) [#/Vol] on 11-02-2024 Basophils (Bld) [#/Vol] Automated basophil count 0.0-0.1 [facility] Basophils/100 WBC Auto (Bld) on 11-02-2024 Basophils/100 WBC (Bld) Automated basophil % 0.2-2.0 [facility] Eosinophils/100 WBC Auto (Bl d)on 11-02-2024 Eosinophils/100 WBC (Bld) Automated eosinophil % 0.9-7.0 [facility] Erythrocyte distribution wid th Auto (RBC) [Ratio]on 11-02-2024 Erythrocyte distribution width (RBC) [Ratio] Erythrocyte distribution width [Ratio] by Automated count 11.0-15.0 [facility] Estimated glomerular filtrat ion rate (GFR) non- Americanon 11-02-2024 GFR/1.73 sq M.predicted among non-blacks MDRD (S/P/Bld) [Vol rate/Area] Estimated glomerular filtration rate (GFR) non- Low >=60 mL/min/1.7 3m 2 [facility] Hematocrit Auto (Bld) [Volum e fraction]on 11-02-2024 Hematocrit (Bld) [Volume fraction] Hematocrit [Volume Fraction] of Blood by Automated count 36.0-48.0 [facility] Hemoglobin [Mass/volume] in Bloodon 11-02-2024 Hemoglobin (Bld) [Mass/Vol] Hemoglobin [Mass/volume] in Blood 12.0-16.0 [facility] Laboratory - Chemistry and C hemistry - challengeon 11-02-2024 Bilirubin Ql (U) Negative NEGATIVE [facility] Glucose (U) [Mass/Vol] [facility] Ket[facility] Ql ([facility] Negative NEGATIVE [facility] pH (U) 6.0 [pH] 5.0-9.0 [facility] Specific gravity (U) [Rel density] 1.010 1.005-1.02 5 [facility] Urobilinogen Qn (U) 0.2 {Nery'U}/dL 0.2-1.0 [facility] Calcium [Mass/Vol] 9.3 mg/dL 8.5-10.1 [facility] Chloride [Moles/Vol] 106 mmol/L 98-107 [facility] CO2 [Moles/Vol] 25.4 mmol/L 21.0-32.0 [facility] Creatinine [Mass/Vol] 0.96 mg/dL 0.55-1.02 [facility] GFR/1.73 sq M.predicted MDRD (S/P/Bld) [Vol rate/Area] mL/min/{1.73_m2} >=60 mL/min/1.7 3m 2 [facility] Glucose [Mass/Vol] 102 mg/dL 74-106 [facility] Potassium [Moles/Vol] 4.1 mmol/L 3.5-5.1 [facility] Sodium [Moles/Vol] 140 mmol/L 136-145 [facility] Urea nitrogen [Mass/Vol] 27.0 mg/dL High 7.0-18.0 [facility] Urea nitrogen/Creatinine [Mass ratio] 28.1 mg/mg [facility] Laboratory - Hematology and Cell countson 11-02-2024 Immature granulocytes/100 WBC (Bld) 0.2 % 0.0-0.5 [facility] Laboratory - Specimen inform ationon 11-02-2024 Appearance (U) CLEAR CLEAR [facility] Color (U) LT. YELLOW YELLOW [facility] Laboratory - Urinalysison Leukocyte esterase Test strip Ql (U) LARGE Abnormal NEGATIVE [facility] Mucus Ql (Urine sed) NONE SEEN NONE SEEN [facility] Nitrite Ql (U) Negative NEGATIVE [facility] Protein Ql (U) Negative NEG/TRACE [facility] Leukocytes [#/volume] correc piotr for nucleated erythrocytes in Blood by Automated counon 11-02-2024 WBC corrected for nucl RBC Auto (Bld) [#/Vol] Leukocytes [#/volume] corrected for nucleated erythrocytes in Blood by Automated coun 4.0-11.0 [facility] Lymphocytes Auto (Bld) [#/Vo l]on 11-02-2024 Lymphocytes (Bld) [#/Vol] Lymphocytes [#/volume] in Blood by Automated count Low 1.2-3.8 [facility] Lymphocytes/100 WBC Auto (Bl d)on 11-02-2024 Lymphocytes/100 WBC (Bld) Lymphocytes/100 leukocytes in Blood by Automated count Low 20.5-60.0 [facility] MCH Auto (RBC) [Entitic mass ]on 11-02-2024 MCH (RBC) [Entitic mass] MCH [Entitic mass] by Automated count 26.7-34.0 [facility] MCHC Auto (RBC) [Mass/Vol]on 11-02-2024 MCHC (RBC) [Mass/Vol] MCHC [Mass/volume] by Automated count 29.9-35.2 [facility] MCV Auto (RBC) [Entitic vol] on 11-02-2024 MCV (RBC) [Entitic vol] MCV [Entitic volume] by Automated count 81.0-99.0 [facility] Monocytes Auto (Bld) [#/Vol] on 11-02-2024 Monocytes (Bld) [#/Vol] Automated blood monocyte count 0.3-0.8 [facility] Monocytes/100 WBC Auto (Bld) on 11-02-2024 Monocytes/100 WBC (Bld) Automated monocyte % 1.7-12.0 [facility] Neutrophils Auto (Bld) [#/Vo l]on 11-02-2024 Neutrophils (Bld) [#/Vol] Neutrophils [#/volume] in Blood by Automated count 1.4-6.5 [facility] Neutrophils/100 WBC Auto (Bl d)on 11-02-2024 Neutrophils/100 WBC (Bld) Automated neutrophil % 43.0-75.0 [facility] No Panel Informationon 11-02 Urine Bacteria SMALL #/HPF Abnormal NONE SEEN [facility] Urine Culture Reflexed YES [facility] Urine Occult Blood TRACE-L NEGATIVE [facility] Urine Other Casts NONE SEEN #/LPF NONE SEEN [facility] Urine Other Crystals None Seen #/HPF None Seen [facility] Urine RBC 0-2 #/HPF 0-2 [facility] Urine Squamous Epithelial Cells FEW #/LPF Abnormal NONE/RARE [facility] Urine Transitional Epithelial Cells FEW #/LPF Abnormal NONE SEEN [facility] Urine WBC 10-20 #/HPF Abnormal NONE SEEN [facility] Eosinophils # (Auto) 0.2 10 3/uL 0.0-0.7 [facility] Immature Granulocyte # (Auto) 0.01 10 3/uL 0.00-0.03 [facility] Troponin I High Sensitivity 5.8 pg/mL 4.0-51.3 [facility] Comment on above: CUT-OFF POINTS HAVE BEEN ESTABLISHED BASED ON THE FOURTHUNIVERSAL DEFINITION OF MYOCARDIAL INFARCTION. THE UPPERREFERENCE LIMIT (URL) OF TROPONIN, DEFINED THE 99THPERCENTILE OF cTnI DISTRIBUTION IN A REFERENCE POPULATION,HAS BEEN CONFIRMED THE DECISION THRESHOLD FOR MIDIAGNOSIS.99TH PERCENTILE = 51.4 PG/MLNOTE: HIGH-SENSITIVITY TROPONIN ASSAY IS NOT INTENDED TO BEUSED IN ISOLATION BUT SHOULD BE INTERPRETED IN CONJUNCTIONWITH OTHER DIAGNOSTIC AND CLINICAL INFORMATION. Platelet mean volume Auto (B ld) [Entitic vol]on 11-02-2024 Platelet mean volume (Bld) [Entitic vol] Platelet mean volume [Entitic volume] in Blood by Automated count Low 9.5-13.5 [facility] Platelets Auto (Bld) [#/Vol] on 11-02-2024 Platelets (Bld) [#/Vol] Platelets [#/volume] in Blood by Automated count 150-450 [facility] RBC Auto (Bld) [#/Vol]on RBC (Bld) [#/Vol] Erythrocytes [#/volu me] in Blood by Automated count 4.20-5.40 [facility] Serum or plasma anion gap de terminationon 11-02-2024 Anion gap [Moles/Vol] Serum or plasma an ion gap determination [facility] XR knee LT 2Von 08-04-2024 XR knee LT 2V [facility] [address] [place] [address] XRay Report Signed Patient: Marisol Cantrell MR#: [id number] : 1950 Acct:[id number] Age/Sex: 74 / F ADM Date: 08/04/24 Loc: SOXD Room: Type: [facility] Attending Dr: Bradley Adkins MD Copies to: [...] Lobo Velasquez M.D.08/04/2024 6:05 PM Dictation Location: [place] [address] Transcribed By: [facility] 08/04/241804 Dictated By: Lobo Velasquez DO 08/04/241803 Signed By: 08/04/241804 Normal [facility] Basophils Auto (Bld) [#/Vol] on 06-01-2024 Basophils (Bld) [#/Vol] 0.0 10 3/uL 0.0-0.1 [facility] Basophils (Bld) [#/Vol] Automated basophil count 0.0-0.1 [facility] Basophils/100 WBC Auto (Bld) on 06-01-2024 Basophils/100 WBC (Bld) 0.4 % 0.2-2.0 [facility] Basophils/100 WBC (Bld) Automated basophil % 0.2-2.0 [facility] Cholesterol in LDL Calc [Mas s/Vol]on 06-01-2024 Cholesterol in LDL [Mass/Vol] 61.0 mg/dL [facility] Comment on above: <100 mg/dl [id number] 0-129 mg/dl NEAR OR ABOVE [id number] mg/dl BORDERLINE [id number] mg/dl HIGH>190 mg/dl VERY HIGH Cholesterol in LDL [Mass/Vol] Cholesterol in LDL [Mass/volume] in Serum or Plasma by calculation [facility] Comment on above: <100 mg/dl [id number] 0-129 mg/dl NEAR OR ABOVE [id number] mg/dl BORDERLINE [id number] mg/dl HIGH>190 mg/dl VERY HIGH Cholesterol in VLDL Calc [Ma ss/Vol]on 06-01-2024 Cholesterol in VLDL [Mass/Vol] 19.4 mg/dL [facility] Cholesterol in VLDL [Mass/Vol] Cholesterol in VLDL [Mass/volume] in Serum or Plasma by calculation [facility] Eosinophils/100 WBC Auto (Bl d)on 06-01-2024 Eosinophils/100 WBC (Bld) 4.9 % 0.9-7.0 [facility] Eosinophils/100 WBC (Bld) Automated eosinophil % 0.9-7.0 [facility] Erythrocyte distribution wid th Auto (RBC) [Ratio]on 06-01-2024 Erythrocyte distribution width (RBC) [Ratio] 13.3 % 11.0-15.0 [facility] Erythrocyte distribution width (RBC) [Ratio] Erythrocyte distribution width [Ratio] by Automated count 11.0-15.0 [facility] Estimated glomerular filtrat ion rate (GFR) non- Americanon 06-01-2024 GFR/1.73 sq M.predicted among non-blacks MDRD (S/P/Bld) [Vol rate/Area] 58 mL/min/{1.73_m2} Low >=60 [facility] GFR/1.73 sq M.predicted among non-blacks MDRD (S/P/Bld) [Vol rate/Area] Estimated glomerular filtration rate (GFR) non- Low >=60 [facility] Globulin Calc (S) [Mass/Vol] on 06-01-2024 Globulin (S) [Mass/Vol] 3.6 g/dL [facility] Globulin (S) [Mass/Vol] Serum globulin measurement by calculation (mass/volume) [facility] Hematocrit Auto (Bld) [Volum e fraction]on 06-01-2024 Hematocrit (Bld) [Volume fraction] 42.8 % 36.0-48.0 [facility] Hematocrit (Bld) [Volume fraction] Hematocrit [Volume Fraction] of Blood by Automated count 36.0-48.0 [facility] Hemoglobin [Mass/volume] in Bloodon 06-01-2024 Hemoglobin (Bld) [Mass/Vol] 14.2 g/dL 12.0-16.0 [facility] Hemoglobin (Bld) [Mass/Vol] Hemoglobin [Mass/volume] in Blood 12.0-16.0 [facility] Laboratory - Chemistry and C hemistry - challengeon 06-01-2024 Albumin [Mass/Vol] 3.6 g/dL 3.4-5.0 [facility] ALP [Catalytic activity/Vol] 110 U/L 46-116 [facility] ALT [Catalytic activity/Vol] 27 U/L 14-59 [facility] Amylase [Catalytic activity/Vol] 55 U/L 25-115 [facility] AST [Catalytic activity/Vol] 24 U/L 15-37 [facility] Bilirubin [Mass/Vol] 0.5 mg/dL 0.2-1.0 [facility] Calcium [Mass/Vol] 9.3 mg/dL 8.5-10.1 [facility] Chloride [Moles/Vol] 107 mmol/L 98-107 [facility] Cholesterol [Mass/Vol] 119 mg/dL <=200 [facility] Cholesterol in HDL [Mass/Vol] 39 mg/dL Low 40-60 [facility] Comment on above: > or =60 mg/dl - LOW CARDIOVASCULAR RISK<40 mg/dl - HIGH CARDIOVASCULAR RISK CO2 [Moles/Vol] 23.7 mmol/L 21.0-32.0 [facility] Creatinine [Mass/Vol] 0.94 mg/dL 0.55-1.02 [facility] GFR/1.73 sq M.predicted MDRD (S/P/Bld) [Vol rate/Area] mL/min/{1.73_m2} >=60 [facility] Glucose [Mass/Vol] 96 mg/dL 74-106 [facility] Lipase [Catalytic activity/Vol] 34.0 U/L 16.0-77.0 [facility] Potassium [Moles/Vol] 4.1 mmol/L 3.5-5.1 [facility] Protein [Mass/Vol] 7.2 g/dL 6.4-8.2 [facility] Sodium [Moles/Vol] 141 mmol/L 136-145 [facility] Triglyceride [Mass/Vol] 97 mg/dL <=150 [facility] TSH Qn 1.671 m[IU]/L 0.358-3.74 0 [facility] Urea nitrogen [Mass/Vol] 10.0 mg/dL 7.0-18.0 [facility] Urea nitrogen/Creatinine [Mass ratio] 10.6 mg/mg [facility] Bilirubin Ql (U) Negative NEGATIVE [facility] Glucose (U) [Mass/Vol] Negative NEGATIVE [facility] Ketones Ql (U) TRACE mg/dL Abnormal NEGATIVE [facility] pH (U) 6.0 [pH] 5.0-9.0 [facility] Specific gravity (U) [Rel density] >=1.030 Abnormal 1.005-1.02 5 [facility] Urobilinogen Qn (U) 0.2 {Nery'U}/dL 0.2-1.0 [facility] Laboratory - Hematology and Cell countson 06-01-2024 Immature granulocytes/100 WBC (Bld) 0.3 % 0.0-0.5 [facility] Laboratory - Specimen inform ationon 06-01-2024 Appearance (U) CLEAR CLEAR [facility] Color (U) YELLOW YELLOW [facility] Laboratory - Urinalysison Leukocyte esterase Test strip Ql (U) SMALL Abnormal NEGATIVE [facility] Mucus Ql (Urine sed) LARGE Abnormal NONE SEEN [facility] Nitrite Ql (U) Negative NEGATIVE [facility] Protein Ql (U) Negative NEG/TRACE [facility] Leukocytes [#/volume] correc piotr for nucleated erythrocytes in Blood by Automated counon 06-01-2024 WBC corrected for nucl RBC Auto (Bld) [#/Vol] 7.4 10 3/uL 4.0-11.0 [facility] WBC corrected for nucl RBC Auto (Bld) [#/Vol] Leukocytes [#/volume] corrected for nucleated erythrocytes in Blood by Automated coun .0-11.0 [facility] Lymphocytes Auto (Bld) [#/Vo l]on 06-01-2024 Lymphocytes (Bld) [#/Vol] 1.5 10 3/uL 1.2-3.8 [facility] Lymphocytes (Bld) [#/Vol] Lymphocytes [#/volume] in Blood by Automated count 1.2-3.8 [facility] Lymphocytes/100 WBC Auto (Bl d)on 06-01-2024 Lymphocytes/100 WBC (Bld) 19.9 % Low 20.5-60.0 [facility] Lymphocytes/100 WBC (Bld) Lymphocytes/100 leukocytes in Blood by Automated count Low 20.5-60.0 [facility] MCH Auto (RBC) [Entitic mass ]on 06-01-2024 MCH (RBC) [Entitic mass] 27.7 pg 26.7-34.0 [facility] MCH (RBC) [Entitic mass] MCH [Entitic mass] by Automated count 26.7-34.0 [facility] MCHC Auto (RBC) [Mass/Vol]on 06-01-2024 MCHC (RBC) [Mass/Vol] 33.2 g/dL 29.9-35.2 [facility] MCHC (RBC) [Mass/Vol] MCHC [Mass/volume] by Automated count 29.9-35.2 [facility] MCV Auto (RBC) [Entitic vol] on 06-01-2024 MCV (RBC) [Entitic vol] 83.6 fL 81.0-99.0 [facility] MCV (RBC) [Entitic vol] MCV [Entitic volume] by Automated count 81.0-99.0 [facility] Monocytes Auto (Bld) [#/Vol] on 06-01-2024 Monocytes (Bld) [#/Vol] 0.5 10 3/uL 0.3-0.8 [facility] Monocytes (Bld) [#/Vol] Automated blood monocyte count 0.3-0.8 [facility] Monocytes/100 WBC Auto (Bld) on 06-01-2024 Monocytes/100 WBC (Bld) 6.1 % 1.7-12.0 [facility] Monocytes/100 WBC (Bld) Automated monocyte % 1.7-12.0 [facility] Neutrophils Auto (Bld) [#/Vo l]on 06-01-2024 Neutrophils (Bld) [#/Vol] 5.1 10 3/uL 1.4-6.5 [facility] Neutrophils (Bld) [#/Vol] Neutrophils [#/volume] in Blood by Automated count 1.4-6.5 [facility] Neutrophils/100 WBC Auto (Bl d)on 06-01-2024 Neutrophils/100 WBC (Bld) 68.4 % 43.0-75.0 [facility] Neutrophils/100 WBC (Bld) Automated neutrophil % 43.0-75.0 [facility] No Panel Informationon 06-01 Eosinophils # (Auto) 0.4 10 3/uL 0.0-0.7 [facility] Immature Granulocyte # (Auto) 0.02 10 3/uL 0.00-0.03 [facility] Urine Bacteria SMALL #/HPF Abnormal NONE SEEN [facility] Urine Calcium Oxalate Crystals MODERATE [facility] Urine Culture Reflexed ALREADY ORDERED [facility] Urine Occult Blood Negative NEGATIVE [facility] Urine Other Crystals Seen #/HPF Abnormal None Seen [facility] Urine RBC NONE SEEN #/HPF 0-2 [facility] Urine Squamous Epithelial Cells MANY #/LPF Abnormal NONE/RARE [facility] Urine WBC 10-20 #/HPF Abnormal NONE SEEN [facility] Platelet mean volume Auto (B ld) [Entitic vol]on 06-01-2024 Platelet mean volume (Bld) [Entitic vol] 8.9 fL Low 9.5-13.5 [facility] Platelet mean volume (Bld) [Entitic vol] Platelet mean volume [Entitic volume] in Blood by Automated count Low 9.5-13.5 [facility] Platelets Auto (Bld) [#/Vol] on 06-01-2024 Platelets (Bld) [#/Vol] 199 10 3/uL 150-450 [facility] Platelets (Bld) [#/Vol] Platelets [#/volume] in Blood by Automated count 150-450 [facility] RBC Auto (Bld) [#/Vol]on RBC (Bld) [#/Vol] 5.12 10 6/uL 4.20-5.40 [facility] RBC (Bld) [#/Vol] Erythrocytes [#/volu me] in Blood by Automated count 01.24-40 [facility] Serum or plasma albumin/glob ulin mass ratioon 06-01-2024 Albumin/Globulin [Mass ratio] 1.0 {ratio} [facility] Albumin/Globulin [Mass ratio] Serum or plasma albumin/globulin mass ratio [facility] Serum or plasma anion gap de terminationon 06-01-2024 Anion gap [Moles/Vol] 14.4 mmol/L [facility] Anion gap [Moles/Vol] Serum or plasma an ion gap determination [facility] Serum or plasma total choles terol/high density lipoprotein (HDL) cholesterol mass tom 06-01-2024 Cholesterol.total/Chol esterol in HDL [Mass ratio] 3.1 {ratio} [facility] Comment on above: 3.3 - 4.4 LOW RISK4. 4 - 7.1 AVERAGE RISK7.1 - 11.0 MODERATE RISK>11.0 HIGH RISK Cholesterol.total/Chol esterol in HDL [Mass ratio] Serum or plasma total cholesterol/high density lipoprotein (HDL) cholesterol mass rat [facility] Comment on above: 3.3 - 4.4 LOW RISK4. 4 - 7.1 AVERAGE RISK7.1 - 11.0 MODERATE RISK>11.0 HIGH RISK Basophils Auto (Bld) [#/Vol] Ordered By: Mick Abernathy on 08-16-2022 Basophils (Bld) [#/Vol] 0.0 10*3/uL 0.0-0.2 [facility] Basophils/100 WBC Auto (Bld) Ordered By: Mick Abernathy on 08-16-2022 Basophils/100 WBC (Bld) 0.6 % . [facility] Creatinine and Glomerular fi ltration rate.predicted panel (S/P/Bld)Ordered By: Mick Abernathy on 08-16-2022 Creatinine [Mass/Vol] 0.82 mg/dL 0.44-1.03 [facility] Eosinophils Auto (Bld) [#/Vo l]Ordered By: Mick Abernathy on 08-16-2022 Eosinophils (Bld) [#/Vol] 0.2 10*3/uL 0.0-0.45 [facility] Eosinophils/100 WBC Auto (Bl d)Ordered By: Mick Abernathy on 08-16-2022 Eosinophils/100 WBC (Bld) 3.1 % . [facility] Erythrocyte distribution wid th Auto (RBC) [Ratio]Ordered By: Mick Abernathy on 08-16-2022 Erythrocyte distribution width (RBC) [Ratio] 13.9 % 11.9-15.3 [facility] Estimated glomerular filtrat ion rate (GFR) non- AmericanOrdered By: Mick Abernathy on 08-16-2022 GFR/1.73 sq M.predicted among non-blacks MDRD (S/P/Bld) [Vol rate/Area] > 60 mL/Min [facility] Hematocrit Auto (Bld) [Volum e fraction]Ordered By: Mick Abernathy on 08-16-2022 Hematocrit (Bld) [Volume fraction] 38.8 % 34.0-46.4 [facility] Hemoglobin [Mass/volume] in BloodOrdered By: Mick Abernathy on 08-16-2022 Hemoglobin (Bld) [Mass/Vol] 12.9 g/dL 11.8-15.4 [facility] Laboratory - Hematology and Cell countsOrdered By: Mick Abernathy on 08-16-2022 Nucleated RBC/100 WBC (Bld) [Ratio] 0.1 % 0-0.5 [facility] Leukocytes [#/volume] in Blo od by Automated countOrdered By: Mick Abernathy on 08-16-2022 WBC (Bld) [#/Vol] 7.4 10*3/uL 4.5-11.0 [facility] Lymphocytes Auto (Bld) [#/Vo l]Ordered By: Mick Abernathy on 08-16-2022 Lymphocytes (Bld) [#/Vol] 1.8 10*3/uL 1.00-4.8 [facility] Lymphocytes/100 WBC Auto (Bl d)Ordered By: Mick Abernathy on 08-16-2022 Lymphocytes/100 WBC (Bld) 24.2 % . [facility] MCH Auto (RBC) [Entitic mass ]Ordered By: Mick Abernathy on 08-16-2022 MCH (RBC) [Entitic mass] 27.3 pg 24.7-34.3 [facility] MCHC Auto (RBC) [Mass/Vol]Or dered By: Mick Abernathy on 08-16-2022 MCHC (RBC) [Mass/Vol] 33.2 g/dL 32.0-35.0 [facility] MCV Auto (RBC) [Entitic vol] Ordered By: Mick Abernathy on 08-16-2022 MCV (RBC) [Entitic vol] 82.4 fL 80-100 [facility] Monocytes Auto (Bld) [#/Vol] Ordered By: Mick Abernathy on 08-16-2022 Monocytes (Bld) [#/Vol] 0.5 10*3/uL 0.0-0.8 [facility] Monocytes/100 WBC Auto (Bld) Ordered By: Mick Abernathy on 08-16-2022 Monocytes/100 WBC (Bld) 6.5 % . [facility] Neutrophils Auto (Bld) [#/Vo l]Ordered By: Mick Abernathy on 08-16-2022 Neutrophils (Bld) [#/Vol] 4.8 10*3/uL 1.8-7.7 [facility] Neutrophils/100 WBC Auto (Bl d)Ordered By: Mick Abernathy on 08-16-2022 Neutrophils/100 WBC (Bld) 65.6 % . [facility] No Panel InformationOrdered By: Mick Abernathy on 08-16-2022 Estimated GFR () > 60 mL/Min [facility] Comment on above: GFR estimated refere nce range: According to KDOQI guidelines, <60 ml/min/1.73m2 is sufficient to diagnose a patient with chronic kidney disease. Pharmacy Creatinine Clearance (Chem N/A [facility] Platelet mean volume Auto (B ld) [Entitic vol]Ordered By: Mick Abernathy on 08-16-2022 Platelet mean volume (Bld) [Entitic vol] 7.1 fL 6.3-10.7 [facility] Platelets Auto (Bld) [#/Vol] Ordered By: Mick Abernathy on 08-16-2022 Platelets (Bld) [#/Vol] 246 10*3/uL 150-450 [facility] RBC Auto (Bld) [#/Vol]Ordere d By: Mick Abernathy on 08-16-2022 RBC (Bld) [#/Vol] 4.71 10*6/uL 3.60-5.00 [facility] Serum or plasma anion gap de terminationOrdered By: Mick Abernathy on 08-16-2022 Anion gap [Moles/Vol] 11.9 mmol/L 6.0-15.0 [facility] Serum or plasma calcium tiffany urement (mass/volume)Ordered By: Mick Abernathy on 08-16-2022 Calcium [Mass/Vol] 9.4 mg/dL 8.2-10.2 [facility] Serum or plasma chloride neva surement (moles/volume)Ordered By: Mick Abernathy on 08-16-2022 Chloride [Moles/Vol] 108 mmol/L 95-114 [facility] Serum or plasma glucose tiffany urement (mass/volume)Ordered By: Mick Abernathy on 08-16-2022 Glucose [Mass/Vol] 98 mg/dL 70-100 [facility] Comment on above: ADA recommended refe rence rangeRandom Glucose Reference Range is dependent on time and content of last meal. Glucose of more than 200 mg/dL in a nonstressed, ambulatory subject supports the diagnosis of Diabetes Mellitus. Serum or plasma potassium me asurement (moles/volume)Ordered By: Mick Abernathy on 08-16-2022 Potassium [Moles/Vol] 3.7 mmol/L 3.5-5.1 [facility] Serum or plasma sodium measu rement (moles/volume)Ordered By: Mick Abernathy on 08-16-2022 Sodium [Moles/Vol] 140 mmol/L 136-146 [facility] Serum or plasma total carbon dioxide measurement (moles/volume)Ordered By: Mick Abernathy on 08-16-2022 CO2 [Moles/Vol] 23.8 mmol/L 22.0-30.0 [facility] Serum or plasma urea nitroge n measurement (mass/volume)Ordered By: Mick Abernathy on 08-16-2022 Urea nitrogen [Mass/Vol] 19 mg/dL 06-29 [facility] Creatinine (Bld) [Mass/Vol]O rdered By: Mick Abernathy on 05-29-2022 Creatinine [Mass/Vol] 0.8 mg/dL 0.6-1.3 [facility] Comment on above: ER/ESD physician is notified/shown all ISTAT results. Critical values may be confirmed by laboratory testing if deemed necessary by ER attending doctor. ER/ESD physician is notified/shown all ISTAT results.Critical values may be confirmed by laboratory testing ifdeemed necessary by ER attending doctor. No Panel InformationOrdered By: Mick Abernathy on 05-29-2022 POC Estimated GFR > 60 [facility] Comment on above: GFR estimated refere nce range: According to KDOQI guidelines, <60 ml/min/1.73m2 is sufficient to diagnose a patient with chronic kidney disease. POC Estimated GFR Non- Amer > 60 [facility] XR hip RT min 2V(w/wo pelvis )*on 01-03-2022 XR hip RT min 2V(w/wo pelvis)* [facility] [employer] Other XR hip RT min 2V(w/wo pelvis)* [facility] [employer] Other XR hip RT min 2V(w/wo pelvis)* [address] [facility] [employer] Other XR hip RT min 2V(w/wo pelvis)* [place] [address] [employer] Other XR hip RT min 2V(w/wo pelvis)* XRay Report [employer] Other XR hip RT min 2V(w/wo pelvis)* Signed [employer] Other XR hip RT min 2V(w/wo pelvis)* Patient: Marisol Cantrell MR#: [id number] [facility] Other XR hip RT min 2V(w/wo pelvis)* [id number] [employer] Other XR hip RT min 2V(w/wo pelvis)* : 1950 Acct:[id number] [facility] Other XR hip RT min 2V(w/wo pelvis)* Age/Sex: 71 / F ADM Date: 01/03/22 [facility] Other XR hip RT min 2V(w/wo pelvis)* Loc: [facility] Room: Type: REG CLI [facility] Other XR hip RT min 2V(w/wo pelvis)* Attending Dr: Mick Abernathy DO [facility] Other XR hip RT min 2V(w/wo pelvis)* Ordering Provider: Mick Abernathy DO [facility] Other XR hip RT min 2V(w/wo pelvis)* Date of Service: 01/03/22 [facility] Other XR hip RT min 2V(w/wo pelvis)* XR/XR hip RT min 2V(w/wo pelvis)*: Right hip pain [employer] Other XR hip RT min 2V(w/wo pelvis)* ([id number]) XR/XR lumbar spine AP/LAT/FLX/EXT: Lumbar back pain [employer] Other XR hip RT min 2V(w/wo pelvis)* Copies to: Mick Aberanthy DO [facility] Other XR hip RT min 2V(w/wo pelvis)* CLINICAL DATA: Low back pain radiating to the right hip when ambulating. No specific injury. [facility] Other XR hip RT min 2V(w/wo pelvis)* LUMBAR SPINE WITH FLEXION AND EXTENSION VIEWS - 4 VIEWS [facility] Other XR hip RT min 2V(w/wo pelvis)* COMPARISON: 08/01/2018 [employer] Other XR hip RT min 2V(w/wo pelvis)* Standing AP as well as lateral views in neutral, flexion and extension were obtained. There is [employer] Other XR hip RT min 2V(w/wo pelvis)* osteopenia. There is slight rotatory dextroscoliotic curvature. No acute fractures are identified. [employer] Other XR hip RT min 2V(w/wo pelvis)* There is minimal retrolisthesis of L2 on L3 and L3 on L4. Alignment does not change significantly [employer] Other XR hip RT min 2V(w/wo pelvis)* with flexion or extension. There is multilevel disc space narrowing with relative sparing at L4-5. [employer] Other XR hip RT min 2V(w/wo pelvis)* Endplate spurring is noted. There is lower lumbar facet disease, asymmetric at the lumbosacral [employer] Other XR hip RT min 2V(w/wo pelvis)* junction on the right. No paraspinal soft tissue abnormalities are seen. [facility] Other XR hip RT min 2V(w/wo pelvis)* XR/XR lumbar spine AP/LAT/FLX/EXT [facility] Other XR hip RT min 2V(w/wo pelvis)* IMPRESSION: [facility] Other XR hip RT min 2V(w/wo pelvis)* SUBTLE SCOLIOSIS AND DEGENERATIVE CHANGES, DESCRIBED [facility] Other XR hip RT min 2V(w/wo pelvis)* RIGHT HIP - 2 views [facility] Other XR hip RT min 2V(w/wo pelvis)* COMPARISON: 06/03/2019 [employer] Other XR hip RT min 2V(w/wo pelvis)* AP view the pelvis and frog-lateral view of the right hip were obtained. There is no acute fracture [employer] Other XR hip RT min 2V(w/wo pelvis)* or dislocation. The hip joint spaces are symmetric. There is no prominent developing hypertrophy. [employer] Other XR hip RT min 2V(w/wo pelvis)* Mild subchondral cystic changes seen at the right superior acetabulum. No soft tissue abnormalities [facility] Other XR hip RT min 2V(w/wo pelvis)* are noted. [facility] Other XR hip RT min 2V(w/wo pelvis)* NO ACUTE BONY FINDINGS. [employer] Other XR hip RT min 2V(w/wo pelvis)* Impression dictated by: Cara Cabrera M.D.01/03/2022 4:16 PM [facility] Other XR hip RT min 2V(w/wo pelvis)* Dictation Location: [place] [address] [employer] Other XR hip RT min 2V(w/wo pelvis)* Transcribed By: RYLEY 01/03/22 1616 [facility] Other XR hip RT min 2V(w/wo pelvis)* Dictated By: Cara Cabrera MD 01/03/22 [facility] [employer] Other XR hip RT min 2V(w/wo pelvis)* Signed By: [facility] Other XR hip RT min 2V(w/wo pelvis)* 01/03/22 [facility] [employer] Other Vital Signs Date Time Vital Sign Value Performing Clinician Laurie boo 06-29-2025 10:15-0400 Diastolic blood pressure 84 mm[Hg] Monster Harding DO Work Phone: [facility] 06-29-2025 10:15-0400 Heart rate 79 /min Monster Harding DO Work Phone: [facility] 06-29-2025 10:15-0400 Respiratory rate 16 /min Monster Harding DO Work Phone: [facility] 06-29-2025 10:15-0400 SaO2% (BldA) [Mass fraction] 96 % Monster Harding DO Work Phone: [facility] 06-29-2025 10:15-0400 Systolic blood pressure 127 mm[Hg] Monster Harding DO Work Phone: [facility] 06-29-2025 09:35-0400 Inhaled oxygen flow rate 4 L/min Monster Harding DO Work Phone: [facility] 06-29-2025 08:10-0400 Body height 167.64 cm Monster Harding DO Work Phone: [facility] 06-29-2025 08:10-0400 Body weight 92.98 kg Monster Harding DO Work Phone: [facility] 06-24-2025 14:30-0400 Body weight 94.85 kg Monster Harding DO Work Phone: [facility] 06-24-2025 14:30-0400 Diastolic blood pressure 92 mm[Hg] Monster Harding DO Work Phone: [facility] 06-24-2025 14:30-0400 Heart rate 70 /min Monster Harding DO Work Phone: [facility] 06-24-2025 14:30-0400 SaO2% (BldA) [Mass fraction] 97 % Monster Harding DO Work Phone: [facility] 06-24-2025 14:30-0400 Systolic blood pressure 144 mm[Hg] Monster Harding DO Work Phone: [facility] 06-08-2025 15:15-0400 Diastolic blood pressure 69 mm[Hg] Monster Harding DO Work Phone: [facility] 06-08-2025 15:15-0400 Heart rate 104 /min Monster Harding DO Work Phone: [facility] 06-08-2025 15:15-0400 Respiratory rate 16 /min Monster Harding DO Work Phone: [facility] 06-08-2025 15:15-0400 SaO2% (BldA) [Mass fraction] 98 % Monster Harding DO Work Phone: [facility] 06-08-2025 15:15-0400 Systolic blood pressure 125 mm[Hg] Monster Harding DO Work Phone: [facility] 06-08-2025 13:55-0400 Body temperature 98.1 [degF] Monster Harding DO Work Phone: [facility] 06-08-2025 13:55-0400 Inhaled oxygen flow rate 8 L/min Monster Harding DO Work Phone: [facility] 06-08-2025 09:23-0400 Body height 167.64 cm Monster Harding DO Work Phone: [facility] 06-08-2025 09:23-0400 Body weight 96.61 kg Monster Harding DO Work Phone: [facility] 06-04-2025 17:57-0400 Diastolic blood pressure 101 mm[Hg] Monster Harding DO Work Phone: [facility] 06-04-2025 17:57-0400 Heart rate 90 /min Monster Harding DO Work Phone: [facility] 06-04-2025 17:57-0400 Respiratory rate 16 /min Monster Harding DO Work Phone: [facility] 06-04-2025 17:57-0400 SaO2% (BldA) [Mass fraction] 97 % Monster Harding DO Work Phone: [facility] 06-04-2025 17:57-0400 Systolic blood pressure 168 mm[Hg] Monster Harding DO Work Phone: [facility] 06-04-2025 16:00-0400 Inhaled oxygen flow rate 2 L/min Monster Harding DO Work Phone: [facility] 06-04-2025 13:26-0400 Body height 167.64 cm Monster Harding DO Work Phone: [facility] 06-04-2025 13:26-0400 Body weight 81.64 kg Monster Harding DO Work Phone: [facility] 06-04-2025 13:17-0400 Body temperature 97.5 [degF] Monster Harding DO Work Phone: [facility] 04-29-2025 14:11-0400 Diastolic blood pressure 75 mm[Hg] Monster Harding DO Work Phone: [facility] 04-29-2025 14:11-0400 Heart rate 57 /min Monster Harding DO Work Phone: [facility] 04-29-2025 14:11-0400 Respiratory rate 16 /min Monster Harding DO Work Phone: [facility] 04-29-2025 14:11-0400 SaO2% (BldA) [Mass fraction] 95 % Monster Harding DO Work Phone: [facility] 04-29-2025 14:11-0400 Systolic blood pressure 136 mm[Hg] Monster Harding DO Work Phone: [facility] 04-29-2025 12:11-0400 Inhaled oxygen flow rate 3 L/min Monster Harding DO Work Phone: [facility] 04-29-2025 10:57-0400 Body temperature 98 [degF] Monster Harding DO Work Phone: [facility] 04-29-2025 07:02-0400 Body height 167.64 cm Monster Harding DO Work Phone: [facility] 04-29-2025 07:02-0400 Body weight 97 kg Monster Harding DO Work Phone: [facility] 04-21-2025 14:14-0400 Body height 167.64 cm Monster Harding DO Work Phone: [facility] 04-21-2025 14:14-0400 Body mass index (BMI) [Ratio] 35.2 kg/m2 Monster Harding DO Work Phone: [facility] 04-21-2025 14:14-0400 Body weight 98.88 kg Monster Harding DO Work Phone: [facility] 04-13-2025 12:56-0400 Body height 167.64 cm Monster Harding DO Work Phone: [facility] 04-13-2025 12:56-0400 Body mass index (BMI) [Ratio] 34.3 kg/m2 Monster Harding DO Work Phone: [facility] 04-13-2025 12:56-0400 Body temperature 98 [degF] Monster Harding DO Work Phone: [facility] 04-13-2025 12:56-0400 Body weight 96.61 kg Monster Ximena DO Work Phone: [facility] 04-13-2025 12:56-0400 Diastolic blood pressure 86 mm[Hg] Monster Harding DO Work Phone: [facility] 04-13-2025 12:56-0400 Heart rate 84 /min Monster Harding DO Work Phone: [facility] 04-13-2025 12:56-0400 SaO2% (BldA) [Mass fraction] 99 % Monster Ximena DO Work Phone: [facility] 04-13-2025 12:56-0400 Systolic blood pressure 138 mm[Hg] Monster Harding DO Work Phone: [facility] 03-31-2025 13:05-0400 Body height 167.64 cm Monster Harding DO Work Phone: [facility] 03-31-2025 13:05-0400 Body mass index (BMI) [Ratio] 34.4 kg/m2 Monster Harding DO Work Phone: [facility] 03-31-2025 13:05-0400 Body weight 97 kg Monster Ximena DO Work Phone: [facility] 02-23-2025 11:17-0400 Diastolic blood pressure 87 mm[Hg] Monster Amadoryeny DO Work Phone: [facility] 02-23-2025 11:17-0400 Heart rate 68 /min Monster Amadoryeny DO Work Phone: [facility] 02-23-2025 11:17-0400 Respiratory rate 16 /min Monster Amadoryeny DO Work Phone: [facility] 02-23-2025 11:17-0400 SaO2% (BldA) [Mass fraction] 96 % Monster Harding DO Work Phone: [facility] 02-23-2025 11:17-0400 Systolic blood pressure 142 mm[Hg] Monster Harding DO Work Phone: [facility] 02-23-2025 10:35-0400 Inhaled oxygen flow rate 4 L/min Monster Amadoryeny DO Work Phone: [facility] 02-23-2025 10:16-0400 Body height 167.64 cm Monster Ximena DO Work Phone: [facility] 02-23-2025 10:16-0400 Body weight 97.52 kg Monster Harding DO Work Phone: [facility] 02-09-2025 09:40-0400 Diastolic blood pressure 88 mm[Hg] Monster Harding DO Work Phone: [facility] 02-09-2025 09:40-0400 Heart rate 70 /min Monster Harding DO Work Phone: [facility] 02-09-2025 09:40-0400 Respiratory rate 16 /min Monster Harding DO Work Phone: [facility] 02-09-2025 09:40-0400 SaO2% (BldA) [Mass fraction] 99 % Monster Harding DO Work Phone: [facility] 02-09-2025 09:40-0400 Systolic blood pressure 153 mm[Hg] Monster Harding DO Work Phone: [facility] 02-09-2025 09:00-0400 Inhaled oxygen flow rate 3 L/min Monster Harding DO Work Phone: [facility] 02-09-2025 07:39-0400 Body height 167.64 cm Monster Harding DO Work Phone: [facility] 02-09-2025 07:39-0400 Body weight 97.52 kg Monster Harding DO Work Phone: [facility] 01-19-2025 09:53-0400 Diastolic blood pressure 81 mm[Hg] Monster Harding DO Work Phone: [facility] 01-19-2025 09:53-0400 Heart rate 62 /min Monster Harding DO Work Phone: [facility] 01-19-2025 09:53-0400 Respiratory rate 16 /min Monster Harding DO Work Phone: [facility] 01-19-2025 09:53-0400 SaO2% (BldA) [Mass fraction] 95 % Monster Harding DO Work Phone: [facility] 01-19-2025 09:53-0400 Systolic blood pressure 147 mm[Hg] Monster Harding DO Work Phone: [facility] 01-19-2025 09:16-0400 Inhaled oxygen flow rate 4 L/min Monster Harding DO Work Phone: [facility] 01-19-2025 08:40-0400 Body height 167.64 cm Monster Harding DO Work Phone: [facility] 01-19-2025 08:40-0400 Body weight 93.89 kg Monster Harding DO Work Phone: [facility] 01-12-2025 09:42-0400 Diastolic blood pressure 86 mm[Hg] Monster Harding DO Work Phone: [facility] 01-12-2025 09:42-0400 Heart rate 76 /min Monster Harding DO Work Phone: [facility] 01-12-2025 09:42-0400 Respiratory rate 16 /min Monster Harding DO Work Phone: [facility] 01-12-2025 09:42-0400 SaO2% (BldA) [Mass fraction] 96 % Monster Harding DO Work Phone: [facility] 01-12-2025 09:42-0400 Systolic blood pressure 144 mm[Hg] Monster Harding DO Work Phone: [facility] 01-12-2025 09:00-0400 Inhaled oxygen flow rate 3 L/min Monster Harding DO Work Phone: [facility] 01-12-2025 07:09-0400 Body height 167.64 cm Monster Harding DO Work Phone: [facility] 01-12-2025 07:09-0400 Body weight 92.98 kg Monster Harding DO Work Phone: [facility] 12-10-2024 13:42-0500 Body mass index (BMI) [Ratio] 34.88 kg/m2 Agustinkyree Gayle DO Work Phone: [facility] 12-10-2024 13:42-0500 Body weight 95.07 kg Agustinkyree Gayle DO Work Phone: [facility] 12-10-2024 13:42-0500 Diastolic blood pressure 78 mm[Hg] Dean Gayle DO Work Phone: [facility] 12-10-2024 13:42-0500 Heart rate 82 /min Dean Gayle DO Work Phone: [facility] 12-10-2024 13:42-0500 SaO2% (BldA) [Mass fraction] 97 % Dean Gayle DO Work Phone: [facility] 12-10-2024 13:42-0500 Systolic blood pressure 130 mm[Hg] Dean Nalini DO Work Phone: [facility] 11-23-2024 05:42-0500 Diastolic blood pressure 69 mm[Hg] Monster Harding DO Work Phone: [facility] 11-23-2024 05:42-0500 Heart rate 71 /min Monster Harding DO Work Phone: [facility] 11-23-2024 05:42-0500 Respiratory rate 18 /min Monster Harding DO Work Phone: [facility] 11-23-2024 05:42-0500 SaO2% (BldA) [Mass fraction] 99 % Monster Harding DO Work Phone: [facility] 11-23-2024 05:42-0500 Systolic blood pressure 132 mm[Hg] Monster Harding DO Work Phone: [facility] 11-23-2024 02:38-0500 Body temperature 97.5 [degF] Monster Harding DO Work Phone: [facility] 11-23-2024 02:37-0500 Body height 167.64 cm Monster Harding DO Work Phone: [facility] 11-23-2024 02:37-0500 Body weight 95.9 kg Monster Harding DO Work Phone: [facility] 11-06-2024 09:48-0500 Body height 167.64 cm Monster Harding DO Work Phone: [facility] 11-06-2024 09:48-0500 Body temperature 97.3 [degF] Monster Harding DO Work Phone: [facility] 11-06-2024 09:48-0500 Diastolic blood pressure 84 mm[Hg] Monster Harding DO Work Phone: [facility] 11-06-2024 09:48-0500 Heart rate 79 /min Monster Harding DO Work Phone: [facility] [facility] 11-06-2024 09:48-0500 SaO2% (BldA) [Mass fraction] 98 % Monster Harding DO Work Phone: [facility] 11-06-2024 09:48-0500 Systolic blood pressure 140 mm[Hg] Monster Harding DO Work Phone: [facility] 10-22-2024 13:05-0500 Body height 167.64 cm Monster Harding DO Work Phone: [facility] 10-22-2024 13:05-0500 Body mass index (BMI) [Ratio] 32.3 kg/m2 Monster Harding DO Work Phone: [facility] 10-22-2024 13:05-0500 Body weight 91 kg Monster Harding DO Work Phone: [facility] 10-21-2024 09:48-0500 Body height 167.64 cm Monster Harding DO Work Phone: [facility] 10-21-2024 09:48-0500 Body mass index (BMI) [Ratio] 32.4 kg/m2 Monster Harding DO Work Phone: [facility] 10-21-2024 09:48-0500 Body temperature 97.3 [degF] Monster Harding DO Work Phone: [facility] 10-21-2024 09:48-0500 Body weight 91.17 kg Monster Harding DO Work Phone: [facility] 10-21-2024 09:48-0500 Diastolic blood pressure 86 mm[Hg] Monster Harding DO Work Phone: [facility] 10-21-2024 09:48-0500 Heart rate 80 /min Monster Harding DO Work Phone: [facility] 10-21-2024 09:48-0500 Respiratory rate 16 /min Monster Harding DO Work Phone: [facility] 10-21-2024 09:48-0500 SaO2% (BldA) [Mass fraction] 99 % Monster Amadoryeny DO Work Phone: [facility] 10-21-2024 09:48-0500 Systolic blood pressure 128 mm[Hg] Monster Harding DO Work Phone: [facility] 08-18-2024 11:45-0500 Diastolic blood pressure 68 mm[Hg] Monster Harding DO Work Phone: [facility] 08-18-2024 11:45-0500 Heart rate 70 /min Monster Harding DO Work Phone: [facility] 08-18-2024 11:45-0500 Respiratory rate 16 /min Monster Harding DO Work Phone: [facility] 08-18-2024 11:45-0500 SaO2% (BldA) [Mass fraction] 98 % Monster Harding DO Work Phone: [facility] 08-18-2024 11:45-0500 Systolic blood pressure 141 mm[Hg] Monster Harding DO Work Phone: [facility] 08-18-2024 11:09-0500 Inhaled oxygen flow rate 3 L/min Monster Harding DO Work Phone: [facility] 08-18-2024 10:32-0500 Body height 167.64 cm Monster Harding DO Work Phone: [facility] 08-18-2024 10:32-0500 Body weight 88.9 kg Monster Harding DO Work Phone: [facility] 07-07-2024 10:31-0400 Body mass index (BMI) [Ratio] 31.6 kg/m2 [facility] 07-07-2024 10:31-0400 Body temperature 97.7 [degF] [facility] 07-07-2024 10:31-0400 Diastolic blood pressure 74 mm[Hg] [facility] 07-07-2024 10:31-0400 Respiratory rate 18 /min [facility] 07-07-2024 10:31-0400 SaO2% (BldA) [Mass fraction] 98 % [facility] 07-07-2024 10:31-0400 Systolic blood pressure 116 mm[Hg] [facility] 07-07-2024 08:57-0400 Body height 167.64 cm [facility] 07-07-2024 08:57-0400 Body weight 88.9 kg [facility] 06-10-2024 09:43-0400 Body height 167.64 cm [facility] 06-10-2024 09:43-0400 Body mass index (BMI) [Ratio] 32.3 kg/m2 [facility] 06-10-2024 09:43-0400 Body temperature 97.1 [degF] [facility] 06-10-2024 09:43-0400 Body weight 90.71 kg [facility] 06-10-2024 09:43-0400 Diastolic blood pressure 80 mm[Hg] [facility] 06-10-2024 09:43-0400 Heart rate 82 /min [facility] 06-10-2024 09:43-0400 SaO2% (BldA) [Mass fraction] 99 % [facility] 06-10-2024 09:43-0400 Systolic blood pressure 118 mm[Hg] [facility] 05-11-2024 12:18-0400 Body height 167.64 cm [facility] 05-11-2024 12:18-0400 Body mass index (BMI) [Ratio] 33.5 kg/m2 [facility] 05-11-2024 12:18-0400 Body temperature 97.2 [degF] [facility] 05-11-2024 12:18-0400 Body weight 94.34 kg [facility] 05-11-2024 12:18-0400 Diastolic blood pressure 76 mm[Hg] [facility] 05-11-2024 12:18-0400 Heart rate 94 /min [facility] 05-11-2024 12:18-0400 SaO2% (BldA) [Mass fraction] 97 % [facility] 05-11-2024 12:18-0400 Systolic blood pressure 122 mm[Hg] [facility] 11-18-2023 11:10-0500 Body height 167.64 cm Monster Harding Other [employer] Other 11-18-2023 11:10-0500 Body mass index (BMI) [Ratio] 33.41 kg/m2 Monster Harding Other [employer] Other 11-18-2023 11:10-0500 Body temperature 97.8 [degF] Monster Harding Other [employer] Other 11-18-2023 11:10-0500 Body weight 93.9 kg Monster Harding Other [employer] Other 11-18-2023 11:10-0500 Diastolic blood pressure 82 mm[Hg] Monster Harding Other [employer] Other 11-18-2023 11:10-0500 Respiratory rate 18 /min Monster Harding Other [employer] Other 11-18-2023 11:10-0500 SaO2% (BldA) [Mass fraction] 98 % Monster Harding Other [employer] Other 11-18-2023 11:10-0500 Systolic blood pressure 122 mm[Hg] Monster Harding Other [employer] Other 11-05-2023 10:10-0500 Diastolic blood pressure 71 mm[Hg] DO Monster Harding Work Phone: [facility] 11-05-2023 10:10-0500 Heart rate 76 /min DO Monster Harding Work Phone: [facility] 11-05-2023 10:10-0500 Respiratory rate 16 /min DO Monster Harding Work Phone: [facility] 11-05-2023 10:10-0500 SaO2% (BldA) [Mass fraction] 96 % DO Monster Harding Work Phone: [facility] 11-05-2023 10:10-0500 Systolic blood pressure 128 mm[Hg] DO Monster Harding Work Phone: [facility] 11-05-2023 09:26-0500 Inhaled oxygen flow rate 3 L/min DO Monster Harding Work Phone: [facility] 11-05-2023 08:39-0500 Body height 167.64 cm DO Monster Harding Work Phone: [facility] 11-05-2023 08:39-0500 Body weight 95.7 kg DO Monster Harding Work Phone: [facility] 10-21-2023 17:40-0500 Body height 167.64 cm Monster Amadoryeny Other [employer] Other 10-21-2023 17:40-0500 Body mass index (BMI) [Ratio] 35.34 kg/m2 Monster Harding Other [employer] Other 10-21-2023 17:40-0500 Body temperature 97.5 [degF] Monster Harding Other [employer] Other 10-21-2023 17:40-0500 Body weight 99.34 kg Monster Harding Other [employer] Other 10-21-2023 17:40-0500 Diastolic blood pressure 86 mm[Hg] Monster Harding Other [employer] Other 10-21-2023 17:40-0500 Respiratory rate 18 /min Monster Harding Other [facility] [employer] Other 10-21-2023 17:40-0500 SaO2% (BldA) [Mass fraction] 98 % Monster Harding Other [facility] [employer] Other 10-21-2023 17:40-0500 Systolic blood pressure 136 mm[Hg] Monster Amadoryeny Other [facility] [employer] Other 05-21-2023 12:27-0400 Diastolic blood pressure 99 mm[Hg] DO Monster Harding Work Phone: [facility] 05-21-2023 12:27-0400 Heart rate 62 /min DO Monster Harding Work Phone: [facility] 05-21-2023 12:27-0400 Respiratory rate 18 /min DO Monster Harding Work Phone: [facility] 05-21-2023 12:27-0400 SaO2% (BldA) [Mass fraction] 96 % DO Monster Harding Work Phone: [facility] 05-21-2023 12:27-0400 Systolic blood pressure 156 mm[Hg] DO Monster Harding Work Phone: [facility] 05-21-2023 11:46-0400 Inhaled oxygen flow rate 3 L/min DO Monster Harding Work Phone: [facility] 05-21-2023 10:55-0400 Body height 167.64 cm DO Monster Harding Work Phone: [facility] 05-21-2023 10:55-0400 Body weight 96.61 kg DO Monster Harding Work Phone: [facility] 05-13-2023 03:26-0400 Body height 167.64 cm DO Monster Harding Work Phone: [facility] 05-13-2023 03:26-0400 Body temperature 96.8 [degF] DO Monster Harding Work Phone: [facility] 05-13-2023 03:26-0400 Body weight 97.55 kg DO Monster Harding Work Phone: [facility] 05-13-2023 03:26-0400 Diastolic blood pressure 77 mm[Hg] DO Monster Harding Work Phone: [facility] 05-13-2023 03:26-0400 Heart rate 67 /min DO Monster Harding Work Phone: [facility] 05-13-2023 03:26-0400 Respiratory rate 20 /min DO Monster Harding Work Phone: [facility] 05-13-2023 03:26-0400 SaO2% (BldA) [Mass fraction] 97 % DO Monster Harding Work Phone: [facility] 05-13-2023 03:26-0400 Systolic blood pressure 163 mm[Hg] DO Monster Harding Work Phone: [facility] 10-09-2022 09:20-0500 Body height 167.64 cm Marc Luciano Other [facility] [address] [facility] [employer] Other 10-09-2022 09:20-0500 Body mass index (BMI) [Ratio] 35.99 kg/m2 Marc Luciano Other [facility] [facility] [employer] Other 10-09-2022 09:20-0500 Body weight 101.15 kg Marc Luciano Other [facility] [facility] [employer] Other 08-16-2022 16:17-0500 Body height 167.64 cm DO Monster Harding Work Phone: [facility] 08-16-2022 16:17-0500 Body weight 103.2 kg DO Monster Harding Work Phone: [facility] 08-16-2022 16:17-0500 Diastolic blood pressure 86 mm[Hg] DO Monster Harding Work Phone: [facility] 08-16-2022 16:17-0500 Heart rate 75 /min DO Monster Harding Work Phone: [facility] 08-16-2022 16:17-0500 Respiratory rate 18 /min DO Monster Harding Work Phone: [facility] 08-16-2022 16:17-0500 SaO2% (BldA) [Mass fraction] 95 % DO Monster Harding Work Phone: [facility] 08-16-2022 16:17-0500 Systolic blood pressure 153 mm[Hg] DO Monster Harding Work Phone: [facility] 08-15-2022 11:30-0500 Body height 167.64 cm Mick Abernathy Other [facility] [facility] [employer] Other 08-15-2022 11:30-0500 Body mass index (BMI) [Ratio] 35.99 kg/m2 Mick Abernathy Other [facility] [facility] [employer] Other 08-15-2022 11:30-0500 Body weight 101.15 kg Mick Abernathy Other [employer] Other 06-21-2022 16:00-0400 Body height 167.64 cm Bradley Adkins Other [employer] Other 05-29-2022 14:43-0400 Body height 167.64 cm DO Monster Harding Work Phone: [facility] 05-29-2022 14:43-0400 Body weight 97.52 kg DO Monster Harding Work Phone: [facility] 05-09-2022 14:15-0400 Body height 167.64 cm Mick Abernathy Other [employer] Other 05-09-2022 14:15-0400 Body mass index (BMI) [Ratio] 34.7 kg/m2 Mick Wickley Other [employer] Other 05-09-2022 14:15-0400 Body weight 97.52 kg Mick Abernathy Other [employer] Other 12-06-2021 13:45-0500 Body height 167.64 cm Mick Wickley Other [employer] Other 12-06-2021 13:45-0500 Body mass index (BMI) [Ratio] 35.67 kg/m2 Mick Wickley Other [employer] Other 12-06-2021 13:45-0500 Body weight 100.25 kg Mick Abernathy Other [employer] Other 10-04-2021 14:45-0500 Body height 167.64 cm Mick Abernathy Other [employer] Other 10-04-2021 14:45-0500 Body mass index (BMI) [Ratio] 35.99 kg/m2 Mick Abernathy Other [employer] Other 10-04-2021 14:45-0500 Body weight 101.15 kg Mick Wickley Other [employer] Other 10-04-2021 14:45-0500 Respiratory rate 18 /min Mick Michela Other [employer] Other 10-04-2021 14:45-0500 SaO2% (BldA) [Mass fraction] 98 % Mick Abernathy Other [employer] Other Encounters Encounter Date Encounter Type Care Provider Facility Start: 06-29-2025 End: 06-29-2025 ambulatory Monster Harding Facility:[facility] Start: 06-29-2025 Non-patient / Non-visit Bradley Grewal MD -[facility] Work Phone: Start: 06-24-2025 End: 06-24-2025 ambulatory Monster Harding DO Work Phone: [facility] Work Phone: Start: 06-24-2025 End: 06-24-2025 Patient encounter procedure Dean Boyd DO -[facility] [place] Work Phone: Start: 06-23-2025 End: 06-23-2025 ambulatory Monster Harding DO Work Phone: [facility] Work Phone: Start: 06-23-2025 End: 06-23-2025 Patient encounter procedure Bradley Grewal MD -[facility] Work Phone: Start: 06-23-2025 End: 06-23-2025 Patient encounter procedure Mick Abernathy DO -[facility] Start: 06-23-2025 End: 06-23-2025 ambulatory Monster Harding DO Work Phone: [facility] Work Phone: Start: 06-08-2025 End: 06-08-2025 ambulatory Monster Harding Facility:[facility] Start: 06-08-2025 Non-patient / Non-visit Mick jones DO -[facility] Work Phone: Start: 06-04-2025 End: 06-04-2025 Emergency department patient visit Monster Ximena Work Phone: -Emergency Room Work Phone: Start: 06-03-2025 End: 06-03-2025 ambulatory Monster Harding DO Work Phone: [facility] Work Phone: Start: 06-03-2025 End: 06-03-2025 Patient encounter procedure Bradley Grewal MD -[facility] Work Phone: Start: 05-21-2025 End: 05-21-2025 ambulatory Monster Harding DO Work Phone: [facility] Work Phone: Start: 05-21-2025 End: 05-21-2025 Patient encounter procedure Mick Abernathy DO -[facility] Work Phone: Start: 04-29-2025 End: 04-29-2025 Admission to same day surgery center Mick Abernathy DO -[facility] [place] [facility] [place] Start: 04-29-2025 End: 04-29-2025 ambulatory Monster Harding DO Work Phone: [facility] Work Phone: Start: 04-22-2025 Non-patient / Non-visit Mick jones DO -[facility] Work Phone: Start: 04-21-2025 End: 04-21-2025 ambulatory Monster Harding DO Work Phone: [facility] Work Phone: Start: 04-21-2025 End: 04-21-2025 Patient encounter procedure Mick Abernathy DO [facility] Work Phone: Start: 04-21-2025 Registered Recurring Mick Abernathy DO -Physical Therapy [facility] [place] Start: 04-21-2025 ambulatory Monster Harding Facility:[facility] Start: 04-21-2025 Encounter for other preprocedural examination Mick Cardenas [facility] Start: 04-13-2025 End: 04-13-2025 ambulatory Monster Harding DO Work Phone: [facility] Work Phone: Start: 04-13-2025 End: 04-13-2025 Patient encounter procedure Monster Harding DO -[facility] Work Phone: Start: 04-13-2025 End: 04-13-2025 Patient encounter status Monster Amadoryeny [facility] Start: 04-12-2025 End: 04-12-2025 Patient encounter procedure Mick Abernathy DO -Pre-Surgical Testing Work Phone: Start: 04-12-2025 End: 04-12-2025 ambulatory Monster Harding DO Work Phone: [facility] Work Phone: Start: 04-12-2025 Encounter for preprocedural laboratory examination Mick Cardenas [facility] Start: 03-31-2025 End: 03-31-2025 ambulatory Monster Harding DO Work Phone: [facility] Work Phone: Start: 03-31-2025 End: 03-31-2025 Patient encounter procedure Mick Abernathy DO -[facility] Work Phone: Start: 03-22-2025 End: 03-22-2025 Patient encounter procedure Bradley Grewal MD -[facility] Work Phone: Start: 02-23-2025 Non-patient / Non-visit Bradley Grewal MD -[facility] Work Phone: Start: 02-23-2025 End: 02-23-2025 Admission to same day surgery center Bradley Grewal MD [facility] Work Phone: Start: 02-23-2025 End: 02-23-2025 ambulatory Monster Harding Facility:[facility] Start: 02-17-2025 End: 02-17-2025 ambulatory Monster Harding DO Work Phone: [facility] Work Phone: Start: 02-17-2025 End: 02-17-2025 Patient encounter procedure Monster Harding DO Work Phone: [facility] Work Phone: Start: 02-09-2025 Non-patient / Non-visit Monster Girvin DO Work Phone: [facility] Work Phone: Start: 02-09-2025 End: 02-09-2025 Admission to same day surgery center Monster Harding DO Work Phone: [facility] Work Phone: Start: 02-09-2025 End: 02-09-2025 ambulatory Monster Harding DO Work Phone: [facility] Work Phone: Start: 01-26-2025 End: 01-26-2025 ambulatory Monster Harding DO Work Phone: [facility] Work Phone: Start: 01-26-2025 End: 01-26-2025 Patient encounter procedure Monster Harding DO Work Phone: [facility] Work Phone: Start: 01-25-2025 Non-patient / Non-visit Monster Harding DO Work Phone: [facility] Work Phone: Start: 01-19-2025 Non-patient / Non-visit Monster Harding DO Work Phone: [facility] Work Phone: Start: 01-19-2025 End: 01-19-2025 Admission to same day surgery center Monster Harding DO Work Phone: [facility] Work Phone: Start: 01-19-2025 End: 01-19-2025 ambulatory Monster Harding DO Work Phone: [facility] Work Phone: Start: 01-12-2025 Non-patient / Non-visit Monster Harding DO Work Phone: [facility] Work Phone: Start: 01-12-2025 End: 01-12-2025 Admission to same day surgery center Monster Harding DO Work Phone: [facility] Work Phone: Start: 01-12-2025 End: 01-12-2025 ambulatory Monster Harding DO Work Phone: [facility] Work Phone: Start: 12-10-2024 End: 12-10-2024 Bamboo flowsheet Christopher Nalini DO Work Phone: [facility] Start: 12-10-2024 End: 12-10-2024 Bamboo flowsheet Christopher Nalini DO Work Phone: [facility] Start: 12-10-2024 End: 12-10-2024 Office outpatient new 45 minutes Christtyson Gayle DO Work Phone: [facility] Comment on above: History of TIA (centeno sient ischemic attack) (Primary Dx) Start: 12-10-2024 End: 12-10-2024 ambulatory DEAN GAYLE Not Available Start: 11-30-2024 End: 11-30-2024 ambulatory Monster Harding DO Work Phone: [facility] Work Phone: Start: 11-30-2024 End: 11-30-2024 Patient encounter procedure Monster Harding DO Work Phone: [facility] [place] Work Phone: Start: 11-26-2024 Non-patient / Non-visit Monster Harding DO Work Phone: [facility] Family Medicine [place] Work Phone: Start: 11-23-2024 End: 11-23-2024 Emergency department patient visit Monster Harding DO Work Phone: [facility]-Emergency Room Work Phone: Start: 11-16-2024 End: 11-16-2024 Patient encounter procedure Monster Harding DO Work Phone: [facility]-MRI [address] Closed Work Phone: Start: 11-16-2024 End: 11-16-2024 ambulatory Monster Harding DO Work Phone: [facility] Work Phone: Start: 11-10-2024 End: 11-10-2024 Patient encounter procedure Monster Harding DO Work Phone: [facility] [place] Work Phone: Start: 11-10-2024 End: 11-10-2024 ambulatory Monster Harding DO Work Phone: [facility] Work Phone: Start: 11-09-2024 Non-patient / Non-visit Monster Harding DO Work Phone: [facility] Work Phone: Start: 11-06-2024 End: 11-06-2024 ambulatory Monster Amadoryeny DO Work Phone: [facility] Work Phone: Start: 11-06-2024 End: 11-06-2024 Patient encounter procedure Monster Amadoryeny DO Work Phone: [facility] Work Phone: Start: 11-03-2024 ambulatory [facility] Start: 11-02-2024 End: 11-03-2024 Emergency department patient visit [facility] Start: 11-02-2024 Non-patient / Non-visit Monster Harding DO Work Phone: [facility] Work Phone: Start: 10-22-2024 End: 10-22-2024 ambulatory Monster Harding DO Work Phone: [facility] Work Phone: Start: 10-22-2024 End: 10-22-2024 Patient encounter procedure Monster Amadoryeny DO Work Phone: [facility] Work Phone: Start: 10-21-2024 End: 10-21-2024 ambulatory Monster Amadoryeny DO Work Phone: [facility] Work Phone: Start: 10-21-2024 End: 10-21-2024 Patient encounter procedure Monster Amadoryeny [place] Work Phone: [facility] Family Medicine [place] Work Phone: Start: 08-26-2024 End: 08-26-2024 ambulatory Monster Amadoryeny DO Work Phone: [facility] Work Phone: Start: 08-26-2024 End: 08-26-2024 Patient encounter procedure Monster Harding DO Work Phone: [facility] Work Phone: Start: 08-18-2024 Non-patient / Non-visit Monster Harding DO Work Phone: [facility] Pain Management Work Phone: Start: 08-18-2024 End: 08-18-2024 Admission to same day surgery center Monster Harding DO Work Phone: [facility] Work Phone: Start: 08-18-2024 End: 08-18-2024 ambulatory Monster Amadoryeny DO Work Phone: [facility] Work Phone: Start: 08-04-2024 End: 08-04-2024 ambulatory DO Monster Amadoryeny Work Phone: [facility] Work Phone: Start: 08-04-2024 End: 08-04-2024 Patient encounter procedure DO Monster Harding Work Phone: [facility] Work Phone: Start: 07-17-2024 End: 07-17-2024 Telephone encounter Loyd Langston MD Work Phone: [facility] Start: 07-07-2024 End: 07-07-2024 ambulatory [facility] [place] Work Phone: Start: 07-07-2024 End: 07-07-2024 Patient encounter procedure [facility] Family Medicine [place] Work Phone: Start: 06-10-2024 End: 06-10-2024 ambulatory [facility] Work Phone: Start: 06-10-2024 End: 06-10-2024 Patient encounter procedure [facility] Family Medicine [place] Work Phone: Start: 06-01-2024 Non-patient / Non-visit [facility] Work Phone: Start: 05-11-2024 End: 05-11-2024 ambulatory [facility] Work Phone: Start: 05-11-2024 End: 05-11-2024 Patient encounter procedure [facility] [place] Work Phone: Start: 11-18-2023 End: 11-18-2023 ambulatory Monster Harding Other [facility] [employer] Other Start: 11-18-2023 Office outpatient vi sit 15 minutes Monster Harding [facility] [place] Start: 11-05-2023 End: 11-05-2023 Admission to same day surgery center DO Monster Harding Work Phone: [facility] Work Phone: Start: 11-05-2023 End: 11-05-2023 ambulatory DO Monster Harding Work Phone: [facility] Work Phone: Start: 10-28-2023 End: 10-28-2023 ambulatory Monster Harding Other [facility] Other Start: 10-28-2023 Telephone encounter Monster Harding [facility] Family [facility] [place] Start: 10-23-2023 End: 10-23-2023 ambulatory Bradley Kraftkyree Other [facility] Other Start: 10-23-2023 Office outpatient vi sit 25 minutes Bradley Adkins [facility] [place] Start: 10-22-2023 End: 10-22-2023 ambulatory Monster Harding Other [facility] Other Start: 10-22-2023 Telephone encounter Monster Harding [facility] [place] Start: 10-21-2023 End: 10-21-2023 ambulatory Monsetr Harding Other [employer] Other Start: 10-21-2023 Office outpatient vi sit 15 minutes Monster Harding [facility] [place] Start: 10-21-2023 End: 10-21-2023 Patient encounter procedure DO Monster Harding Work Phone: [facility] [place] Work Phone: Start: 06-05-2023 End: 06-05-2023 ambulatory Bradley Swapnilkyree Other [facility] Other Start: 06-05-2023 Office outpatient vi sit 25 minutes Bradley Adkins [facility] [place] Start: 05-21-2023 (Procedure) Short Bradley Adkins [facility] Start: 05-21-2023 End: 05-21-2023 Admission to same day surgery center DO Monster Harding Work Phone: [facility] Work Phone: Start: 05-21-2023 End: 05-21-2023 ambulatory DO Monster Harding Work Phone: [facility] Work Phone: Start: 05-20-2023 End: 05-20-2023 ambulatory Monster Harding Other [employer] Other Start: 05-20-2023 Telephone encounter Monster Harding [facility] Medicine [place] Start: 05-14-2023 End: 05-14-2023 ambulatory Bradley Adkins Other [facility] Other Start: 05-14-2023 Office outpatient vi sit 25 minutes Bradley Adkins [facility] [place] Start: 05-13-2023 End: 05-13-2023 Emergency department patient visit DO Monster Harding Work Phone: [facility] Work Phone: Start: 05-01-2023 End: 05-01-2023 ambulatory DO Monster Haridng Work Phone: [facility] Work Phone: Start: 05-01-2023 End: 05-01-2023 Patient encounter procedure DO Monster Harding Work Phone: [facility] Work Phone: Start: 01-10-2023 End: 01-10-2023 ambulatory Monster Harding Other [facility] Other Start: 01-10-2023 Telephone encounter Monster Harding [facility] [place] Start: 10-09-2022 End: 10-09-2022 ambulatory Marc Luciano Other [place] [address] [facility] [employer] Other Start: 10-09-2022 Office outpatient ne w 30 minutes Marc Luciano [facility] Neurosurgery Start: 09-03-2022 (Procedure) Lily Adkins [facility] Start: 09-03-2022 End: 09-03-2022 ambulatory Bradley Adkins Other [facility] Other Start: 08-28-2022 End: 08-28-2022 ambulatory DO Monster Harding Work Phone: [facility] Work Phone: Start: 08-28-2022 End: 08-28-2022 Departed Referred DO Monster Harding Work Phone: [facility] [place] Start: 08-23-2022 End: 08-23-2022 ambulatory Bradley Adkins Other [facility] Other Start: 08-23-2022 Office outpatient vi sit 25 minutes Bradley Adkins [facility] [place] Start: 08-22-2022 End: 08-22-2022 ambulatory Monster Harding Other [facility] Other Start: 08-22-2022 Telephone encounter Monster Harding [facility] Family [facility] [place] Start: 08-21-2022 End: 08-21-2022 ambulatory Mick Abernathy Other [facility] Other Start: 08-21-2022 Telephone encounter Mick Abernathy [facility] Start: 08-16-2022 End: 08-16-2022 ambulatory DO Monster Harding Work Phone: [facility] Work Phone: Start: 08-16-2022 End: 08-16-2022 Patient encounter procedure DO Monster Harding Work Phone: [facility]Pre[facility] Start: 08-15-2022 End: 08-15-2022 ambulatory Mick Abernathy Other [facility] Other Start: 08-15-2022 Encounter for other preprocedural examination Mick Abernathy [facility] Start: 08-15-2022 Office outpatient vi sit 25 minutes Mick Abernathy [facility] Start: 07-31-2022 End: 07-31-2022 ambulatory Bradley Adkins Other [facility] Other Start: 07-31-2022 Office outpatient vi sit 25 minutes Bradley Adkins [facility] [place] Start: 07-17-2022 End: 07-17-2022 ambulatory Bradley Swapnilkyree Other [facility] Other Start: 07-17-2022 Office outpatient vi sit 25 minutes Bradley Adkins [facility] [place] Start: 06-21-2022 End: 06-21-2022 ambulatory Bradley Adkins Other [facility] Other Start: 06-21-2022 Office outpatient vi sit 25 minutes Bradley Adkins [facility] [place] Start: 06-04-2022 End: 06-04-2022 Patient encounter procedure DO Monster Harding Work Phone: [facility] Start: 05-29-2022 End: 05-29-2022 Patient encounter procedure DO Monster Harding Work Phone: [facility] Start: 05-09-2022 End: 05-09-2022 ambulatory Mick Abernathy Other [facility] Other Start: 05-09-2022 Office outpatient vi sit 15 minutes Mick Abernathy [facility] Start: 04-13-2022 End: 05-05-2022 ambulatory MICK ABERNATHY Facility: Start: 03-21-2022 End: 03-21-2022 ambulatory Mick Abernathy Other [facility] Other Start: 03-21-2022 Office outpatient vi sit 15 minutes Mick Abernathy [facility] Start: 03-12-2022 (Procedure) Lily Adkins [facility] Start: 03-12-2022 End: 03-12-2022 ambulatory Bradley Adkins Other [facility] Other Start: 02-19-2022 End: 02-19-2022 ambulatory Monster Harding Other [facility] Other Start: 02-19-2022 Telephone encounter Monster Harding [facility] Family [facility] [place] Start: 02-07-2022 End: 02-07-2022 ambulatory Mick Abernathy Other [facility] Other Start: 02-07-2022 Office outpatient vi sit 15 minutes Mick Abernathy [facility] Start: 01-15-2022 (Procedure) Lily Adkins [facility] Start: 01-15-2022 End: 01-15-2022 ambulatory Bradley Swapnilkyree Other [facility] Other Start: 01-03-2022 End: 01-03-2022 ambulatory Mick Aberntahy Other [facility] Other Start: 01-03-2022 Office outpatient vi sit 15 minutes Mick Abernathy [facility] Start: 12-06-2021 End: 12-06-2021 ambulatory Mick Abernathy Other [facility] Other Start: 12-06-2021 Office outpatient vi sit 15 minutes Mick Abernathy [facility] Start: 10-05-2021 End: 10-05-2021 ambulatory Mick Abernathy Other [facility] Other Start: 10-05-2021 Telephone encounter Mick Abernathy [facility] Start: 10-04-2021 End: 10-04-2021 ambulatory Mick Abernathy Other [facility] Other Start: 10-04-2021 Office outpatient vi sit 25 minutes Mick Abernathy [facility] Start: 10-17-2017 Ambulatory MOURHAF TRABOULSSI Faci lity:[id number] Start: 10-17-2017 Ambulatory Facility:[id number] Start: 09-12-2017 Ambulatory MOURHAF TRABOULSSI Faci lity:[id number] Start: 09-11-2017 Ambulatory TAHIR LOW Faci lity:[id number] Start: 09-11-2017 Ambulatory Facility:[id number] Procedures Date Procedure Procedure Detail Performing Clinician Start: 06-23-2025 Plain X-ray of left elbow Monster Dodge Work Phone: Start: 06-23-2025 X-ray of left knee, three views Monster Harding DO Work Phone: Start: 06-04-2025 CT of elbow, left Monster Harding DO Work Phone: Start: 06-04-2025 Plain X-ray of left elbow Monster Dodge Work Phone: Start: 06-04-2025 CT cervical spine without contrast Monster Harding DO Work Phone: Start: 06-04-2025 CT of head without contrast Monster Harding DO Work Phone: Start: 06-04-2025 Plain radiography of pelvis Monster Harding DO Work Phone: Start: 06-04-2025 Plain X-ray of left forearm Monster Harding DO Work Phone: Start: 06-04-2025 Plain X-ray of left humerus Monster Harding DO Work Phone: Start: 06-04-2025 X-ray of left knee, two views Monster Ximena DO Work Phone: Start: 05-21-2025 X-ray of left knee, three views Monster Harding DO Work Phone: Start: 04-29-2025 X-ray of left knee, two views Monster Ximena DO Work Phone: Start: 04-29-2025 Total replacement of left knee joint Monster Ximena DO Work Phone: Start: 04-29-2025 X-ray of left knee, two views Monster Ximena DO Work Phone: Start: 03-31-2025 X-ray of left knee, four views Monster Ximena DO Work Phone: Start: 02-23-2025 Radiofrequency destruction of peripheral nerve Monster Harding DO Work Phone: Start: 02-09-2025 Local anesthetic nerve block in lower limb Monster Harding DO Work Phone: Start: 01-19-2025 Local anesthetic nerve block in lower limb Monster Harding DO Work Phone: Start: 01-12-2025 Radiofrequency destruction of peripheral nerve Monster Harding DO Work Phone: Start: 11-23-2024 Plain chest X-ray Monster Harding DO Work Phone: Start: 11-16-2024 MRI of head Monster Harding DO Work Phone: Start: 11-16-2024 Plain X-ray of left shoulder Monster Harding DO Work Phone: Start: 11-16-2024 X-ray of cervical spine Monster Harding DO Work Phone: Start: 08-18-2024 Injection of local anesthetic into [...] Treatment Date Care Activity Detail Author Start: 06-29-2025 [facility] Start: 06-24-2025 Patient referral [place] Work Phone: Start: 06-23-2025 Plain X-ray of left elbow XR elbow L T 2V [facility] Start: 06-23-2025 X-ray of left knee, three views XR knee LT 3V - NOT FOR ER USE [facility] Start: 06-23-2025 XR Elbow - left 2 Views [facility] Start: 06-23-2025 XR Knee - left 3 Views [facility] Start: 06-08-2025 End: 06-08-2025 [facility] Start: 06-08-2025 XR Elbow - left GE 3 Views [facility] Start: 05-21-2025 X-ray of left knee, three views XR knee LT 3V - NOT FOR ER USE [facility] Start: 05-21-2025 XR Knee - left 3 Views [facility] Start: 05-01-2025 [facility] Start: 04-30-2025 [facility] Start: 04-29-2025 Hospital admission [facility] Start: 04-29-2025 Referral to occupati onal therapist [facility] Start: 04-29-2025 [facility] Start: 04-29-2025 End: 04-29-2025 [facility] Start: 04-29-2025 X-ray of left knee, two views XR knee LT 2V [facility] Start: 04-29-2025 XR Knee - left 2 Views [facility] Start: 03-31-2025 X-ray of left knee, four views XR knee LT 4V* [facility] Start: 03-31-2025 XR Knee - left 4 Views [facility] Start: 03-22-2025 Patient referral [place] Work Phone: Start: 02-23-2025 [facility] Start: 02-09-2025 [facility] Start: 01-19-2025 [facility] Start: 01-12-2025 [facility] Start: 12-10-2024 End: 12-10-2024 Patient encounter procedure 12/10/2024 2:00 PM EST Office Visit BENITO LONDONO [address] [place] [address] Dean Gayle DO [address] [place] [address] [id number] Arrived BENITO LONDONO Comment on above: Arrived Start: 11-23-2024 Plain chest X-ray XR chest 1V portab le [facility] Start: 11-23-2024 XR Chest Single view [facility] Start: 11-06-2024 Patient referral [place] Work Phone: Start: 08-18-2024 [facility] Start: 08-04-2024 X-ray of left knee, two views XR knee LT 2V [facility] Start: 08-04-2024 XR Knee - left 2 Views [facility] Start: 11-05-2023 [facility] Start: 05-21-2023 [facility] Start: 08-28-2022 Sacroiliac arthrodesis OR SI Fusion (Right) [facility] Start: 06-04-2022 MRI of pelvis with contrast MR pelvis wo/w con [facility] Start: 06-04-2022 End: 06-04-2022 Patient encounter procedure Departed Clinical [facility] [place] Bacteria identified in Urine by Culture [facility] Comprehensive metabo lic 2000 panel - Serum or Plasma [facility] MR Brain WO contrast [facility] Patient Education [facility] Work Phone: Patient referral [facility] Work Phone: XR Cervical spine 2 Views [facility] XR Shoulder - left Views [facility] Immunizations Immunization Date Immunization Notes Care Provider Fa cility 12-20-2020 COVID-19 Vaccine Moderna - Documentation Purposes Only Mick Abernathy Other [facility] 11-24-2020 COVID-19 Vaccine Moderna - Documentation Purposes Only Mick Abernathy Other [facility] NEGATED: Highlighted row has not occurred! 9 influenza, injectable,quadrival ent, preservative free, pediatric Patient Objection Mick Abernathy Other [facility] Other NEGATED: Highlighted row has not occurred! 9 influenza virus vaccine, unspecified formulation [facility] NEGATED: Highlighted row has not occurred! 6 pneumococcal polysaccharide vaccine, 23 valent Patient Objection Mick Abernathy Other [facility] NEGATED: Highlighted row has not occurred! 6 pneumococcal polysaccharide vaccine, 23 valent Patient Objection Mick Abernathy Other [facility] Payers Date Payer Category Payer Self-pay [id number] 2024 Self-pay [id number] 2022 [facility] Health [facility] [id number] 2022 Unknown AAR [employer]ARP [id number] 2022-Present [address] [place] [address] [id number] 2015 Medicare [id number] 1959 Medicare [id number] [id number] 1959 Unknown [id number] 2.16.840.1.968144.19 1950 Unknown [id number] 2.16.840.1.478906.3.579.2 .593 1950 Unknown [id number] 2.16.840.1.801212.3.579.2 .1259 Medicare [id number] Unknown [id number] 2.16.840.1.117762.3.579.2 .531 Unknown [id number] 2.16.840.1.885434.3.579.2 .531 Unknown [id number] 2.16.840.1.683512.3.579.2 .531 Unknown [id number] 2.16.840.1.503183.3.579.2 .531 Unknown [id number] 2.16.840.1.818631.3.579.2 .531 Unknown [id number] 2.16.840.1.391769.3.579.2 .531 Unknown [id number] 2.16.840.1.758679.3.579.2 .531 Unknown [id number] 2.16.840.1.029652.3.579.2 .531 Unknown [id number] 2.16.840.1.905205.3.579.2 .531 Unknown [id number] 2.16.840.1.911655.3.579.2 .531 Unknown [id number] 2.16.840.1.329962.3.579.2 .531 Unknown [id number] 2.16.840.1.730872.3.579.2 .531 Unknown [id number] 2.16.840.1.136362.3.579.2 .531 Unknown [id number] 2.16.840.1.667626.3.579.2 .531 Unknown [id number] 2.16.840.1.492041.3.579.2 .531 Unknown [id number] 2.16.840.1.570513.3.579.2 .531 Unknown [id number] 2.16.840.1.019002.3.579.2 .531 Unknown [id number] 2.16.840.1.912692.3.579.2 .531 Social History Date Type Detail Facility Unknown if ever smoked [facility] [employer] Other Start: 09-03-2023 Sex Assigned At N [facility] [employer] Other Start: 10-17-2021 End: 06-23-2025 Tobacco smoking status KYIS Never smoked tobacco (finding) [facility] Start: 1950 Sex Assigned At Female F [facility] Start: 09-03-2023 Tobacco use and exposure Smokeless [...] file N [facility] Start: 08-18-2024 End: 02-17-2025 Sex Female (finding) [facility] Start: 06-04-2025 End: 06-08-2025 Tobacco smoking status KYIS Ex-smoker (finding) [facility] Medical Equipment Procedure Code Equipment Code Equipment Origin al Text Equipment Identifier Dates Open reduction and internal fixation of fracture of humerus CANCELLOUS 7.5 CRUSHED FDA Start: 06-08-2025 Open reduction and internal fixation of fracture of humerus Orthopaedic bone screw (non-sliding) ()[id number] FDA Start: 06-08-2025 Open reduction and internal fixation of fracture of humerus Orthopaedic fixation plate, non-bioabsorbable, sterile ()[id number] FDA Start: 06-08-2025 Open reduction and internal fixation of fracture of humerus Orthopaedic bone screw, non-bioabsorbable, non-sterile ()[id number] FDA Start: 06-08-2025 Open reduction and internal fixation of fracture of humerus Tendon/ligament bone anchor, non-bioabsorbable ()[id number] FDA Start: 06-08-2025 Open reduction and internal fixation of fracture of humerus Orthopaedic bone screw, non-bioabsorbable, non-sterile ()[id number] FDA Start: 06-08-2025 Open reduction and internal fixation of fracture of humerus Orthopaedic bone screw, non-bioabsorbable, non-sterile ()[id number] FDA Start: 06-08-2025 Open reduction and internal fixation of fracture of humerus Orthopaedic bone screw, non-bioabsorbable, non-sterile ()[id number] FDA Start: 06-08-2025 Open reduction and internal fixation of fracture of humerus Orthopaedic bone screw (non-sliding) ()[id number] FDA Start: 06-08-2025 Open reduction and internal fixation of fracture of humerus Orthopaedic bone screw, non-bioabsorbable, non-sterile ()[id number] FDA Start: 06-08-2025 Open reduction and internal fixation of fracture of humerus CANCELLOUS 7.5 CRUSHED FDA Start: 06-08-2025 Open reduction and internal fixation of fracture of humerus CANCELLOUS 7.5 CRUSHED FDA Start: 06-08-2025 Open reduction and internal fixation of fracture of humerus CANCELLOUS 7.5 CRUSHED FDA Start: 06-08-2025 Open reduction and internal fixation of fracture of humerus CANCELLOUS 7.5 CRUSHED FDA Start: 06-08-2025 Arthroplasty, knee, total, minimally invasive Unicondylar knee prosthesis ()[id number] FDA Start: 04-29-2025 Arthroplasty, knee, total, minimally invasive Unicondylar knee prosthesis ()[id number] FDA Start: 04-29-2025 Arthroplasty, knee, total, minimally invasive Unicondylar knee prosthesis ()[id number] FDA Start: 04-29-2025 Goals Date Patient Goal Desired Activity /State Clinical Notes 09-11-2017 to 06-04-2025 Note Date & Type Note Facility 06-04-2025 Radiology Diagnostic study note [facility] [place] [address] CT Scan Report Signed Patient: Marisol Cantrell MR#: [id number] : 1950 Acct:[id number] Age/Sex: 74 / F ADM Date: 5 Loc: ER Room: Type: [facility] ER Attending Dr: Copies to: Gallo Wang PA-C~ Ordering Provider: Gallo Wang PA-C Date of Service: 06/04/25 CT/CT elbow LT wo con: for ortho CT elbow LT wo con 06/04/2025 5:13 PM SIGNS AND SYMPTOMS: Fall, left elbow fracture TECHNIQUE: Multidetector CT axial slices of the left elbow without IV contrast. Multiplanar and 3-D reformats were performed and viewed on a separate workstation and reviewed to further define anatomy and possible pathology. CT was performed with one or more of the following dose reduction techniques: Automated exposure control, adjustment of the mA and/or kV according to patient size, or use of iterative reconstruction technique. COMPARISON: Radiographs from the same date FINDINGS: There is a longitudinally oriented mildly displaced fracture of the lateral epicondyle. This communicates with the lateral aspect of the radiocapitellar joint space. There is a minimally displaced fracture of the coronoid process. This appears to be mildly comminuted. There is a tiny fracture fragment separate from the ulna along the proximal radioulnar joint subluxed laterally by 3 mm. The fragment measures 3 mm in greatest dimension. The joint spaces are preserved. There is interval resolution of previous dislocation. There is a similar joint effusion. The radius is intact. CT/CT elbow LT wo con IMPRESSION: There is a longitudinally oriented mildly displaced fracture of the lateral epicondyle. This communicates with the lateral aspect of the radiocapitellar joint space. There is a minimally displaced fracture of the coronoid process. This appears to be mildly comminuted. There is a tiny fracture fragment separate from the ulna along the proximal radioulnar joint subluxed laterally by 3 mm. The fragment measures 3 mm in greatest dimension. There is an accompanying joint effusion. Impression dictated by: Sanjay Baugh M.D. 06/04/2025 5:19 PM Dictation Location: RADIO--17 Transcribed By: RYLEY 06/04/251718 Dictated By: Sanjay Baugh II, MD 06/04/251712 Signed By: 06/04/251718 [facility] Work Phone: 06-04-2025 Radiology Diagnostic study note [facility] [place] [address] [place] [address] CT Scan Report Signed Patient: Marisol Cantrell MR#: [id number] : 1950 Acct:[id number] Age/Sex: 74 / F ADM Date: 5 Loc: ER Room: Type: [facility] ER Attending Dr: Copies to: Gallo Wang PA-C~ Ordering Provider: Gallo Wang PA-C Date of Service: 06/04/25 CT/CT cervical spine wo con: fall ([id number]) CT/CT head/brain wo con: fall CT BRAIN WITHOUT CONTRAST: CLINICAL HISTORY: COMPARISON: None TECHNIQUE: Contiguous axial unenhanced images were obtained through the brain. This CT exam was performed using one or more following dose reduction techniques: Automated exposure control, adjustment of the mA and/or kV accordingto patient size, or use of iterative reconstruction technique. FINDINGS: There is no evidence of midline shift, intra or extra-axial fluid collection, hemorrhage or CT evidence of stroke. Cortical atrophy with chronic microvascular ischemic changes. Posterior fossa appears unremarkable. Visualized intraorbital contents appear unremarkable. Visualized paranasal sinuses are clear. The surrounding soft tissues are normal. CT/CT head/brain wo con IMPRESSION: NO ACUTE INTRACRANIAL ABNORMALITY. CT CERVICAL SPINE WITHOUT CONTRAST WITH 3D RECONSTRUCTIONS: COMPARISON: None TECHNIQUE: Spiral axial unenhanced images were obtained through the cervical spine. Sagittal, coronal and 3D volume-rendered reconstructions were also reviewed. This CT exam was performed using one or more following dose reductiontechniques: Automated exposure control, adjustment of the mA and/or kV accordingto patient size, or use of iterative reconstruction technique. FINDINGS: Moderate diffuse spondylosis with relative sparing of C2-3. No fracture. No prevertebral soft tissue swelling. Visualized lung apices are clear. IMPRESSION: NO CERVICAL SPINE FRACTURE Impression dictated by: Richie Reyes Jr., D.O. 06/04/2025 2:16 PM Dictation Location: [place] [address] Transcribed By: [facility] 06/04/251415 Dictated By: Richie Reyes Jr, DO 06/04/251414 Signed By: 06/04/251415 [facility] 04-13-2025 Evaluation note Authored April 13, 2025 2:37p m The above note written by __ _Paco Stewart____ acting as human recorder, note dictated by Dr. Recinos .I performed the above HPI, ROS, and Examination. I formulated and dictated the treatment plan and was present for entire encounter. Monster Harding D.O. [facility] Work Phone: 1(245) 993-628505-06-2025 [place] [address] Pain Management Procedure Note Signed Patient: Marisol Cantrell MR#: [id number] : 1950 Acct:[id number] Age/Sex: 74 / F Adm Date: 5 Loc: Room: Type: [facility] Attending Dr: Bradley Adkins MD Copies to: DO Bradley Lepe MD~ Pain Procedure PROCEDURE PERFORMED BY: Bradley Adkins PROCEDURE DATE: 02/09/2025 PREPROCEDURE DIAGNOSIS: 1. left knee degeneration. 2. Chronic pain. POSTPROCEDURE DIAGNOSIS: 1. left knee degeneration. 2. Chronic pain. PROCEDURE: left superior medial, superior lateral and inferior medial genicular nerve blocks under fluoroscopic guidance. COMPLICATIONS: None. CLINICAL NOTE: The patient has a history of bilateral knee degeneration and knee pain. The patient requests the block in an attempt to improve the pain. The risks, benefits, and alternatives of the procedure were explained to the patient. The patient wishes to proceed. PROCEDURE NOTE: The patient was brought to the procedure room and placed in the supine position. The skin area overthe left knee was prepped and draped with ChloraPrep and sterile towels. 9 ml of 1% lidocaine were injected through a 27-gauge needle for local anesthesia. 25-gauge Maximiliano needles were guided underfluoroscopic guidance to the anatomic locations of the left superior medial, superior lateralas well as inferior medial genicular nerves. After negative aspiration, 1 ml of0.5% bupivacaine was injected though each needle. The needles were removed and Band-Aid was applied. Patient tolerated the procedure well and was transferred to recovery in a stable condition. PLAN: The patient was instructed to call the clinic in 1-2 days to inform us of any progress. The patientwas encouraged to call at any time with any questions or concerns. Documented By: Bradley Adkins MD 02/09/25 0858 Signed By: 02/09/25 0859 [facility]05-01-2025 Hospital Discharge instructions Additional Instructions Orthopedic surgery discharge instructions Your operative arm should remain in your postoperative dressing for 72 hours after surgery. You may remove after this amount of time and then leave open to air or cover however you like. You may move your elbow, hand and fingers as tolerated but do not lift, push or pull anything over 1 pound. Icing for the next week can help with swelling. You may ice the surgical area for 20 minutes on and 20 minutes off for about 3 hours a day. Avoid any heat. You should take your medications as prescribed. You will be given a pain medication ([place]) and should take this as it states on the bottle. You should take calcium 800 mg and vitamin D 1200 units daily. Take vitamin C 500 mg daily. You should follow-up with Dr. Abernathy in 3 weeks, call office for appointment if you have not already scheduled one. Dr. [facility] [address] [place] [id number] [phone] Work Phone: 1(269) 206-972204-22-2025 Evaluation note* Diagnosis Onset Date Resolution Status Admit Date Chronic pain acute January 26, 2025 2:01pm Osteoarthritis of left knee acute January 26, 2025 2:01pm Sacroiliitis acute January 26, 2025 2:01pm Chronic pain acute February 17 9:10am Osteoarthritis of left knee acute February 17, 2025 9:10am Sacroiliitis acute February 17 9:10am Chronic pain acute March 22, 2 025 9:02am Osteoarthritis of left knee acute March 22, 2025 9:02am Sacroiliitis acute March 22, 2 025 9:02am Osteoarthritis of left knee acute March 31, 2025 12:37pm [facility] Work Phone: 1(759) 436-196104-15-2025 [place] [address] Pain Management Procedure Note Signed Patient: Marisol Cantrell MR#: [id number] : 1950 Acct:[id number] Age/Sex: 74 / F Adm Date: 5 Loc: Room: Type: [facility] Attending Dr: Bradley Adkins MD Copies to: DO Bradley Lepe MD~ Pain Procedure PROCEDURE PERFORMED BY: Bradley Adkins PROCEDURE DATE: 01/19/2025 PREPROCEDURE DIAGNOSIS: 1. left knee degeneration. 2. Chronic pain. POSTPROCEDURE DIAGNOSIS: 1. left knee degeneration. 2. Chronic pain. PROCEDURE: left superior medial, superior lateral and inferior medial genicular nerve blocks under fluoroscopic guidance. COMPLICATIONS: None. CLINICAL NOTE: The patient has a history of bilateral knee degeneration and knee pain. The patient requests the block in an attempt to improve the pain. The risks, benefits, and alternatives of the procedure were explained to the patient. The patient wishes to proceed. PROCEDURE NOTE: The patient was brought to the procedure room and placed in the supine position. The skin area overthe left knee was prepped and draped with ChloraPrep and sterile towels. 9 ml of 1% lidocaine were injected through a 27-gauge needle for local anesthesia. 25-gauge Maximiliano needles were guided underfluoroscopic guidance to the anatomic locations of the left superior medial, superior lateralas well as inferior medial genicular nerves. After negative aspiration, 1 ml of0.5% bupivacaine was injected though each needle. The needles were removed and Band-Aid was applied. Patient tolerated the procedure well and was transferred to recovery in a stable condition. PLAN: The patient was instructed to call the clinic in 1-2 days to inform us of any progress. The patientwas encouraged to call at any time with any questions or concerns. Documented By: Bradley Adkins MD 01/19/25912 Signed By: 01/19/25913 [facility]04-15-2025 [place] [address] Pain Management Procedure Note Signed Patient: Marisol Cantrell MR#: [id number] : 1950 Acct:[id number] Age/Sex: 74 / F Adm Date: 5 Loc: Room: Type: [facility] Attending Dr: Bradley Adkins MD Copies to: Monster Harding,DO Bradley Adkins MD~ Pain Procedure PROCEDURE PERFORMED BY: Bradley Adkins PROCEDURE DATE: 01/19/2025 PREPROCEDURE DIAGNOSIS: 1. left knee degeneration. 2. Chronic pain. POSTPROCEDURE DIAGNOSIS: 1. left knee degeneration. 2. Chronic pain. PROCEDURE: left superior medial, superior lateral and inferior medial genicular nerve blocks under fluoroscopic guidance. COMPLICATIONS: None. CLINICAL NOTE: The patient has a history of bilateral knee degeneration and knee pain. The patient requests the block in an attempt to improve the pain. The risks, benefits, and alternatives of the procedure were explained to the patient. The patient wishes to proceed. PROCEDURE NOTE: The patient was brought to the procedure room and placed in the supine position. The skin area overthe left knee was prepped and draped with ChloraPrep and sterile towels. 9 ml of 1% lidocaine were injected through a 27-gauge needle for local anesthesia. 25-gauge Maximiliano needles were guided underfluoroscopic guidance to the anatomic locations of the left superior medial, superior lateralas well as inferior medial genicular nerves. After negative aspiration, 1 ml of0.5% bupivacaine was injected though each needle. The needles were removed and Band-Aid was applied. Patient tolerated the procedure well and was transferred to recovery in a stable condition. PLAN: The patient was instructed to call the clinic in 1-2 days to inform us of any progress. The patientwas encouraged to call at any time with any questions or concerns. Documented By: Bradley Adkins MD 01/19/25910 Signed By: 01/19/2513 [facility]04-08-[address] [address] Pain Management Procedure Note Signed Patient: Marisol Cantrell MR#: [id number] : 1950 Acct:[id number] Age/Sex: 74 / F Adm Date: 5 Loc: Room: Type: [facility] Attending Dr: Bradley Adkins MD Copies to: Monster Harding,DO Bradley Adkins MD~ Pain Procedure PROCEDURE PERFORMED BY: Bradley Adkins PROCEDURE DATE: 01/12/2025 PREOPERATIVE DIAGNOSIS: 1. Right sacroiliitis 2. Lumbosacral spondylosis 3. Chronic pain 4. Lumbago POSTOPERATIVE DIAGNOSIS: 1. Right sacroiliitis 2. Lumbosacral spondylosis 3. Chronic pain 4. Lumbago PROCEDURE: Right lumbar L5 dorsal ramus radiofrequency ablation as well as right sacral lateral branch radiofrequency ablation at S1, S2, S3 using bipolar radiofrequency. ANESTHESIA: Local and conscious sedation with Midazolam 2 mg and Fentanyl 50mcg Sedation start time: 850 Sedation end time: 909 COMPLICATIONS: Apparently none. CLINICAL NOTE: The patient has history of right sacroiliac joint pain. The patient requests the radiofrequency ablation in attempt for pain relief. The risks, benefits, and alternatives of the procedure were explained to the patient. The patient agreed to proceed. PROCEDURE NOTE: The patient was brought back to the procedure room and placed in the prone position. Skin was prepped and draped using standard sterile technique. The skin area over the trajectory to band between S1, S2 and S3 foramen and SI jointwas identified and infiltrated using 1% lidocaine. 18-gauge radiofrequency needles with 10 mm active tip were advanced to the target area along the medial aspect of theSI joint and spaced a 10 mm apart x5 needles. Another radiofrequency needle was advanced to the location of L5 dorsal ramus under fluoroscopic guidance. The final position of the needles was confirmed in AP andlateral view. Motor stimulation was negative up to 2 volt at 2 Hz. 1 mL of 2% lidocaine was injected through each needle. Bipolar radiofrequency ablation was carried out at 80 degrees x90 seconds between each 2 adjacent needles. Standard radiofrequency ablation was applied to the needle at L5 dorsal ramus location. At the end of the procedure, 3 mL of 0.5% bupivacaine was injected through each needle. [place] were removed and Band-Aid was applied. The patient tolerated the procedure well and was taken back to the recovery room in a stable condition. INSTRUCTION: The patient was instructed to call the clinic in one week to inform us of any progress. The patientwas encouraged to call at any time with any questions or concerns. Documented By: Bradley Adkins MD 01/12/25 0851 Signed By: 01/12/25 0909 [facility]04-08-2025 Evaluation note* Diagnosis Onset Date Resolution Status Admit Date Osteoarthritis of left knee acute January 12, 2025 6:53am Chronic pain acute January 26, 2025 2:01pm Osteoarthritis of left knee acute January 26, 2025 2:01pm Sacroiliitis acute January 26, 2025 2:01pm Chronic pain acute February 17 9:10am Osteoarthritis of left knee acute February 17, 2025 9:10am Sacroiliitis acute February 17 9:10am Chronic pain acute March 22, 2 025 9:02am Osteoarthritis of left knee acute March 22, 2025 9:02am Sacroiliitis acute March 22, 2 025 9:02am Osteoarthritis of left knee acute March 31, 2025 12:37pm [facility] Work Phone: [phone]) [phone] History of Present illness Narrative* Dean Gayle, - 12/10/2024 2:00 PM EST Images from the original note were not included. Chief Complaint: numbness Subjective Marisol Cantrell, 74 y.o., female Patient presents today for a neurologic consult at the request of Dr. Harding for CVA. Patient is accompanied by her daughter, Kenisha. Patient states she was experiencing numbness of the left arm and side of her face. She denied any drooping, slurred speech, difficulty finding words or confusion. She was started on Plavix and Valsartan in the hospital. She ran out two days ago and did not get refills. She was on baby aspirin prior to the hospital stay but stopped taking this once she was started on Plavix. This cause bruising for her. She was wondering if she still needed to take this. She states they did find arthritis and they told her this possibly could have caused some of the numbness. Review of Systems Constitutional: Negative for appetite change, fatigue and fever. Respiratory: Negative for cough, shortness of breath and wheezing. Cardiovascular: Negative for chest pain, palpitations and leg swelling. Gastrointestinal: Negative for abdominal pain, constipation, diarrhea and nausea. Musculoskeletal: Negative for arthralgias, gait problem and myalgias. Neurological: Positive for numbness. Negative for dizziness, tremors and headaches. Past Medical History: Diagnosis Date Osteopenia Rheumatoid arthritis (CMS/HCC) Past Surgical History: Procedure Laterality Date BELT ABDOMINOPLASTY COLONOSCOPY FOOT NEUROMA SURGERY LAPAROSCOPIC HYSTERECTOMY Family History Problem Relation Name Age of Onset Breast cancer Mother Heart disease Father No Known Problems Daughter 2 daughters Social History Tobacco Use Smoking status: Never Smokeless tobacco: Never Substance Use Topics Alcohol use: Yes Allergies: Patient has no known allergies. Vitals: 12/10/24 1342 BP: 130/78 Pulse: 82 SpO2: 97% Body mass index is 34.88 kg/m . weight: 209 lb 9.6 oz Neurologic exam: Mental status: Awake, alert to person, place and time. Recent and remote memory are intact. Language is fluent without aphasia. Attention and concentration are normal. Fund of knowledge is appropriate for level of education. Cranial nerves: CN II: Visual acuity is normal. Visual johnson full to confrontation. CN III, IV, : pupils equal round and reactive to light. Extraocular movements intact. No ptosis present. CN V: Facial sensation is normal. CN VII: Full and symmetric facial movement. CN VIII: Hearing is normal to finger rub bilaterally: CN IX and X: Palate elevates symmetrically. CN XI: Shoulder shrug is normal bilaterally. CN XII: Tongue is midline without atrophy or fasciculation. Motor: RUE Strength deltoid, , biceps , triceps , wrist extensors , wrist flexor , associate loan officer strength 5/5. LUE Strength deltoid , biceps , triceps , wrist extensors , wrist flexor , associate loan officer strength 5/5. RLE Strength illopsoas, quadriceps, tibialis anterior, and gastrocnemius strength 5/5. LLE Strength illopsoas, quadriceps, tibialis anterior, and gastrocnemius strength 5/5. Normal tone x4 extremities. Bulk is normal. Sensory: Sensation is intact to light touch throughout Four extremities. Reflexes: RUE biceps reflex 2+ brachioradialis reflex 2+ . LUE biceps reflex 2+ brachioradialis reflex 2+ . RLE knee reflex 1+ . LLE knee reflex 1+ . Niño's sign negative. Coordination: Krhaze-fv-yxts testing and rapid alternating movements are normal Gait: Normal Review and summary of old records: I have reviewed hospital discharge summary and hospital course stating that the patient presented with more than 30 minutes of left-sided face arm and leg paresthesias. CT, CT angiogram and outpatient MRI of the brain were unremarkable for acute pathology. Echocardiogram was also unremarkable. The patient was already on aspirin and was discharged on a combination of aspirin and Plavix and then totransition to Plavix alone. MRI of the brain on 11/16: Moderate small-vessel disease. Negative for acute stroke. Evidence of tiny chronic lacunar infarcts in both thalami. CT angiogram of the head and neck on 11/02/2024: No internal carotid artery occlusion or significant stenosis. No aneurysm or vascular malformation identified. No carotid or vertebral artery stenosisin the neck. No acute dissection. CT of the brain without contrast on 11/02/2024: Unremarkable 2D echocardiogram on 11/02/2024: Mild LVH. Normal right ventricular systolic function. Normal diastolic function. Pericardial effusion identified. Normal right-sided pressures. No mentioned a mass, vegetation or thrombus. Assessment/Plan Diagnoses and all orders for this visit: History of TIA (transient ischemic attack) It is my impression that the patient has suffered a transient ischemic attack causing left face, arm and leg paresthesias. Patient did have CT, CT angiogram and MRI that were unremarkable in late October and early November 2024. Echocardiogram also unremarkable. Patient initially presented on aspirin. Patient was discharged on combination of aspirin and Plavix overlap. Patient was then to continue Plavix alone but stopped it on her own and did not get this refilled. Patient's symptoms have resolved. She does also has a history of old lacunar infarcts identified on the imaging above. Plan: Restart Plavix 75 mg p.o. daily. This medication should be taken on an ongoing basis Patient should follow up closely with primary care to manage blood sugar, blood pressure cholesterol. Long-term goal for LDL should be less than 70 in the setting of previous stroke and TIA We did have an extensive discussion regarding signs and symptoms of stroke. Patient understands to proceed to the emergency department right away with any such life-threatening signs or symptoms. The patient was accompanied by her daughter today who provided additional history and the patient and daughter are understanding and agreeable to the plan. Pt has been fully educated on their diagnosis, lab results, treatment options, follow up plan, and return instructions documented in this encounterSainte Genevieve County Memorial [id number] Evaluation note* Author [facility] Authored November 30, 2024 12:52pm The above note written by __ _Paco Stewart____ acting as human recorder, note dictated by Dr. Recinos .I performed the above HPI, ROS, and Examination. I formulated and dictated the treatment plan and was present for entire encounter. Monster Harding D.O. [facility] Work Phone: 1(565) 886-908201-31-2025 Evaluation note* Author [facility] Authored November 06, 2024 1 1:54am The above note written by __ _Paco Stewart____ acting as human recorder, note dictated by Dr. Recinos .I performed the above HPI, ROS, and Examination. I formulated and dictated the treatment plan and was present for entire encounter. Monster Harding D.O. Author [facility] Authored November 30, 2024 12:52pm The above note written by __ _Paco Stewart____ acting as human recorder, note dictated by Dr. Recinos .I performed the above HPI, ROS, and Examination. I formulated and dictated the treatment plan and was present for entire encounter. Monster Harding D.O. [facility] Work Phone: 1([phone]) 267-291101-15-2025 Evaluation note* Author [facility] Authored October 21, 2024 1 1:31am The above note written by __ _Paco Stewart____ acting as human recorder, note dictated by Dr. Recinos .I performed the above HPI, ROS, and Examination. I formulated and dictated the treatment plan and was present for entire encounter. Monster Harding D.O. Author [facility] Authored November 06, 2024 1 1:54am The above note written by __ _Paco Stewart____ acting as human recorder, note dictated by Dr. Recinos .I performed the above HPI, ROS, and Examination. I formulated and dictated the treatment plan and was present for entire encounter. Monster Harding D.O. Author [facility] Authored November 30, 2024 12:52pm The above note written by __ _Paco Stewart____ acting as human recorder, note dictated by Dr. Recinos .I performed the above HPI, ROS, and Examination. I formulated and dictated the treatment plan and was present for entire encounter. Monster Harding D.O. [facility] Work Phone: 1([phone]) 664-344201-15-2025 Evaluation note* Author [facility] Authored October 21, 2024 1 0:31am The above note written by __ _Paco Stewart____ acting as human recorder, note dictated by Dr. Recinos .I performed the above HPI, ROS, and Examination. I formulated and dictated the treatment plan and was present for entire encounter. Monster Harding D.O. [facility] Work Phone: 1([phone]) 233-283401-15-2025 Evaluation note* Author [facility] Authored October 21, 2024 1 0:31am The above note written by __ _Paco Stewart____ acting as human recorder, note dictated by Dr. Recinos .I performed the above HPI, ROS, and Examination. I formulated and dictated the treatment plan and was present for entire encounter. Monster Harding D.O. Author Monster Harding [facility] Authored November 06, 2024 1 0:54am The above note written by __ _Paco Stewart____ acting as human recorder, note dictated by Dr. Recinos .I performed the above HPI, ROS, and Examination. I formulated and dictated the treatment plan and was present for entire encounter. Monster Harding D.O. [facility] Work Phone: 1(782) 885-472311-12-2024 [place] [address] Pain Management Procedure Note Signed Patient: Marisol Cantrell MR#: [id number] : 1950 Acct:[id number] Age/Sex: 74 / F Adm Date: 4 Loc: Room: Type: [facility] Attending Dr: Bradley Adkins MD Copies to: [...] MD 08/18/24 1106 Signed By: 08/18/24 1107 [facility]10-29-2024 Evaluation note* Diagnosis Onset Date Resolution [...] Weight gain acute October 21, 2024 9:46am [facility] Work Phone: 1(149) 330-928010-11-2024 Telephone encounter Note* Telephone Encounter - Katie Almodovar - 07/17/2024 9:52 AM EDT Letter sent out on 07/17/24 to reschedule due to provider out of office. [facility] [id number] Miscellaneous Notes* Telephone Encounter - Katie Almodovar - 07/17/2024 9:52 AM EDT Letter sent out on 07/17/24 to reschedule due to provider out of office. documented in this encounterSainte Genevieve County Memorial [id number] Evaluation note* Author Monster Harding [facility] Authored June 10, 2024 10:46am I performed the above HPI, R OS, and Examination. I formulated and dictated the treatment plan and was present for entire encounter. Monster Harding D.O. Author [facility] Authored July 07, 2024 9: 58am The above note written by __ _Paco Stewart____ acting as human recorder, note dictated by Dr. Recinos .I performed the above HPI, ROS, and Examination. I formulated and dictated the treatment plan and was present for entire encounter. Monster Harding D.O. [facility] Work Phone: 1(694) 924-134708-05-2024 Evaluation note* Author [facility] Authored May 11, 2024 4:4 6pm The above note written by __ _Paco Stewart____ acting as human recorder, note dictated by Dr. Recinos .I performed the above HPI, ROS, and Examination. I formulated and dictated the treatment plan and was present for entire encounter. Monster Harding D.O. [facility] Work Phone: 1([phone]) 865-474408-05-2024 Evaluation note* Author [facility] Authored May 11, 2024 4:4 6pm The above note written by __ _Paco Stewart____ acting as human recorder, note dictated by Dr. Recinos .I performed the above HPI, ROS, and Examination. I formulated and dictated the treatment plan and was present for entire encounter. Monster Harding D.O. Author [facility] Authored June 10, 2024 11:46am I performed the above HPI, R OS, and Examination. I formulated and dictated the treatment plan and was present for entire encounter. Monster Harding D.O. [facility] Work Phone: 1(282) 329-440008-05-2024 Evaluation note* Author [facility] Authored May 11, 2024 4:4 6pm The above note written by __ _Paco Stewart____ acting as human recorder, note dictated by Dr. Recinos .I performed the above HPI, ROS, and Examination. I formulated and dictated the treatment plan and was present for entire encounter. Monster Harding D.O. Author Monster Harding [facility] Authored June 10, 2024 11:46am I performed the above HPI, R OS, and Examination. I formulated and dictated the treatment plan and was present for entire encounter. Monster Harding D.O. Author Monster Harding [facility] Authored July 07, 2024 10 :58am The above note written by __ _Paco Stewart____ acting as human recorder, note dictated by Dr. Recinos .I performed the above HPI, ROS, and Examination. I formulated and dictated the treatment plan and was present for entire encounter. Monster Harding D.O. [facility] Work Phone: [phone] 186-239502-12-2024 Evaluation note* Encounter Date Diagnosis Assessment Notes Treatment Notes Treatment Clinical Notes Nov, Labyrinthitis, unspecified laterality (ICD-10 - H83.09) She voices that generally the Meclizine works well for her symptoms but she continues to have symptoms, she bends over and feels dizzy. She is leaving tomorrow (11-19-23) for [place] and will be gone for a couple [...] here once she has come back from [place]. She will be much more active in [place], voices that [place] walks on the beach daily. She is to continue to watch her intake of carbs and sugars. Stay active. Side effects/risks/bene fits of medication were reviewed. [facility] Other 01-30-2024 [facility]* Encounter Date Diagnosis Assessment [...] note writ ten by Casper Sales MA, [employer]. Edited and approved by Dr. Bradley Adkins MD. [facility] Other 01-16-2024 Evaluation note* Encounter Date Diagnosis Assessment Notes Treatment Notes Treatment Clinical Notes Oct, Labyrinthitis, unspecified laterality (ICD-10 - H83.09) [facility] Other 01-15-2024 Evaluation note* Encounter Date Diagnosis [...] voices that she has not seen her palliative care coordinator for a long time (Dr. Grullon) but [...] voices that she donates blood to the [place]. I did explain to her that they do check for anemia. [facility] Other 08-30-2023 Evaluation note* Encounter Date Diagnosis [...] note writ ten by Susie Schwarz LPN, Papier Mache[employer] Molder. Edited and approved by Dr. Bradley Adkins MD. [place] Other 08-15-2023 [facility]* Encounter Date Diagnosis Assessment [...] note writ ten by Susie Schwarz LPN, Papier M[employer] M[employer]. Edited and approved by Dr. Bradley Adkins MD. [facility] Other 01-03-2023 Evaluation note* Encounter Date Diagnosis [...] Osteoarthritis of right hip (ICD-10 - M16.11) [facility] Other 11-17-2022 Evaluation note* Encounter Date Diagnosis [...] note writ ten by Casper Sales MA, [employer]ier M[employer] M[employer]. Edited and approved by Dr. Bradley Adkins MD. [facility] Other 11-09-2022 Evaluation note* Encounter Date Diagnosis [...] discussed in detail. Patient opts to pursue bed bug exterminator treatment of right SI fusion. Aug, [...] done prior to surgical procedure to limit mary ellen-operative risks. I have discussed the planned procedure, how and who performs the procedure, and the personnel involved. Cardiovascular, pulmonary, and other life threatening episodes can occur during surgery although there is a low risk of these happening. Surgical risks including bleeding, neurovascular injury, wound closure problems and infection were discussed. Mary Ellen-operative risks including infection, bleeding, wound healing problems, [...] poor healing. I have advised against the care home use of narcotic pain medication. I have [...] M94.251) Aug, Pre-op exam (ICD-10 - Z01.818) [facility] Other 10-25-2022 Evaluation note* Encounter Date Diagnosis [...] note writ ten by Susie Schwarz LPN, Papier Mache[employer] Molder. Edited and approved by Dr. Bradley Adkins MD. [facility] Other 10-11-2022 Evaluation note* Encounter Date Diagnosis [...] note writ ten by Susie Schwarz LPN, [employer]ier [employer] M[employer]. Edited and approved by Dr. Bradley Adkins MD. [facility] Other 09-15-2022 Evaluation note* Encounter Date Diagnosis [...] note writ ten by Casper Sales MA, Papier Mache' Molder. Edited and approved by Dr. Bradley Adkins [...] negative findings were considered in medical decision-making. [facility] Other 08-03-2022 Evaluation note* Encounter Date Diagnosis [...] Other low back pain (ICD-10 - M54.59) [facility] Other 2022 Evaluation note* Encounter Date Diagnosis [...] Other low back pain (ICD-10 - M54.59) [facility] Other 05-04-2022 Evaluation note* Encounter Date Diagnosis [...] Other low back pain (ICD-10 - M54.59) [facility] Other 03-30-2022 Evaluation note* Encounter Date Diagnosis [...] Dec, Lumbar back pain (ICD-10 - M54.50) [facility] Other 03-02-2022 Evaluation note* Encounter Date Diagnosis [...] Dec, Right hip pain (ICD-10 - M25.551) Marislo presents with new right hip pain. At [...] use of OTC lidocaine patches as needed. [facility] Other 12-29-2021 Evaluation note* Encounter Date Diagnosis [...] done prior to surgical procedure to limit mary ellen-operative risks. I have discussed the planned procedure, how and who performs the procedure, and the personnel involved. Cardiovascular, pulmonary, and other life threatening episodes can occur during surgery although there is a low risk of these happening. Surgical risks including bleeding, neurovascular injury, wound closure problems and infection were discussed. Mary Ellen-operative risks including infection, bleeding, wound healing problems, [...] poor healing. I have advised against the care home use of narcotic pain medication. I have [...] these risks and would like to proceed. [facility] Other 12-06-2017 History general Narrative - Reported* Type Description Date Medical History rheumatoid arthritis Medical History 09-11-17 Normal Lexiscan [facility] Medical History 10-09-[address] Storm Null, [...] child 1972 Hospitalization History natural child 1974 [place] Other 12-06-2017 History general Narrative - Reported* [...] colonoscopy; normal- Dr Hill ck repeat in 2018 Surgical History mammogram - [facility] 2017 Surgical History bone density [facility] 2017 Surgical History arthroscopic partial left medial menisetemy, medial femoral chondroplasty. Hospitalization History natural child 1972 Hospitalization History natural child 1974 [facility] Other 12-06-2017 History general Narrative - Reported* Type Description Date Medical History rheumatoid arthritis Medical History 09-11-17 Normal Lexiscan [facility] Medical History 10-09-[address] Storm Null, [...] [place] - repeat in 10 years (2027) 1-3-18 Surgical History colonoscopy; normal- Dr Hill ck repeat in 10 years 2017 Surgical History mammogram - [facility] 2017 Surgical History bone density [facility] 2017 Surgical History arthroscopic partial left medial menisetemy, medial femoral chondroplasty. Hospitalization History natural child 1972 Hospitalization History natural child 1974 [facility] [employer] Other Evaluation noteNo Information[facility] [employer] Other Evaluation noteNo assessment information available [facility] Work Phone: Evaluation note* Diagnosis Onset Date Resolution Status Dermatitis acute Weight gain acute [facility] Work Phone: Evaluation note* Diagnosis History of TIA (transient ischemic attack)- Primary documented in this encounter [facility] HealthcareEvaluation note* Author Monster Harding [facility] Authored April 13, 2025 2:37p m The above note written by __ _Paco Stewart____ acting as human recorder, note dictated by Dr. Recinos .I performed the above HPI, ROS, and Examination. I formulated and dictated the treatment plan and was present for entire encounter. Monster Harding D.O. [facility] Work Phone: Hospital Discharge instructions Additional Instructions Take Motrin and Tylenol as needed for mild to moderate pain. You can take oxycodone as prescribed for severe pain take Zofran with it to prevent nausea. Follow-up with Dr. Adkins for ongoing pain management Dr. Driscoll for definitive surgical management.[facility] Work Phone: Hospital Discharge instructionsAmbulatory Orders* Referral to Neurology Time Frame: 11/06/24, Location: None Selected [facility] Work Phone: Hospital Discharge instructions Additional Instructions There is no sign of a heart attack or of anything else new tonight. Follow-up with the neurologist and with Dr. Harding. You may need to have an MRI of your cervical spine (neck). Your symptoms could certainly be from a pinched nerve in your neck. The x-ray of your neck Dr. Harding got recently did show a great deal of arthritis and degenerative changes, which can cause this. Continue to take the medicines you are prescribed already. I am going to prescribe some medicine for pain that you can take as needed. We are always happy to see you here if you have any other problems or concerns.[facility] Work Phone: Hospital Discharge instructions Additional Instructions Joint Replacement Discharge Instructions Your safety during your recovery process is important to us. Please seek immediate emergency care if you have sudden chest pain or shortness of breath. Additionally, please call our office at [phone] should any of the following occur: wound bleeding or an increase in bleeding, increased swelling, redness around the incision, fever over 101 F, excessive vomiting, nose bleeds, or bloody stool. Discharge Medications (scheduled): Aspirin 81 mg twice daily along with your Plavix should be taken starting the morning after surgery. You should take this as prescribed until your prescription is completed. This is to provide anticoagulation to help prevent blood clots. Doxycycline tablet by mouth twice daily for 7 days. Take with food. Begin the morning after surgery. This is for prophylaxis against infection Tylenol (acetaminophen) 500mg tablet. Take 2 tablets 3 times (every 8 hours) a day for the first 2 weeks after your surgery. You may begin this the day of your surgery. *If you have a patch behind your ear remove it the morning after surgery, discard, and thoroughly wash your hands. Discharge Medications (as needed): Tramadol (Ultram) 50mg tablet. Take 1 tablet by mouth every 6 hours as needed for pain. Do not take at the same time as oxycodone but rather alternate these if needed. Take with food. Begin the night of surgery. Take around the clock for 24 hours after surgery and then utilize if necessary. Oxycodone 5mg tablet. Take 1 tablet by mouth every 4 hours as needed for pain. If pain unrelenting 30 minutes after taking 1 tablet, then take another 1 tablet. Do not take at the same time as Tramadol (Ultram). Take with food. Begin the night of surgery. Take around the clock for 24 hours after surgery and then utilize if necessary. Discharge Instructions: BE SURE YOU HAVE READ THE BOOKLET YOU RECEIVED IN THE OFFICE. Home Health: Home health is a valuable partner in the joint replacement process; they will be your first step to your road of recovery. A therapist will see you the day after your surgery; they will be at your home before noon. They will see you the first three days after surgery and continue working with you until I see you in the office for your 2-week post-op appointment. Follow their instructions. Exercises are to be done several times a day, including the days the therapist does not come to your house! Wound Care: Your surgical incision may be covered with a few different dressings. Your home health physical therapist can remove the Brad wrap from your leg the first day after surgery, but they will leave the surgical dressing over the incision. Mepilex-This thakur foam dressing that will be over the surgical site and should stay in place for 1 week after surgery. This dressing helps with early wound healing and protects your surgical incision. This is a waterproof dressing that may get wet in the shower starting the day after surgery. You may apply ice over the dressing as needed. 7 days after surgery you may take the dressing off by peeling up an edge and then taking off like a Band-Aid. Sometimes you can have some redness or blistering around the dressing which can be normal. Bruising around the surgical site is normal in the acute postoperative phase. DO NOT take a bath, enter a pool, hyde/pond, or ocean until we discuss this at your post-op appointments. What to expect: SWELLING: Ice frequently, a minimum of 4 times a day for 20 minutes at a time for the first 2-3 weeks after surgery, especially after doing your exercises. While icing, elevate your foot above the level of your heart with several pillows under your ankle. DO NOT put pillows under your knee. (KNEE REPLACEMENT ONLY) Avoid prolonged periods of sitting over the first 7 to 10 days after surgery. We recommend that you not sit for more than 45 to 60 minutes at a time. You should get up and move around or lie down and elevate your leg. BRUISING: You will have bruising to some degree; possibly the thigh, calf, ankle, foot, and in some cases the genitalia. Do not be alarmed. The bruising will eventually go away on its own as the body reabsorbs the blood. BLISTERS: Some patients may develop blisters around the knee/hip and/or the incision. Although they can be alarming in appearance, they pose no significant risk to your joint replacement. o Leave the blisters alone and allow them to heal on their own. NUMBNESS: Usually normal around the incision. For knee replacements, the outside of the knee may be involved as well. The area of numbness may shrink over time or it could last forever. For hip replacements, you may notice numbness around the surgical incision. The area of numbness may shrink over time or it could last forever. PIOTR hose (stockinette): Wear them for 4 weeks on the operative side and 2 weeks on the nonoperative side. Try to wear these as 24/ as possible to help decrease swelling. Weight Bearing, Walkers, and Canes: You are weightbearing as tolerated. Do not attempt to walk without your walker and assistance until the therapist checks you the following day after surgery and gives you further instruction. Follow all preoperative precautions as instructed by therapy. Typically, you will start out on a walker, then progress to a cane, and eventually walk without any device. Some of our patients do this within 2 weeks of surgery, while others can take 6 weeks. Pain Medications: You may experience significant pain. Our goal is to make your pain manageable (not absent, since this is usually not realistic) and to allow you to progress with your therapy for your hip or knee. Take your pain medication scheduled for the first 24 hours, then take it as needed. Always take your pain medication with food to decrease nausea and vomiting. Be sure to take stool softeners and/or laxatives as directed. You may take jkrb-wxs-ubgzeli Benadryl if itching occurs without a rash or hives. Icing and elevation will help relieve pain as well, do not underestimate the power of ice and elevation. We do recommend that you stop taking narcotic pain medications by 4-6 weeks after surgery and if necessary, continue to use anti-inflammatory medications such as Mobic (meloxicam), Celebrex (celecoxib), or an hzjg-jbk-iwfvloi medication (Aleve, Motrin, Ibuprofen, etc). Driving an automobile: You must be off all narcotic pain medications. If your right leg is involved, that is your braking leg. Your physical therapist needs to help you determine that you can actively and firmly hit the brake and sustain it as this could be a life or situation for you or someone else. You will not be cleared to drive by me or anyone else. It is up to you to know when you feel safe to drive. We do recommend waiting until your first follow up and utilizing an empty parking lot to practice and ensure you are able to slam on the brakes if necessary during an emergency. Low Grade Fever (less than 101 F): Low-grade fevers can be treated, but make sure you do not exceed the daily limit of Tylenol. The daily limit on Tylenol (acetaminophen) is 3000 mg in a 24-hour period. If you have procedures done after your joint replacement: Dental procedures (including routine cleaning), prostate surgery, colonoscopy, and other invasive procedures could increase your risk for a total joint infection. During a postoperative visit, be sure to discuss the use of prophylactic antibiotic therapy prior to and sometimes after these invasive procedures. The decision to utilize antibiotics before and/or after these invasive procedures is a shared decision process between you and myself. Constipation: If you develop constipation in spite of taking stool softeners and/or laxatives, follow the protocol below: Day 2 of constipation if no results, use a Dulcolax suppository Day 3 of constipation if no results, use a fleet's enema. If no results by the afternoon, notify our office. Bladder Habits: If you have difficulty urinating or are unable to urinate within 12 hours after arriving home following your surgery, please notify our office immediately. Expectations for Pain Relief after Joint Replacement: Patients predictably improve for up to a year after a hip or knee replacement. It is normal for you to still have some pain in your hip or knee for as much as 3 to 9 months after surgery. The pain relief will come, but you should not expect great relief of pain in less than this time. High demand activities (such as going up and down stairs) frequently take 3 to 9 months before patients feel comfortable doing them. It is permissible to go up and down stairs whenever you can safely navigate them, but it will take much longer to do them normally and with great confidence. Questions or Problems: If you have any questions, problems, or confusion about your recovery after your hip or knee replacement, please feel free to call our office at [phone]. You are a priority of ours and we will not be upset with you if you call. We would much rather you call to confirm aspects of your recovery process as opposed to possibly hindering your recovery with inappropriate care. We are committed to providing you with the best care possible. Dr. [facility] [address] [facility] [place], [place] [address] [facility] Work Phone: Rebtmx for referral (narrative)No reason for referral information availableMet[facility] Work Phone: reason for visit NarrativeDISCUSS PROCEDURE PT DOES NOT WANT TO HAVE SURGERY AT THIS [facility] Other reason for visit NarrativeWANTLeroy FELTER OPINION ON PROCEDURE VS SURGERY BEFORE HER APPT WITH [facility] [employer] Other reason for visit Narrative* Consultation (Routine) - Closed Specialty Diagnoses / Procedures Referred By Contac t Referred To Contact Neurology Diagnoses Cerebellar stroke syndrome Procedures OK OFFICE/OUTPATIENT [facility] MDM 30 MINUTES Monster Harding MD [address] [place] [address] Phone: tel: fax: Stepan Bolden MD [address] [place] [address] Phone: tel: fax: Referral ID Status Reason Start Date Expiration Date V isits Requested Visits Authorized [id number] Closed Consult and Treat 11/12/2024 05/11/[address] [facility] Healthcare Summary Purpose Family History No Family History Records Found Relationship Condition Age at Onset Recorded Date/T [...] Diabetes mellitus Unknown mother Malignant neoplasm Unknown Relationship Condition Age at Onset Recorded Date/T [place] mother Malignant neoplasm of colon Unknown Malignant neoplasm of breast Unknown Malignant neoplasm Unknown Unknown father Coronary artery disease Unknown Myocardial infarction Unknown Heart disease Unknown History of coronary artery bypass surgery Unknown brother Unknown family member Unknown grandparent Unknown grandparent Diabetes mellitus Unknown grandparent Heart disease Unknown Advance Directives No Advanced Directives Records Found Advance Directive Response Recorded Date/ Time Advance Directives Yes October 11, 2017 2:43pm Advance Directive Response Recorded Date/ Time Advance Directives Yes October 11, 2017 1:43pm Advance Directive Response Recorded Date/ Time Advance Directives Yes April 06 9:17am Chief Complaint and Reason for Visit Chief [...] 1:04pm Sacroiliitis October 22, 2024 1 :04pm Chief Complaint Admit Date Back Pain August 18, 2024 9:40am Back Pain August 18, 2024 11:06am F/U R SI JOINT INJ August 26, 2024 10:29am med refill Adipex October 21, 2024 9 :46am DISCUSS PROCEDURE October 22, 2024 1 :04pm hosp f/u November 06, 2024 9 :46am Reason for Visit Admit Date Chronic pain August 26, 2024 10:29am Osteoarthritis of left knee August 10:29am Sacroiliitis August 26, 2024 10:29am Cephalgia October 21, 2024 9 :46am Hyperlipidemia October 21, 2024 9 :46am Weight gain October 21, 2024 9 :46am Chronic pain October 22, 2024 1 :04pm Osteoarthritis of left knee October 1:04pm Sacroiliitis October 22, 2024 1 :04pm Cervical pain November 06, 2024 9 :46am Elevated blood pressure reading November 06, 2024 9:46am Knee pain November 06, 2024 9 :46am Paresthesia November 06, 2024 9 :46am Shoulder pain November 06, 2024 9 :46am TIA (transient ischemic attack) November 06, 2024 9:46am Weight gain November 06, 2024 9 :46am Chief Complaint Admit Date Back Pain August 18, 2024 9:40am Back Pain August 18, 2024 11:06am F/U R SI JOINT INJ August 26, 2024 10:29am med refill Adipex October 21, 2024 9 :46am DISCUSS PROCEDURE October 22, 2024 1 :04pm hosp f/u November 06, 2024 9 :46am R03.0 November 10, 2024 2 :06pm Chief Complaint Admit Date F/U R SI JOINT INJ August 26, 2024 10:29am med refill Adipex October 21, 2024 9 :46am DISCUSS PROCEDURE October 22, 2024 1 :04pm hosp f/u November 06, 2024 9 :46am R03.0 November 10, 2024 2 :06pm G45.9 R20.2 November 16, 2024 6:08pm Chief Complaint Admit Date F/U R SI JOINT INJ August 26, 2024 10:29am med refill Adipex October 21, 2024 9 :46am DISCUSS PROCEDURE October 22, 2024 1 :04pm hosp f/u November 06, 2024 9 :46am R03.0 November 10, 2024 2 :06pm G45.9 R20.2 November 16, 2024 6:08pm L sd pain, L arm numbness November 23, 2024 2:31am Chief Complaint Admit Date med refill Adipex October 21, 2024 9 :46am DISCUSS PROCEDURE October 22, 2024 1 :04pm hosp f/u November 06, 2024 9 :46am R03.0 November 10, 2024 2 :06pm G45.9 R20.2 November 16, 2024 6:08pm L sd pain, L arm numbness November 23, 2024 2:31am Amb Documentation November 26, 2024 12:17pm telephone/head congestion November 30, 2024 11:30am Reason for Visit Admit Date Cephalgia October 21, 2024 9 :46am Hyperlipidemia October 21, 2024 9 :46am Weight gain October 21, 2024 9 :46am Chronic pain October 22, 2024 1 :04pm Osteoarthritis of left knee October 1:04pm Sacroiliitis October 22, 2024 1 :04pm Cervical pain November 06, 2024 9 :46am Elevated blood pressure reading November 06, 2024 9:46am Knee pain November 06, 2024 9 :46am Paresthesia November 06, 2024 9 :46am Shoulder pain November 06, 2024 9 :46am TIA (transient ischemic attack) November 06, 2024 9:46am Weight gain November 06, 2024 9 :46am Acute cough November 30, 2024 11:30am Chief Complaint Admit Date med refill Adipex October 21, 2024 9 :46am DISCUSS PROCEDURE October 22, 2024 1 :04pm hosp f/u November 06, 2024 9 :46am R03.0 November 10, 2024 2 :06pm G45.9 R20.2 November 16, 2024 6:08pm L sd pain, L arm numbness November 23, 2024 2:31am Amb Documentation November 26, 2024 12:17pm telephone/head congestion November 30, 2024 11:30am Back Pain January 12, 2025 6:53 am Back Pain January 12, 2025 8:51 am Chief Complaint Admit Date med refill Adipex October 21, 2024 9 :46am DISCUSS PROCEDURE October 22, 2024 1 :04pm hosp f/u November 06, 2024 9 :46am R03.0 November 10, 2024 2 :06pm G45.9 R20.2 November 16, 2024 6:08pm L sd pain, L arm numbness November 23, 2024 2:31am Amb Documentation November 26, 2024 12:17pm telephone/head congestion November 30, 2024 11:30am Back Pain January 12, 2025 6:53 am Back Pain January 12, 2025 8:51 am Knee Pain January 19, 2025 7:4 3am Knee Pain January 19, 2025 9:1 1am Chief Complaint Admit Date hosp f/u November 06, 2024 9 :46am R03.0 November 10, 2024 2 :06pm G45.9 R20.2 November 16, 2024 6:08pm L sd pain, L arm numbness November 23, 2024 2:31am Amb Documentation November 26, 2024 12:17pm telephone/head congestion November 30, 2024 11:30am Back Pain January 12, 2025 6:53 am Back Pain January 12, 2025 8:51 am Knee Pain January 19, 2025 7:4 3am Knee Pain January 19, 2025 9:1 1am Back Pain January 25, 2025 9:0 3am F.U RIGHT SI RFA/ 1ST LEFT GENICULAR NB January 26, 2025 2:01pm Reason for Visit Admit Date Cervical pain November 06, 2024 9 :46am Elevated blood pressure reading November 06, 2024 9:46am Knee pain November 06, 2024 9 :46am Paresthesia November 06, 2024 9 :46am Shoulder pain November 06, 2024 9 :46am TIA (transient ischemic attack) November 06, 2024 9:46am Weight gain November 06, 2024 9 :46am Acute cough November 30, 2024 11:30am Osteoarthritis of left knee January 12 025 6:53am Chronic pain January 26, 2025 2:0 1pm Osteoarthritis of left knee January 26, 2025 2:01pm Sacroiliitis January 26, 2025 2:0 1pm Chief Complaint Admit Date G45.9 R20.2 November 16, 2024 6:08pm L sd pain, L arm numbness November 23, 2024 2:31am Amb Documentation November 26, 2024 12:17pm telephone/head congestion November 30, 2024 11:30am Back Pain January 12, 2025 6:53 am Back Pain January 12, 2025 8:51 am Knee Pain January 19, 2025 7:4 3am Knee Pain January 19, 2025 9:1 1am Back Pain January 25, 2025 9:0 3am F.U RIGHT SI RFA/ 1ST LEFT GENICULAR NB January 26, 2025 2:01pm Knee Pain February 09, 2025 7:26am Knee Pain February 09, 2025 8:58am Reason for Visit Admit Date Acute cough November 30, 2024 11:30am Osteoarthritis of left knee January 12, 2 025 6:53am Chronic pain January 26, 2025 2:0 1pm Osteoarthritis of left knee January 26, 2025 2:01pm Sacroiliitis January 26, 2025 2:0 1pm Chief Complaint Admit Date L sd pain, L arm numbness November 23, 2024 2:31am Amb Documentation November 26, 2024 12:17pm telephone/head congestion November 30, 2024 11:30am Back Pain January 12, 2025 6:53 am Back Pain January 12, 2025 8:51 am Knee Pain January 19, 2025 7:4 3am Knee Pain January 19, 2025 9:1 1am Back Pain January 25, 2025 9:0 3am F.U RIGHT SI RFA/ 1ST LEFT GENICULAR NB January 26, 2025 2:01pm Knee Pain February 09, 2025 7:26am Knee Pain February 09, 2025 8:58am F/U LT GENICULAR BLOCK February 17, 2025 9: 10am Reason for Visit Admit Date Acute cough November 30, 2024 11:30am Osteoarthritis of left knee January 12, 2 025 6:53am Chronic pain January 26, 2025 2:0 1pm Osteoarthritis of left knee January 26, 2025 2:01pm Sacroiliitis January 26, 2025 2:0 1pm Chronic pain February 17, 2025 9:10a m Osteoarthritis of left knee February 17 9:10am Sacroiliitis February 17, 2025 9:10a m Chief Complaint Admit Date Back Pain January 12, 2025 6:53 am Back Pain January 12, 2025 8:51 am Back Pain January 12, 2025 5:00 pm Knee Pain January 19, 2025 7:4 3am Knee Pain January 19, 2025 9:1 1am F.U RIGHT SI RFA/ 1ST LEFT GENICULAR NB January 26, 2025 2:01pm Knee Pain February 09, 2025 7:26am Knee Pain February 09, 2025 8:58am F/U LT GENICULAR BLOCK February 17, 2025 9: 10am Knee Pain February 23, 2025 9:42a m Knee Pain February 23, 2025 10:27 am F.U LEFT GENICULAR RFA March 22, 2025 9 :02am CONSULT DR ADKINS LT KNEE PAIN March 12:37pm M17.12 - Unilateral primary osteoarthrit is, left k March 31, 2025 12:55pm Reason for Visit Admit Date Osteoarthritis of left knee January 12, 025 6:53am Chronic pain January 26, 2025 2:0 1pm Osteoarthritis of left knee January 26, 2025 2:01pm Sacroiliitis January 26, 2025 2:0 1pm Chronic pain February 17, 2025 9:10a m Osteoarthritis of left knee February 17 9:10am Sacroiliitis February 17, 2025 9:10a m Chronic pain March 22, 2025 9:02 am Osteoarthritis of left knee March 22 025 9:02am Sacroiliitis March 22, 2025 9:02 am Osteoarthritis of left knee March 31 025 12:37pm Chief Complaint Admit Date Knee Pain January 19, 2025 7:4 3am Knee Pain January 19, 2025 9:1 1am F.U RIGHT SI RFA/ 1ST LEFT GENICULAR NB January 26, 2025 2:01pm Knee Pain February 09, 2025 7:26am Knee Pain February 09, 2025 8:58am F/U LT GENICULAR BLOCK February 17, 2025 9: 10am Knee Pain February 23, 2025 9:42a m Knee Pain February 23, 2025 10:27 am F.U LEFT GENICULAR RFA March 22, 2025 9 :02am CONSULT DR ADKINS LT KNEE PAIN March 12:37pm M17.12 - Unilateral primary osteoarthrit is, left k March 31, 2025 12:55pm Knee Pain April 12, 2025 1:00p m Reason for Visit Admit Date Chronic pain January 26, 2025 2:0 1pm Osteoarthritis of left knee January 26, 2025 2:01pm Sacroiliitis January 26, 2025 2:0 1pm Chronic pain February 17, 2025 9:10a m Osteoarthritis of left knee February 17 9:10am Sacroiliitis February 17, 2025 9:10a m Chronic pain March 22, 2025 9:02 am Osteoarthritis of left knee March 22 025 9:02am Sacroiliitis March 22, 2025 9:02 am Osteoarthritis of left knee March 31 025 12:37pm Chief Complaint Admit Date Knee Pain January 19, 2025 7:4 3am Knee Pain January 19, 2025 9:1 1am F.U RIGHT SI RFA/ 1ST LEFT GENICULAR NB January 26, 2025 2:01pm Knee Pain February 09, 2025 7:26am Knee Pain February 09, 2025 8:58am F/U LT GENICULAR BLOCK February 17, 2025 9: 10am Knee Pain February 23, 2025 9:42a m Knee Pain February 23, 2025 10:27 am F.U LEFT GENICULAR RFA March 22, 2025 9 :02am CONSULT DR ADKINS LT KNEE PAIN March 12:37pm M17.12 - Unilateral primary osteoarthrit is, left k March 31, 2025 12:55pm Knee Pain April 12, 2025 1:00p m medical clearance April 13, 2025 1:54p m Reason for Visit Admit Date Chronic pain January 26, 2025 2:0 1pm Osteoarthritis of left knee January 26, 2025 2:01pm Sacroiliitis January 26, 2025 2:0 1pm Chronic pain February 17, 2025 9:10a m Osteoarthritis of left knee February 17 9:10am Sacroiliitis February 17, 2025 9:10a m Chronic pain March 22, 2025 9:02 am Osteoarthritis of left knee March 22 025 9:02am Sacroiliitis March 22, 2025 9:02 am Osteoarthritis of left knee March 31 025 12:37pm Chronic pain April 13, 2025 1:54p m Elevated blood pressure reading April 1:54pm Encounter for other preprocedural examin ation April 13, 2025 1:54pm Osteoarthritis of left knee April 13 1:54pm TIA (transient ischemic attack) April 1:54pm Chief Complaint Admit Date F.U RIGHT SI RFA/ 1ST LEFT GENICULAR NB January 26, 2025 2:01pm Knee Pain February 09, 2025 7:26am Knee Pain February 09, 2025 8:58am F/U LT GENICULAR BLOCK February 17, 2025 9: 10am Knee Pain February 23, 2025 9:42a m Knee Pain February 23, 2025 10:27 am F.U LEFT GENICULAR RFA March 22, 2025 9 :02am CONSULT DR ADKINS LT KNEE PAIN March 12:37pm M17.12 - Unilateral primary osteoarthrit is, left k March 31, 2025 12:55pm Knee Pain April 12, 2025 1:00p m medical clearance April 13, 2025 1:54p m Pre-Op LTK April 21, 2025 12:3 5pm H & P LEFT PARTIAL VS TOTAL KNEE ARTHROP LASTY April 21, 2025 1:47pm Reason for Visit Admit Date Chronic pain January 26, 2025 2:0 1pm Osteoarthritis of left knee January 26, 2025 2:01pm Sacroiliitis January 26, 2025 2:0 1pm Chronic pain February 17, 2025 9:10a m Osteoarthritis of left knee February 17 9:10am Sacroiliitis February 17, 2025 9:10a m Chronic pain March 22, 2025 9:02 am Osteoarthritis of left knee March 22, 025 9:02am Sacroiliitis March 22, 2025 9:02 am Osteoarthritis of left knee March 31, 2 025 12:37pm Chronic pain April 13, 2025 1:54p m Elevated blood pressure reading April 1:54pm Encounter for other preprocedural examin ation April 13, 2025 1:54pm Osteoarthritis of left knee April 13 1:54pm TIA (transient ischemic attack) April 1:54pm Osteoarthritis of left knee April 21, 025 1:47pm Chief Complaint Admit Date Knee Pain February 09, 2025 7:26am Knee Pain February 09, 2025 8:58am F/U LT GENICULAR BLOCK February 17, 2025 9: 10am Knee Pain February 23, 2025 9:42a m Knee Pain February 23, 2025 10:27 am F.U LEFT GENICULAR RFA March 22, 2025 9 :02am CONSULT DR ADKINS LT KNEE PAIN March 12:37pm M17.12 - Unilateral primary osteoarthrit is, left k March 31, 2025 12:55pm Knee Pain April 12, 2025 1:00p m medical clearance April 13, 2025 1:54p m Pre-Op LTK April 21, 2025 12:3 5pm H & P LEFT PARTIAL VS TOTAL KNEE ARTHROP LASTY April 21, 2025 1:47pm Knee Pain April 22, 2025 12:0 0am Knee Pain April 29, 2025 6:31 am Reason for Visit Admit Date Chronic pain February 17, 2025 9:10a m Osteoarthritis of left knee February 17 9:10am Sacroiliitis February 17, 2025 9:10a m Chronic pain March 22, 2025 9:02 am Osteoarthritis of left knee March 22 9:02am Sacroiliitis March 22, 2025 9:02 am Osteoarthritis of left knee March 31 12:37pm Chronic pain April 13, 2025 1:54p m Elevated blood pressure reading April 1:54pm Encounter for other preprocedural examin ation April 13, 2025 1:54pm Osteoarthritis of left knee April 13 1:54pm TIA (transient ischemic attack) April 1:54pm Osteoarthritis of left knee April 21 1:47pm Chief Complaint Admit Date Knee Pain February 23, 2025 9:42a m Knee Pain February 23, 2025 10:27 am F.U LEFT GENICULAR RFA March 22, 2025 9 :02am CONSULT DR ADKINS LT KNEE PAIN March 12:37pm M17.12 - Unilateral primary osteoarthrit is, left k March 31, 2025 12:55pm Knee Pain April 12, 2025 1:00p m medical clearance April 13, 2025 1:54p m Pre-Op LTK April 21, 2025 12:3 5pm H & P LEFT PARTIAL VS TOTAL KNEE ARTHROP LASTY April 21, 2025 1:47pm Knee Pain April 22, 2025 12:0 0am Knee Pain April 29, 2025 6:31 am 2 weeks post op May 21, 2025 9: 26am M17.12 - Unilateral primary osteoarthrit is, left k May 21, 2025 9:38am Reason for Visit Admit Date Chronic pain March 22, 2025 9:02 am Osteoarthritis of left knee March 22 9:02am Sacroiliitis March 22, 2025 9:02 am Osteoarthritis of left knee March 31 12:37pm Chronic pain April 13, 2025 1:54p m Elevated blood pressure reading April 1:54pm Encounter for other preprocedural examin ation April 13, 2025 1:54pm Osteoarthritis of left knee April 13 1:54pm TIA (transient ischemic attack) April 1:54pm Osteoarthritis of left knee April 21 1:47pm Osteoarthritis of left knee May 21, 2025 9:26am Status post total left knee replacement May 21, 2025 9:26am Chief Complaint Admit Date F.U LEFT GENICULAR RFA March 22, 2025 9 :02am CONSULT DR ADKINS LT KNEE PAIN March 12:37pm M17.12 - Unilateral primary osteoarthrit is, left k March 31, 2025 12:55pm Knee Pain April 12, 2025 1:00p m medical clearance April 13, 2025 1:54p m Pre-Op LTK April 21, 2025 12:3 5pm H & P LEFT PARTIAL VS TOTAL KNEE ARTHROP LASTY April 21, 2025 1:47pm Knee Pain April 22, 2025 12:0 0am Knee Pain April 29, 2025 6:31 am 2 weeks post op May 21, 2025 9: 26am M17.12 - Unilateral primary osteoarthrit is, left k May 21, 2025 9:38am SI joint pain June 03, 2025 1: 37pm Reason for Visit Admit Date Chronic pain March 22, 2025 9:02 am Osteoarthritis of left knee March 22 9:02am Sacroiliitis March 22, 2025 9:02 am Osteoarthritis of left knee March 31 12:37pm Chronic pain April 13, 2025 1:54p m Elevated blood pressure reading April 1:54pm Encounter for other preprocedural examin ation April 13, 2025 1:54pm Osteoarthritis of left knee April 13 1:54pm TIA (transient ischemic attack) April 1:54pm Osteoarthritis of left knee April 21 1:47pm Osteoarthritis of left knee May 21, 2025 9:26am Status post total left knee replacement May 21, 2025 9:26am Chronic pain June 03, 2025 1: 37pm Osteoarthritis of left knee June 03, 2025 1:37pm Sacroiliitis June 03, 2025 1: 37pm Chief Complaint Admit Date F.U LEFT GENICULAR RFA March 22, 2025 9 :02am CONSULT DR ADKINS LT KNEE PAIN March 12:37pm M17.12 - Unilateral primary osteoarthrit is, left k March 31, 2025 12:55pm Knee Pain April 12, 2025 1:00p m medical clearance April 13, 2025 1:54p m Pre-Op LTK April 21, 2025 12:3 5pm H & P LEFT PARTIAL VS TOTAL KNEE ARTHROP LASTY April 21, 2025 1:47pm Knee Pain April 22, 2025 12:0 0am Knee Pain April 29, 2025 6:31 am 2 weeks post op May 21, 2025 9: 26am M17.12 - Unilateral primary osteoarthrit is, left k May 21, 2025 9:38am SI joint pain June 03, 2025 1: 37pm fall head pain, lt arm injury May 1:02pm Chief Complaint Admit Date F.U LEFT GENICULAR RFA March 22, 2025 9 :02am CONSULT DR ADKINS LT KNEE PAIN March 12:37pm M17.12 - Unilateral primary osteoarthrit is, left k March 31, 2025 12:55pm Knee Pain April 12, 2025 1:00p m medical clearance April 13, 2025 1:54p m Pre-Op LTK April 21, 2025 12:3 5pm H & P LEFT PARTIAL VS TOTAL KNEE ARTHROP LASTY April 21, 2025 1:47pm Knee Pain April 22, 2025 12:0 0am Knee Pain April 29, 2025 6:31 am 2 weeks post op May 21, 2025 9: 26am M17.12 - Unilateral primary osteoarthrit is, left k May 21, 2025 9:38am SI joint pain June 03, 2025 1: 37pm fall head pain, lt arm injury May 1:02pm See order June 08, 2025 8:34am Reason for Visit Admit Date Chronic pain March 22, 2025 9:02 am Osteoarthritis of left knee March 22 9:02am Sacroiliitis March 22, 2025 9:02 am Osteoarthritis of left knee March 31 12:37pm Chronic pain April 13, 2025 1:54p m Elevated blood pressure reading April 1:54pm Encounter for other preprocedural examin ation April 13, 2025 1:54pm Osteoarthritis of left knee April 13 1:54pm TIA (transient ischemic attack) April 1:54pm Osteoarthritis of left knee April 21 1:47pm Osteoarthritis of left knee May 21, 2025 9:26am Status post total left knee replacement May 21, 2025 9:26am Chronic pain June 03, 2025 1: 37pm Osteoarthritis of left knee June 03, 2025 1:37pm Sacroiliitis June 03, 2025 1: 37pm Closed fracture dislocation of left elbo w June 08, 2025 8:34am Chief Complaint Admit Date CONSULT DR ADKINS LT KNEE PAIN March 12:37pm M17.12 - Unilateral primary osteoarthrit is, left k March 31, 2025 12:55pm Knee Pain April 12, 2025 1:00p m medical clearance April 13, 2025 1:54p m Pre-Op LTK April 21, 2025 12:3 5pm H & P LEFT PARTIAL VS TOTAL KNEE ARTHROP LASTY April 21, 2025 1:47pm Knee Pain April 22, 2025 12:0 0am Knee Pain April 29, 2025 6:31 am 2 weeks post op May 21, 2025 9: 26am M17.12 - Unilateral primary osteoarthrit is, left k May 21, 2025 9:38am SI joint pain June 03, 2025 1: 37pm fall head pain, lt arm injury May 1:02pm See order June 08, 2025 8:34am M17.12 - Unilateral primary osteoarthrit is, left k June 23, 2025 8:36am RECHECK INCREASED PAIN June 23 10:59am 1 MONTH FOR KNEE, 2 WEEKS ELBOW Septembe r 2024 11:38am Reason for Visit Admit Date Osteoarthritis of left knee March 31 12:37pm Chronic pain April 13, 2025 1:54p m Elevated blood pressure reading April 1:54pm Encounter for other preprocedural examin ation April 13, 2025 1:54pm Osteoarthritis of left knee April 13 1:54pm TIA (transient ischemic attack) April 1:54pm Osteoarthritis of left knee April 21 1:47pm Osteoarthritis of left knee May 21, 2025 9:26am Status post total left knee replacement May 21, 2025 9:26am Chronic pain June 03, 2025 1: 37pm Osteoarthritis of left knee June 03, 2025 1:37pm Sacroiliitis June 03, 2025 1: 37pm Closed fracture dislocation of left elbo w June 08, 2025 8:34am Chronic pain June 23, 2025 10:59am Osteoarthritis of left knee June 232024 10:59am Sacroiliitis June 23, 2025 10:59am Closed fracture dislocation of left elbo w June 23, 2025 11:38am Fracture of coronoid process of left uln a June 23, 2025 11:38am Osteoarthritis of left knee June 232024 11:38am Status post total left knee replacement June 23, 2025 11:38am Chief Complaint Admit Date CONSULT DR ADKINS LT KNEE PAIN March 12:37pm M17.12 - Unilateral primary osteoarthrit is, left k March 31, 2025 12:55pm Knee Pain April 12, 2025 1:00p m medical clearance April 13, 2025 1:54p m Pre-Op LTK April 21, 2025 12:3 5pm H & P LEFT PARTIAL VS TOTAL KNEE ARTHROP LASTY April 21, 2025 1:47pm Knee Pain April 22, 2025 12:0 0am Knee Pain April 29, 2025 6:31 am 2 weeks post op May 21, 2025 9: 26am M17.12 - Unilateral primary osteoarthrit is, left k May 21, 2025 9:38am SI joint pain June 03, 2025 1: 37pm fall head pain, lt arm injury May 1:02pm See order June 08, 2025 8:34am M17.12 - Unilateral primary osteoarthrit is, left k June 23, 2025 8:36am RECHECK INCREASED PAIN June 23 025 10:59am 1 MONTH FOR KNEE, 2 WEEKS ELBOW Junembe 2024 11:38am Follow up R/S June 24, 2025 2:04pm Reason for Visit Admit Date Osteoarthritis of left knee March 31 025 12:37pm Chronic pain April 13, 2025 1:54p m Elevated blood pressure reading April 1:54pm Encounter for other preprocedural examin ation April 13, 2025 1:54pm Osteoarthritis of left knee April 13 1:54pm TIA (transient ischemic attack) April 1:54pm Osteoarthritis of left knee April 21 025 1:47pm Osteoarthritis of left knee May 21, 2025 9:26am Status post total left knee replacement May 21, 2025 9:26am Chronic pain June 03, 2025 1: 37pm Osteoarthritis of left knee June 03, 2025 1:37pm Sacroiliitis June 03, 2025 1: 37pm Closed fracture dislocation of left elbo w June 08, 2025 8:34am Chronic pain June 23, 2025 10:59am Osteoarthritis of left knee June 232024 10:59am Sacroiliitis June 23, 2025 10:59am Closed fracture dislocation of left elbo w June 23, 2025 11:38am Fracture of coronoid process of left uln a June 23, 2025 11:38am Osteoarthritis of left knee June 232024 11:38am Status post total left knee replacement June 23, 2025 11:38am BPPV (benign paroxysmal positional verti go) June 24, 2025 2:04pm TIA (transient ischemic attack) 2024 2:04pm Chief Complaint Admit Date CONSULT DR ADKINS LT KNEE PAIN March 12:37pm M17.12 - Unilateral primary osteoarthrit is, left k March 31, 2025 12:55pm Knee Pain April 12, 2025 1:00p m medical clearance April 13, 2025 1:54p m Pre-Op LTK April 21, 2025 12:3 5pm H & P LEFT PARTIAL VS TOTAL KNEE ARTHROP LASTY April 21, 2025 1:47pm Knee Pain April 22, 2025 12:0 0am Knee Pain April 29, 2025 6:31 am 2 weeks post op May 21, 2025 9: 26am M17.12 - Unilateral primary osteoarthrit is, left k May 21, 2025 9:38am SI joint pain June 03, 2025 1: 37pm fall head pain, lt arm injury May 1:02pm See order June 08, 2025 8:34am M17.12 - Unilateral primary osteoarthrit is, left k June 23, 2025 8:36am RECHECK INCREASED PAIN June 23, 025 10:59am 1 MONTH FOR KNEE, 2 WEEKS ELBOW Septembe r 2024 11:38am Follow up R/S June 24, 2025 2:04pm LUMBAR PAIN June 29, 2025 7:52am Additional Source Comments INFORMATION SOURCE (unrecogn ized section and content) DATE CREATED AUTHOR 04/01/2018 [facility] DATE CREATED AUTHOR AUTHOR'S ORGANIZ ATION 04/01/2018 [facility] DATE CREATED AUTHOR AUTHOR'S ORGANIZ ATION 07/17/2022 [facility] DATE CREATED AUTHOR AUTHOR'S ORGANIZ ATION 11/09/2024 [facility] DATE CREATED AUTHOR AUTHOR'S ORGANIZ ATION 12/12/2024 [facility] EPIC DATE CREATED AUTHOR AUTHOR'S ORGANIZ ATION 07/08/2025 [facility] REASON FOR VISIT (unrecogniz [...] Care Provide r, Attending Provider Active Start: November 16, 2024 End: November 16, 2024 Team Status: Inactive Member Role Status Cony Harding DO Primary Care Provider Active S tart: November 23, 2024 End: November 23, 2024 Bradley Alba Jr, MD Emergency Provider Active Start: November 23, 2024 End: November 23, 2024 Team Status: Active Member Role Status Cony Harding DO Primary Care Provider Active S tart: November 26, 2024 SAGRARIO Sweeney Attending Provider Active S tart: November 26, 2024 Team Status: Inactive Member Role Status Cony Harding DO Primary Care Provide r, Attending Provider Active Start: November 30, 2024 End: November 30, 2024 Team Status: Inactive Member Role Status Cony Harding DO Primary Care Provider Active S tart: January 12, 2025 End: January 12, 2025 Bradley Adkins MD Attending Provider Active Sta rt: January 12, 2025 End: January 12, 2025 Team Status: Active Member Role Status Cony Harding DO Primary Care Provider Active S tart: January 12, 2025 Bradley Adkins MD Attending Provider, Other Provider Active Start: January 12, 2025 Team Status: Inactive Member Role Status Cony Harding DO Primary Care Provider Active S tart: January 19, 2025 End: January 19, 2025 Bradley Adkins MD Attending Provider Active Sta rt: January 19, 2025 End: January 19, 2025 Team Status: Active Member Role Status Cony Harding DO Primary Care Provider Active S tart: January 19, 2025 Bradley Adkins MD Attending Provider, Other Provider Active Start: January 19, 2025 Team Status: Active Member Role Status Cony Harding DO Primary Care Provider Active S tart: January 25, 2025 Bradlye Adkins MD Attending Provider, Other Provider Active Start: January 25, 2025 Team Status: Inactive Member Role Status Cony Harding DO Primary Care Provider Active S tart: January 26, 2025 End: January 26, 2025 Bradley Adkins MD Attending Provider Active Sta rt: January 26, 2025 End: January 26, 2025 Team Status: Inactive Member Role Status Cony Harding DO Primary Care Provider Active S tart: February 09, 2025 End: February 09, 2025 Bradley Adkins MD Attending Provider Active Sta rt: February 09, 2025 End: February 09, 2025 Team Status: Active Member Role Status Cony Harding DO Primary Care Provider Active S tart: February 09, 2025 Bradley Adkins MD Attending Provider, Other Provider Active Start: February 09, 2025 Team Status: Active Member Role Status Cony Harding DO Primary Care Provider Active S tart: November 02, 2024 Lobo Hawley , DO Attending Provider Active S tart: November 02, 2024 Team Status: Inactive Member Role Status Cony Harding DO Primary Care Provide r, Attending Provider Active Start: November 06, 2024 End: November 06, 2024 Team Status: Active Member Role Status Cony Harding DO Primary Care Provider Active S tart: November 09, 2024 Jeremy Barragan DO Attending Provider Active Sta rt: November 09, 2024 Team Status: Inactive Member Role Status Cony Harding DO Primary Care Provide r, Attending Provider Active Start: November 10, 2024 End: November 10, 2024 Team Status: Inactive Member Role [...] Cony Harding DO Primary Care Provider Active Mick Abernathy , DO Attending Provider Active Team Status: Inactive Member Role Status Cony Harding DO Primary Care Provider Active Jose Grullon MD Attending Provider Active Team Status: Inactive Member Role Status Cony Harding DO Primary Care Provider Active Mickey Gaspar , DO Emergency Provider Active Archana Rios MD RES Active Team Status: Inactive Member Role Status Cony Harding DO Primary Care Provider Active Bradley [...] May 11, 2024 End: May 11, 2024 Radiopharmacist Relationship Specialty Start Date End Date Monster Harding MD [address] [place] [address] PCP - General Family Medicine 09/03/23 Team Status: Active Member Role Status Dates Monster Harding DO Primary Care Provider Active S tart: August 04, 2024 Bradley Adkins MD Attending Provider Active Sta rt: August 04, 2024 Team Status: Inactive Member Role Status Dates Monster Harding DO Primary Care Provider Active S tart: October 22, 2024 End: October 22, 2024 Bradley Adkins MD Attending Provider Active Sta rt: October 22, 2024 End: October 22, 2024 Radiopharmacist Relationship Specialty Start Date End Date Monster Harding MD [address] [place] [address] PCP - General Family Medicine 09/03/23 Dean Gayle DO [address] [place] [address] [id number] Referring Physician Neurology 12/10/24 Radiopharmacist Relationship Specialty Start Date End Date Monster Harding MD [address] [place] [address] PCP - General Family Medicine 09/03/23 Dean Gayle DO [address] [place] [id number] Referring Physician Neurology 12/10/24 Team Status: Inactive Member Role Status Dates Monster Harding DO Primary Care Provider Active S tart: February 17, 2025 End: February 17, 2025 Bradley Adkins MD Attending Provider Active Sta rt: February 17, 2025 End: February 17, 2025 Team Status: Active Member Role Status Dates Monster Harding DO Primary Care Provider Active S tart: January 12, 2025 Bradley Adkins MD Attending Provider Active Sta rt: January 12, 2025 Bradley Adkins MD Other Provider Active Start: January 12, 2025 Team Status: Active Member Role Status Dates Monster Harding DO Primary Care Provider Active S tart: January 19, 2025 Bradley Adkins MD Attending Provider Active Sta rt: January 19, 2025 Bradley Adkins MD Other Provider Active Start: January 19, 2025 Team Status: Active Member Role Status Cony Harding DO Primary Care Provider Active S tart: February 09, 2025 Bradley Adkins MD Attending Provider Active Sta rt: February 09, 2025 Bradley Adkins MD Other Provider Active Start: February 09, 2025 Team Status: Inactive Member Role Status Cony Harding DO Primary Care Provider Active S tart: February 23, 2025 End: February 23, 2025 Bradley Adkins MD Attending Provider Active Sta rt: February 23, 2025 End: February 23, 2025 Team Status: Active Member Role Status Cony Harding DO Primary Care Provider Active S tart: February 23, 2025 Bradley Adkins MD Attending Provider Active Sta rt: February 23, 2025 Bradley Adkins MD Other Provider Active Start: February 23, 2025 Team Status: Inactive Member Role Status Cony Harding DO Primary Care Provider Active S tart: March 22, 2025 End: March 22, 2025 Bradley Adkins MD Attending Provider Active Sta rt: March 22, 2025 End: March 22, 2025 Team Status: Inactive Member Role Status Cony Harding DO Primary Care Provider Active S tart: March 31, 2025 End: March 31, 2025 Mick Abernathy DO Attending Provider Active S tart: March 31, 2025 End: March 31, 2025 Team Status: Active Member Role Status Cony Harding DO Primary Care Provider Active S tart: March 31, 2025 Mick Abernathy DO Attending Provider Active S tart: March 31, 2025 Team Status: Inactive Member Role Status Cony Harding DO Primary Care Provider Active S tart: April 12, 2025 End: April 12, 2025 Mick Abernathy DO Attending Provider Active S tart: April 12, 2025 End: April 12, 2025 Team Status: Inactive Member Role Status Cony Harding DO Primary Care Provider Active S tart: April 13, 2025 End: April 13, 2025 Monster Harding DO Attending Provider Active Star t: April 13, 2025 End: April 13, 2025 Team Status: Active Member Role Status Dates Monster Girvin , DO Primary Care Provider Active S tart: April 21, 2025 Mick Abernathy , DO Attending Provider Active S tart: April 21, 2025 Team Status: Inactive Member Role Status Dates Monster Harding , DO Primary Care Provider Active S tart: April 21, 2025 End: April 21, 2025 Mick Abernathy , DO Attending Provider Active S tart: April 21, 2025 End: April 21, 2025 Team Status: Active Member Role Status Dates Monster Harding , DO Primary Care Provider Active S tart: April 22, 2025 Mick Abernathy , DO Attending Provider Active S tart: April 22, 2025 Mick Abernathy , DO Other Provider Active Start : April 22, 2025 Team Status: Inactive Member Role Status Dates Monster Harding , DO Primary Care Provider Active S tart: April 29, 2025 End: April 29, 2025 Mick Abernathy , DO Attending Provider Active S tart: April 29, 2025 End: April 29, 2025 Team Status: Inactive Member Role Status Dates Monster Harding , DO Primary Care Provider Active S tart: May 21, 2025 End: May 21, 2025 Mick Abernathy , DO Attending Provider Active S tart: May 21, 2025 End: May 21, 2025 Team Status: Active Member Role Status Cony Harding , DO Primary Care Provider Active S tart: May 21, 2025 Mick Abernathy , DO Attending Provider Active S tart: May 21, 2025 Team Status: Inactive Member Role Status Cony Harding , DO Primary Care Provider Active S tart: June 03, 2025 End: June 03, 2025 Bradley Adkins MD Attending Provider Active Sta rt: June 03, 2025 End: June 03, 2025 Team Status: Inactive Member Role Status Dates Monster Harding , DO Primary Care Provider Active S tart: June 04, 2025 End: June 04, 2025 Gallo Wang PA-C Emergency Provider Active Start: June 04, 2025 End: June 04, 2025 Team Status: Active Member Role Status Cony Harding , DO Primary Care Provider Active S tart: June 08, 2025 Mick Abernathy , DO Attending Provider Active S tart: June 08, 2025 Mick Abernathy DO Other Provider Active Start : June 08, 2025 Team Status: Active Member Role Status Cony Preciado DO Ximena Primary Care Provider Active S tart: June 23, 2025 Mick Abernathy , DO Attending Provider Active S tart: June 23, 2025 Team Status: Inactive Member Role Status Cony Preciado DO Xim[place] Primary Care Provider Active S tart: June 23, 2025 End: June 23, 2025 Bradley Adkins MD Attending Provider Active Sta rt: June 23, 2025 End: June 23, 2025 Team Status: Inactive Member Role Status Cony Monster Harding DO Primary Care Provider Active S tart: June 23, 2025 End: June 23, 2025 Mick Abernathy DO Attending Provider Active S tart: June 23, 2025 End: June 23, 2025 Team Status: Inactive Member Role Status Cony Preciado Perryyeny DO Primary Care Provider Active S tart: June 24, 2025 End: June 24, 2025 Dean Gayle DO Attending Provider Active Start: June 24, 2025 End: June 24, 2025 Team Status: Active Member Role Status Cony Monster Harding DO Primary Care Provider Active S tart: June 29, 2025 Bradley Adkins MD Attending Provider Active Sta rt: June 29, 2025 Bradley Adkins MD Other Provider Active Start: June 29, 2025 Goals (unrecognized section and content) Goals may [...] BE BASED ON THE PRIMARY CLINICAL RECORDS. [employer] provides no warranty or guarantee of the accuracy or completeness of information in this document.
== END 2025-07-12 10:32 | disposition home or self-care (01) ==
LOC: RAD 10:31
PROVIDERS: PCP Family Medicine; Visit Provider Orthopaedic Surgery Orthopaedic Trauma
DX: S52.042A Displaced fracture of coronoid process of left ulna, initial encounter for closed fracture (principal); M17.12 Unilateral primary osteoarthritis, left knee; Z96.652 Presence of left artificial knee joint
CPT/HCPCS: 73070; 73562